=== PATIENT | female | born 1965 | race Caucasian/White ===

== ENCOUNTER 2019-12-22 10:28 | Outpatient (CLI) | payer OTHER, SELFPAY ==
--- NOTE | 2019-12-22 10:39 | XR_ITS ---
WS: [id number] FOOT LEFT TECHNIQUE: 3 views of the left foot CLINICAL INFORMATION: DIABETIC FOOT ULCER LEFT COMPARISON: None. FINDINGS: Osteopenia. No acute fractures. Plantar and Achilles calcaneal spurring. No evidence of osteomyelitis . Mild soft tissue edema first digit. XR/XR foot LT min 3V* [id number] IMPRESSION: Soft tissue edema first digit. No definite evidence of osteomyelitis.
--- NOTE | 2019-12-22 10:39 | XR_ITS ---
WS: [id number] HIP WITH PELVIS LEFT TECHNIQUE: 3 views of the left hip with pelvis CLINICAL INFORMATION: HIP PAIN LEFT COMPARISON: None. FINDINGS: Mild degenerative arthritis left hip. No acute fractures. Normal visualized pubic rami. XR/XR hip LT 2-3V wo/w pel* [id number] IMPRESSION: Mild degenerative arthritis left hip.
== END 2019-12-22 10:29 | disposition home or self-care (01) ==
LOC: RADWPI 10:34
PROVIDERS: PCP Nurse Practitioner Family; Visit Provider Nurse Practitioner Family
DX: E11.621 Type 2 diabetes mellitus with foot ulcer (principal); M16.12 Unilateral primary osteoarthritis, left hip; R60.0 Localized edema
CPT/HCPCS: 73502; 73630

== ENCOUNTER 2019-12-29 14:32 | Outpatient (CLI) | payer OTHER, SELFPAY ==
--- NOTE | 2019-12-29 15:10 | MM_ITS ---
WS: [id number] BILATERAL DIGITAL SCREENING MAMMOGRAPHY WITH CAD CLINICAL INFORMATION: SCREENING HISTORY: Screening mammogram. No current complaints. COMPARISON: None. TECHNIQUE: Bilateral CC and MLO views. FINDINGS: Scattered fibroglandular densities bilaterally. Punctate and lucent centered calcifications. Cluster of heterogeneous calcifications outer left breast posterior depth. Recommend spot magnification views for further evaluation Asymmetric density left axilla measuring 12 mm. Recommend further evaluation with ultrasound. Reporte d history of prior trauma in this area. This density is indeterminate. IMPRESSION: MM/[place] [id number] BI-RADS: 0-Incomplete: Need additional imaging evaluation FOLLOW UP: Need Additional Imaging RECOMMEND SPOT MAGNIFICATION VIEWS CLUSTERED CALCIFICATIONS LEFT BREAST. IN ADDITION, RECOMMEND ULTRASOUND EVALUATION OF THE ASYMMETRIC 12 MM OVOID DENS ITY LEFT AXILLA.
== END 2019-12-29 14:33 | disposition home or self-care (01) ==
LOC: RADSHAW 14:36
PROVIDERS: PCP Nurse Practitioner Family; Visit Provider Nurse Practitioner Family
DX: Z12.31 Encounter for screening mammogram for malignant neoplasm of breast (principal); R92.1 Mammographic calcification found on diagnostic imaging of breast; N64.89 Other specified disorders of breast
CPT/HCPCS: 77067

== ENCOUNTER 2020-01-16 08:31 | Outpatient (CLI) | payer OTHER, SELFPAY ==
--- NOTE | 2020-01-16 08:37 | US_ITS ---
WS: [id number] Left breast ultrasound, 01/16/2020 Clinical Data: ABNORMAL MAMMOGRAM Comparison: None. Findings: In the left axilla there are 2 lymph nodes. These measure 0.83 x 1.85 x 3.01 cm and another one is 1. 31 x 2 x 2 cm. US/US breast LT limited* [id number] Impression: 1. 2 lymph nodes in the left axilla. 2. Recommend repeat left breast mammogram in 6 months. BIRADS: 3-Probably Benign FOLLOW UP: See Report
--- NOTE | 2020-01-16 08:37 | MM_ITS ---
WS: [id number] Left breast diagnostic digital mammogram, 01/16/2020 Clinical Data: ABNORMAL MAMMOGRAM Comparison: None. Findings: There are several calcifications in the upper outer aspect the left breast without an associated mass . These calcifications have a benign appearance. There are other scattered calcifications in the late ral aspect of the left breast. MM/[place] [id number] Impression: 1. Calcifications in upper-outer quadrant of left breast without associated mas s. 2. Probably benign calcifications and recommend follow-up mammogram in 6 months . BIRADS: 3-Probably Benign FOLLOW UP: 6 Week Follow-up The CAD checker cashier was used.
== END 2020-01-16 08:32 | disposition home or self-care (01) ==
LOC: RADSHAW 08:35
PROVIDERS: PCP Nurse Practitioner Family; Visit Provider Nurse Practitioner Family
DX: R92.8 Other abnormal and inconclusive findings on diagnostic imaging of breast (principal); R92.1 Mammographic calcification found on diagnostic imaging of breast
CPT/HCPCS: 76642; 77065

== ENCOUNTER → 2020-01-21 14:10 | Outpatient (BNVA) | payer OTHER, SELFPAY | PROVIDERS: PCP Nurse Practitioner Family; Referring Provider Nurse Practitioner Family; Visit Provider Podiatrist Foot & Ankle Surgery | DX: L97.522 Non-pressure chronic ulcer of other part of left foot with fat layer exposed (principal) | CPT/HCPCS: 73630 ==

== ENCOUNTER 2020-01-21 15:56 | Outpatient (CLI) | payer OTHER, SELFPAY | END 2020-01-21 15:57 | disposition home or self-care (01) | LOC: SPT 15:56 | PROVIDERS: PCP Nurse Practitioner Family; Visit Provider Podiatrist Foot & Ankle Surgery | DX: Z46.89 Encounter for fitting and adjustment of other specified devices (principal); L97.522 Non-pressure chronic ulcer of other part of left foot with fat layer exposed | CPT/HCPCS: 87070; 87075; 87077; 87186; 87205; 97760; L4361 ==

== ENCOUNTER 2020-01-28 14:48 | Outpatient (CLI) | payer OTHER, SELFPAY | END 2020-01-28 14:49 | disposition home or self-care (01) | LOC: WOUND 14:49 | PROVIDERS: PCP Nurse Practitioner Family; Visit Provider Thoracic Surgery (Cardiothoracic Vascular Surgery) | DX: E11.621 Type 2 diabetes mellitus with foot ulcer (principal); L97.522 Non-pressure chronic ulcer of other part of left foot with fat layer exposed | CPT/HCPCS: 11042; G0463; L4387 ==

== ENCOUNTER 2020-02-04 15:02 | Outpatient (CLI) | payer OTHER, SELFPAY | END 2020-02-04 15:03 | disposition home or self-care (01) | LOC: WOUND 15:02 | PROVIDERS: PCP Nurse Practitioner Family; Visit Provider Thoracic Surgery (Cardiothoracic Vascular Surgery) | DX: E11.621 Type 2 diabetes mellitus with foot ulcer (principal); L97.522 Non-pressure chronic ulcer of other part of left foot with fat layer exposed | CPT/HCPCS: 11042 ==

== ENCOUNTER 2020-02-11 15:06 | Outpatient (CLI) | payer OTHER, SELFPAY | END 2020-02-11 15:07 | disposition home or self-care (01) | LOC: WOUND 15:07 | PROVIDERS: PCP Nurse Practitioner Family; Visit Provider Thoracic Surgery (Cardiothoracic Vascular Surgery) | DX: E11.621 Type 2 diabetes mellitus with foot ulcer (principal); L97.522 Non-pressure chronic ulcer of other part of left foot with fat layer exposed | CPT/HCPCS: 11042 ==

== ENCOUNTER 2020-02-18 14:34 | Outpatient (CLI) | payer OTHER, SELFPAY | END 2020-02-18 14:35 | disposition home or self-care (01) | LOC: WOUND 14:35 | PROVIDERS: PCP Nurse Practitioner Family; Visit Provider Thoracic Surgery (Cardiothoracic Vascular Surgery) | DX: E11.621 Type 2 diabetes mellitus with foot ulcer (principal); L97.522 Non-pressure chronic ulcer of other part of left foot with fat layer exposed | CPT/HCPCS: 11042 ==

== ENCOUNTER 2020-02-25 13:40 | Outpatient (CLI) | payer OTHER, SELFPAY | END 2020-02-25 13:41 | disposition home or self-care (01) | LOC: WOUND 13:40 | PROVIDERS: PCP Nurse Practitioner Family; Visit Provider Nurse Practitioner Family | DX: E11.621 Type 2 diabetes mellitus with foot ulcer (principal); L97.522 Non-pressure chronic ulcer of other part of left foot with fat layer exposed | CPT/HCPCS: 11042 ==

== ENCOUNTER 2020-03-03 13:41 | Outpatient (CLI) | payer OTHER, SELFPAY | END 2020-03-03 13:42 | disposition home or self-care (01) | LOC: WOUND 13:42 | PROVIDERS: PCP Nurse Practitioner Family; Visit Provider Nurse Practitioner Family | DX: E11.621 Type 2 diabetes mellitus with foot ulcer (principal); L97.522 Non-pressure chronic ulcer of other part of left foot with fat layer exposed | CPT/HCPCS: 11042 ==

== ENCOUNTER 2020-03-08 05:16 | Emergency (ER) | payer OTHER, SELFPAY ==
[2020-03-08 05:22] VITALS: BP 174/99; PULSE 91; RESP 16; TEMP 36.7; O2SAT 98; BMI 31.8
--- NOTE | 2020-03-08 05:22 | XRR_ITS ---
PROCEDURE INFORMATION: Exam: XR Right Shoulder Exam date and time: 03/08/2020 6:47 AM Age: 54 years old Clinical indication: Pain; Shoulder; Left; Patient HX: PT denies any injury TECHNIQUE: Imaging protocol: XR Right shoulder. Views: 2 or more views. COMPARISON: No relevant prior studies available. FINDINGS: Bones/joints: No fracture. No dislocation. The acromioclavicular and glenohumeral joints are within normal limits. There is calcific tendinitis affecting the rotator cuff. Soft tissues: No acute soft tissue abnormality. XR/XR shoulder RT min 2V* [id number] IMPRESSION: Calcific tendinitis.
--- NOTE | 2020-03-08 05:30 | ED_ITS ---
HPI - Extremity Problem General: Chief complaint: Extremity Injury, Upper Stated complaint: Right arm/shoulder/neck pain. Began 03/07 Time Seen by Provider: 03/08/20 05:22 Source: patient Mode of arrival: ambulatory Limitations: no limitations History of Present Illness: HPI Narrative: Micaela is a 54-year-old female who states she has had right shoulder pain and neck pain over the last day. States that sharp pain and feels like it spasming. She states anytime she tries to remove her arm she has a sharp pain as well. Denies any radiation of the pain. Denies any weakness in her care process manager. She denies any injury. Associated symptoms: Deny chest pain, fever(s) or rash Review of Systems Const: Denies: fever(s), chills, body aches or change in appetite Eyes: Denies: blurry vision or eye discomfort ENMT: Denies: throat pain or dental pain Card: Denies: chest pain Resp: Denies: dyspnea GI: Denies: abdominal pain, nausea, vomiting or diarrhea : Denies: dysuria Musc: Reports: neck pain and joint pain; Denies: back pain Skin/Breast: Denies: rash Neuro: Denies: headache(s) Psych: Denies: depression Aden/Lymph: Denies: easy bruising All/Imm: Denies: urticaria PFSH ED PFSH: Medical History (Updated 03/08/20 @ 05:46 by German Carr MD) Diabetes mellitus High cholesterol Hypertension Surgical History (Updated 01/21/20 @ 14:54 by Art Cordon DPM) History of delivery Social History (Updated 01/21/20 @ 14:02 by Lainey Macias LPN) Smoking and tobacco status: never smoked Household members: none Current occupational status: employed Current occupation: [employer] Physical Exam Const: COMMON NORMALS: no acute distress, patient oriented x3 and healthy appearing HENMT: COMMON NORMALS: normocephalic and atraumatic HEAD & SCALP: normocephalic and atraumatic Eye: COMMON NORMALS: Equal, round and reactive pupils present and EOMs intact bilaterally PUPIL: Yes Equal, round and reactive pupils present Neck/C-Spine: COMMON NORMALS: full ROM and supple OTHER: Point tender over right neck and shoulder. Patient has pain with movement as well. Patient appears to have muscle spasms. Chest: COMMONS NORMALS: normal inspection of the chest and normal palpation of entire chest wall Resp: COMMON NORMALS: normal respiratory effort, No retractions, No use of accessory muscles and clear to auscultation bilaterally AUSCULTATION: clear to auscultation bilaterally Cardio: COMMON NORMALS: regular rate, regular rhythm and No murmurs present (Cardio) RATE: regular rate RHYTHM: regular rhythm GI: COMMON NORMALS: Normal to inspection, nondistended, normoactive bowel sounds present, Soft to palpation, non-tender and no masses PALPATION: Yes Soft to palpation Extremity: COMMON NORMALS: normal to inspection and full ROM Neuro: COMMON NORMALS: patient oriented x3, moves all extremities and no focal motor deficits Psych: COMMON NORMALS: mental status grossly normal, Normal thought process present and cooperative THOUGHT PROCESS: Normal thought process present Skin: COMMON NORMALS: no rashes or lesions noted and no wounds GENERAL SKIN EXAM: no rashes or lesions noted Course Vital Signs: Vital signs: Vital Signs Temperature 98.1 F 03/08/20 05:22 Pulse Rate 91 03/08/20 05:22 Respiratory Rate 16 03/08/20 05:22 Blood Pressure 174/99 03/08/20 05:22 Pulse Oximetry 98 03/08/20 05:22 MDM - Extremity (Nontraumatic) MDM Narrative: Medical decision making narrative: Patient presents with a shoulder sprain with likely muscle spasm. She is well-appearing here and x-ray shows no acute abnormality. Informed her to try small movements we will place her on Naprosyn and Robaxin and she is to ice 10 minutes every hour. She is to follow-up with PCP and return if worsening. Imaging Data^: xr r shoulder: Attestation: I personally reviewed and interpreted this imaging study as follows: My impression: no acute abnormality Discharge Plan Discharge Patient Disposition: Home Clinical Impression: Acute pain of right shoulder, Muscle spasm Condition: Stable Prescriptions: New Robaxin-750 750 mg tablet 750 mg PO Q6H Qty: 30 RF: 0 Naprosyn 500 mg tablet 500 mg PO BID PRN (Reason: pain) Qty: 20 RF: 0 No Action (DME) cam boot See Rx Instructions .Route .MEDSUPPLY Qty: 1 RF: 0 mupirocin 2 % ointment 1 applic TOPICAL BID 30 Days Qty: 15 RF: 0 sulfamethoxazole-trimethoprim [Bactrim DS] 800-160 mg tablet 1 tab PO BID 10 Days Qty: 20 RF: 0 Discharge Orders: Discharge Order (Routine); Ordered 03/08/20 Ordered By: German Carr Referrals: ROBERTO CARLOS RICHARDSON FNP [Primary Care Provider] - Discharge Diet: Advance as tolerated Discharge Activity: Resume usual activity Patient Instructions: Muscle Spasm (ED) Coding Level of Care Code ED Contract Sheltered Workshop Supervisor for Concepcióng Fwd Exam Comprehensive
--- NOTE | 2020-03-08 05:38 | PC.NURSE ---
pt placed in a sling at this point all SMCs intact prior and post procedure.
[2020-03-08] MEDS: naproxen 500 mg Tablet PO (06:25)
[2020-03-08] MEDS: diazePAM 2 mg Tablet PO (06:25)
[2020-03-08 06:32] VITALS: BP 150/96; PULSE 89; RESP 18; O2SAT 98
== END 2020-03-08 06:34 | disposition home or self-care (01) ==
PROVIDERS: Emergency Provider Emergency Medicine; PCP Nurse Practitioner Family
DX: M25.511 Pain in right shoulder (principal); M62.838 Other muscle spasm; E11.9 Type 2 diabetes mellitus without complications; I10 Essential (primary) hypertension
CPT/HCPCS: 12345; 73030; 99282; 99283

== ENCOUNTER 2020-03-13 06:03 | Emergency (ER) | payer OTHER, SELFPAY ==
[2020-03-13 06:14] VITALS: BP 112/67; PULSE 104; RESP 22; TEMP 36.4; O2SAT 98; BMI 31.8
[2020-03-13 06:21] VITALS: BP 122/73; PULSE 90
--- NOTE | 2020-03-13 06:46 | XRR_ITS ---
PROCEDURE INFORMATION: Exam: XR Chest, 1 View Exam date and time: 03/13/2020 7:56 AM Age: 54 years old Clinical indication: Other: Neck pain; Additional info: Dyspnea TECHNIQUE: Imaging protocol: XR of the chest Views: 1 view. COMPARISON: CR Chest 1 [place] [id number] 04/06/2013 3:17 AM FINDINGS: Lungs: Hypoinflation, interstitial prominence, and mild basilar airspace disease. Pleural space: No significant pleural effusion. Heart/Mediastinum: Cardiomegaly, which is accentuated by portable positioning. Bones/joints: Degenerative change. Other findings: Brassiere artifact. XR/XR chest 1V portable [id number] IMPRESSION: Hypoinflation, interstitial prominence, and mild basilar airspace disease.
--- NOTE | 2020-03-13 06:48 | ED_ITS ---
HPI - Extremity Problem General: Chief complaint: Extremity Problem,Nontraumatic Stated complaint: rt shoulder and neck pain Time Seen by Provider: 03/13/20 06:46 History of Present Illness: HPI Narrative: 54-year-old female presents emergency room with complaint of right shoulder pain. She states that Sunday at work her shoulder started hurting she was seen that night x-rays were unremarkable nausea states she has worsening pain pain radiating down the right arm and also has worsening pain when she takes a deep breath. No specific trauma or injury that she can relate. No previous surgeries to the neck. MD Complaint: extremity pain and joint pain Onset (ago): day(s) Pain Consistency: constant Location: right, upper extremity and other (Shoulder right shoulder right arm) Quality: aching and sharp Radiation: distal Relieving factors: nothing Exacerbating factors: nothing Associated symptoms: Reports short of breath; Deny chest pain, fever(s), myalgias or rash Review of Systems Const: Denies: fever(s) ENMT: Denies: throat pain, ear or mastoid pain, nasal discharge or nasal congestion Card: Denies: chest pain Resp: Denies: dyspnea, productive cough or non-productive cough GI: Denies: abdominal pain, nausea, vomiting, hematemesis, coffee ground emesis, diarrhea, constipation, bloating, hematochezia or melena : Denies: flank pain, difficulty voiding, dysuria, urinary frequency or urinary urgency Skin/Breast: Denies: rash PFSH ED PFSH: Medical History Diabetes mellitus High cholesterol Hypertension Surgical History History of delivery Social History Smoking and tobacco status: never smoked Household members: none Current occupational status: employed Current occupation: [employer] Physical Exam HENMT: COMMON NORMALS: normocephalic, atraumatic and hearing grossly normal bilaterally HEAD & SCALP: normocephalic and atraumatic Eye: COMMON NORMALS: Equal, round and reactive pupils present, EOMs intact bilaterally, conjunctivae normal and no scleral icterus CONJUNCTIVA: Yes conjunctivae normal PUPIL: Yes Equal, round and reactive pupils present Neck/C-Spine: COMMON NORMALS: no lymphadenopathy GENERAL: Yes tender CERVICAL SPINE: Yes pain with cervical ROM, Yes loss of normal cervical lordosis and Yes Paracervical muscle tenderness Resp: COMMON NORMALS: normal respiratory effort, No retractions, No use of accessory muscles and clear to auscultation bilaterally AUSCULTATION: clear to auscultation bilaterally Cardio: COMMON NORMALS: regular rate, regular rhythm and No murmurs present (Cardio) RATE: regular rate RHYTHM: regular rhythm GI: COMMON NORMALS: Soft to palpation and No hepatosplenomegaly present AUSCULTATION: Yes normoactive bowel sounds PALPATION: Yes Soft to palpation, No Tenderness to palpation present (GI), No Guarding due to palpation present (GI) and Yes No hepatosplenomegaly present Extremity: COMMON NORMALS: normal to inspection, capillary refill normal, no clubbing, cyanosis or edema, no calf tenderness and no pedal edema Skin: COMMON NORMALS: no rashes or lesions noted GENERAL SKIN EXAM: no rashes or lesions noted Course Vital Signs: Vital signs: Vital Signs Temperature 97.6 F 03/13/20 06:14 Pulse Rate 88 03/13/20 11:34 Respiratory Rate 18 03/13/20 11:34 Blood Pressure 118/62 03/13/20 11:34 Pulse Oximetry 98 03/13/20 11:34 MDM - Extremity (Nontraumatic) MDM Narrative: Medical decision making narrative: Reviewed MRI findings with her. She does have a cervical spinal stenosis secondary to a disc at C6-7 we will discharge her home with pain medications muscle relaxers and steroids sitter at the scene orthopedic spine surgery next week for further evaluation. Lab Data: Labs: Lab Results 03/13/20 03/13/20 03/13/20 Range/Units 07:10 07:10 08:48 WBC 12.6 H (4.0-10.0) 10^3/ uL RBC 3.60 L (4.1-5.3) 10^6/u L Hgb 11.6 (11.5-15.3) g/dL Hct 34.3 L (37.0-47.0) % MCV 95.3 (81-99) fL MCH 32.2 (28.0-34.0) pg MCHC 33.8 (30.0-36.0) g/dL RDW 14.0 (12.1-15.1) % Plt Count 213 (130-400) 10^3/c mm MPV 10.0 (7.4-10.4) fL Neut % (Auto) 81.4 % Lymph % (Auto) 8.1 % [place] % (Auto) 8.1 % Eos % (Auto) 1.4 % Baso % (Auto) 0.6 % Neut # (Auto) 10.28 H (1.8-7.7) 10^3/u L Lymph # (Auto) 1.0 (0.8-4.8) 10^3/u L [place] # (Auto) 1.0 H (0.2-0.9) 10^3/u L Eos # (Auto) 0.2 (0.0-0.8) 10^3/u L Baso # (Auto) 0.1 (0.0-0.1) 10^3/u L Nucleated RBC % (a uto) 0 % Nucleated RBCs # 0.0 /100WBC Sodium 130 L (136-145) mmol/L Potassium 3.7 (3.5-5.1) mmol/L Chloride 92 L (98-107) mmol/L Carbon Dioxide 23 (22-29) mmol/L Anion Gap 18.7 (5-19) BUN 59 H (6-20) mg/dL Creatinine 1.3 H (0.5-0.9) mg/dL GFR Calculation 43.0 L (90-130) mL/min Glucose 433 H (65-115) mg/dL Calculated Osmolal ity 305 H (285-295) mOsm/k g Calcium 9.2 (8.5-10.5) mg/dL Total Bilirubin 0.3 (0.15-1.2) mg/dL AST 55 H (0-32) U/L ALT 57 H (0-33) U/L Alkaline Phosphata se 166 H (35-105) IU/L Total Protein 7.5 (6.6-8.7) g/dL Albumin 3.4 L (3.5-5.2) g/dL Globulin 4.1 (1.3-4.6) g/dL Urine Color (Yellow) Urine Appearance (CLEAR) Urine pH (5-7) Ur Specific Gravit y (1.005-1.030) Urine Protein (Negative) Urine Glucose (UA) (Normal) Urine Ketones (Negative) Urine Blood (Negative) Urine Nitrate (Negative) Urine Bilirubin (Negative) Urine Urobilinogen (Negative) mg/dL Ur Leukocyte Eugenia ase (Negative) Urine RBC (0-2) /hpf Urine WBC (0-5) /hpf Ur Squamous Epith Cells (0-5) /hpf Ur Transition Epit h Cell /hpf Amorphous Sediment /hpf Urine Bacteria (NONE) /hpf Coarse Granular Ca sts /lpf Urine Mucus /hpf Urine Opiates Scre en Positive H (Negative) ng/mL Ur Barbiturates Sc reen Negative (Negative) ng/mL Ur Phencyclidine S crn Negative (Negative) ng/mL Ur Amphetamines Sc reen Negative (Negative) ng/mL U Benzodiazepines Scrn Positive H (Negative) ng/mL Urine Cocaine Scre en Negative (Negative) ng/mL U Marijuana (THC) Screen Negative (Negative) ng/mL 03/13/20 Range/Units 08:48 WBC (4.0-10.0) 10^3/ uL RBC (4.1-5.3) 10^6/u L Hgb (11.5-15.3) g/dL Hct (37.0-47.0) % MCV (81-99) fL MCH (28.0-34.0) pg MCHC (30.0-36.0) g/dL RDW (12.1-15.1) % Plt Count (130-400) 10^3/c mm MPV (7.4-10.4) fL Neut % (Auto) % Lymph % (Auto) % [place] % (Auto) % Eos % (Auto) % Baso % (Auto) % Neut # (Auto) (1.8-7.7) 10^3/u L Lymph # (Auto) (0.8-4.8) 10^3/u L [place] # (Auto) (0.2-0.9) 10^3/u L Eos # (Auto) (0.0-0.8) 10^3/u L Baso # (Auto) (0.0-0.1) 10^3/u L Nucleated RBC % (a uto) % Nucleated RBCs # /100WBC Sodium (136-145) mmol/L Potassium (3.5-5.1) mmol/L Chloride (98-107) mmol/L Carbon Dioxide (22-29) mmol/L Anion Gap (5-19) BUN (6-20) mg/dL Creatinine (0.5-0.9) mg/dL GFR Calculation (90-130) mL/min Glucose (65-115) mg/dL Calculated Osmolal ity (285-295) mOsm/k g Calcium (8.5-10.5) mg/dL Total Bilirubin (0.15-1.2) mg/dL AST (0-32) U/L ALT (0-33) U/L Alkaline Phosphata se (35-105) IU/L Total Protein (6.6-8.7) g/dL Albumin (3.5-5.2) g/dL Globulin (1.3-4.6) g/dL Urine Color Allie (Yellow) Urine Appearance Hazy A (CLEAR) Urine pH 5 (5-7) Ur Specific Gravit y 1.015 (1.005-1.030) Urine Protein Trace (Negative) Urine Glucose (UA) 2+ (Normal) Urine Ketones 1+ H (Negative) Urine Blood Neg (Negative) Urine Nitrate Negative (Negative) Urine Bilirubin 1+ H (Negative) Urine Urobilinogen Norm (Negative) mg/dL Ur Leukocyte Eugenia ase Trace H (Negative) Urine RBC None (0-2) /hpf Urine WBC 5-10 H (0-5) /hpf Ur Squamous Epith Cells 25-40 H (0-5) /hpf Ur Transition Epit h Cell 5-10 /hpf Amorphous Sediment 1+ /hpf Urine Bacteria 2+ H (NONE) /hpf Coarse Granular Ca sts 0-4 H /lpf Urine Mucus 1+ /hpf Urine Opiates Scre en (Negative) ng/mL Ur Barbiturates Sc reen (Negative) ng/mL Ur Phencyclidine S crn (Negative) ng/mL Ur Amphetamines Sc reen (Negative) ng/mL U Benzodiazepines Scrn (Negative) ng/mL Urine Cocaine Scre en (Negative) ng/mL U Marijuana (THC) Screen (Negative) ng/mL Discharge Plan Discharge Patient Disposition: Home Clinical Impression: 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 Condition: Stable Prescriptions: New hydrocodone-acetaminophen 5-325 mg tablet 1 tab PO Q6H PRN (Reason: pain) Qty: 20 RF: 0 Medrol (Cristiano) 4 mg tablets,dose pack See Rx Instructions .ROUTE .COMPLEX Qty: 21 RF: 0 tizanidine 4 mg capsule 4 mg PO Q6H PRN (Reason: muscle spasticity) Qty: 20 RF: 0 Lyrica 75 mg capsule 75 mg PO BID Qty: 30 RF: 0 No Action (DME) cam boot See Rx Instructions .Route .MEDSUPPLY Qty: 1 RF: 0 mupirocin 2 % ointment 1 applic TOPICAL BID 30 Days Qty: 15 RF: 0 sulfamethoxazole-trimethoprim [Bactrim DS] 800-160 mg tablet 1 tab PO BID 10 Days Qty: 20 RF: 0 Robaxin-750 750 mg tablet 750 mg PO Q6H Qty: 30 RF: 0 Naprosyn 500 mg tablet 500 mg PO BID PRN (Reason: pain) Qty: 20 RF: 0 Discharge Orders: Discharge ED (Routine); Ordered 03/13/20 Ordered By: Petey Baldwin Referrals: ROBERTO CARLOS RICHARDSON, CORPORATE GENERAL MANAGER [Primary Care Provider] - Discharge Diet: Usual diet Discharge Activity: Limit activity as instructed Activity Restrictions/Additional Instructions: Case management will call to set you up to see the orthopedic spine surgeon. No lifting greater than 10 pounds (approximately the weight of a gallon of milk) no driving. Follow-up with your primary care doctor in the next 4 to 5 days. Coding Level of Care Code ED Concession Supervisor for Makayla Fwd Exam Comprehensive
--- NOTE | 2020-03-13 07:01 | CTR_ITS ---
PROCEDURE INFORMATION: Exam: CT Cervical Spine Without Contrast Exam date and time: 03/13/2020 7:56 AM Age: 54 years old Clinical indication: Radicular pain (radiculopathy); Cervical region; Additional info: Pain w R arm radiculopathy TECHNIQUE: Imaging protocol: Computed tomography images of the cervical spine without contrast. Radiation optimization: All CT scans at this facility use at least one of these dose optimization techniques: automated exposure control; mA and/or kV adjustment per patient size (includes targeted exams where dose is matched to clinical indication); or iterative reconstruction. COMPARISON: [place] [id number] 01/16/2020 8:51 AM RADIATION DOSE METRICS: Total DLP (mGy-cm): 661.7 FINDINGS: Bones/joints: No acute bony injury or malalignment in the cervical spine. Discs/Spinal canal/Neural foramina: Degenerative change, of greatest severity at the C6-C7 level, with superimposed disc bulging producing asymmetric left-sided impingement of the spinal cord. MRI can be performed for improved characterization, if clinically indicated. Soft tissues: Unremarkable. Submandibular/Parotid glands: Mild infiltration of subcutaneous fat about the right submandibular gland. Larynx: Asymmetric enlargement of the left epiglottis. CT/CT cervical spin wo con* [id number] IMPRESSION: Degenerative change, of greatest severity at the C6-C7 level, with superimposed disc bulging producing asymmetric left-sided impingement of the spinal cord. MRI can be performed for improved characterization, if clinically indicated. Radiation Dose CTDIVOL = (mGy): DLP = 661.7 (mGy-cm)
[2020-03-13 07:25] LABS: Basophils # 0.1 10^3/uL (0.0-0.1); Basophils % 0.6 %; Eosinophils # 0.2 10^3/uL (0.0-0.8); Eosinophils % 1.4 %; Hematocrit 34.3 % (37.0-47.0); Hemoglobin 11.6 g/dL (11.5-15.3); Lymphocytes % 8.1 %; Mean Corpuscular HGB Conc 33.8 g/dL (30.0-36.0); Mean Corpuscular Hemoglobin 32.2 pg (28.0-34.0); Mean Corpuscular Volume 95.3 fL (81-99); Monocytes % 8.1 %; Neutrophils # 10.28 10^3/uL (1.8-7.7); Neutrophils % 81.4 %; Nucleated Red Blood Cells % 0 %; Platelet Count 213 10^3/cmm (130-400); White Blood Count 12.6 10^3/uL (4.0-10.0)
[2020-03-13] MEDS: ketorolac 30 mg/mL INJ IVP (07:32)
[2020-03-13] MEDS: orphenadrine 30 mg/mL Inj 2 mL 60 MG IVP (07:32)
[2020-03-13 07:56] LABS: Alanine Aminotransferase 57 U/L (0-33); Albumin Level 3.4 g/dL (3.5-5.2); Alkaline Phosphatase 166 IU/L (35-105); Anion Gap 18.7 (5-19); Aspartate Amino Transferase 55 U/L (0-32); Blood Urea Nitrogen 59 mg/dL (6-20); Calcium 9.2 mg/dL (8.5-10.5); Carbon Dioxide 23 mmol/L (22-29); Chloride 92 mmol/L (98-107); Globulin 4.1 g/dL (1.3-4.6); Glucose 433 mg/dL (65-115); Osmolality Calculated 305 mOsm/kg (285-295); Potassium 3.7 mmol/L (3.5-5.1); Sodium 130 mmol/L (136-145); Total Bilirubin 0.3 mg/dL (0.15-1.2); Total Protein 7.5 g/dL (6.6-8.7)
[2020-03-13 09:13] LABS: Glucose Urine UA 2+ (Normal); Ketones Urine 1+ (Negative); Protein Urine Trace (Negative); Specific Gravity, Urine 1.015 (1.005-1.030); Urine Appearance Hazy (CLEAR); Urine Color Amber (Yellow); pH Urine 5 (5-7)
[2020-03-13 09:14] LABS: Add Urine Microscopic? YES; Bilirubin Urine 1+ (Negative); Blood Urine Neg (Negative); Leukocyte Esterase Urine Trace (Negative); Nitrate Urine Negative (Negative); Urobilinogen Urine Norm (Negative)
[2020-03-13 09:16] LABS: Bacteria Urine 2+ /hpf; Coarse Granular Casts Urine 0-4 /lpf; Mucus Urine 1+ /hpf; Squamous Epithelial Cell Urine 25-40 /hpf (0-5)
[2020-03-13 09:17] LABS: Add Urine Culture? No; Amorphous Sediment Urine 1+ /hpf
--- NOTE | 2020-03-13 09:20 | USR_ITS ---
PROCEDURE INFORMATION: Exam: US Abdomen, Limited; Right Upper Quadrant Exam date and time: 03/13/2020 9:25 AM Age: 54 years old Clinical indication: Abnormal findings; Abnormal lab test; Elevated liver enzymes; Additional info: Elevated lfts TECHNIQUE: Imaging protocol: US abdomen. Real time ultrasound with image documentation. Limited exam focused on the right upper quadrant. COMPARISON: No relevant prior studies available. FINDINGS: Liver: Diffuse fatty infiltration of the liver. Gallbladder: No cholelithiasis, gallbladder wall edema, or pericholecystic fluid. Common bile duct: Normal caliber of the incompletely visualized common bile duct measuring 4 mm in diameter. Pancreas: Partial obscuration of the pancreas by bowel gas. Right kidney: Normal morphology of the visualized right kidney. No hydronephrosis. Aorta: Normal caliber of the visualized proximal abdominal aorta with obscuration of the distal abdominal aorta by bowel gas. US/US gall bladder [id number] IMPRESSION: Diffuse fatty infiltration of the liver.
--- NOTE | 2020-03-13 09:20 | MRR_ITS ---
PROCEDURE INFORMATION: Exam: MR Cervical Spine Without Contrast Exam date and time: 03/13/2020 10:23 AM Age: 54 years old Clinical indication: Radicular pain (radiculopathy) and other: Right shoulder; Cervical region; Patient HX: Right shoulder pain for one week/no injury; Additional info: Spinal cord impingement TECHNIQUE: Imaging protocol: Multiplanar magnetic resonance images of the cervical spine without contrast. COMPARISON: CT cervical spin wo con* [id number] 03/13/2020 7:53 AM FINDINGS: Vertebrae: No abnormal bone marrow signal intensities are present. There is no malalignment. No acute bony abnormalities are present. Spinal cord: The cervical spinal cord is normal in size shape and signal intensity. C2-C3: No significant disc disease. No significant spinal stenosis. C3-C4: No significant disc disease. No significant spinal stenosis. C4-C5: No significant disc disease. No significant spinal stenosis. C5-C6: No significant disc disease. No significant spinal stenosis. C6-C7: There is disc protrusion/osteophyte complex at the C6-C7 level asymmetrically protruding into the left side of the canal and impinging the left anterior margin of the cervical cord. There is moderate left neural foraminal narrowing at this level. C7-T1: No significant disc disease. No significant spinal stenosis. Vertebral arteries: Expected flow voids in the vertebral arteries. Soft tissues: Unremarkable. MR/MR cervical spin wo con* [id number] IMPRESSION: Asymmetrical disc protrusion/osteophyte complex projecting into the left side of the canal at C6-C7 effacing the left anterior margin of the cervical cord and moderately narrowing the left neural foramen.
[2020-03-13 09:21] LABS: Amphetamines Screen Urine Negative (Negative); Barbiturates Screen Urine Negative (Negative); Benzodiazepines Screen Urine Positive (Negative); Cocaine Screen Urine Negative (Negative); Opiate Screen Urine Positive (Negative); PCP Screen Urine Negative (Negative); THC Screen Urine Negative (Negative)
[2020-03-13 09:32] VITALS: BP 101/63; PULSE 101; RESP 18; O2SAT 95
[2020-03-13] MEDS: morphine 4 mg/mL SDV 1 mL 2 MG IVP (10:22)
[2020-03-13 10:32] VITALS: BP 118/62; PULSE 88; RESP 18; O2SAT 98
[2020-03-13 11:34] VITALS: BP 118/62; PULSE 88; RESP 18; O2SAT 98
--- NOTE | 2020-03-16 10:18 | DCPLANNER ---
poker room manager had message to schedule a follow up appointment for patient with ortho. poker room manager called the ortho clinic, spoke with Nancy, gave clinic patients information. poker room manager was told that patients information would be printed and reviewed. Clinic will call patient with appointment information.
--- NOTE | 2020-03-17 13:34 | DCPLANNER ---
Patient had a follow up appointment scheduled for 03.16.20 with ortho - patient did attend appointment.
== END 2020-03-13 11:34 | disposition home or self-care (01) ==
PROVIDERS: Emergency Provider Family Medicine; PCP Nurse Practitioner Family
DX: M50.123 Cervical disc disorder at C6-C7 level with radiculopathy (principal); E11.9 Type 2 diabetes mellitus without complications; I10 Essential (primary) hypertension
CPT/HCPCS: 12345; 71045; 72125; 72141; 76705; 80053; 80306; 81001; 85025; 96374; 96375; 96376; 99283; J1885; J2270; J2360

== ENCOUNTER 2020-03-19 08:19 | Emergency (ER) | payer OTHER, SELFPAY ==
[2020-03-19] VITALS (7 sets, daily range): BP systolic 110–150; BP diastolic 69–82; PULSE 65–102; RESP 18–20; TEMP 36.7; O2SAT 93–97; BMI 31.8
--- NOTE | 2020-03-19 08:42 | PC.NURSE ---
No stomach pain, no able to eat, nauseated, states she cant a deep breath. Knot on neck is Hot and Tight. Seen previous for the same S/S
[2020-03-19] MEDS: ondansetron 2 mg/ML SDV 2 mL 4 MG IVP (09:12)
[2020-03-19] MEDS: sodium chloride 0.9% 1,000 ML 999 ML IV ×3 (09:12→16:55)
--- NOTE | 2020-03-19 09:13 | CT_ITS ---
WS: [id number] CT CHEST WITH INTRAVENOUS CONTRAST HISTORY: swelling at the R sterno-clavicular joint TECHNIQUE: Contiguous 5 mm axial imaging performed on the thorax. Coronal and sagittal reformats are submitted. All CT scans at [facility] use at least one of these dose optimization techniq ues: automated exposure control; mA and/or kV adjustment per patient size (includes targeted exams wh ere dose is matched to clinical indication); or iterative reconstruction. CONTRAST: Omnipaque 300; 95 mL IV. DLP: 873.16 mGy.cm COMPARISON: None available. Lungs and central airway: Bibasilar areas of atelectasis. There is some very mild thickening of the i nterstitium is likely related to edema and mild congestion. No pneumonia. Pleura: Normal. No pleural effusion. Heart and pericardium: Normal size heart with no pericardial effusion. Mediastinum and andrea: See chest wall and lower neck below. Vessels: Normal size aorta. Normal size pulmonary artery. Chest wall and lower neck: There is a large inflammatory soft tissue mass centered around the RIGHT s ternoclavicular joint. Soft tissue mass with foci of air extending above and below the joint. This so ft tissue inflammatory mass extends over a length of 6.7 cm and begins at the level of the thyroid an d extends inferiorly. Mass extends into the upper mediastinum posterior to the sternum. This inflamma tory mass obliterates the mediastinal fat and abuts the SVC and a small portion of the aortic arch. I nflammatory mass abuts the RIGHT common carotid artery. 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 Inflammation also extends over the anterior chest wall and involves th e RIGHT pectoralis muscle. Upper abdomen: Hepatic steatosis. Mildly hyperplastic LEFT adrenal gland but no nodule. Gallbladder i s slightly contracted as visualized. Osseous structures: No destructive process. CT/CT chest w con* [id number] IMPRESSION: 1. Large inflammatory mass with foci of air centered at the RIGHT sternoclavic ular joint. This inflammatory mass extends into the RIGHT neck, RIGHT pectorali s muscle and also into the mediastinum. There is involvement of the mediastinal fat. The entire mass extends over a length of 6.7 cm x 4.1 cm. Suspicious for septic RIGHT sternoclavicular joint. Development of mediastinitis is a possibil ity. 2. No definite destruction of the bony cortex identified or widening of the AC joint. Notified Petey Baldwin DO at 03/19/2020 10:03 AM.
[2020-03-19 09:17] LABS: Basophils # 0.1 10^3/uL (0.0-0.1); Basophils % 0.2 %; Hematocrit 36.7 % (37.0-47.0); Hemoglobin 12.3 g/dL (11.5-15.3); Lymphocytes # 1.3 10^3/uL (0.8-4.8); Lymphocytes % 6.3 %; Mean Corpuscular HGB Conc 33.5 g/dL (30.0-36.0); Mean Corpuscular Hemoglobin 31.6 pg (28.0-34.0); Mean Corpuscular Volume 94.3 fL (81-99); Mean Platelet Volume 9.9 fL (7.4-10.4); Monocytes # 0.8 10^3/uL (0.2-0.9); Monocytes % 3.8 %; Neutrophils # 18.12 10^3/uL (1.8-7.7); Neutrophils % 88.4 %; Nucleated Red Blood Cells % 0 %; Platelet Count 502 10^3/cmm (130-400); Red Blood Count 3.89 10^6/uL (4.1-5.3); Red Cell Distribution Width 13.3 % (12.1-15.1); White Blood Count 20.5 10^3/uL (4.0-10.0)
[2020-03-19 09:30] LABS: Alanine Aminotransferase 13 U/L (0-33); Albumin Level 3.5 g/dL (3.5-5.2); Alkaline Phosphatase 158 IU/L (35-105); Anion Gap 23.8 (5-19); Aspartate Amino Transferase 11 U/L (0-32); Blood Urea Nitrogen 52 mg/dL (6-20); Calcium 9.2 mg/dL (8.5-10.5); Carbon Dioxide 25 mmol/L (22-29); Chloride 81 mmol/L (98-107); Globulin 4.7 g/dL (1.3-4.6); Glomerular Filtration Rate 65.8 mL/min (90-130); Glucose 481 mg/dL (65-115); Osmolality Calculated 297 mOsm/kg (285-295); Potassium 3.8 mmol/L (3.5-5.1); Sodium 126 mmol/L (136-145); Total Bilirubin 0.5 mg/dL (0.15-1.2); Total Protein 8.2 g/dL (6.6-8.7)
[2020-03-19] MEDS: iohexol 300 mg/mL 100 mL Btl IV (09:43)
[2020-03-19 09:59] LABS: Bilirubin Urine Neg (Negative); Blood Urine 2+ (Negative); Glucose Urine UA 4+ (Normal); Ketones Urine 1+ (Negative); Nitrate Urine Negative (Negative); Protein Urine Neg (Negative); Specific Gravity, Urine 1.015 (1.005-1.030); Urine Appearance SL Hazy (CLEAR); Urine Color Yellow (Yellow)
[2020-03-19 10:00] LABS: Add Urine Culture? Yes; Add Urine Microscopic? YES; Bacteria Urine 2+ /hpf; Leukocyte Esterase Urine 1+ (Negative); RBC Urine 0-4 /hpf (0-2); Squamous Epithelial Cell Urine 0-4 /hpf (0-5); Urobilinogen Urine Norm (Negative); WBC Urine 25-40 /hpf (0-5)
[2020-03-19] MEDS: vancomycin 1,000 MG in sodium chloride 0.9% 250 ML 250 MG IV (10:27)
[2020-03-19] MEDS: piperacillin-tazobactam 3.375 GM in sodium chloride 0.9% (plus) 50 ML IV (10:27)
--- NOTE | 2020-03-19 11:13 | W.ED.NAVMDI ---
HPI - Nausea/Vomiting/Diarrhea General: Chief complaint: Nausea/Vomiting/Diarrhea Stated complaint: KNOT ON R SIDE CHEST Time Seen by Provider: 03/19/20 08:43 History of Present Illness: HPI Narrative: 54-year-old female who was seen 11 days ago for right shoulder pain and then 6 days ago for neck pain with pain into the arm. Her last visit we had an MRI which showed some cervical nerve impingement her main complaint at that time was pain radiating down into her arm she had also mentioned she had painful swallowing. There was no significant finding on exam patient was treated for the cervical radiculopathy. She had a follow-up appointment with Dr. Dodd in the office on 03 16 his note was reviewed. At that time she was complaining of pain at the medial aspect of the right clavicle but there was no swelling it was tender with palpation. She was started on oral steroids by Dr. Dodd. Today she returns with a complaint of swelling and what she calls a knot on her chest. She has swelling and inflammation with prominence of the right AC joint. She no longer has the arm pain. She cannot recall any injury to this area. She had no falls. She denies use of IV drugs. She has no scrapes injections or stab olson in the chest wall area. She has subjective report of fever along with nausea and vomiting. Patient is diabetic.. MD elicited complaint: nausea and vomiting Onset (ago): day(s) Description of vomiting: watery Associated nausea: Yes Associated abdominal pain: No Location of pain: Other (Right sternoclavicular joint) Radiation: other (Right chest wall) Pain consistency: constant Severity: severe Exacerbating factors: movement Relieving factors: rest Associated symtoms: Reports chest pain, fatigue, fevers/chills, anorexia, malaise, myalgias and nausea; Denies altered mental status, anxiety, bloating, change in vision, cough, diaphoresis, decreased urine output, dizziness, dysuria, epistaxis, fecal incontinence, headache(s), numbness, palpitations, rash, short of breath, syncope, tenesmus, tinnitus or weakness Review of Systems Const: Reports: fatigue and malaise; Denies: diaphoresis Eyes: Denies: change in vision ENMT: Denies: tinnitus or epistaxis Card: Reports: chest pain; Denies: palpitations or syncope GI: Reports: nausea; Denies: bloating or fecal incontinence : Denies: dysuria Neuro: Denies: headache(s) or dizziness Psych: Denies: anxiety PFSH ED PFSH: Medical History Diabetes mellitus High cholesterol Hypertension Surgical History History of delivery Social History Smoking and tobacco status: never smoked Household members: none Current occupational status: employed Current occupation: [employer] Physical Exam Const: COMMON NORMALS: no acute distress EXAM LIMITATIONS: no altered mental status GENERAL APPEARANCE: cooperative and comfortable ORIENTATION/CONSCIOUSNESS: Yes awake, Yes oriented to person, Yes oriented to place and Yes oriented to time HENMT: COMMON NORMALS: normocephalic, atraumatic and hearing grossly normal bilaterally HEAD & SCALP: normocephalic and atraumatic Eye: COMMON NORMALS: Equal, round and reactive pupils present, EOMs intact bilaterally, conjunctivae normal and no scleral icterus CONJUNCTIVA: Yes conjunctivae normal PUPIL: Yes Equal, round and reactive pupils present Neck/C-Spine: COMMON NORMALS: full ROM, no lymphadenopathy, supple and no JVD Lymph: LYMPHATIC: no lymphadenopathy noted and no lymphedema noted Resp: COMMON NORMALS: normal respiratory effort, No retractions, No use of accessory muscles and clear to auscultation bilaterally AUSCULTATION: clear to auscultation bilaterally Cardio: COMMON NORMALS: no JVD, regular rate, regular rhythm and No murmurs present (Cardio) RATE: regular rate RHYTHM: regular rhythm GI: COMMON NORMALS: Soft to palpation and No hepatosplenomegaly present AUSCULTATION: Yes normoactive bowel sounds PALPATION: Yes Soft to palpation, No Tenderness to palpation present (GI), No Guarding due to palpation present (GI) and Yes No hepatosplenomegaly present Extremity: COMMON NORMALS: normal to inspection, capillary refill normal, no clubbing, cyanosis or edema, no calf tenderness and no pedal edema Neuro: SENSORIUM/ORIENTATION: Yes oriented to person, Yes oriented to place and Yes oriented to time Skin: COMMON NORMALS: no rashes or lesions noted GENERAL SKIN EXAM: no rashes or lesions noted Course Vital Signs: Vital signs: Vital Signs Temperature 98.1 F 03/19/20 08:43 Pulse Rate 65 03/19/20 14:44 Respiratory Rate 18 03/19/20 16:00 Blood Pressure 146/82 03/19/20 14:44 Pulse Oximetry 95 03/19/20 14:44 MDM - Nausea/Vomiting/Diarrhea MDM Narrative: Medical decision making narrative: CT shows what looks like a infectious mediastinitis likely emanating from the septic sternoclavicular joint extends up into the neck and across the chest wall and a little bit into the mediastinum. Cardiothoracic surgery is not available at our institution over the weekend we will make arrangements to transfer her to appropriate level of care on specialty service availability. [facility] is accepted ER to ER. Patient was started on antibiotics here transfer to [facility] by ambulance. Images and labs sent with the patient. Lab Data: Labs: Lab Results 03/19/20 03/19/20 03/19/20 Range/Units 09:05 09:05 09:21 WBC 20.5 H (4.0-10.0) 10^3/ uL RBC 3.89 L (4.1-5.3) 10^6/u L Hgb 12.3 (11.5-15.3) g/dL Hct 36.7 L (37.0-47.0) % MCV 94.3 (81-99) fL MCH 31.6 (28.0-34.0) pg MCHC 33.5 (30.0-36.0) g/dL RDW 13.3 (12.1-15.1) % Plt Count 502 H (130-400) 10^3/c mm MPV 9.9 (7.4-10.4) fL Neut % (Auto) 88.4 % Lymph % (Auto) 6.3 % [place] % (Auto) 3.8 % Eos % (Auto) 0.0 % Baso % (Auto) 0.2 % Neut # (Auto) 18.12 H (1.8-7.7) 10^3/u L Lymph # (Auto) 1.3 (0.8-4.8) 10^3/u L [place] # (Auto) 0.8 (0.2-0.9) 10^3/u L Eos # (Auto) 0.0 (0.0-0.8) 10^3/u L Baso # (Auto) 0.1 (0.0-0.1) 10^3/u L Nucleated RBC % (a uto) 0 % Nucleated RBCs # 0.0 /100WBC Sodium 126 L (136-145) mmol/L Potassium 3.8 (3.5-5.1) mmol/L Chloride 81 L (98-107) mmol/L Carbon Dioxide 25 (22-29) mmol/L Anion Gap 23.8 H (5-19) BUN 52 H (6-20) mg/dL Creatinine 0.9 (0.5-0.9) mg/dL GFR Calculation 65.8 L (90-130) mL/min Glucose 481 H (65-115) mg/dL Calculated Osmolal ity 297 H (285-295) mOsm/k g Lactic Acid (0.5-2.2) mmol/L Calcium 9.2 (8.5-10.5) mg/dL Total Bilirubin 0.5 (0.15-1.2) mg/dL AST 11 (0-32) U/L ALT 13 (0-33) U/L Alkaline Phosphata se 158 H (35-105) IU/L Total Protein 8.2 (6.6-8.7) g/dL Albumin 3.5 (3.5-5.2) g/dL Globulin 4.7 H (1.3-4.6) g/dL Urine Color Yellow (Yellow) Urine Appearance Sl hazy (CLEAR) Urine pH 5.0 (5-7) Ur Specific Gravit y 1.015 (1.005-1.030) Urine Protein Neg (Negative) Urine Glucose (UA) 4+ H (Normal) Urine Ketones 1+ H (Negative) Urine Blood 2+ H (Negative) Urine Nitrate Negative (Negative) Urine Bilirubin Neg (Negative) Urine Urobilinogen Norm (Negative) mg/dL Ur Leukocyte Eugenia ase 1+ H (Negative) Urine RBC 0-4 H (0-2) /hpf Urine WBC 25-40 H (0-5) /hpf Ur Squamous Epith Cells 0-4 H (0-5) /hpf Amorphous Sediment Not Reportable Urine Bacteria 2+ H (NONE) /hpf 03/19/20 Range/Units 10:21 WBC (4.0-10.0) 10^3/ uL RBC (4.1-5.3) 10^6/u L Hgb (11.5-15.3) g/dL Hct (37.0-47.0) % MCV (81-99) fL MCH (28.0-34.0) pg MCHC (30.0-36.0) g/dL RDW (12.1-15.1) % Plt Count (130-400) 10^3/c mm MPV (7.4-10.4) fL Neut % (Auto) % Lymph % (Auto) % [place] % (Auto) % Eos % (Auto) % Baso % (Auto) % Neut # (Auto) (1.8-7.7) 10^3/u L Lymph # (Auto) (0.8-4.8) 10^3/u L [place] # (Auto) (0.2-0.9) 10^3/u L Eos # (Auto) (0.0-0.8) 10^3/u L Baso # (Auto) (0.0-0.1) 10^3/u L Nucleated RBC % (a uto) % Nucleated RBCs # /100WBC Sodium (136-145) mmol/L Potassium (3.5-5.1) mmol/L Chloride (98-107) mmol/L Carbon Dioxide (22-29) mmol/L Anion Gap (5-19) BUN (6-20) mg/dL Creatinine (0.5-0.9) mg/dL GFR Calculation (90-130) mL/min Glucose (65-115) mg/dL Calculated Osmolal ity (285-295) mOsm/k g Lactic Acid 1.8 (0.5-2.2) mmol/L Calcium (8.5-10.5) mg/dL Total Bilirubin (0.15-1.2) mg/dL AST (0-32) U/L ALT (0-33) U/L Alkaline Phosphata se (35-105) IU/L Total Protein (6.6-8.7) g/dL Albumin (3.5-5.2) g/dL Globulin (1.3-4.6) g/dL Urine Color (Yellow) Urine Appearance (CLEAR) Urine pH (5-7) Ur Specific Gravit y (1.005-1.030) Urine Protein (Negative) Urine Glucose (UA) (Normal) Urine Ketones (Negative) Urine Blood (Negative) Urine Nitrate (Negative) Urine Bilirubin (Negative) Urine Urobilinogen (Negative) mg/dL Ur Leukocyte Eugenia ase (Negative) Urine RBC (0-2) /hpf Urine WBC (0-5) /hpf Ur Squamous Epith Cells (0-5) /hpf Amorphous Sediment Urine Bacteria (NONE) /hpf Discharge Plan Discharge Patient Disposition: Xfer Other Referrals: ROBERTO CARLOS RICHARDSON FNP [Primary Care Provider] - Coding Level of Care Code ED [place] for Chg Fwd Exam Comprehensive
[2020-03-19 11:30] LABS: Lactic Sepsis W/Reflex 1.8 mmol/L (0.5-2.2)
--- NOTE | 2020-03-19 14:07 | PC.NURSE ---
Pt has eyes closed, appears comfortable and in no distress. Pain medication held. To administer on request.
--- NOTE | 2020-03-19 14:41 | PC.NURSE ---
Report called to Doyle CADE at [facility]
[2020-03-19] MEDS: morphine 4 mg/mL SDV 1 mL IVP (16:00)
--- NOTE | 2020-03-20 03:45 | PC.NURSE ---
CAlled Carlo Corado and gave them report at this time on positive blood culture
== END 2020-03-19 17:04 | disposition other institution (70) ==
PROVIDERS: Emergency Provider Family Medicine; PCP Nurse Practitioner Family
DX: E11.9 Type 2 diabetes mellitus without complications (principal); I10 Essential (primary) hypertension
CPT/HCPCS: 12345; 71260; 80053; 81001; 83605; 85025; 87040; 87077; 87086; 87186; 87205; 96365; 96367; 96375; 99283; 99285; J2270; J2405; J2543; J3370; J7030; J7050; Q9967

== ENCOUNTER 2020-04-22 10:05 | Outpatient (CLI) | payer SELFPAY | END 2020-04-22 10:06 | disposition home or self-care (01) | LOC: WOUND 10:06 | PROVIDERS: PCP Nurse Practitioner Family; Visit Provider Nurse Practitioner Family | DX: E11.621 Type 2 diabetes mellitus with foot ulcer (principal); L97.522 Non-pressure chronic ulcer of other part of left foot with fat layer exposed; J86.9 Pyothorax without fistula | CPT/HCPCS: 11042 ==

== ENCOUNTER 2020-04-29 09:48 | Outpatient (CLI) | payer SELFPAY | END 2020-04-29 09:49 | disposition home or self-care (01) | LOC: WOUND 09:49 | PROVIDERS: PCP Nurse Practitioner Family; Visit Provider Nurse Practitioner Family | DX: E11.622 Type 2 diabetes mellitus with other skin ulcer (principal); L98.492 Non-pressure chronic ulcer of skin of other sites with fat layer exposed; E11.621 Type 2 diabetes mellitus with foot ulcer; L97.522 Non-pressure chronic ulcer of other part of left foot with fat layer exposed | CPT/HCPCS: 11042; L3260 ==

== ENCOUNTER 2020-04-29 16:35 | Emergency (ER) | payer SELFPAY ==
[2020-04-29] VITALS (7 sets, daily range): BP systolic 129–173; BP diastolic 76–90; PULSE 100–112; RESP 18–20; TEMP 36.8; O2SAT 96–100; BMI 31.1
--- NOTE | 2020-04-29 18:03 | XR_ITS ---
WS: [id number] Portable AP upright chest, 04/29/2020 Clinical Data: syncope Comparison: Portable chest, 03/13/2020. Findings: No nodules, masses or effusions are seen. The heart is normal. The pulmonary vascularity is not increased. No pneumonia or pneumothorax is seen. The aortic arch and descending aorta are tortuo us. 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 XR/XR chest 1V portable [id number] Impression: Atherosclerosis.
--- NOTE | 2020-04-29 18:15 | ED_ITS ---
HPI - Abdominal Pain General: Chief Complaint: Abdominal Pain Stated Complaint: Throwing up all day Time Seen by Provider: 04/29/20 18:15 History of Present Illness: HPI narrative: 54-year-old female comes in with abdominal pain, nausea, vomiting. She points to her mid epigastric region as the location of the pain. She states the nausea and vomiting came on about 8 AM. She was able to get a medicine for nausea and vomiting but states it was not any help. She states around noon H she started having abdominal pain. She subsequently went to urgent care at about 4 PM. She states they subsequently sent her here. Patient denies any fever or chills. No pain or burning with urination. No diarrhea or constipation. She has not had pains like this. She states it is a sharp pain, rates it 10/10. She denies any chest pain. She denies any flank pain. Patient had been discharged from [facility] on the 12th of this month. She had been there secondary to surgery for what sounds like abscess/cellulitis of her chest. MD elicited complaint: abdominal pain Onset (ago): hour(s) (nausea/vomiting started at 8 AM, abdominal pain around noon) Pain Consistency: constant Location: Epigastric Severity: severe Pain scale (0-10): 10 Quality: sharp Radiation: none Migration to: no migration Relieving factors: nothing Associated Symptoms: Reports nausea (Current chief complaint) and vomiting (Current chief complaint) Treatments prior to arrival: other (Patient took prescription antiemetic which is not helped.) Review of Systems General: Reports: 10 or more systems reviewed and unremarkable except in HPI and below Resp: Reports: other (Patient states she feels short of breath with the pain) GI: Reports: abdominal pain (Current chief complaint), nausea (Current chief complaint) and vomiting (Current chief complaint) Skin/Breast: Reports: other (Status post upper chest surgery for abscess/cellulitis) [facility] ED PFSH: Medical History Diabetes mellitus High cholesterol Hypertension Surgical History History of delivery Social History Smoking and tobacco status: never smoked Household members: none Current occupational status: employed Current occupation: [employer] Physical Exam Const: COMMON NORMALS: no acute distress, patient oriented x3, no limitations, healthy appearing, alert and well nourished GENERAL APPEARANCE: cooperative and in distress (Patient appears to be in pain) NUTRITIONAL APPEARANCE: obese ORIENTATION/CONSCIOUSNESS: Yes oriented to person, Yes oriented to place and Yes oriented to time HENMT: COMMON NORMALS: normocephalic, atraumatic and hearing grossly normal bilaterally; oral mucous membranes not moist (Oral mucosa mildly dry) HEAD & SCALP: normal to inspection, normocephalic and atraumatic Eye: COMMON NORMALS: Equal, round and reactive pupils present, EOMs intact bilaterally, conjunctivae normal and no scleral icterus GENERAL EYE: appearance normal, both eyes and all related structures CONJUNCTIVA: Yes conjunctivae normal SCLERA: sclerae normal PUPIL: Yes Equal, round and reactive pupils present Neck/C-Spine: COMMON NORMALS: full ROM, no lymphadenopathy, supple and no meningeal signs GENERAL: Yes normal visual inspection CERVICAL SPINE: Yes cervical ROM normal, Yes normal cervical lordosis and No pain with cervical ROM Chest: COMMONS NORMALS: normal palpation of entire chest wall CHEST: No localized rib tenderness with anteroposterior compression, No tenderness and Yes wounds (Upper mid chest wound secondary to previous abscess/cellulitis surgery) Resp: COMMON NORMALS: normal respiratory effort, No retractions, No use of acc essory muscles and clear to auscultation bilaterally EFFORT & INSPECTION: Yes able to speak in complete sentences, Yes symmetric chest movement and No respiratory distress AUSCULTATION: clear to auscultation bilaterally Cardio: COMMON NORMALS: regular rate, regular rhythm, No murmurs present (Cardio) and Peripheral pulses 2+ throughout JUGULAR VENOUS DISTENTION: no JVD RATE: regular rate RHYTHM: regular rhythm PERIPHERAL PULSES: Peripheral pulses 2+ throughout GI: COMMON NORMALS: Normal to inspection, nondistended, normoactive bowel sounds present, Soft to palpation, No hepatosplenomegaly present, no masses and no bruits PALPATION: Yes Soft to palpation, Yes Tenderness to palpation present (GI) (Reproducible epigastric tenderness noted.), Yes No hep atosplenomegaly present and No Rebound tenderness present GI image (female): 1. Reproducible tenderness : COMMON NORMALS: Yes no CVA tenderness BLADDER/KIDNEY EXAM: Yes no CVA tenderness Back/Pelvis: COMMON NORMALS: no CVA tenderness Extremity: COMMON NORMALS: normal to inspection, full ROM, no calf tenderness and no pedal edema Neuro: COMMON NORMALS: patient oriented x3, CN's II-XII intact bilaterally, moves all extremities and no focal motor deficits SENSORIUM/ORIENTATION: Yes alert, Yes oriented to person, Yes oriented to place and Yes oriented to time MENINGEAL SIGNS: Yes no meningeal signs Course Vital Signs: Vital signs: Vital Signs Temperature 98.2 F 04/29/20 16:38 Pulse Rate 108 H 04/29/20 20:33 Respiratory Rate 18 04/29/20 20:33 Blood Pressure 159/89 04/29/20 20:33 Pulse Oximetry 96 04/29/20 20:33 MDM - Abdominal Pain Lab Data: Labs: Lab Results 04/29/20 04/29/20 04/29/20 Range/Units 18:40 18:40 18:40 WBC 6.4 (4.0-10.0) 10^3/ uL RBC 3.63 L (4.1-5.3) 10^6/u L Hgb 10.5 L (11.5-15.3) g/dL Hct 34.3 L (37.0-47.0) % MCV 94.5 (81-99) fL MCH 28.9 (28.0-34.0) pg MCHC 30.6 (30.0-36.0) g/dL RDW 13.3 (12.1-15.1) % Plt Count 432 H (130-400) 10^3/c mm MPV 8.9 (7.4-10.4) fL Neut % (Auto) 78.0 % Lymph % (Auto) 18.9 % [place] % (Auto) 2.2 % Eos % (Auto) 0.2 % Baso % (Auto) 0.2 % Neut # (Auto) 5.03 (1.8-7.7) 10^3/u L Lymph # (Auto) 1.2 (0.8-4.8) 10^3/u L [place] # (Auto) 0.1 L (0.2-0.9) 10^3/u L Eos # (Auto) 0.0 (0.0-0.8) 10^3/u L Baso # (Auto) 0.0 (0.0-0.1) 10^3/u L Nucleated RBC % (a uto) 0 % Nucleated RBCs # 0.0 /100WBC Sodium 139 (136-145) mmol/L Potassium 3.8 (3.5-5.1) mmol/L Chloride 98 (98-107) mmol/L Carbon Dioxide 21 L (22-29) mmol/L Anion Gap 23.8 H (5-19) BUN 11 (6-20) mg/dL Creatinine 0.5 (0.5-0.9) mg/dL GFR Calculation 129.6 (90-130) mL/min Glucose 240 H (65-115) mg/dL Calculated Osmolal ity 295 (285-295) mOsm/k g Lactate 3.4 H (0.5-2.2) mmol/L Calcium 10.0 (8.5-10.5) mg/dL Total Bilirubin 0.4 (0.15-1.2) mg/dL AST 13 (0-32) U/L ALT 11 (0-33) U/L Alkaline Phosphata se 87 (35-105) IU/L Total Protein 7.9 (6.6-8.7) g/dL Albumin 3.9 (3.5-5.2) g/dL Globulin 4.0 (1.3-4.6) g/dL Lipase 32 (13-60) U/L Urine Color (Yellow) Urine Appearance (CLEAR) Urine pH (5-7) Ur Specific Gravit y (1.005-1.030) Urine Protein (Negative) Urine Glucose (UA) (Normal) Urine Ketones (Negative) Urine Blood (Negative) Urine Nitrate (Negative) Urine Bilirubin (Negative) Urine Urobilinogen (Negative) mg/dL Ur Leukocyte Eugenia ase (Negative) 04/29/20 Range/Units 19:57 WBC (4.0-10.0) 10^3/ uL RBC (4.1-5.3) 10^6/u L Hgb (11.5-15.3) g/dL Hct (37.0-47.0) % MCV (81-99) fL MCH (28.0-34.0) pg MCHC (30.0-36.0) g/dL RDW (12.1-15.1) % Plt Count (130-400) 10^3/c mm MPV (7.4-10.4) fL Neut % (Auto) % Lymph % (Auto) % [place] % (Auto) % Eos % (Auto) % Baso % (Auto) % Neut # (Auto) (1.8-7.7) 10^3/u L Lymph # (Auto) (0.8-4.8) 10^3/u L [place] # (Auto) (0.2-0.9) 10^3/u L Eos # (Auto) (0.0-0.8) 10^3/u L Baso # (Auto) (0.0-0.1) 10^3/u L Nucleated RBC % (a uto) % Nucleated RBCs # /100WBC Sodium (136-145) mmol/L Potassium (3.5-5.1) mmol/L Chloride (98-107) mmol/L Carbon Dioxide (22-29) mmol/L Anion Gap (5-19) BUN (6-20) mg/dL Creatinine (0.5-0.9) mg/dL GFR Calculation (90-130) mL/min Glucose (65-115) mg/dL Calculated Osmolal ity (285-295) mOsm/k g Lactate (0.5-2.2) mmol/L Calcium (8.5-10.5) mg/dL Total Bilirubin (0.15-1.2) mg/dL AST (0-32) U/L ALT (0-33) U/L Alkaline Phosphata se (35-105) IU/L Total Protein (6.6-8.7) g/dL Albumin (3.5-5.2) g/dL Globulin (1.3-4.6) g/dL Lipase (13-60) U/L Urine Color Yellow (Yellow) Urine Appearance Clear (CLEAR) Urine pH 8.0 H (5-7) Ur Specific Gravit y 1.010 (1.005-1.030) Urine Protein Neg (Negative) Urine Glucose (UA) 1+ (Normal) Urine Ketones 2+ H (Negative) Urine Blood Neg (Negative) Urine Nitrate Negative (Negative) Urine Bilirubin Neg (Negative) Urine Urobilinogen Norm (Negative) mg/dL Ur Leukocyte Eugenia ase Negative (Negative) Discharge Plan Discharge Patient Disposition: Home Clinical Impression: Pyelonephritis Abdominal pain Qualifiers: Abdominal location: upper abdomen, unspecified Qualified Code(s): R10.10 - Upper abdominal pain, unspecified UTI (urinary tract infection) Qualifiers: Urinary tract infection type: acute pyelonephritis Qualified Code(s): N10 - Acute pyelonephritis Condition: Stable Prescriptions: [place] 5-325 mg tablet 1 tab PO Q6H PRN (Reason: pain) Qty: 10 RF: 0 Zofran 4 mg tablet 4 mg PO Q6H PRN (Reason: nausea and vomiting) Qty: 10 RF: 0 levofloxacin 500 mg tablet 500 mg PO DAILY 10 Days RF: 0 No Action prednisone 20 mg tablet 20 mg PO DAILY 7 Days Qty: 15 RF: 0 ondansetron HCl [Zofran] 4 mg tablet 4 mg PO Q8H PRN (Reason: nausea and vomiting) 7 Days Qty: 30 RF: 0 naproxen [Naprosyn] 500 mg tablet 500 mg PO BID PRN (Reason: pain) Qty: 20 RF: 0 hydrocodone-acetaminophen 5-325 mg tablet 1 tab PO Q6H PRN (Reason: pain) Qty: 20 RF: 0 tizanidine 4 mg capsule 4 mg PO Q6H PRN (Reason: muscle spasticity) Qty: 20 RF: 0 atorvastatin 80 mg Tablet 80 mg PO DAILY@08 RF: 0 lisinopril 40 mg Tablet 40 mg PO DAILY@08 RF: 0 metformin 500 mg Tablet Extended Release 24hr 1,000 mg PO BID@, RF: 0 hydrochlorothiazide 12.5 mg Tablet 12.5 mg PO DAILY@08 RF: 0 Robaxin-750 750 mg tablet 750 mg PO Q6H PRN (Reason: Pain) RF: 0 Lyrica 75 mg capsule 75 mg PO BID@, RF: 0 Discharge Orders: Discharge ED (Routine); Ordered 04/29/20 Ordered By: Jordan Gottlieb Referrals: Mariza Trivedi FNP [Primary Care Provider] - Discharge Diet: Advance as tolerated Discharge Activity: Resume usual activity Patient Instructions: Urinary Tract Infection in Women (ED), Acute Pyelonephritis (ED), Abdominal Pain (ED) Activity Restrictions/Additional Instructions: Increase noncaffeinated/nonalcoholic fluids. Coding Level of Care Code ED Acid Filler for Chg Fwd Exam Comprehensive
--- NOTE | 2020-04-29 18:35 | CTR_ITS ---
PROCEDURE INFORMATION: Exam: CT Abdomen And Pelvis With Contrast Exam date and time: 04/29/2020 6:55 PM Age: 54 years old Clinical indication: Abdominal pain; Additional info: >20k wbc, abd pain TECHNIQUE: Imaging protocol: Computed tomography of the abdomen and pelvis with intravenous contrast. Total images: 256 Radiation optimization: All CT scans at this facility use at least one of these dose optimization techniques: automated exposure control; mA and/or kV adjustment per patient size (includes targeted exams where dose is matched to clinical indication); or iterative reconstruction. Contrast material: OMNI 300; Contrast volume: 95 ml; Contrast route: INTRAVENOUS (IV); COMPARISON: CR XR hip LT 2-3V wo/w pel* [id number] 12/22/2019 10:51 AM RADIATION DOSE METRICS: Total DLP (mGy-cm): 1009.32 FINDINGS: Lungs: Limited assessment of the lung bases fails to reveal evidence for active cardiopulmonary process. Mediastinal space: Small hiatal hernia. Liver: Unremarkable. No mass. Gallbladder and bile ducts: Normal. No calcified stones. No ductal dilation. Pancreas: Normal. No ductal dilation. Spleen: Normal. No splenomegaly. Adrenal glands: Normal. No mass. Kidneys and ureters: Subtle heterogenous contrast enhancement of the renal parenchyma bilaterally, left slightly more prominent than right, raising the potential for low-grade pyelonephritis. No hydronephrosis or perinephric fluid. No visible nephrolithiasis or ureterolithiasis. Stomach and bowel: Nonobstructive bowel pattern. No visible significant adynamic or reactive ileus. No visible diverticulitis. Appendix: The appendix is not visualized. No definitive visible indirect or direct evidence of acute appendicitis. Intraperitoneal space: No visible evidence of mesenteric lymphadenitis or active mesenteritis/panniculitis. No visible pneumoperitoneum. No visible intraperitoneal ascites. Vasculature: The abdominal aorta is nonaneurysmal. Mild arteriosclerosis. Lymph nodes: No current visible evidence of active mesenteric or retroperitoneal lymphadenopathy. Urinary bladder: Urinary bladder unremarkable. Reproductive: Large uterine fibroid measuring 66 mm x 57 mm x 65 mm. Bones/joints: No visible acute osseous abnormality. Mild degenerative disease of the spine. Soft tissues: Unremarkable. Other findings: Obesity. CT/CT abdomen pelvis w con* [id number] IMPRESSION: 1. Subtle heterogenous contrast enhancement of the renal parenchyma bilaterally, left slightly more prominent than right, raising the potential for low-grade pyelonephritis. 2. Large uterine fibroid. 3. The appendix is not visualized. No definitive visible indirect or direct evidence of acute appendicitis. Radiation Dose CTDIVOL = (mGy): DLP = 1009.32 (mGy-cm)
[2020-04-29] MEDS: ondansetron 2 mg/ML SDV 2 mL 4 MG IVP (18:36)
[2020-04-29] MEDS: sodium chloride 0.9% 1,000 ML 999 ML IV (18:37)
--- NOTE | 2020-04-29 18:48 | PC.NURSE ---
Patient threw up yellow colored vomit, nurse has been made aware.
[2020-04-29 18:55] LABS: Basophils % 0.2 %; Eosinophils % 0.2 %; Hematocrit 34.3 % (37.0-47.0); Hemoglobin 10.5 g/dL (11.5-15.3); Lymphocytes # 1.2 10^3/uL (0.8-4.8); Lymphocytes % 18.9 %; Mean Corpuscular HGB Conc 30.6 g/dL (30.0-36.0); Mean Corpuscular Hemoglobin 28.9 pg (28.0-34.0); Mean Corpuscular Volume 94.5 fL (81-99); Mean Platelet Volume 8.9 fL (7.4-10.4); Monocytes # 0.1 10^3/uL (0.2-0.9); Monocytes % 2.2 %; Neutrophils # 5.03 10^3/uL (1.8-7.7); Nucleated Red Blood Cells % 0 %; Platelet Count 432 10^3/cmm (130-400); Red Blood Count 3.63 10^6/uL (4.1-5.3); Red Cell Distribution Width 13.3 % (12.1-15.1); White Blood Count 6.4 10^3/uL (4.0-10.0)
[2020-04-29] MEDS: iohexol 300 mg/mL 100 mL Btl IV (19:05)
[2020-04-29] MEDS: morphine 4 mg/mL SDV 1 mL IVP ×2 (19:15→20:31)
[2020-04-29 19:16] LABS: Lactate (Lactic Acid level) 3.4 mmol/L (0.5-2.2)
[2020-04-29 19:17] LABS: Alanine Aminotransferase 11 U/L (0-33); Albumin Level 3.9 g/dL (3.5-5.2); Alkaline Phosphatase 87 IU/L (35-105); Anion Gap 23.8 (5-19); Aspartate Amino Transferase 13 U/L (0-32); Blood Urea Nitrogen 11 mg/dL (6-20); Carbon Dioxide 21 mmol/L (22-29); Chloride 98 mmol/L (98-107); Glomerular Filtration Rate 129.6 mL/min (90-130); Glucose 240 mg/dL (65-115); Lipase 32 U/L (13-60); Osmolality Calculated 295 mOsm/kg (285-295); Potassium 3.8 mmol/L (3.5-5.1); Sodium 139 mmol/L (136-145); Total Bilirubin 0.4 mg/dL (0.15-1.2); Total Protein 7.9 g/dL (6.6-8.7)
[2020-04-29 20:06] LABS: Add Urine Microscopic? NO
[2020-04-29 20:20] LABS: Bilirubin Urine Neg (Negative); Blood Urine Neg (Negative); Glucose Urine UA 1+ (Normal); Ketones Urine 2+ (Negative); Leukocyte Esterase Urine Negative (Negative); Nitrate Urine Negative (Negative); Protein Urine Neg (Negative); Urine Appearance Clear (CLEAR); Urine Color Yellow (Yellow); Urobilinogen Urine Norm (Negative)
[2020-04-29] MEDS: levoFLOXacin 500 mg Tablet PO (21:13)
== END 2020-04-29 21:17 | disposition home or self-care (01) ==
PROVIDERS: Nurse Practitioner Family; Emergency Provider Emergency Medicine; PCP Nurse Practitioner Family
DX: N10 Acute pyelonephritis (principal); R10.10 Upper abdominal pain, unspecified; Z79.84 Long term (current) use of oral hypoglycemic drugs; E11.9 Type 2 diabetes mellitus without complications; I10 Essential (primary) hypertension
CPT/HCPCS: 12345; 36415; 71045; 74177; 80053; 81003; 83605; 83690; 85025; 96361; 96374; 96375; 96376; 99283; 99284; J2270; J2405; J7030; Q9967

== ENCOUNTER 2020-05-01 10:57 | Emergency (ER) | payer SELFPAY ==
[2020-05-01] VITALS (9 sets, daily range): BP systolic 156–188; BP diastolic 88–101; PULSE 104–111; RESP 14–22; TEMP 36.3; O2SAT 16–100; BMI 31.1
--- NOTE | 2020-05-01 11:38 | CTR_ITS ---
PROCEDURE INFORMATION: Exam: CT Abdomen And Pelvis With Contrast Exam date and time: 05/01/2020 11:50 AM Age: 54 years old Clinical indication: Abdominal pain; Epigastric; Additional info: Epigastric pain TECHNIQUE: Imaging protocol: Computed tomography of the abdomen and pelvis with intravenous contrast. Radiation optimization: All CT scans at this facility use at least one of these dose optimization techniques: automated exposure control; mA and/or kV adjustment per patient size (includes targeted exams where dose is matched to clinical indication); or iterative reconstruction. Contrast material: OMNI 300; Contrast volume: 95 ml; Contrast route: INTRAVENOUS (IV); COMPARISON: CT abdomen pelvis w con* [id number] 04/29/2020 6:55 PM RADIATION DOSE METRICS: Total DLP (mGy-cm): 1045.17 FINDINGS: Mediastinal space: Small sliding hiatal hernia. Liver: Normal. No mass. Gallbladder and bile ducts: Normal. No calcified stones. No ductal dilation. Pancreas: Normal. No ductal dilation. Spleen: Normal. No splenomegaly. Adrenal glands: Normal. No mass. Kidneys and ureters: Normal. No hydronephrosis. Stomach and bowel: Unremarkable. No obstruction. No mucosal thickening. Appendix: Normal appendix. Intraperitoneal space: Unremarkable. No free air. No significant fluid collection. Vasculature: There is mild calcification in the aorta. There is no aneurysm. Lymph nodes: Unremarkable. No enlarged lymph nodes. Urinary bladder: Unremarkable as visualized. Reproductive: There is a 6.6 cm fibroid in the uterus. The uterus and adnexal structures are otherwise unremarkable. Bones/joints: Degenerative changes are present in the spine with scattered sclerosis and osteophytes. Soft tissues: Unremarkable. CT/CT abdomen pelvis w con* [id number] IMPRESSION: 1. No acute abnormalities are seen. 2. Fibroid uterus. 3. Previously identified heterogeneous enhancement of the kidneys has resolved. Radiation Dose CTDIVOL = (mGy): DLP = 1045.17 (mGy-cm)
--- NOTE | 2020-05-01 11:41 | ED_ITS ---
HPI - Abdominal Pain General: Chief Complaint: Abdominal Pain Stated Complaint: ABD Pain Time Seen by Provider: 05/01/20 11:29 Source: patient Mode of arrival: ambulatory Limitations: no limitations History of Present Illness: HPI narrative: The patient is a 54-year-old female who presents to the emergency department with epigastric abdominal pain that started this morning. She was seen in this emergency department 2 days ago for the same thing and was diagnosed with pyelonephritis based on the CT scan findings. At that time her pain was also epigastric. She said she felt good after discharge from the hospital but woke up this morning with severe epigastric pain and has vomited multiple times. She is unable to tell me how many times she has vomited but she is also vomited a few times in the emergency department. She denies any blood in her vomit or in her stool. She denies melena stools also. She was recently discharged from the hospital at [facility] where she said she had a bacterial infection and needed surgery for this. She was unable to tell me much more. We will obtain the records from [facility]. She also takes Advil every night as she states it helps her sleep. MD elicited complaint: abdominal pain Pertinent past history: none Pain Consistency: constant Location: Epigastric Severity: severe Quality: stabbing Radiation: none Migration to: no migration Exacerbating factors: nothing Relieving factors: nothing Associated Symptoms: Reports nausea and vomiting; Denies anorexia, belching, bloating, change in bowel habits, change in stool character, chills, coffee ground emesis, constipation, GI cramping, diarrhea, dysuria, excessive flatus, fever(s), heartburn, hematochezia, hematuria, hematemesis, fecal incontinence, loose stools, melena, poor appetite and syncope Treatments prior to arrival: NSAIDs Review of Systems General: Reports: 10 or more systems reviewed and unremarkable except in HPI and below Const: Denies: fever(s) or chills Eyes: Denies: change in vision or blurry vision ENMT: Denies: throat pain, enlarged tonsils, odynophagia, hoarseness, mouth pain or swelling of lips/tongue Card: Denies: syncope Resp: Denies: dyspnea, productive cough or non-productive cough GI: Reports: nausea and vomiting; Denies: hematemesis, coffee ground emesis, heartburn, diarrhea, constipation, bloating, GI cramping, belching, excessive flatus, fecal incontinence, change in bowel habits, change in stool character, hematochezia or melena : Denies: dysuria or hematuria Musc: Denies: neck pain, back pain or extremity swelling Skin/Breast: Denies: rash, pruritus or erythema Neuro: Denies: headache(s), numbness in extremities or weakness in extremities Endo: Denies: polyuria, polydipsia or tired all the time PFSH ED PFSH: Medical History Diabetes mellitus High cholesterol Hypertension Surgical History History of delivery Social History Smoking and tobacco status: never smoked Household members: none Current occupational status: employed Current occupation: [employer] Physical Exam Const: COMMON NORMALS: average body habitus, patient oriented x3, no limitations, healthy appearing, alert and well nourished GENERAL APPEARANCE: in distress (painful) Neck/C-Spine: COMMON NORMALS: no meningeal signs and no JVD Chest: COMMONS NORMALS: normal inspection of the chest and normal palpation of entire chest wall Resp: COMMON NORMALS: normal respiratory effort, No retractions, No use of accessory muscles, clear to auscultation bilaterally and percussion normal AUSCULTATION: clear to auscultation bilaterally PERCUSSION: percussion normal Cardio: COMMON NORMALS: no JVD, regular rate, regular rhythm, S1 normal heart sound present, S2 normal heart sound present, No gallops present (Cardio), No clicks present (Cardio), No murmurs present (Cardio), No rub (Cardio) and Peripheral pulses 2+ throughout RATE: regular rate RHYTHM: regular rhythm HEART SOUNDS: S1 normal heart sound present and S2 normal heart sound present PERIPHERAL PULSES: Peripheral pulses 2+ throughout GI: COMMON NORMALS: Normal to inspection, nondistended, normoactive bowel sounds present, Soft to palpation, No hepatosplenomegaly present, no masses and no bruits PALPATION: Yes Soft to palpation, Yes Tenderness to palpation present (GI) (Mild tenderness in the epigastric region), Yes Guarding due to palpation present (GI) (epigastric), Yes No hepatosplenomegaly present and No Rebound tenderness present : COMMON NORMALS: Yes no CVA tenderness BLADDER/KIDNEY EXAM: Yes no CVA tenderness Back/Pelvis: COMMON NORMALS: no CVA tenderness Extremity: COMMON NORMALS: normal to inspection, full ROM, capillary refill normal, no calf tenderness and no pedal edema Neuro: COMMON NORMALS: patient oriented x3 SENSORIUM/ORIENTATION: Yes alert MENINGEAL SIGNS: Yes no meningeal signs Skin: COMMON NORMALS: no rashes or lesions noted, no wounds, turgor normal, no jaundice, no petechiae and no mottling GENERAL SKIN EXAM: no rashes or lesions noted and turgor normal Course Reevaluation(s): Reevaluation #1: Discussed her labs and imaging findings with her - negative for acute findings. She likely has gastritis based on her history and examination and will be managed as such. She will be discharged home on pantoprazole and Carafate. She will follow-up with her primary care provider. She is advised to get an upper GI endoscopy, she voiced understanding and is in agreement with the plan Time: 15:16 Vital Signs: Vital signs: Vital Signs Temperature 97.3 F L 05/01/20 11:18 Pulse Rate 108 H 05/01/20 15:49 Respiratory Rate 16 05/01/20 15:49 Blood Pressure 156/88 05/01/20 15:49 Pulse Oximetry 16 L 05/01/20 15:49 MDM - Abdominal Pain MDM Narrative: Medical decision making narrative: 54-year-old female patient with clinical features consistent with acute gastritis. She takes a naproxen tablet every night. She has severe epigastric pain but no signs of bleeding or perforation. She is given a prescription for pantoprazole and Carafate and is to follow-up with her primary care provider. She is advised that she will need an upper GI endoscopy for further evaluation. Medical Records: Attestation: I reviewed the patient's medical records. Lab Data: Attestation: I reviewed the patient's lab results. Labs: Lab Results 05/01/20 05/01/20 05/01/20 Range/Units 12:12 12:14 12:14 WBC 7.9 (4.0-10.0) 10^3/ uL RBC 4.12 (4.1-5.3) 10^6/u L Hgb 12.0 (11.5-15.3) g/dL Hct 39.2 (37.0-47.0) % MCV 95.1 (81-99) fL MCH 29.1 (28.0-34.0) pg MCHC 30.6 (30.0-36.0) g/dL RDW 13.6 (12.1-15.1) % Plt Count 405 H (130-400) 10^3/c mm MPV 9.7 (7.4-10.4) fL Neut % (Auto) 79.0 % Lymph % (Auto) 17.0 % Randall % (Auto) 3.2 % Eos % (Auto) 0.3 % Baso % (Auto) 0.1 % Neut # (Auto) 6.25 (1.8-7.7) 10^3/u L Lymph # (Auto) 1.3 (0.8-4.8) 10^3/u L Randall # (Auto) 0.3 (0.2-0.9) 10^3/u L Eos # (Auto) 0.0 (0.0-0.8) 10^3/u L Baso # (Auto) 0.0 (0.0-0.1) 10^3/u L Nucleated RBC % (a uto) 0 % Nucleated RBCs # 0.0 /100WBC Sodium 137 (136-145) mmol/L Potassium 3.4 L (3.5-5.1) mmol/L Chloride 96 L (98-107) mmol/L Carbon Dioxide 24 (22-29) mmol/L Anion Gap 20.4 H (5-19) BUN 12 (6-20) mg/dL Creatinine 0.5 (0.5-0.9) mg/dL GFR Calculation 129.6 (90-130) mL/min Glucose 238 H (65-115) mg/dL Calculated Osmolal ity 292 (285-295) mOsm/k g Lactate (0.5-2.2) mmol/L Calcium 10.1 (8.5-10.5) mg/dL Total Bilirubin 0.3 (0.15-1.2) mg/dL AST 16 (0-32) U/L ALT 13 (0-33) U/L Alkaline Phosphata se 95 (35-105) IU/L Troponin T Baselin e (0-10) ng/L Troponin T 120 Min mi'kmaq (0-10) ng/L Delta Troponin T (0-10) ABS# Total Protein 10.9 H (6.6-8.7) g/dL Albumin 4.7 (3.5-5.2) g/dL Globulin 6.2 H (1.3-4.6) g/dL Lipase 25 (13-60) U/L Urine Color Yellow (Yellow) Urine Appearance Sl hazy (CLEAR) Urine pH 6 (5-7) Ur Specific Gravit y 1.025 (1.005-1.030) Urine Protein Neg (Negative) Urine Glucose (UA) Trace H (Normal) Urine Ketones 1+ H (Negative) Urine Blood Neg (Negative) Urine Nitrate Negative (Negative) Urine Bilirubin Neg (Negative) Urine Urobilinogen Norm (Negative) mg/dL Ur Leukocyte Eugenia ase Trace H (Negative) Urine RBC None (0-2) /hpf Urine WBC 5-10 H (0-5) /hpf Ur Squamous Epith Cells 10-15 H (0-5) /hpf Amorphous Sediment Not Reportable Urine Bacteria 1+ H (NONE) /hpf Urine Mucus 1+ /hpf 05/01/20 05/01/20 05/01/20 Range/Units 12:14 12:14 14:30 WBC (4.0-10.0) 10^3/ uL RBC (4.1-5.3) 10^6/u L Hgb (11.5-15.3) g/dL Hct (37.0-47.0) % MCV (81-99) fL MCH (28.0-34.0) pg MCHC (30.0-36.0) g/dL RDW (12.1-15.1) % Plt Count (130-400) 10^3/c mm MPV (7.4-10.4) fL Neut % (Auto) % Lymph % (Auto) % Randall % (Auto) % Eos % (Auto) % Baso % (Auto) % Neut # (Auto) (1.8-7.7) 10^3/u L Lymph # (Auto) (0.8-4.8) 10^3/u L Randall # (Auto) (0.2-0.9) 10^3/u L Eos # (Auto) (0.0-0.8) 10^3/u L Baso # (Auto) (0.0-0.1) 10^3/u L Nucleated RBC % (a uto) % Nucleated RBCs # /100WBC Sodium (136-145) mmol/L Potassium (3.5-5.1) mmol/L Chloride (98-107) mmol/L Carbon Dioxide (22-29) mmol/L Anion Gap (5-19) BUN (6-20) mg/dL Creatinine (0.5-0.9) mg/dL GFR Calculation (90-130) mL/min Glucose (65-115) mg/dL Calculated Osmolal ity (285-295) mOsm/k g Lactate 2.6 H (0.5-2.2) mmol/L Calcium (8.5-10.5) mg/dL Total Bilirubin (0.15-1.2) mg/dL AST (0-32) U/L ALT (0-33) U/L Alkaline Phosphata se (35-105) IU/L Troponin T Baselin e 6 (0-10) ng/L Troponin T 120 Min mi'[place]maq 6.00 (0-10) ng/L Delta Troponin T 0 (0-10) ABS# Total Protein (6.6-8.7) g/dL Albumin (3.5-5.2) g/dL Globulin (1.3-4.6) g/dL Lipase (13-60) U/L Urine Color (Yellow) Urine Appearance (CLEAR) Urine pH (5-7) Ur Specific Gravit y (1.005-1.030) Urine Protein (Negative) Urine Glucose (UA) (Normal) Urine Ketones (Negative) Urine Blood (Negative) Urine Nitrate (Negative) Urine Bilirubin (Negative) Urine Urobilinogen (Negative) mg/dL Ur Leukocyte Eugenia ase (Negative) Urine RBC (0-2) /hpf Urine WBC (0-5) /hpf Ur Squamous Epith Cells (0-5) /hpf Amorphous Sediment Urine Bacteria (NONE) /hpf Urine Mucus /hpf Imaging Data ^: CT Abd/Pel: Attestation: I personally reviewed and interpreted this imaging study as follows: Radiologist's impression: [facility] [address] [place] [address] CT Scan Report Signed Patient: Bre Sierra #: [id number] : 1965Acct#:[id number] Age/Sex: 54 / FADM Date: 05/01/20 Loc: ERRoom/Bed: Attending Dr: Ordering Provider/Ordering MD: Viri [place]rios [place] [facility] [place] Service: 05/01/20 Procedure(s): CT abdomen pelvis w con* [id number] Accession Number(s): [id number] Report Number: [id number] PROCEDURE INFORMATION: Exam: CT Abdomen And Pelvis With Contrast Exam date and time: 05/01/2020 11:50 AM Age: 54 years old Clinical indication: Abdominal pain; Epigastric; Additional info: Epigastric pain TECHNIQUE: Imaging protocol: Computed tomography of the abdomen and pelvis with intravenous contrast. Radiation optimization: All CT scans at this facility use at least one of these dose optimization techniques: automated exposure control; mA and/or kV adjustment per patient size (includes targeted exams where dose is matched to clinical indication); or iterative reconstruction. Contrast material: OMNI 300; Contrast volume: 95 ml; Contrast route: INTRAVENOUS (IV); COMPARISON: CT abdomen pelvis w con* [id number] 04/29/2020 6:55 PM RADIATION DOSE METRICS: Total DLP (mGy-cm): 1045.17 FINDINGS: Mediastinal space: Small sliding hiatal hernia. Liver: Normal. No mass. Gallbladder and bile ducts: Normal. No calcified stones. No ductal dilation. Pancreas: Normal. No ductal dilation. Spleen: Normal. No splenomegaly. Adrenal glands: Normal. No mass. Kidneys and ureters: Normal. No hydronephrosis. Stomach and bowel: Unremarkable. No obstruction. No mucosal thickening. Appendix: Normal appendix. Intraperitoneal space: Unremarkable. No free air. No significant fluid collection. Vasculature: There is mild calcification in the aorta. There is no aneurysm. Lymph nodes: Unremarkable. No enlarged lymph nodes. Urinary bladder: Unremarkable as visualized. Reproductive: There is a 6.6 cm fibroid in the uterus. The uterus and adnexal structures are otherwise unremarkable. Bones/joints: Degenerative changes are present in the spine with scattered sclerosis and osteophytes. Soft tissues: Unremarkable. CT/CT abdomen pelvis w con* [id number] IMPRESSION: 1. No acute abnormalities are seen. 2. Fibroid uterus. 3. Previously identified heterogeneous enhancement of the kidneys has resolved. Radiation Dose CTDIVOL = (mGy): DLP = 1045.17 (mGy-cm) Dictated By:Jayce Angelo Signed By:Jayce AngeloSignryan Date/Time:05/01/20 1302 DD/ 1301 EKG Data ^: EKG 1: Attestation: I personally reviewed and interpreted this EKG as follows: EKG interpretation date: 05/01/20 EKG interpretation time: 11:50 Prior EKG tracings: not available for review Interpretation: Sinus tachycardia, heart rate [address] changes. normal axis EKG 2: Attestation: I personally reviewed and interpreted this EKG as follows: EKG interpretation date: 05/01/20 EKG interpretation time: 13:24 Prior EKG tracings: available for review Interpretation: sinus tachycardia heart rate [address] changes no significant changes from earlier EKG 3: Attestation: I personally reviewed and interpreted this EKG as follows: EKG interpretation date: 05/01/20 EKG interpretation time: 14:09 Prior EKG tracings: available for review Interpretation: Sinus tachycardia. Heart rate [address] changes. No significant change from earlier Discharge Plan Discharge Patient Disposition: Home Clinical Impression: Gastritis Qualifiers: Gastritis type: unspecified gastritis Chronicity: acute Gastritis bleeding: without bleeding Qualified Code(s): K29.00 - Acute gastritis without bleeding Condition: Stable Prescriptions: New Protonix 40 mg tablet,delayed release (DR/EC) 40 mg PO QAM Qty: 14 RF: 0 Carafate 1 gram tablet 1 g PO TID Qty: 30 RF: 0 Continued hydrocodone-acetaminophen [Huron] 5-325 mg tablet 1 tab PO Q6H PRN (Reason: pain) Qty: 10 RF: 0 ondansetron HCl [Zofran] 4 mg tablet 4 mg PO Q6H PRN (Reason: nausea and vomiting) Qty: 10 RF: 0 levofloxacin 500 mg tablet 500 mg PO DAILY 10 Days RF: 0 atorvastatin 80 mg Tablet 80 mg PO DAILY@08 RF: 0 lisinopril 40 mg Tablet 20 mg PO BEDTIME RF: 0 hydrochlorothiazide 12.5 mg Tablet 12.5 mg PO DAILY@08 RF: 0 pregabalin [Lyrica] 75 mg capsule 75 mg PO BID@ RF: 0 Discontinued naproxen [Naprosyn] 500 mg tablet 500 mg PO BID PRN (Reason: pain) Qty: 20 RF: 0 No Action metformin 1,000 mg tablet 1,000 mg PO BID RF: 0 trazodone 50 mg tablet 25 mg PO BEDTIME PRN (Reason: Sleep) RF: 0 Tylenol Arthritis 650 mg Tablet Extended Release 1,300 mg PO DAILY RF: 0 Vitamin C 500 mg Tablet 500 mg PO DAILY RF: 0 cephalexin 500 mg capsule 1,000 mg PO TID RF: 0 ferrous sulfate 325 mg (65 mg iron) tablet 325 mg PO BID RF: 0 Humulin 70/30 U-100 KwikPen 100 unit/mL (70-30) insulin pen 34 unit SUBCUT BID RF: 0 Advil PM 200-38 mg Tablet 2 tab PO BEDTIME PRN (Reason: unknown) RF: 0 Discharge Orders: Discharge ED (Routine); Ordered 05/01/20 Ordered By: Viri Barrios Referrals: Mariza Trivedi, ANALYST GEOCHEMICAL PROSPECTING [Primary Care Provider] - 1-3 days Discharge Diet: As Directed Discharge Activity: Resume usual activity Patient Instructions: Gastritis (ED), Diet for Ulcers and Gastritis (ED) Activity Restrictions/Additional Instructions: Return for any new or worsening symptoms. Consume the diet as prescribed to you. Avoid naproxen and other NSAID's, caffeinated beverages, spicy foods, and cigarette. Follow up with your primary care provider within 2 days. Coding Level of Care Code ED Algebra Teacher for Makayla Fwd Exam Comprehensive
--- NOTE | 2020-05-01 11:42 | ECG_ITS ---
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: : 1965 Requested By: Viri Barrios I Order Number: [id number] Reading MD: PARTHA GALVEZ Measurements Intervals [place] Rate: 103 P: 39 CO: 161 QRS: -6 QRSD: 93 T: 22 QT: 357 QTc: 467 Interpretive Statements SINUS TACHYCARDIA POSSIBLE ANTERIOR MYOCARDIAL INFARCTION , PROBABLY OLD [30 ms Q WAVE IN V3/V4, OR R < 0.2 mV IN V4] ABNORMAL RHYTHM ECG No previous ECG available for comparison Electronically Signed On 05-01-2020 18:16:02 CLINICAL EDUCATION ACADEMIC COORDINATOR by PARTHA GALVEZ [id number]
[2020-05-01] MEDS: lidocaine 2% viscous 15 ML, aluminum-mag hydrox-simethicon 30 ML, sucralfate oral liq 1 GM PO (11:51)
[2020-05-01] MEDS: ondansetron 2 mg/ML SDV 2 mL 4 MG IVP (11:56)
[2020-05-01] MEDS: famotidine 20 mg/2 mL INJ 40 MG IVP (11:57)
[2020-05-01 12:31] LABS: Basophils % 0.1 %; Eosinophils % 0.3 %; Hematocrit 39.2 % (37.0-47.0); Lymphocytes # 1.3 10^3/uL (0.8-4.8); Mean Corpuscular HGB Conc 30.6 g/dL (30.0-36.0); Mean Corpuscular Hemoglobin 29.1 pg (28.0-34.0); Mean Corpuscular Volume 95.1 fL (81-99); Mean Platelet Volume 9.7 fL (7.4-10.4); Monocytes # 0.3 10^3/uL (0.2-0.9); Monocytes % 3.2 %; Neutrophils # 6.25 10^3/uL (1.8-7.7); Nucleated Red Blood Cells % 0 %; Red Blood Count 4.12 10^6/uL (4.1-5.3); Red Cell Distribution Width 13.6 % (12.1-15.1); White Blood Count 7.9 10^3/uL (4.0-10.0)
[2020-05-01] MEDS: iohexol 300 mg/mL 100 mL Btl IV (12:39)
[2020-05-01 12:51] LABS: Add Urine Microscopic? YES; Bilirubin Urine Neg (Negative); Blood Urine Neg (Negative); Glucose Urine UA Trace (Normal); Ketones Urine 1+ (Negative); Leukocyte Esterase Urine Trace (Negative); Nitrate Urine Negative (Negative); Protein Urine Neg (Negative); Specific Gravity, Urine 1.025 (1.005-1.030); Urine Appearance SL Hazy (CLEAR); Urine Color Yellow (Yellow); Urobilinogen Urine Norm (Negative); pH Urine 6 (5-7)
[2020-05-01 12:54] LABS: Alanine Aminotransferase 13 U/L (0-33); Albumin Level 4.7 g/dL (3.5-5.2); Alkaline Phosphatase 95 IU/L (35-105); Anion Gap 20.4 (5-19); Aspartate Amino Transferase 16 U/L (0-32); Blood Urea Nitrogen 12 mg/dL (6-20); Calcium 10.1 mg/dL (8.5-10.5); Carbon Dioxide 24 mmol/L (22-29); Chloride 96 mmol/L (98-107); Globulin 6.2 g/dL (1.3-4.6); Glomerular Filtration Rate 129.6 mL/min (90-130); Glucose 238 mg/dL (65-115); Lipase 25 U/L (13-60); Osmolality Calculated 292 mOsm/kg (285-295); Potassium 3.4 mmol/L (3.5-5.1); Sodium 137 mmol/L (136-145); Total Bilirubin 0.3 mg/dL (0.15-1.2); Total Protein 10.9 g/dL (6.6-8.7)
[2020-05-01 12:55] LABS: Lactate (Lactic Acid level) 2.6 mmol/L (0.5-2.2)
[2020-05-01 12:56] LABS: Troponin(5th) Baseline 6 ng/L (0-10)
[2020-05-01 12:57] LABS: Bacteria Urine 1+ /hpf; Mucus Urine 1+ /hpf
[2020-05-01 12:58] LABS: Add Urine Culture? No
[2020-05-01] MEDS: morphine 4 mg/mL SDV 1 mL IVP ×2 (13:05→15:13)
[2020-05-01 13:07] LABS: Platelet Count 405 10^3/cmm (130-400); Slide Review Slide Review Perform
[2020-05-01] MEDS: metoclopramide 5 mg/mL SDV 2 mL 10 MG IVP (13:16)
[2020-05-01] MEDS: sodium chloride 0.9% 1,000 ML 999 ML IV ×2 (13:17→14:06)
--- NOTE | 2020-05-01 13:29 | PC.NURSE ---
EKG done at 1329 and shown to ER doctor.
--- NOTE | 2020-05-01 13:42 | ECG_ITS ---
[facility] Test Date: 2020-05-01 Pat Name: Bre Sierra Department: Room: Gender: Female Corn Miller: : 1965 Requested By: Viri Barrios I Order Number: [id number] Reading MD: PARTHA GALVEZ Measurements Intervals [place] Rate: 100 P: 3 SD: 128 QRS: -12 QRSD: 101 T: 8 QT: 364 QTc: 471 Interpretive Statements SINUS TACHYCARDIA VOLTAGE CRITERIA FOR LVH [MEETS CRITERIA IN ONE OF: R(aVL), S(V1), R(V5), R(V5/V6)+S(V1)] POSSIBLE ANTERIOR MYOCARDIAL INFARCTION , PROBABLY OLD [30 ms Q WAVE IN V3/V4, OR R < 0.2 mV IN V4] Compared to ECG 05/01/2020 11:50:42 Left ventricular hypertrophy now present Myocardial infarct finding still present Electronically Signed On 05-01-2020 18:17:24 PARA EDUCATOR by PARTHA GALVEZ [id number]
[2020-05-01] MEDS: sucralfate 1 gm/10 mL Oral Liq UDC PO (14:06)
[2020-05-01 15:15] LABS: Troponin 5 2HR Delta 0 ABS# (0-10)
--- NOTE | 2020-05-01 17:42 | ECG_ITS ---
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: : 1965 Requested By: Viri Barrios I Order Number: [id number] Reading MD: PARTHA GALVEZ Measurements Intervals [place] Rate: 109 P: 8 MN: 128 QRS: -15 QRSD: 96 T: 9 QT: 290 QTc: 391 Interpretive Statements SINUS TACHYCARDIA VOLTAGE CRITERIA FOR LVH [MEETS CRITERIA IN ONE OF: R(aVL), S(V1), R(V5), R(V5/V6)+S(V1)] POSSIBLE ANTERIOR MYOCARDIAL INFARCTION , PROBABLY OLD [30 ms Q WAVE IN V3/V4, OR R < 0.2 mV IN V4] Compared to ECG 05/01/2020 13:24:42 No significant changes Electronically Signed On 05-01-2020 18:17:17 MANAGER USER EXPERIENCE by PARTHA GALVEZ [id number]
== END 2020-05-01 15:50 | disposition home or self-care (01) ==
PROVIDERS: Physician Assistant; Emergency Provider Family Medicine; PCP Nurse Practitioner Family
DX: K29.00 Acute gastritis without bleeding (principal); Z79.4 Long term (current) use of insulin; E11.9 Type 2 diabetes mellitus without complications; I10 Essential (primary) hypertension
CPT/HCPCS: 12345; 36415; 74177; 80053; 81001; 83605; 83690; 84484; 85025; 87040; 93005; 96361; 96374; 96375; 96376; 99283; 99284; J2270; J2405; J2765; J3490; J7030; Q9967

== ENCOUNTER 2020-05-06 10:30 | Outpatient (CLI) | payer SELFPAY | END 2020-05-06 10:31 | disposition home or self-care (01) | LOC: WOUND 10:30 | PROVIDERS: PCP Nurse Practitioner Family; Visit Provider Nurse Practitioner Family | DX: E11.621 Type 2 diabetes mellitus with foot ulcer (principal); L97.522 Non-pressure chronic ulcer of other part of left foot with fat layer exposed; E11.622 Type 2 diabetes mellitus with other skin ulcer; L98.492 Non-pressure chronic ulcer of skin of other sites with fat layer exposed | CPT/HCPCS: 11042 ==

== ENCOUNTER 2020-05-08 13:09 | Emergency (ER) | payer SELFPAY ==
[2020-05-08 13:52] VITALS: BP 159/100; PULSE 120; RESP 14; TEMP 36.3; O2SAT 100; BMI 31.1
--- NOTE | 2020-05-08 14:55 | ED_ITS ---
HPI - Abdominal Pain General: Chief Complaint: Abdominal Pain Stated Complaint: abd pain/n/v Time Seen by Provider: 05/08/20 14:20 History of Present Illness: HPI narrative: The patient is a 54-year-old female who comes to the ER complaining of epigastric pain and vomiting. She has been seen for this a few times in the past week or 2. She says this morning she woke up with nausea and vomiting and has been taking Pepto-Bismol but she vomited that up and has a tub full of it in front of her. Associated Symptoms: Reports nausea and vomiting; Denies GI cramping and diarrhea Review of Systems General: Reports: 10 or more systems reviewed and unremarkable except in HPI and below Const: Denies: fatigue Eyes: Denies: change in vision, blurry vision or eye redness ENMT: Denies: throat pain, swelling of lips/tongue, ear or mastoid pain or nasal congestion Card: Denies: chest pain, palpitations, irregular heart rhythm, edema, dyspnea on exertion or orthopnea Resp: Denies: dyspnea, productive cough or non-productive cough GI: Reports: abdominal pain, nausea and vomiting; Denies: diarrhea or GI cramping : Denies: flank pain, difficulty voiding, urinary frequency or urinary urgency Musc: Denies: neck pain, back pain, extremity pain, joint pain, joint redness, limited range of motion or muscle weakness Skin/Breast: Denies: rash, pruritus, erythema, skin pain or skin tenderness Neuro: Denies: headache(s), numbness in extremities, weakness in extremities, sensory changes, difficulty walking, dizziness, confusion or Slurred speech present Psych: Denies: anxiety or depression Endo: Denies: polyuria All/Imm: Denies: urticaria, throat swelling or tongue swelling PFSH ED PFSH: Medical History Diabetes mellitus High cholesterol Hypertension Surgical History History of delivery Social History Smoking and tobacco status: never smoked Household members: none Current occupational status: employed Current occupation: [employer] Physical Exam Const: COMMON NORMALS: no acute distress, average body habitus, patient oriented x3, no limitations, healthy appearing, alert and well nourished GENERAL APPEARANCE: cooperative, comfortable, well kempt and well developed ORIENTATION/CONSCIOUSNESS: Yes awake, Yes oriented to person, Yes oriented to place and Yes oriented to time HENMT: COMMON NORMALS: normocephalic, external ears normal and Normal external nose present HEAD & SCALP: normal to inspection and normocephalic NOSE: Normal external nose present EXTERNAL EAR: Yes external ears normal MOUTH: Normal oral and palatal mucosa present THROAT: posterior oropharynx normal Eye: COMMON NORMALS: Equal, round and reactive pupils present and EOMs intact bilaterally GENERAL EYE: appearance normal, both eyes and all related structures PUPIL: Yes Equal, round and reactive pupils present Neck/C-Spine: COMMON NORMALS: full ROM, no lymphadenopathy, no meningeal signs and no JVD GENERAL: Yes normal visual inspection Lymph: LYMPHATIC: no lymphadenopathy noted Chest: COMMONS NORMALS: normal inspection of the chest and normal palpation of entire chest wall Resp: COMMON NORMALS: normal respiratory effort, No retractions, No use of accessory muscles, clear to auscultation bilaterally and percussion normal EFFORT & INSPECTION: Yes able to speak in complete sentences AUSCULTATION: clear to auscultation bilaterally PERCUSSION: percussion normal Cardio: COMMON NORMALS: no JVD, regular rate, regular rhythm, S1 normal heart sound present, S2 normal heart sound present and Peripheral pulses 2+ throughout RATE: regular rate RHYTHM: regular rhythm HEART SOUNDS: S1 normal heart sound present and S2 normal heart sound present PERIPHERAL PULSES: Peripheral pulses 2+ throughout GI: COMMON NORMALS: Normal to inspection, nondistended, normoactive bowel sounds present, Soft to palpation and no masses INSPECTION: Yes normal to inspection PALPATION: Yes Soft to palpation OTHER: Epigastric tenderness. no rebound tenderness : COMMON NORMALS: Yes no CVA tenderness BLADDER/KIDNEY EXAM: Yes no CVA tenderness Back/Pelvis: COMMON NORMALS: no CVA tenderness, thoracic and lumbar spine normal to inspection, no thoracic nor lumbar tenderness and thoraco-lumbar ROM normal Extremity: COMMON NORMALS: normal to inspection, full ROM, capillary refill normal, no joint enlargement and no pedal edema GENERAL: Yes normal exam except as noted Neuro: COMMON NORMALS: patient oriented x3, CN's II-XII intact bilaterally, moves all extremities, no focal motor deficits, no sensory deficits noted and gait normal SENSORIUM/ORIENTATION: Yes alert, Yes oriented to person, Yes oriented to place and Yes oriented to time MENINGEAL SIGNS: Yes no meningeal signs Psych: COMMON NORMALS: mental status grossly normal, Normal thought process present, cooperative, normal affect and speech normal APPEARANCE: Yes well kempt ATTITUDE: Yes calm SPEECH: Yes normal speech THOUGHT PROCESS: Normal thought process present Skin: COMMON NORMALS: no rashes or lesions noted GENERAL SKIN EXAM: no rashes or lesions noted Course Vital Signs: Vital signs: Vital Signs Temperature 97.3 F L 05/08/20 13:52 Pulse Rate 120 H 05/08/20 13:52 Respiratory Rate 19 H 05/08/20 16:34 Blood Pressure 159/100 05/08/20 13:52 Pulse Oximetry 100 05/08/20 13:52 MDM - Abdominal Pain MDM Narrative: Medical decision making narrative: Her pain and vomiting improved. 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 Recommended continuing to take her Carafate and Protonix as directed. ER with worsening symptoms Lab Data: Labs: Lab Results 05/08/20 05/08/20 05/08/20 Range/Units 14:37 14:37 14:37 WBC 11.1 H (4.0-10.0) 10^3/ uL RBC 4.59 (4.1-5.3) 10^6/u L Hgb 13.3 (11.5-15.3) g/dL Hct 40.3 (37.0-47.0) % MCV 87.8 (81-99) fL MCH 29.0 (28.0-34.0) pg MCHC 33.0 (30.0-36.0) g/dL RDW 13.8 (12.1-15.1) % Plt Count 571 H (130-400) 10^3/c mm MPV 9.6 (7.4-10.4) fL Neut % (Auto) 82.9 % Lymph % (Auto) 12.6 % [place] % (Auto) 3.8 % Eos % (Auto) 0.1 % Baso % (Auto) 0.2 % Neut # (Auto) 9.23 H (1.8-7.7) 10^3/u L Lymph # (Auto) 1.4 (0.8-4.8) 10^3/u L [place] # (Auto) 0.4 (0.2-0.9) 10^3/u L Eos # (Auto) 0.0 (0.0-0.8) 10^3/u L Baso # (Auto) 0.0 (0.0-0.1) 10^3/u L Nucleated RBC % (a uto) 0 % Nucleated RBCs # 0.0 /100WBC Sodium 138 (136-145) mmol/L Potassium 3.0 L (3.5-5.1) mmol/L Chloride 92 L (98-107) mmol/L Carbon Dioxide 27 (22-29) mmol/L Anion Gap 22.0 H (5-19) BUN 25 H (6-20) mg/dL Creatinine 1.3 H (0.5-0.9) mg/dL GFR Calculation 43.0 L (90-130) mL/min Glucose 109 (65-115) mg/dL Calculated Osmolal ity 291 (285-295) mOsm/k g Lactate (0.5-2.2) mmol/L Calcium 10.6 H (8.5-10.5) mg/dL Total Bilirubin 0.5 (0.15-1.2) mg/dL AST 18 (0-32) U/L ALT 11 (0-33) U/L Alkaline Phosphata se 95 (35-105) IU/L Total Protein 9.1 H (6.6-8.7) g/dL Albumin 4.9 (3.5-5.2) g/dL Globulin 4.2 (1.3-4.6) g/dL Lipase 21 (13-60) U/L HCG, Qual Negative (Negative) Urine Color (Yellow) Urine Appearance (CLEAR) Urine pH (5-7) Ur Specific Gravit y (1.005-1.030) Urine Protein (Negative) Urine Glucose (UA) (Normal) Urine Ketones (Negative) Urine Blood (Negative) Urine Nitrate (Negative) Urine Bilirubin (Negative) Urine Urobilinogen (Negative) mg/dL Ur Leukocyte Eugenia ase (Negative) Urine RBC (0-2) /hpf Urine WBC (0-5) /hpf Ur Squamous Epith Cells (0-5) /hpf Calcium Oxalate Cr ystal /hpf Amorphous Sediment /hpf Urine Bacteria (NONE) /hpf Urine Mucus /hpf 05/08/20 05/08/20 Range/Units 14:37 15:03 WBC (4.0-10.0) 10^3/ uL RBC (4.1-5.3) 10^6/u L Hgb (11.5-15.3) g/dL Hct (37.0-47.0) % MCV (81-99) fL MCH (28.0-34.0) pg MCHC (30.0-36.0) g/dL RDW (12.1-15.1) % Plt Count (130-400) 10^3/c mm MPV (7.4-10.4) fL Neut % (Auto) % Lymph % (Auto) % [place] % (Auto) % Eos % (Auto) % Baso % (Auto) % Neut # (Auto) (1.8-7.7) 10^3/u L Lymph # (Auto) (0.8-4.8) 10^3/u L [place] # (Auto) (0.2-0.9) 10^3/u L Eos # (Auto) (0.0-0.8) 10^3/u L Baso # (Auto) (0.0-0.1) 10^3/u L Nucleated RBC % (a uto) % Nucleated RBCs # /100WBC Sodium (136-145) mmol/L Potassium (3.5-5.1) mmol/L Chloride (98-107) mmol/L Carbon Dioxide (22-29) mmol/L Anion Gap (5-19) BUN (6-20) mg/dL Creatinine (0.5-0.9) mg/dL GFR Calculation (90-130) mL/min Glucose (65-115) mg/dL Calculated Osmolal ity (285-295) mOsm/k g Lactate 2.6 H (0.5-2.2) mmol/L Calcium (8.5-10.5) mg/dL Total Bilirubin (0.15-1.2) mg/dL AST (0-32) U/L ALT (0-33) U/L Alkaline Phosphata se (35-105) IU/L Total Protein (6.6-8.7) g/dL Albumin (3.5-5.2) g/dL Globulin (1.3-4.6) g/dL Lipase (13-60) U/L HCG, Qual (Negative) Urine Color Yellow (Yellow) Urine Appearance Hazy A (CLEAR) Urine pH 5 (5-7) Ur Specific Gravit y 1.025 (1.005-1.030) Urine Protein Trace (Negative) Urine Glucose (UA) Norm (Normal) Urine Ketones 1+ H (Negative) Urine Blood Neg (Negative) Urine Nitrate Negative (Negative) Urine Bilirubin 1+ H (Negative) Urine Urobilinogen Norm (Negative) mg/dL Ur Leukocyte Eugenia ase Negative (Negative) Urine RBC None (0-2) /hpf Urine WBC 0-4 H (0-5) /hpf Ur Squamous Epith Cells 10-15 H (0-5) /hpf Calcium Oxalate Cr ystal 25-40 H /hpf Amorphous Sediment 2+ /hpf Urine Bacteria 2+ H (NONE) /hpf Urine Mucus 2+ /hpf Discharge Plan Discharge Patient Disposition: Home Clinical Impression: Gastritis Condition: Stable Prescriptions: No Action hydrocodone-acetaminophen [[place]] 5-325 mg tablet 1 tab PO Q6H PRN (Reason: pain) Qty: 10 RF: 0 ondansetron HCl [Zofran] 4 mg tablet 4 mg PO Q6H PRN (Reason: nausea and vomiting) Qty: 10 RF: 0 levofloxacin 500 mg tablet 500 mg PO DAILY 10 Days RF: 0 atorvastatin 80 mg Tablet 80 mg PO DAILY@08 RF: 0 lisinopril 40 mg Tablet 20 mg PO BEDTIME RF: 0 hydrochlorothiazide 12.5 mg Tablet 12.5 mg PO DAILY@08 RF: 0 pregabalin [Lyrica] 75 mg capsule 75 mg PO BID@08,21 RF: 0 Protonix 40 mg tablet,delayed release (DR/EC) 40 mg PO QAM Qty: 14 RF: 0 Carafate 1 gram tablet 1 g PO TID Qty: 30 RF: 0 metformin 1,000 mg tablet 1,000 mg PO BID RF: 0 trazodone 50 mg tablet 25 mg PO BEDTIME PRN (Reason: Sleep) RF: 0 Tylenol Arthritis 650 mg Tablet Extended Release 1,300 mg PO DAILY RF: 0 Vitamin C 500 mg Tablet 500 mg PO DAILY RF: 0 cephalexin 500 mg capsule 1,000 mg PO TID RF: 0 ferrous sulfate 325 mg (65 mg iron) tablet 325 mg PO BID RF: 0 Humulin 70/30 U-100 KwikPen 100 unit/mL (70-30) insulin pen 34 unit SUBCUT BID RF: 0 Advil PM 200-38 mg Tablet 2 tab PO BEDTIME PRN (Reason: unknown) RF: 0 Discharge Orders: Discharge ED (Routine); Ordered 05/08/20 Ordered By: Nick Carlisle Referrals: Mariza Trivedi FNP [Primary Care Provider] - Discharge Diet: Advance as tolerated Discharge Activity: Resume usual activity Patient Instructions: Gastritis (ED) Activity Restrictions/Additional Instructions: You have acute gastritis and possibly an ulcer. Please follow-up with the GI doctor. I have placed a consult with the case management person here to help you get that. They should be calling Sunday to help you get an appointment with him. Continue to take your Protonix and Carafate as directed as those are the medications that will help with your belly pain ultimately. If you do not take them the acid will continue to eat your stomach and give you pain. Return to the ER with worsening symptoms Coding Level of Care Code ED Shoe Sprayer for Makayla Young
[2020-05-08 15:00] LABS: Lactate (Lactic Acid level) 2.6 mmol/L (0.5-2.2)
[2020-05-08] MEDS: ketorolac 30 mg/mL INJ 15 MG IVP (15:01)
[2020-05-08] MEDS: ondansetron 2 mg/ML SDV 2 mL 4 MG IVP (15:01)
[2020-05-08] MEDS: sodium chloride 0.9% 1,000 ML 999 ML IV ×2 (15:01→17:32)
[2020-05-08] MEDS: famotidine 20 mg/2 mL INJ 40 MG IVP (15:19)
[2020-05-08 15:32] LABS: Add Urine Microscopic? YES; Bilirubin Urine 1+ (Negative); Blood Urine Neg (Negative); Glucose Urine UA Norm (Normal); Ketones Urine 1+ (Negative); Leukocyte Esterase Urine Negative (Negative); Nitrate Urine Negative (Negative); Protein Urine Trace (Negative); Specific Gravity, Urine 1.025 (1.005-1.030); Urine Appearance Hazy (CLEAR); Urine Color Yellow (Yellow); Urobilinogen Urine Norm (Negative); pH Urine 5 (5-7)
[2020-05-08 15:36] LABS: Amorphous Sediment Urine 2+ /hpf; Bacteria Urine 2+ /hpf; Mucus Urine 2+ /hpf; WBC Urine 0-4 /hpf (0-5)
[2020-05-08 15:37] LABS: Calcium Oxalate Crystals Urine 25-40 /hpf
[2020-05-08 15:39] LABS: Add Urine Culture? No
[2020-05-08 15:57] LABS: Basophils % 0.2 %; Eosinophils % 0.1 %; Hematocrit 40.3 % (37.0-47.0); Hemoglobin 13.3 g/dL (11.5-15.3); Lymphocytes # 1.4 10^3/uL (0.8-4.8); Lymphocytes % 12.6 %; Mean Corpuscular Volume 87.8 fL (81-99); Mean Platelet Volume 9.6 fL (7.4-10.4); Monocytes # 0.4 10^3/uL (0.2-0.9); Monocytes % 3.8 %; Neutrophils # 9.23 10^3/uL (1.8-7.7); Neutrophils % 82.9 %; Nucleated Red Blood Cells % 0 %; Platelet Count 571 10^3/cmm (130-400); Red Blood Count 4.59 10^6/uL (4.1-5.3); Red Cell Distribution Width 13.8 % (12.1-15.1); White Blood Count 11.1 10^3/uL (4.0-10.0)
[2020-05-08 15:58] LABS: HCG, Serum Qual Negative (Negative)
[2020-05-08 16:06] LABS: Alanine Aminotransferase 11 U/L (0-33); Albumin Level 4.9 g/dL (3.5-5.2); Alkaline Phosphatase 95 IU/L (35-105); Blood Urea Nitrogen 25 mg/dL (6-20); Calcium 10.6 mg/dL (8.5-10.5); Carbon Dioxide 27 mmol/L (22-29); Chloride 92 mmol/L (98-107); Globulin 4.2 g/dL (1.3-4.6); Glucose 109 mg/dL (65-115); Lipase 21 U/L (13-60); Osmolality Calculated 291 mOsm/kg (285-295); Sodium 138 mmol/L (136-145); Total Bilirubin 0.5 mg/dL (0.15-1.2); Total Protein 9.1 g/dL (6.6-8.7)
[2020-05-08 16:18] LABS: Aspartate Amino Transferase 18 U/L (0-32)
[2020-05-08 16:34] VITALS: RESP 19
[2020-05-08] MEDS: morphine 4 mg/mL SDV 1 mL 2 MG IVP (16:34)
[2020-05-08] MEDS: potassium chloride ER 20 mEq Tablet 40 MEQ PO (16:34)
[2020-05-08] MEDS: promethazine 25 mg/mL SDV 1 mL IM (16:34)
--- NOTE | 2020-05-08 17:16 | CTR_ITS ---
PROCEDURE INFORMATION: Exam: CT Abdomen And Pelvis With Contrast Exam date and time: 05/08/2020 5:17 PM Age: 54 years old Clinical indication: Abdominal pain; Epigastric; Prior surgery; Surgery date: 6+ months; Surgery type: C-sect; Patient HX: C/O epidastric pain w n/v; Additional info: Epigastric pain TECHNIQUE: Imaging protocol: Computed tomography of the abdomen and pelvis with contrast. Radiation optimization: All CT scans at this facility use at least one of these dose optimization techniques: automated exposure control; mA and/or kV adjustment per patient size (includes targeted exams where dose is matched to clinical indication); or iterative reconstruction. Contrast material: VISI 320; Contrast volume: 95 ml; Contrast route: INTRAVENOUS (IV); COMPARISON: CT abdomen pelvis w con* [id number] 05/01/2020 12:29 PM RADIATION DOSE METRICS: Total DLP (mGy-cm): 1023.11 FINDINGS: Liver: Normal. No mass. Gallbladder and bile ducts: Normal. No calcified stones. No ductal dilation. Pancreas: Normal. No ductal dilation. Spleen: Normal. No splenomegaly. Adrenal glands: Normal. No mass. Kidneys and ureters: Normal. No hydronephrosis. Stomach and bowel: Moderate fecal volume. No focal inflammation of bowel or mesentery. No features of bowel obstruction or perforation. Appendix: Appendectomy. Intraperitoneal space: Unremarkable. No free air. No significant fluid collection. Vasculature: Unremarkable. No abdominal aortic aneurysm. Lymph nodes: Unremarkable. No enlarged lymph nodes. Urinary bladder: Unremarkable as visualized. Reproductive: Large intramural mass in the right lateral uterine body is unchanged from recent prior which measures 5.8 cm x 4.6 cm most consistent with intramural uterine fibroid. No ovarian lesion. Bones/joints: Unremarkable. No acute fracture. Soft tissues: Unremarkable. CT/CT abdomen pelvis w con* [id number] IMPRESSION: 1. No acute pathology within abdomen or pelvis. 2. No change from recent comparison on 05/01/2020. 3. Incidental finding of fibroid uterus. Radiation Dose CTDIVOL = (mGy): DLP = 1023.11 (mGy-cm)
[2020-05-08] MEDS: lidocaine 2% viscous 15 ML, aluminum-mag hydrox-simethicon 30 ML, sucralfate oral liq 1 GM PO (17:32)
[2020-05-08] MEDS: iodixanol 320 mg/mL 100mL Btl IV (17:36)
[2020-05-08 18:53] VITALS: PULSE 108; RESP 16; O2SAT 100
--- NOTE | 2020-05-10 12:08 | DCPLANNER ---
operations manager had message to schedule a follow up appointment for patient with general surgery. operations manager emailed patients information to both Shana and Kaylyn. Patients information will be printed and reviewed. Clinic will call patient with appointment information.
--- NOTE | 2020-05-13 12:11 | DCPLANNER ---
Patient has a follow up appointment scheduled for , May 20, 2020 at 1:[address] Wilcox. Clinic will call patient with appointment information.
--- NOTE | 2020-06-30 12:29 | DCPLANNER ---
Patient had a follow up appointment scheduled for 05.20.[address] Wilcox with general surgery - patient did attend appointment.
== END 2020-05-08 18:55 | disposition home or self-care (01) ==
PROVIDERS: Physician Assistant; Emergency Provider Family Medicine; PCP Nurse Practitioner Family
DX: K29.70 Gastritis, unspecified, without bleeding (principal); Z79.4 Long term (current) use of insulin; E11.9 Type 2 diabetes mellitus without complications; I10 Essential (primary) hypertension
CPT/HCPCS: 12345; 36415; 74177; 80053; 81001; 83605; 83690; 84703; 85025; 96361; 96374; 96375; 99283; 99284; J1885; J2270; J2405; J2550; J3490; J7030; Q9967

== ENCOUNTER 2020-05-13 09:40 | Outpatient (CLI) | payer SELFPAY ==
--- NOTE | 2020-05-13 09:49 | NM_ITS ---
WS: [id number] NUCLEAR MEDICINE HIDA SCAN WITH GALLBLADDER EJECTION FRACTION HISTORY: VOMITING/ RUQ ABDOMINAL PAIN/EPIGASTRIC PAIN COMPARISON: 05/08/2020 TECHNIQUE: The patient was intravenously injected with 7.8 mCi of TC99m Mebrofenin. Immediate imaging over the right upper quadrant was followed by 5 minute image and additional images for a total of 60 minutes. Normal uptake of radiotracer throughout the liver. Activity identified in the gallbladder at 15 minutes and well distended by 60 minutes. Activity in the proximal small bowel was seen by 15 minutes. Good washout of the radiotracer from the liver by 60 minutes. The patient then drank 8 ounces of Ensure Plus. Ejection fraction at 60 minutes was 44%. Normal GB ej ection fraction is 35-75%. Post fatty meal symptoms: None. NM/NM hepatobiliary w phar* [id number] IMPRESSION: 1. Normal HIDA scan. 2. Normal gallbladder ejection fraction.
== END 2020-05-13 09:41 | disposition home or self-care (01) ==
LOC: RAD 09:46
PROVIDERS: PCP Nurse Practitioner Family; Visit Provider Nurse Practitioner Family
DX: R11.10 Vomiting, unspecified (principal); R10.11 Right upper quadrant pain; R10.13 Epigastric pain
CPT/HCPCS: 78227; A9537

== ENCOUNTER 2020-05-20 09:37 | Outpatient (CLI) | payer SELFPAY | END 2020-05-20 09:38 | disposition home or self-care (01) | LOC: WOUND 09:38 | PROVIDERS: PCP Nurse Practitioner Family; Visit Provider Nurse Practitioner Family | DX: Z09 Encounter for follow-up examination after completed treatment for conditions other than malignant neoplasm (principal) | CPT/HCPCS: G0463 ==

== ENCOUNTER 2020-05-31 09:17 | Outpatient (CLI) | payer SELFPAY ==
[2020-05-31 10:29] LABS: Basophils % 0.5 %; Eosinophils # 0.2 10^3/uL (0.0-0.8); Eosinophils % 4.8 %; Hematocrit 31.5 % (37.0-47.0); Hemoglobin 10.2 g/dL (11.5-15.3); Mean Corpuscular HGB Conc 32.4 g/dL (30.0-36.0); Mean Corpuscular Hemoglobin 27.9 pg (28.0-34.0); Mean Corpuscular Volume 86.3 fL (81-99); Mean Platelet Volume 9.4 fL (7.4-10.4); Monocytes # 0.3 10^3/uL (0.2-0.9); Monocytes % 6.5 %; Neutrophils # 1.82 10^3/uL (1.8-7.7); Nucleated Red Blood Cells % 0 %; Platelet Count 298 10^3/cmm (130-400); Red Blood Count 3.65 10^6/uL (4.1-5.3); White Blood Count 4.3 10^3/uL (4.0-10.0)
[2020-05-31 10:57] LABS: Alanine Aminotransferase 13 U/L (0-33); Albumin Level 4.1 g/dL (3.5-5.2); Alkaline Phosphatase 77 IU/L (35-105); Anion Gap 11.6 (5-19); Aspartate Amino Transferase 12 U/L (0-32); Blood Urea Nitrogen 12 mg/dL (6-20); C Reactive Protein 2.6 mg/L (0.0-4.9); Calcium 9.2 mg/dL (8.5-10.5); Carbon Dioxide 27 mmol/L (22-29); Chloride 105 mmol/L (98-107); Globulin 3.2 g/dL (1.3-4.6); Glucose 190 mg/dL (65-115); Osmolality Calculated 295 mOsm/kg (285-295); Potassium 3.6 mmol/L (3.5-5.1); Sodium 140 mmol/L (136-145); Total Bilirubin 0.2 mg/dL (0.15-1.2); Total Protein 7.3 g/dL (6.6-8.7)
== END 2020-05-31 09:18 | disposition home or self-care (01) ==
PROVIDERS: PCP Nurse Practitioner Family; Visit Provider Physician Assistant Medical
DX: R78.81 Bacteremia (principal)
CPT/HCPCS: 36415; 80053; 85025; 86140; 87040

== ENCOUNTER 2020-07-27 09:08 | Outpatient (CLI) | payer SELFPAY ==
--- NOTE | 2020-07-27 09:14 | US_ITS ---
WS: [id number] DIAGNOSTIC LEFT DIGITAL MAMMOGRAM WITH CAD LEFT breast ultrasound, limited HISTORY: ABNORMAL MAMMOGRAM COMPARISON: 01/16/2020 and 12/29/2019 Technique: CC, MLO and ML views. Magnification LEFT CC and MLO. Additional spot compression LEFT CC. Breast composition: There are scattered areas of fibroglandular density. Calcifications in the later al LEFT breast are unchanged. Some these calcifications are coarse. There is no increase in the numbe r of calcifications. There is an additional new palpable nodule measuring 12 mm in the medial posteri or LEFT breast. LEFT breast ultrasound, limited. LEFT breast ultrasound to the palpable area. Palpable area is at 10:00, 10 cm from the nipple. There is a hypoechoic mass with variable density. There is a central soft tissue with increased central vas cularity. There is also a tract extending superficially which is often seen with a sebaceous cyst. US/US breast LT limited* [id number] IMPRESSION: BI-RADS: 4-Suspicious Finding-Biopsy Should Be Considered FOLLOW UP: Surgical Biopsy Recommended 1. Surgical biopsy/removal of the solid mass at 10:00, 10 cm from the nipple i n the LEFT breast which is palpable. This may be a sebaceous cyst but there is increased central vascularity within the soft tissue component which is not typ ically noted with a benign sebaceous cyst. Core biopsy and fine-needle aspirati ons are not recommended for sebaceous cyst. Consider surgical removal. 2. Breast calcifications are stable. Annual mammogram to be performed in [facility] 2020. These calcifications should undergo a diagnostic imaging at that time also for continued demonstration of stability for total of 2 years. Notified ERIC Madison at 07/27/2020 10:25 AM.
== END 2020-07-27 09:09 | disposition home or self-care (01) ==
LOC: RADSHAW 09:13
PROVIDERS: PCP Nurse Practitioner Family; Visit Provider Nurse Practitioner Family
DX: R92.8 Other abnormal and inconclusive findings on diagnostic imaging of breast (principal); N63.12 Unspecified lump in the right breast, upper inner quadrant; R92.1 Mammographic calcification found on diagnostic imaging of breast
CPT/HCPCS: 76642; 77065

== ENCOUNTER → 2020-08-04 15:35 | Outpatient (BNVA) | payer SELFPAY | PROVIDERS: PCP Nurse Practitioner Family; Visit Provider Surgery | DX: N63.0 Unspecified lump in unspecified breast (principal) | CPT/HCPCS: 88305 ==

== ENCOUNTER 2020-08-12 07:40 | Outpatient (CLI) | payer SELFPAY ==
--- NOTE | 2020-08-12 08:00 | NM_ITS ---
WS: [id number] NUCLEAR MEDICINE GASTRIC STUDY CLINICAL INFORMATION: R10.13 - Epigastric pain TECHNIQUE: Following oral ingestion of cooked egg mixed with 1.06 mCi technetium 99m sulfur colloid, anterior images of the stomach were obtained over the course of 90 minutes. Activity curve was perfor med over the course of 90 minutes with linear regression analysis. COMPARISON: None. FINDINGS: Sulfur colloid egg mix ingested. 10% emptying at 1 hour. 41% emptying at 2 hours. Calculated T1/2 146 minutes (Normal 45-110 minutes) NM/NM gastric emptying st [id number] IMPRESSION: Findings compatible with delayed gastric emptying. *Normal median T1 half 90 minutes for solid egg meal (45-110 minutes). Delayed gastric retention is defined as 90% retained at 1 hour, 60% at 2 hour s, 30% at 3 hours, and 10% at 4 hours (normal percent gastric retention is 37-9 0% at 1 hour, 30-60% at 2 hours, and 0-10% at 4 hours).
== END 2020-08-12 07:41 | disposition home or self-care (01) ==
LOC: RAD 07:44
PROVIDERS: PCP Nurse Practitioner Family; Visit Provider Surgery
DX: R10.13 Epigastric pain (principal)
CPT/HCPCS: 78264; A9541

== ENCOUNTER 2020-08-19 08:02 | Outpatient (CLI) | payer SELFPAY ==
--- NOTE | 2020-08-19 08:26 | FL_ITS ---
WS: [id number] UPPER GI WITH AIR TECHNICAL: Double contrast upper GI FLUOROSCOPY TIME: 2.8 minutes CLINICAL INFORMATION: R10.13 - Epigastric pain COMPARISON: Gastric emptying study August 12, 2020 FINDINGS: Swallowing: No evidence of aspiration or penetration. Esophagus: Mild dysmotility. No stricture or mass. Gastroesophageal reflux: Mild reflux visualized in the supine position. No significant hiatal hernia. Stomach: Normal double contrast stomach. Normal gastric emptying. Duodenum: Normal duodenum Other findings: None. FL/FL upper GI w air* [id number] IMPRESSION: 1. Normal double contrast stomach. Normal gastric emptying. 2. Proximal duodenum is normal. 3. Mild esophageal dysmotility with mild reflux visualized in the supine posit ion 4. No significant esophageal hiatal hernia.
== END 2020-08-19 08:03 | disposition home or self-care (01) ==
PROVIDERS: PCP Nurse Practitioner Family; Visit Provider Surgery
DX: R10.13 Epigastric pain (principal)
CPT/HCPCS: 74246

== ENCOUNTER 2020-09-22 15:07 | Outpatient (CLI) | payer SELFPAY ==
--- NOTE | 2020-09-22 15:13 | XR_ITS ---
WS: [id number] Exam: XR lumbar spine min 4V [id number] Date/Time of Exam: 09/22/2020 3:32 PM Reason For Exam: L LUMBAR RADCIULOPATHY No acute fracture or malalignment. Disc spaces are preserved. Mild spondylosis. Minimal facet DJD at L4-5 and L5-S1. XR/XR lumbar spine min 4V [id number] IMPRESSION: 1. Minimal DJD otherwise unremarkable lumbar spine study.
--- NOTE | 2020-09-22 15:13 | XR_ITS ---
WS: [id number] Exam: XR knee LT 4V [id number] Date/Time of Exam: 09/22/2020 3:32 PM Reason For Exam: L KNEE PAIN No fracture or dislocation noted. No joint effusion. Mild tricompartmental DJD. XR/XR knee LT 4V [id number] IMPRESSION: 1. Mild tricompartmental DJD. No fracture.
== END 2020-09-22 15:08 | disposition home or self-care (01) ==
LOC: RAD 15:09
PROVIDERS: PCP Nurse Practitioner Family; Visit Provider Nurse Practitioner Family
DX: M54.16 Radiculopathy, lumbar region (principal); M25.562 Pain in left knee; M17.12 Unilateral primary osteoarthritis, left knee
CPT/HCPCS: 72110; 73564

== ENCOUNTER 2020-09-30 15:55 | Emergency (ER) | payer SELFPAY ==
[2020-09-30 17:06] VITALS: BP 115/75; PULSE 74; RESP 16; TEMP 36.9; O2SAT 96; BMI 31.8
--- NOTE | 2020-09-30 17:59 | XRR_ITS ---
PROCEDURE INFORMATION: Exam: XR Chest Exam date and time: 09/30/2020 5:59 PM Age: 55 years old Clinical indication: Shortness of breath and other: N/v; Patient HX: N/v SOB dizziness abd pain x 2-3days; Additional info: Reduced breath sounds TECHNIQUE: Imaging protocol: XR of the chest. Views: 1 view. COMPARISON: CR XR chest 1V portable [id number] 04/29/2020 6:35 PM FINDINGS: Lungs: Visualized portions of the lungs are clear. Pleural spaces: Unremarkable. No pleural effusion. No pneumothorax. Heart/Mediastinum: Heart is within normal limits of size. Bones/joints: There are degenerative changes in the thoracic spine and mild scoliosis concave to the left. XR/XR chest 1V portable [id number] IMPRESSION: No acute infiltrate.
--- NOTE | 2020-09-30 17:59 | CTR_ITS ---
PROCEDURE INFORMATION: Exam: CT Abdomen And Pelvis With Contrast Exam date and time: 09/30/2020 5:59 PM Age: 55 years old Clinical indication: Abdominal pain; Epigastric; Additional info: Abd pain. TECHNIQUE: Imaging protocol: Computed tomography of the abdomen and pelvis with contrast. Radiation optimization: All CT scans at this facility use at least one of these dose optimization techniques: automated exposure control; mA and/or kV adjustment per patient size (includes targeted exams where dose is matched to clinical indication); or iterative reconstruction. Contrast material: OMNI 350; Contrast volume: 95 ml; Contrast route: INTRAVENOUS (IV); COMPARISON: CT abdomen pelvis w con* [id number] 05/08/2020 5:26 PM RADIATION DOSE METRICS: Total DLP (mGy-cm): 1560.22 FINDINGS: Liver: There is a diffuse decrease in hepatic parenchymal density, consistent with mild fatty infiltration. There is no focal abnormality within the liver. Gallbladder and bile ducts: The gallbladder is normal. Pancreas: The pancreas is normal. Spleen: The spleen is normal. Adrenal glands: The adrenal glands are normal. Kidneys and ureters: The kidneys are normal. There is no evidence of hydronephrosis. There is no evidence of renal or ureteral calcifications. Stomach and bowel: There is no evidence of colitis/diverticulitis. Appendix: A normal appendix is identified. Intraperitoneal space: There is no evidence of free intraperitoneal fluid. Vasculature: There is no evidence of an abdominal aortic aneurysm. Lymph nodes: There is no evidence of lymphadenopathy. Urinary bladder: There is diffuse thickening of the urinary bladder wall which may be in part due to under distension. Please correlate for any clinical signs or symptoms of urinary tract infection. Reproductive: There is a nearly 6 cm sized fibroid on the right side of the uterus not significantly changed from 05/08/2020. Bones/joints: Unremarkable. No acute fracture. Soft tissues: Unremarkable. CT/CT abdomen pelvis w con* [id number] IMPRESSION: 1. Large uterine fibroid not significantly changed. 2. Question of urinary bladder wall thickening, please correlate for any clinical signs or symptoms of urinary tract infection. 3. Mild fatty liver Radiation Dose CTDIVOL = (mGy): DLP = 1560.22 (mGy-cm)
--- NOTE | 2020-09-30 18:34 | PC.NURSE ---
pt off unit with CT since 1824
[2020-09-30] MEDS: iohexol 350 mg/mL 100 mL Btl IV (18:36)
[2020-09-30 18:48] LABS: Glucose Point of Care 91 mg/dL (70-110)
--- NOTE | 2020-09-30 19:26 | W.ED.GENADLT ---
HPI - General Adult General: Chief complaint: General Medical Stated complaint: vomiting Time Seen by Provider: 09/30/20 17:36 History of Present Illness: HPI narrative: The patient is a 55-year-old female who comes to the ER complaining of nausea, vomiting, and weakness. She says she is diabetic as well and has not been able to take her medicines because she cannot keep anything down even liquids. She got her Covid shot first vaccine a week ago and that is when she started to feel the symptoms and they have worsened all week. Onset (ago): day(s) (7) Severity: moderate Quality: sharp Relieving factors: none Associated symptoms: Reports nausea, vomiting and weakness; Deny chest pain, confusion, dyspnea, headache(s), rash or palpitations Review of Systems General: Reports: 10 or more systems reviewed and unremarkable except in HPI and below Const: Denies: fatigue Eyes: Denies: change in vision, blurry vision or eye redness ENMT: Denies: throat pain, swelling of lips/tongue, ear or mastoid pain or nasal congestion Card: Denies: chest pain, palpitations, irregular heart rhythm, edema, dyspnea on exertion or orthopnea Resp: Denies: dyspnea, productive cough or non-productive cough GI: Reports: abdominal pain, nausea and vomiting : Denies: flank pain, difficulty voiding, urinary frequency or urinary urgency Musc: Denies: neck pain, back pain, extremity pain, joint pain, joint redness, limited range of motion or muscle weakness Skin/Breast: Denies: rash, pruritus, erythema, skin pain or skin tenderness Neuro: Denies: headache(s), numbness in extremities, weakness in extremities, sensory changes, difficulty walking, dizziness, confusion or Slurred speech present Psych: Denies: anxiety or depression Endo: Denies: polyuria All/Imm: Denies: urticaria, throat swelling or tongue swelling PFSH ED PFSH: Medical History Breast mass Diabetes mellitus High cholesterol Hypertension Screening for colon cancer Surgical History History of delivery Family History Father Cancer Mother Thyroid disease Other Dementia Diverticulitis Lupus Screening for colon cancer Denies family history of Thyroid cyst Diabetes CAD (coronary artery disease) Bleeding disorder Social History Smoking and tobacco status: never smoked Alcohol intake: never Household members: none Current occupational status: employed Current occupation: [employer] History of recent travel: No Physical Exam Const: COMMON NORMALS: no acute distress, average body habitus, patient oriented x3, no limitations, healthy appearing, alert and well nourished GENERAL APPEARANCE: cooperative, comfortable, well kempt and well developed ORIENTATION/CONSCIOUSNESS: Yes awake, Yes oriented to person, Yes oriented to place and Yes oriented to time HENMT: COMMON NORMALS: normocephalic, external ears normal and Normal external nose present HEAD & SCALP: normal to inspection and normocephalic NOSE: Normal external nose present EXTERNAL EAR: Yes external ears normal MOUTH: Normal oral and palatal mucosa present THROAT: posterior oropharynx normal Eye: COMMON NORMALS: Equal, round and reactive pupils present and EOMs intact bilaterally GENERAL EYE: appearance normal, both eyes and all related structures PUPIL: Yes Equal, round and reactive pupils present Neck/C-Spine: COMMON NORMALS: full ROM, no lymphadenopathy, no meningeal signs and no JVD GENERAL: Yes normal visual inspection Lymph: LYMPHATIC: no lymphadenopathy noted Chest: COMMONS NORMALS: normal inspection of the chest and normal palpation of entire chest wall Resp: COMMON NORMALS: normal respiratory effort, No retractions, No use of accessory muscles, clear to auscultation bilaterally and percussion normal EFFORT & INSPECTION: Yes able to speak in complete sentences AUSCULTATION: clear to auscultation bilaterally PERCUSSION: percussion normal Cardio: COMMON NORMALS: no JVD, regular rate, regular rhythm, S1 normal heart sound present, S2 normal heart sound present and Peripheral pulses 2+ throughout RATE: regular rate RHYTHM: regular rhythm HEART SOUNDS: S1 normal heart sound present and S2 normal heart sound present PERIPHERAL PULSES: Peripheral pulses 2+ throughout GI: COMMON NORMALS: Normal to inspection, nondistended, normoactive bowel sounds present, Soft to palpation and no masses INSPECTION: Yes normal to inspection PALPATION: Yes Soft to palpation OTHER: Mild tenderness to the upper abdomen possibly from vomiting. GI image (female): 1. Mild tenderness to the upper abdomen possibly from vomiting. : COMMON NORMALS: Yes no CVA tenderness BLADDER/KIDNEY EXAM: Yes no CVA tenderness Back/Pelvis: COMMON NORMALS: no CVA tenderness, thoracic and lumbar spine normal to inspection, no thoracic nor lumbar tenderness and thoraco-lumbar ROM normal Extremity: COMMON NORMALS: normal to inspection, full ROM, capillary refill normal, no joint enlargement and no pedal edema GENERAL: Yes normal exam except as noted Neuro: COMMON NORMALS: patient oriented x3, CN's II-XII intact bilaterally, moves all extremities, no focal motor deficits, no sensory deficits noted and gait normal SENSORIUM/ORIENTATION: Yes alert, Yes oriented to person, Yes oriented to place and Yes oriented to time MENINGEAL SIGNS: Yes no meningeal signs Psych: COMMON NORMALS: mental status grossly normal, Normal thought process present, cooperative, normal affect and speech normal APPEARANCE: Yes well kempt ATTITUDE: Yes calm SPEECH: Yes normal speech THOUGHT PROCESS: Normal thought process present Skin: COMMON NORMALS: no rashes or lesions noted GENERAL SKIN EXAM: no rashes or lesions noted Course Vital Signs: Vital signs: Vital Signs Temperature 98.5 F 09/30/20 17:06 Pulse Rate 74 09/30/20 17:06 Respiratory Rate 16 09/30/20 17:06 Blood Pressure 115/75 09/30/20 17:06 Pulse Oximetry 96 09/30/20 17:06 MDM - General Adult MDM Narrative: Medical decision making narrative: She came to the ER with nausea and vomiting for a week. She was also dizzy. She was given 2 L IV fluids. Her creatinine was 2.6 and after a liter and change it went down to 2.2. I offered her admission for this and she prefers discharge home. Recommended she drink lots of fluids and get her creatinine checked by her primary care physician Sunday. Also other electrolyte abnormalities she was hypokalemic at 2.9 and after infusion it improved to 3.3. She also has a UTI and will be sent home with Keflex. Return to the ER at anytime with worsening or worrisome symptoms. She is comfortable in the ER and tolerating p.o. well now. Lab Data: Labs: Lab Results 09/30/20 09/30/20 09/30/20 Range/Units 18:46 19:08 19:08 WBC 12.5 H (4.0-10.0) 10^3/ uL RBC 4.34 (4.1-5.3) 10^6/u L Hgb 13.5 (11.5-15.3) g/dL Hct 39.5 (37.0-47.0) % MCV 91.0 (81-99) fL MCH 31.1 (28.0-34.0) pg MCHC 34.2 (30.0-36.0) g/dL RDW 12.9 (12.1-15.1) % Plt Count 445 H (130-400) 10^3/c mm MPV 9.2 (7.4-10.4) fL Neut % (Auto) 74.7 % Lymph % (Auto) 19.2 % [place] % (Auto) 5.1 % Eos % (Auto) 0.6 % Baso % (Auto) 0.2 % Neut # (Auto) 9.30 H (1.8-7.7) 10^3/u L Lymph # (Auto) 2.4 (0.8-4.8) 10^3/u L [place] # (Auto) 0.6 (0.2-0.9) 10^3/u L Eos # (Auto) 0.1 (0.0-0.8) 10^3/u L Baso # (Auto) 0.0 (0.0-0.1) 10^3/u L Nucleated RBC % (a uto) 0 % Nucleated RBCs # 0.0 /100WBC Sodium 135 L (136-145) mmol/L Potassium 2.9 L (3.5-5.1) mmol/L Chloride 90 L (98-107) mmol/L Carbon Dioxide 28 (22-29) mmol/L Anion Gap 19.9 H (5-19) BUN 36 H (6-20) mg/dL Creatinine 2.6 H (0.5-0.9) mg/dL GFR Calculation 19.3 L (90-130) mL/min Glucose 70 (65-115) mg/dL POC Glucose 91 (70-110) mg/dL Calculated Osmolal ity 287 (285-295) mOsm/k g Calcium 9.7 (8.5-10.5) mg/dL Total Bilirubin 0.3 (0.15-1.2) mg/dL AST 13 (0-32) U/L ALT 12 (0-33) U/L Alkaline Phosphata se 83 (35-105) IU/L Troponin T Baselin e (0-10) ng/L Troponin T 120 Min grayling (0-10) ng/L Delta Troponin T (0-10) ABS# Total Protein 7.9 (6.6-8.7) g/dL Albumin 4.6 (3.5-5.2) g/dL Globulin 3.3 (1.3-4.6) g/dL Lipase 26 (13-60) U/L Urine Color (Yellow) Urine Appearance (CLEAR) Urine pH (5-7) Ur Specific Gravit y (1.005-1.030) Urine Protein (Negative) Urine Glucose (UA) (Normal) Urine Ketones (Negative) Urine Blood (Negative) Urine Nitrate (Negative) Urine Bilirubin (Negative) Urine Urobilinogen (Negative) mg/dL Ur Leukocyte Eugenia ase (Negative) Urine RBC (0-2) /hpf Urine WBC (0-5) /hpf Ur Squamous Epith Cells (0-5) /hpf Amorphous Sediment Urine Bacteria (NONE) /hpf 09/30/20 09/30/20 09/30/20 Range/Units 19:08 21:20 21:20 WBC (4.0-10.0) 10^3/ uL RBC (4.1-5.3) 10^6/u L Hgb (11.5-15.3) g/dL Hct (37.0-47.0) % MCV (81-99) fL MCH (28.0-34.0) pg MCHC (30.0-36.0) g/dL RDW (12.1-15.1) % Plt Count (130-400) 10^3/c mm MPV (7.4-10.4) fL Neut % (Auto) % Lymph % (Auto) % [place] % (Auto) % Eos % (Auto) % Baso % (Auto) % Neut # (Auto) (1.8-7.7) 10^3/u L Lymph # (Auto) (0.8-4.8) 10^3/u L [place] # (Auto) (0.2-0.9) 10^3/u L Eos # (Auto) (0.0-0.8) 10^3/u L Baso # (Auto) (0.0-0.1) 10^3/u L Nucleated RBC % (a uto) % Nucleated RBCs # /100WBC Sodium 139 (136-145) mmol/L Potassium 3.3 L (3.5-5.1) mmol/L Chloride 95 L (98-107) mmol/L Carbon Dioxide 24 (22-29) mmol/L Anion Gap 23.3 H (5-19) BUN 36 H (6-20) mg/dL Creatinine 2.2 H (0.5-0.9) mg/dL GFR Calculation 23.3 L (90-130) mL/min Glucose 56 L (65-115) mg/dL POC Glucose (70-110) mg/dL Calculated Osmolal ity 294 (285-295) mOsm/k g Calcium 9.5 (8.5-10.5) mg/dL Total Bilirubin (0.15-1.2) mg/dL AST (0-32) U/L ALT (0-33) U/L Alkaline Phosphata se (35-105) IU/L Troponin T Baselin e 19 H (0-10) ng/L Troponin T 120 Min grayling 10.84 H (0-10) ng/L Delta Troponin T -8.16 L (0-10) ABS# Total Protein (6.6-8.7) g/dL Albumin (3.5-5.2) g/dL Globulin (1.3-4.6) g/dL Lipase (13-60) U/L Urine Color (Yellow) Urine Appearance (CLEAR) Urine pH (5-7) Ur Specific Gravit y (1.005-1.030) Urine Protein (Negative) Urine Glucose (UA) (Normal) Urine Ketones (Negative) Urine Blood (Negative) Urine Nitrate (Negative) Urine Bilirubin (Negative) Urine Urobilinogen (Negative) mg/dL Ur Leukocyte Eugenia ase (Negative) Urine RBC (0-2) /hpf Urine WBC (0-5) /hpf Ur Squamous Epith Cells (0-5) /hpf Amorphous Sediment Urine Bacteria (NONE) /hpf 09/30/20 Range/Units 22:35 WBC (4.0-10.0) 10^3/ uL RBC (4.1-5.3) 10^6/u L Hgb (11.5-15.3) g/dL Hct (37.0-47.0) % MCV (81-99) fL MCH (28.0-34.0) pg MCHC (30.0-36.0) g/dL RDW (12.1-15.1) % Plt Count (130-400) 10^3/c mm MPV (7.4-10.4) fL Neut % (Auto) % Lymph % (Auto) % [place] % (Auto) % Eos % (Auto) % Baso % (Auto) % Neut # (Auto) (1.8-7.7) 10^3/u L Lymph # (Auto) (0.8-4.8) 10^3/u L [place] # (Auto) (0.2-0.9) 10^3/u L Eos # (Auto) (0.0-0.8) 10^3/u L Baso # (Auto) (0.0-0.1) 10^3/u L Nucleated RBC % (a uto) % Nucleated RBCs # /100WBC Sodium (136-145) mmol/L Potassium (3.5-5.1) mmol/L Chloride (98-107) mmol/L Carbon Dioxide (22-29) mmol/L Anion Gap (5-19) BUN (6-20) mg/dL Creatinine (0.5-0.9) mg/dL GFR Calculation (90-130) mL/min Glucose (65-115) mg/dL POC Glucose (70-110) mg/dL Calculated Osmolal ity (285-295) mOsm/k g Calcium (8.5-10.5) mg/dL Total Bilirubin (0.15-1.2) mg/dL AST (0-32) U/L ALT (0-33) U/L Alkaline Phosphata se (35-105) IU/L Troponin T Baselin e (0-10) ng/L Troponin T 120 Min gray[place] (0-10) ng/L Delta Troponin T (0-10) ABS# Total Protein (6.6-8.7) g/dL Albumin (3.5-5.2) g/dL Globulin (1.3-4.6) g/dL Lipase (13-60) U/L Urine Color Straw (Yellow) Urine Appearance Cloudy (CLEAR) Urine pH 5 (5-7) Ur Specific Gravit y 1.010 (1.005-1.030) Urine Protein Neg (Negative) Urine Glucose (UA) Norm (Normal) Urine Ketones Negative (Negative) Urine Blood Neg (Negative) Urine Nitrate Positive H (Negative) Urine Bilirubin Neg (Negative) Urine Urobilinogen Norm (Negative) mg/dL Ur Leukocyte Eugenia ase 2+ H (Negative) Urine RBC 0-4 H (0-2) /hpf Urine WBC 25-40 H (0-5) /hpf Ur Squamous Epith Cells 25-40 H (0-5) /hpf Amorphous Sediment Not Reportable Urine Bacteria 3+ H (NONE) /hpf Discharge Plan Discharge Patient Disposition: Home Clinical Impression: Gastroenteritis, Acute kidney injury, Acute hypokalemia, UTI (urinary tract infection) Condition: Stable Prescriptions: New cephalexin 500 mg capsule 500 mg PO BID 5 Days Qty: 10 RF: 0 Klor-Con M20 20 mEq tablet,ER particles/crystals 20 meq PO BID Qty: 2 RF: 0 ondansetron 4 mg tablet,disintegrating 4 mg PO Q8H 4 Days Qty: 12 RF: 0 No Action gabapentin 100 mg capsule 100 mg PO DAILY RF: 0 lisinopril 40 mg tablet 40 mg PO BEDTIME RF: 0 metformin 1,000 mg tablet 1,000 mg PO BID RF: 0 Advil PM 200-38 mg Tablet 2 tab PO BEDTIME PRN (Reason: unknown) RF: 0 Humulin 70/30 U-100 KwikPen 100 unit/mL (70-30) insulin pen 40 unit SUBCUT BID RF: 0 Discharge Orders: Discharge ED (Routine); Ordered 10/01/20 Ordered By: Nick Carlisle Referrals: Mariza Trivedi FNP [Primary Care Provider] - Discharge Diet: Advance as tolerated Discharge Activity: Resume usual activity Patient Instructions: Gastroenteritis (ED), Opioid Safety Activity Restrictions/Additional Instructions: You have been suffering from gastroenteritis. This is also caused a lot of electrolyte abnormalities and a urine infection. Please take the antibiotic to help with the urine infection and use Zofran to help with your nausea. It dissolves in your mouth and wait 10 minutes and start sipping water. Also your potassium is slightly low and have included a couple pills to take tomorrow to help normalize that but once you stop vomiting it should improve on its own. Also it's important that you drink lots of fluids as you have injured kidneys right now. I have offered to admit you but you preferred discharge home. Drink lots of fluids and get your kidneys checked Sunday to make sure they have normalized as well. If you do not do this they could get worse and result in permanent damage and even possibly dialysis. Return to the ER at anytime with worsening symptoms or worrisome symptoms. Follow-up with your primary care Sunday. Coding Level of Care Code ED Digital Marketing Associate for Makayla Fwd Exam Comprehensive
[2020-09-30 19:27] LABS: Basophils % 0.2 %; Eosinophils # 0.1 10^3/uL (0.0-0.8); Eosinophils % 0.6 %; Hematocrit 39.5 % (37.0-47.0); Hemoglobin 13.5 g/dL (11.5-15.3); Lymphocytes # 2.4 10^3/uL (0.8-4.8); Lymphocytes % 19.2 %; Mean Corpuscular HGB Conc 34.2 g/dL (30.0-36.0); Mean Corpuscular Hemoglobin 31.1 pg (28.0-34.0); Mean Platelet Volume 9.2 fL (7.4-10.4); Monocytes # 0.6 10^3/uL (0.2-0.9); Monocytes % 5.1 %; Neutrophils % 74.7 %; Nucleated Red Blood Cells % 0 %; Platelet Count 445 10^3/cmm (130-400); Red Blood Count 4.34 10^6/uL (4.1-5.3); Red Cell Distribution Width 12.9 % (12.1-15.1); White Blood Count 12.5 10^3/uL (4.0-10.0)
[2020-09-30 19:31] LABS: Alanine Aminotransferase 12 U/L (0-33); Albumin Level 4.6 g/dL (3.5-5.2); Alkaline Phosphatase 83 IU/L (35-105); Anion Gap 19.9 (5-19); Aspartate Amino Transferase 13 U/L (0-32); Blood Urea Nitrogen 36 mg/dL (6-20); Calcium 9.7 mg/dL (8.5-10.5); Carbon Dioxide 28 mmol/L (22-29); Chloride 90 mmol/L (98-107); Globulin 3.3 g/dL (1.3-4.6); Glomerular Filtration Rate 19.3 mL/min (90-130); Glucose 70 mg/dL (65-115); Lipase 26 U/L (13-60); Osmolality Calculated 287 mOsm/kg (285-295); Sodium 135 mmol/L (136-145); Total Bilirubin 0.3 mg/dL (0.15-1.2); Total Protein 7.9 g/dL (6.6-8.7)
[2020-09-30 19:37] LABS: Potassium 2.9 mmol/L (3.5-5.1)
[2020-09-30] MEDS: ketorolac 30 mg/mL INJ 15 MG IVP (19:37)
[2020-09-30] MEDS: sodium chloride 0.9% 1,000 ML 999 ML IV ×2 (19:37→21:36)
[2020-09-30] MEDS: ondansetron 2 mg/ML SDV 2 mL 4 MG IVP (19:38)
[2020-09-30] MEDS: lidocaine 1% 5 ML in potassium chloride premix 100 ML 25 ML IV (20:00)
--- NOTE | 2020-09-30 20:01 | ECG_ITS ---
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 Measurements Intervals [place] Rate: 106 P: 47 VT: 155 QRS: -16 QRSD: 94 T: 20 QT: 357 QTc: 475 Interpretive Statements SINUS TACHYCARDIA Compared to ECG 05/01/2020 14:09:06 Left ventricular hypertrophy no longer present Myocardial infarct finding no longer present Electronically Signed On 10-01-2020 14:25:48 CDT by Christina Montelongo M.D. [email or web address]
[2020-09-30 20:32] LABS: Troponin(5th) Baseline 19 ng/L (0-10)
[2020-09-30 21:48] LABS: Troponin 5 2HR 10.84 ng/L (0-10)
[2020-09-30 21:56] LABS: Troponin 5 2HR Delta -8.16 ABS# (0-10)
[2020-09-30 22:56] LABS: Add Urine Microscopic? YES; Bilirubin Urine Neg (Negative); Blood Urine Neg (Negative); Glucose Urine UA Norm (Normal); Ketones Urine Negative (Negative); Leukocyte Esterase Urine 2+ (Negative); Nitrate Urine Positive (Negative); Protein Urine Neg (Negative); Urine Appearance Cloudy (CLEAR); Urine Color Straw (Yellow); Urobilinogen Urine Norm (Negative); pH Urine 5 (5-7)
[2020-09-30 23:11] LABS: Add Urine Culture? No; Bacteria Urine 3+ /hpf; RBC Urine 0-4 /hpf (0-2); Squamous Epithelial Cell Urine 25-40 /hpf (0-5); WBC Urine 25-40 /hpf (0-5)
[2020-09-30 23:20] LABS: Blood Urea Nitrogen 36 mg/dL (6-20); Calcium 9.5 mg/dL (8.5-10.5); Carbon Dioxide 24 mmol/L (22-29); Chloride 95 mmol/L (98-107); Glomerular Filtration Rate 23.3 mL/min (90-130); Glucose 56 mg/dL (65-115); Osmolality Calculated 294 mOsm/kg (285-295); Sodium 139 mmol/L (136-145)
[2020-09-30 23:28] LABS: Anion Gap 23.3 (5-19); Potassium 3.3 mmol/L (3.5-5.1)
[2020-10-01] MEDS: cefTRIAXone 1,000 MG in sodium chloride 0.9% (plus) 50 ML 100 MG IV (00:02)
[2020-10-01 00:29] VITALS: BP 159/97; PULSE 104; RESP 18; O2SAT 99
[2020-10-01 00:30] VITALS: BP 159/97; PULSE 103; O2SAT 99
== END 2020-10-01 00:36 | disposition home or self-care (01) ==
PROVIDERS: Physician Assistant; Emergency Provider Family Medicine; PCP Nurse Practitioner Family
DX: K52.9 Noninfective gastroenteritis and colitis, unspecified (principal); N17.9 Acute kidney failure, unspecified; E87.6 Hypokalemia; N39.0 Urinary tract infection, site not specified; Z79.4 Long term (current) use of insulin; E11.9 Type 2 diabetes mellitus without complications; I10 Essential (primary) hypertension
CPT/HCPCS: 36415; 36416; 71045; 74177; 80048; 80053; 81001; 82962; 83690; 84484; 85025; 93005; 96361; 96365; 96375; 99284; J0696; J1885; J2405; J3480; J7030; Q9967

== ENCOUNTER 2020-10-09 12:28 | Emergency (ER) | payer SELFPAY ==
[2020-10-09 12:37] VITALS: BP 144/85; PULSE 114; RESP 18; TEMP 37.3; O2SAT 100; BMI 30.1
--- NOTE | 2020-10-09 13:03 | ED_ITS ---
HPI - Nausea/Vomiting/Diarrhea General: Chief complaint: Nausea/Vomiting/Diarrhea Stated complaint: ABD PAIN Time Seen by Provider: 10/09/20 12:29 History of Present Illness: HPI Narrative: The patient is a 55-year-old female seen here on the for nausea and vomiting. At that time she said she had been vomiting for a week and before she started vomiting a few days before it she got the Covid vaccine her first dose. She had elevated creatinine and was given 2 L of fluids and multiple antiemetics and continued to vomit. She had elevated creatinine as well. She was recommended to stay for admission. She refused and went home AGAINST MEDICAL ADVICE. She comes today and says she has been nauseous and vomiting since she left the hospital.. She came by EMS and received 4 mg Zofran prior to arrival which she says has not helped. MD elicited complaint: nausea, vomiting and abdominal pain Onset (ago): week(s) (2) Description of vomiting: watery Associated nausea: Yes Location of pain: Epigastric Severity: moderate Quality: cramping Exacerbating factors: eating Relieving factors: none Associated symtoms: Reports nausea; Denies anxiety, change in vision, chest pain, dizziness, fatigue, headache(s) or palpitations Review of Systems General: Reports: 10 or more systems reviewed and unremarkable except in HPI and below Const: Denies: fatigue Eyes: Denies: change in vision, blurry vision or eye redness ENMT: Denies: throat pain, swelling of lips/tongue, ear or mastoid pain or nasal congestion Card: Denies: chest pain, palpitations, irregular heart rhythm, edema, dyspnea on exertion or orthopnea Resp: Denies: dyspnea, productive cough or non-productive cough GI: Reports: abdominal pain, nausea and vomiting : Denies: flank pain, difficulty voiding, urinary frequency or urinary urgency Musc: Denies: neck pain, back pain, extremity pain, joint pain, joint redness, limited range of motion or muscle weakness Skin/Breast: Denies: rash, pruritus, erythema, skin pain or skin tenderness Neuro: Denies: headache(s), numbness in extremities, weakness in extremities, sensory changes, difficulty walking, dizziness, confusion or Slurred speech present Psych: Denies: anxiety or depression Endo: Denies: polyuria All/Imm: Denies: urticaria, throat swelling or tongue swelling PFSH ED PFSH: Medical History Breast mass Diabetes mellitus High cholesterol Hypertension Screening for colon cancer Surgical History History of delivery Family History Father Cancer Mother Thyroid disease Other Dementia Diverticulitis Lupus Screening for colon cancer Denies family history of Thyroid cyst Diabetes CAD (coronary artery disease) Bleeding disorder Social History Smoking and tobacco status: never smoked Alcohol intake: never Household members: none Current occupational status: employed Current occupation: [employer] History of recent travel: No Physical Exam Const: COMMON NORMALS: no acute distress, average body habitus, patient oriented x3, no limitations, healthy appearing, alert and well nourished GENERAL APPEARANCE: cooperative, comfortable, well kempt and well developed ORIENTATION/CONSCIOUSNESS: Yes awake, Yes oriented to person, Yes oriented to place and Yes oriented to time HENMT: COMMON NORMALS: normocephalic, external ears normal and Normal external nose present HEAD & SCALP: normal to inspection and normocephalic NOSE: Normal external nose present EXTERNAL EAR: Yes external ears normal MOUTH: Normal oral and palatal mucosa present THROAT: posterior oropharynx normal Eye: COMMON NORMALS: Equal, round and reactive pupils present and EOMs intact bilaterally GENERAL EYE: appearance normal, both eyes and all related structures PUPIL: Yes Equal, round and reactive pupils present Neck/C-Spine: COMMON NORMALS: full ROM, no lymphadenopathy, no meningeal signs and no JVD GENERAL: Yes normal visual inspection Lymph: LYMPHATIC: no lymphadenopathy noted Chest: COMMONS NORMALS: normal inspection of the chest and normal palpation of entire chest wall Resp: COMMON NORMALS: normal respiratory effort, No retractions, No use of accessory muscles, clear to auscultation bilaterally and percussion normal EFFORT & INSPECTION: Yes able to speak in complete sentences AUSCULTATION: clear to auscultation bilaterally PERCUSSION: percussion normal Cardio: COMMON NORMALS: no JVD, regular rate, regular rhythm, S1 normal heart sound present, S2 normal heart sound present and Peripheral pulses 2+ throughout RATE: regular rate RHYTHM: regular rhythm HEART SOUNDS: S1 normal heart sound present and S2 normal heart sound present PERIPHERAL PULSES: Peripheral pulses 2+ throughout GI: COMMON NORMALS: Normal to inspection, nondistended, normoactive bowel soun ds present, Soft to palpation and no masses INSPECTION: Yes normal to inspection PALPATION: Yes Soft to palpation GI image (female): 1. Mild epigastric tenderness : COMMON NORMALS: Yes no CVA tenderness BLADDER/KIDNEY EXAM: Yes no CVA tenderness Back/Pelvis: COMMON NORMALS: no CVA tenderness, thoracic and lumbar spine normal to inspection, no thoracic nor lumbar tenderness and thoraco-lumbar ROM normal Extremity: COMMON NORMALS: normal to inspection, full ROM, capillary refill normal, no joint enlargement and no pedal edema GENERAL: Yes normal exam except as noted Neuro: COMMON NORMALS: patient oriented x3, CN's II-XII intact bilaterally, moves all extremities, no focal motor deficits, no sensory deficits noted and gait normal SENSORIUM/ORIENTATION: Yes alert, Yes oriented to person, Yes oriented to place and Yes oriented to time MENINGEAL SIGNS: Yes no meningeal signs Psych: COMMON NORMALS: mental status grossly normal, Normal thought process present, cooperative, normal affect and speech normal APPEARANCE: Yes well kempt ATTITUDE: Yes calm SPEECH: Yes normal speech THOUGHT PROCESS: Normal thought process present Skin: COMMON NORMALS: no rashes or lesions noted GENERAL SKIN EXAM: no rashes or lesions noted Course Vital Signs: Vital signs: Vital Signs Temperature 99.1 F 10/09/20 12:37 Pulse Rate 116 H 10/09/20 13:14 Respiratory Rate 18 10/09/20 19:21 Blood Pressure 159/89 10/09/20 19:21 Pulse Oximetry 94 10/09/20 19:21 MDM - Nausea/Vomiting/Diarrhea MDM Narrative: Medical decision making narrative: Patient came to the ER with another episode of vomiting. I gave her 2 L of fluid and multiantiemetics with improvement of her nausea. Also her creatinine improved. Stable for discharge. She is seeming to develop cyclic vomiting. I placed a case management referral to help her get in with a GI doctor. Also follow-up with primary care doctor n ext week. ER with worsening symptoms at any time for reevaluation. Discharge her with Zofran and Phenergan to help with nausea at home Lab Data: Labs: Lab Results 10/09/20 10/09/20 10/09/20 Range/Units 13:10 13:10 15:08 WBC 8.9 (4.0-10.0) 10^3/ uL RBC 4.12 (4.1-5.3) 10^6/u L Hgb 12.9 (11.5-15.3) g/dL Hct 37.5 (37.0-47.0) % MCV 91.0 (81-99) fL MCH 31.3 (28.0-34.0) pg MCHC 34.4 (30.0-36.0) g/dL RDW 12.3 (12.1-15.1) % Plt Count 373 (130-400) 10^3/c mm MPV 9.6 (7.4-10.4) fL Neut % (Auto) 77.7 % Lymph % (Auto) 17.7 % [place] % (Auto) 3.1 % Eos % (Auto) 0.8 % Baso % (Auto) 0.3 % Neut # (Auto) 6.93 (1.8-7.7) 10^3/u L Lymph # (Auto) 1.6 (0.8-4.8) 10^3/u L [place] # (Auto) 0.3 (0.2-0.9) 10^3/u L Eos # (Auto) 0.1 (0.0-0.8) 10^3/u L Baso # (Auto) 0.0 (0.0-0.1) 10^3/u L Nucleated RBC % (a uto) 0 % Nucleated RBCs # 0.0 /100WBC Sodium 136 (136-145) mmol/L Potassium 4.0 (3.5-5.1) mmol/L Chloride 93 L (98-107) mmol/L Carbon Dioxide 27 (22-29) mmol/L Anion Gap 20.0 H (5-19) BUN 33 H (6-20) mg/dL Creatinine 1.7 H (0.5-0.9) mg/dL GFR Calculation 31.4 L (90-130) mL/min Glucose 144 H (65-115) mg/dL Calculated Osmolal ity 292 (285-295) mOsm/k g Calcium 9.4 (8.5-10.5) mg/dL Total Bilirubin 0.3 (0.15-1.2) mg/dL AST 16 (0-32) U/L ALT 8 (0-33) U/L Alkaline Phosphata se 76 (35-105) IU/L Total Protein 7.6 (6.6-8.7) g/dL Albumin 4.6 (3.5-5.2) g/dL Globulin 3.0 (1.3-4.6) g/dL Lipase 32 (13-60) U/L Urine Color Yellow (Yellow) Urine Appearance Sl hazy (CLEAR) Urine pH 5 (5-7) Ur Specific Gravit y 1.020 (1.005-1.030) Urine Protein Neg (Negative) Urine Glucose (UA) 1+ (Normal) Urine Ketones 1+ H (Negative) Urine Blood Neg (Negative) Urine Nitrate Positive H (Negative) Urine Bilirubin Neg (Negative) Urine Urobilinogen Norm (Negative) mg/dL Ur Leukocyte Eugenia ase Trace H (Negative) Urine RBC None (0-2) /hpf Urine WBC 25-40 H (0-5) /hpf Ur Squamous Epith Cells 0-4 H (0-5) /hpf Amorphous Sediment Not Reportable Urine Bacteria 3+ H (NONE) /hpf 10/09/20 Range/Units 18:48 WBC (4.0-10.0) 10^3/ uL RBC (4.1-5.3) 10^6/u L Hgb (11.5-15.3) g/dL Hct (37.0-47.0) % MCV (81-99) fL MCH (28.0-34.0) pg MCHC (30.0-36.0) g/dL RDW (12.1-15.1) % Plt Count (130-400) 10^3/c mm MPV (7.4-10.4) fL Neut % (Auto) % Lymph % (Auto) % [place] % (Auto) % Eos % (Auto) % Baso % (Auto) % Neut # (Auto) (1.8-7.7) 10^3/u L Lymph # (Auto) (0.8-4.8) 10^3/u L [place] # (Auto) (0.2-0.9) 10^3/u L Eos # (Auto) (0.0-0.8) 10^3/u L Baso # (Auto) (0.0-0.1) 10^3/u L Nucleated RBC % (a uto) % Nucleated RBCs # /100WBC Sodium 136 (136-145) mmol/L Potassium 3.8 (3.5-5.1) mmol/L Chloride 97 L (98-107) mmol/L Carbon Dioxide 26 (22-29) mmol/L Anion Gap 16.8 (5-19) BUN 27 H (6-20) mg/dL Creatinine 1.3 H (0.5-0.9) mg/dL GFR Calculation 42.8 L (90-130) mL/min Glucose 144 H (65-115) mg/dL Calculated Osmolal ity 290 (285-295) mOsm/k g Calcium 8.2 L (8.5-10.5) mg/dL Total Bilirubin (0.15-1.2) mg/dL AST (0-32) U/L ALT (0-33) U/L Alkaline Phosphata se (35-105) IU/L Total Protein (6.6-8.7) g/dL Albumin (3.5-5.2) g/dL Globulin (1.3-4.6) g/dL Lipase (13-60) U/L Urine Color (Yellow) Urine Appearance (CLEAR) Urine pH (5-7) Ur Specific Gravit y (1.005-1.030) Urine Protein (Negative) Urine Glucose (UA) (Normal) Urine Ketones (Negative) Urine Blood (Negative) Urine Nitrate (Negative) Urine Bilirubin (Negative) Urine Urobilinogen (Negative) mg/dL Ur Leukocyte Eugenia ase (Negative) Urine RBC (0-2) /hpf Urine WBC (0-5) /hpf Ur Squamous Epith Cells (0-5) /hpf Amorphous Sediment Urine Bacteria (NONE) /hpf Discharge Plan Discharge Patient Disposition: Home Clinical Impression: Gastroenteritis Condition: Stable Prescriptions: New ondansetron 4 mg tablet,disintegrating 4 mg PO Q8H 4 Days Qty: 12 RF: 0 promethazine 25 mg tablet 6.25 mg PO TID PRN (Reason: nausea and vomiting) Qty: 10 RF: 0 No Action gabapentin 100 mg capsule 100 mg PO DAILY RF: 0 metformin 1,000 mg tablet 1,000 mg PO BID RF: 0 Advil PM 200-38 mg Tablet 2 tab PO BEDTIME PRN (Reason: unknown) RF: 0 trazodone 50 mg tablet 100 mg PO BEDTIME RF: 0 ondansetron HCl 4 mg tablet 4 mg PO Q4H PRN (Reason: N/V) RF: 0 lisinopril 2.5 mg tablet 2.5 mg PO DAILY RF: 0 Novolin R Flexpen 100 unit/mL (3 mL) Insulin Pen 38 unit SUBCUT BID RF: 0 Discharge Orders: Discharge ED (Routine); Ordered 10/09/20 Ordered By: Nick Carlisle Referrals: Mariza Trivedi FNP [Primary Care Provider] - Discharge Diet: Advance as tolerated Discharge Activity: Resume usual activity Patient Instructions: Acute Nausea and Vomiting (ED), Opioid Safety Activity Restrictions/Additional Instructions: Your nausea and vomiting has improved after Zofran and fluids and your creatinine has also improved. Please return to the ER with worsening symptoms at any time and we will give you IV fluids or any other work-up as needed. Please follow-up with your primary care physician in a couple days and return to the ER at any time. I have placed a case management referral to get you in with a communications equipment operator as this is a recurring problem for you. Coding Level of Care Code ED Global Upstream Marketing Manager for Makayla Young Exam Comprehensive
[2020-10-09 13:14] VITALS: BP 144/93; PULSE 116; RESP 15; O2SAT 100
[2020-10-09] MEDS: ondansetron 2 mg/ML SDV 2 mL 4 MG IVP (13:14)
[2020-10-09] MEDS: sodium chloride 0.9% 1,000 ML 999 ML IV ×2 (13:15→15:39)
[2020-10-09 13:19] LABS: Basophils % 0.3 %; Eosinophils # 0.1 10^3/uL (0.0-0.8); Eosinophils % 0.8 %; Hematocrit 37.5 % (37.0-47.0); Hemoglobin 12.9 g/dL (11.5-15.3); Lymphocytes # 1.6 10^3/uL (0.8-4.8); Lymphocytes % 17.7 %; Mean Corpuscular HGB Conc 34.4 g/dL (30.0-36.0); Mean Corpuscular Hemoglobin 31.3 pg (28.0-34.0); Mean Platelet Volume 9.6 fL (7.4-10.4); Monocytes # 0.3 10^3/uL (0.2-0.9); Monocytes % 3.1 %; Neutrophils # 6.93 10^3/uL (1.8-7.7); Neutrophils % 77.7 %; Nucleated Red Blood Cells % 0 %; Platelet Count 373 10^3/cmm (130-400); Red Blood Count 4.12 10^6/uL (4.1-5.3); Red Cell Distribution Width 12.3 % (12.1-15.1); White Blood Count 8.9 10^3/uL (4.0-10.0)
[2020-10-09 13:41] LABS: Alanine Aminotransferase 8 U/L (0-33); Albumin Level 4.6 g/dL (3.5-5.2); Alkaline Phosphatase 76 IU/L (35-105); Aspartate Amino Transferase 16 U/L (0-32); Blood Urea Nitrogen 33 mg/dL (6-20); Calcium 9.4 mg/dL (8.5-10.5); Carbon Dioxide 27 mmol/L (22-29); Chloride 93 mmol/L (98-107); Glomerular Filtration Rate 31.4 mL/min (90-130); Glucose 144 mg/dL (65-115); Lipase 32 U/L (13-60); Osmolality Calculated 292 mOsm/kg (285-295); Sodium 136 mmol/L (136-145); Total Bilirubin 0.3 mg/dL (0.15-1.2); Total Protein 7.6 g/dL (6.6-8.7)
--- NOTE | 2020-10-09 14:55 | CTR_ITS ---
PROCEDURE INFORMATION: Exam: CT Abdomen And Pelvis Without Contrast Exam date and time: 10/09/2020 2:55 PM Age: 55 years old Clinical indication: Nausea and vomiting; Prior surgery; Surgery date: 6+ months; Surgery type: C-sect; Patient HX: C/O abd pain, n/v x 10 days; Additional info: Abdominal pain TECHNIQUE: Imaging protocol: Computed tomography of the abdomen and pelvis without contrast. Radiation optimization: All CT scans at this facility use at least one of these dose optimization techniques: automated exposure control; mA and/or kV adjustment per patient size (includes targeted exams where dose is matched to clinical indication); or iterative reconstruction. COMPARISON: CT abdomen pelvis w con* [id number] 09/30/2020 6:31 PM RADIATION DOSE METRICS: Total DLP (mGy-cm): 1688.94 FINDINGS: Liver: Normal. No mass. Gallbladder and bile ducts: Normal. No calcified stones. No ductal dilation. Pancreas: Normal. No ductal dilation. Spleen: Normal. No splenomegaly. Adrenal glands: Normal. No mass. Kidneys and ureters: Normal. No hydronephrosis. Stomach and bowel: Unremarkable. No obstruction. No mucosal thickening. Appendix: The appendix is not visualized. No secondary signs of appendicitis. Intraperitoneal space: Unremarkable. No free air. No significant fluid collection. Vasculature: Unremarkable. No abdominal aortic aneurysm. Lymph nodes: Unremarkable. No enlarged lymph nodes. Urinary bladder: Unremarkable as visualized. Reproductive: 5.4 cm calcified uterine mass, unchanged. The ovaries are normal. Bones/joints: Unremarkable. No acute fracture. Soft tissues: Unremarkable. CT/CT abdomen pelvis con [id number] IMPRESSION: 1. No acute abnormality identified in the abdomen or pelvis. 2. Uterine fibroid. Radiation Dose CTDIVOL = (mGy): DLP = 1688.94 (mGy-cm)
[2020-10-09 15:29] LABS: Urine Appearance SL Hazy (CLEAR); Urine Color Yellow (Yellow)
[2020-10-09 15:30] LABS: Add Urine Microscopic? YES; Bilirubin Urine Neg (Negative); Blood Urine Neg (Negative); Glucose Urine UA 1+ (Normal); Ketones Urine 1+ (Negative); Leukocyte Esterase Urine Trace (Negative); Nitrate Urine Positive (Negative); Protein Urine Neg (Negative); Urobilinogen Urine Norm (Negative); pH Urine 5 (5-7)
[2020-10-09] MEDS: promethazine 25 mg/mL SDV 1 mL IM (15:39)
[2020-10-09] MEDS: acetaminophen 325 mg Tablet 650 MG PO (15:39)
[2020-10-09 15:43] LABS: Add Urine Culture? Yes; Bacteria Urine 3+ /hpf; Squamous Epithelial Cell Urine 0-4 /hpf (0-5); WBC Urine 25-40 /hpf (0-5)
[2020-10-09] MEDS: cefTRIAXone 1,000 MG in sodium chloride 0.9% (plus) 50 ML 100 MG IV (16:45)
[2020-10-09 17:26] VITALS: BP 154/81; RESP 15; O2SAT 98
[2020-10-09 19:09] LABS: Anion Gap 16.8 (5-19); Blood Urea Nitrogen 27 mg/dL (6-20); Calcium 8.2 mg/dL (8.5-10.5); Carbon Dioxide 26 mmol/L (22-29); Chloride 97 mmol/L (98-107); Glomerular Filtration Rate 42.8 mL/min (90-130); Glucose 144 mg/dL (65-115); Osmolality Calculated 290 mOsm/kg (285-295); Potassium 3.8 mmol/L (3.5-5.1); Sodium 136 mmol/L (136-145)
[2020-10-09 19:21] VITALS: BP 159/89; RESP 18; O2SAT 94
--- NOTE | 2020-10-12 13:49 | DCPLANNER ---
clothing manager had message to schedule a follow up appointment for patient with general surgery. clothing manager emailed patients information to Tomas at [facility] General Surgery. Patients information will be printed and reviewed. Clinic will call patient with appointment information.
--- NOTE | 2020-10-14 08:01 | DCPLANNER ---
manager proposal received an email from Kaylyn at general surgery stating that patient is already an established patient with that clinic, is a patient of Dr. Wilcox. Patient has an EGD scheduled for 11.24.20. There was no appointment scheduled at this time.
== END 2020-10-09 20:21 | disposition home or self-care (01) ==
PROVIDERS: Emergency Provider Family Medicine; PCP Nurse Practitioner Family
DX: K52.9 Noninfective gastroenteritis and colitis, unspecified (principal); Z79.4 Long term (current) use of insulin; E11.9 Type 2 diabetes mellitus without complications; I10 Essential (primary) hypertension
CPT/HCPCS: 74176; 80048; 80053; 81001; 83690; 85025; 87077; 87086; 87186; 96361; 96365; 96372; 96375; 99284; J0696; J2405; J2550; J7030

== ENCOUNTER → 2020-11-19 10:45 | Outpatient (BNVA) | payer SELFPAY | PROVIDERS: PCP Nurse Practitioner Family; Visit Provider Surgery | DX: R10.13 Epigastric pain (principal) | CPT/HCPCS: 87635 ==

== ENCOUNTER 2020-11-24 07:09 | Day surgery (SDC) | payer SELFPAY ==
[2020-11-22 13:55] VITALS: BMI 30.1
--- NOTE | 2020-11-24 07:23 | P.ANESASSM_ITS ---
Pre-Anesthetic Assessment Pre-Anesthetic Assessment: Height/Weight: Height 1.6 m Weight 77.111 kg Preop Diagnosis: epgastric pain Proposed Procedure: Operation Date: 11/24/20 09:15 Proposed Procedures p EGD/colon 79605 [id number] R10.13 Z12.11(Not Applicable) - Gurwinder Wilcox MD s Colonoscopy(Not Applicable) - Gurwinder Wilcox MD Familial anesthetic complications: unable to complete her GILBERTO d/t gag reflex, unclear if was under conscious sedation vs MAC Was Beta Santiago taken within 24 hours: N/A Was Clonidine taken within 24 hours: N/A Last intake: > 8 hrs Social: Social History: No alcohol and No tobacco Exam: Pre-Anes Outpt Exam: alert, oriented x 3, clear to auscultation bilat erally and regular rate & rhythm Airway: Cervical ROM: WNL MP: 2 Dentition: Full CV/HEM: Comments: bacterial chest infection at [facility], unclear nature. States she developed it after not taking her insulin. She seems to describe a large subcutaneous abscess over her chest and they wanted a GILBERTO to rule out its presence near herat Metabolic: Metabolic: DM Anesthetic Plan: ASA status: 3 Anesthesia: MAC Risk of > 500 ml blood loss (7ml/kg in children): No PFSH Anesthesia PFSH: Medical History Breast mass Diabetes mellitus High cholesterol Hypertension Screening for colon cancer Surgical History History of delivery Family History Father Cancer Mother Thyroid disease Other Dementia Diverticulitis Lupus Screening for colon cancer Denies family history of Thyroid cyst Diabetes CAD (coronary artery disease) Bleeding disorder Social History Smoking and tobacco status: never smoked Alcohol intake: never Household members: none Current occupational status: employed Current occupation: [employer] History of recent travel: No Data Anesthesia Cardiac Studies: No Data to Display
[2020-11-24 07:51] VITALS: BP 137/76; PULSE 83; RESP 18; TEMP 36.6; O2SAT 97
[2020-11-24] MEDS: sodium chloride 0.9% 1,000 ML 30 ML IV (08:02)
[2020-11-24 08:07] LABS: Glucose Point of Care 176 mg/dL (70-110)
--- NOTE | 2020-11-24 09:31 | W.PM.OPSFHP ---
Same Day Surgery H&P Indication for Procedure/HPI DATE OF PROCEDURE: November 24, 2020 CHIEF COMPLAINT/INDICATIONFOR SURGICAL PROCEDURE: I am hurting PREOP DIAGNOSIS: Epigastric pain PLANNED PROCEDRUE: Operation Date: 11/24/20 09:15 Proposed Procedures p EGD/colon [id number] R10.13 Z12.11(Not Applicable) - Gurwinder Wilcox MD s Colonoscopy(Not Applicable) - Gurwinder Wilcox MD This follow-up was conducted over the phone, patient did undergo an upper GI study that did show; 1. Normal double contrast stomach. Normal gastric emptying. 2. Proximal duodenum is normal. 3. Mild esophageal dysmotility with mild reflux visualized in the supine position 4. No significant esophageal hiatal hernia. Also gastric emptying study that was done per my request and showed Findings compatible with delayed gastric emptying. *Normal median T1 half 90 minutes for solid egg meal (45-110 minutes). Delayed gastric retention is defined as 90% retained at 1 hour, 60% at 2 hours, 30% at 3 hours, and 10% at 4 hours (normal percent gastric retention is 37-90% at 1 hour, 30-60% at 2 hours, and 0-10% at 4 hours). Interim history 11/24/2020 Patient comes today for diagnostic EGD and colonoscopy ROS All systems have been reviewed negative except as per the above or per problem list Medications/Allergies* Home Medications Medication Instructions Recorded Confirmed Type metformin 2,000 mg PO BEDTIME 05/01/20 11/22/20 History gabapentin 100 mg capsule 100 mg PO DAILY 08/04/20 11/22/20 History insulin regular human [Novolin R 38 unit SUBCUT BID 10/09/20 11/22/20 History Flexpen] lisinopril 2.5 mg PO DAILY 10/09/20 11/22/20 History trazodone 100 mg PO BEDTIME 10/09/20 11/22/20 History Allergies/Adverse Reactions Allergy/AdvReac Type Severity Reaction Status Date / Time No Known Allergies Allergy Verified 11/24/20 09:32 Current Medications: Generic Name Dose Route Start Last Admin Trade Name Freq PRN Reason Stop Dose Admin Sodium Chloride 1,000 mls @ 30 mls/hr 11/24/20 07:45 11/24/20 08:02 Sodium Chloride 0.9% IV 11/25/20 07:44 30 mls/hr .Q24H JAJA Administration Pertinent History/Comorbid Conditions* Medical History (Updated 10/17/20 @ 00:01 by ) Breast mass Diabetes mellitus High cholesterol Hypertension Screening for colon cancer Surgical History (Updated 01/21/20 @ 14:54 by Art Cordon DPM) History of delivery Family History (Updated 08/27/20 @ 07:50 by Gurwinder Wilcox MD) Screening for colon cancer Lupus Dementia Diverticulitis Cancer Father Thyroid disease Mother Denies family history of Thyroid cyst Diabetes CAD (coronary artery disease) Bleeding disorder Social History Smoking and tobacco status: never smoked Alcohol intake: never Household members: none Current occupational status: employed Current occupation: [employer] History of recent travel: No Pertinent Exam Findings alert, oriented x 3, clear to auscultation bilaterally, regular rate & rhythm and procedure specific exam findings (Abdominal examination nontender nondistended soft) Recommendations Surgery/Procedure today (EGD and colonoscopy) Other Plans: Plan of care; After thorough history and physical examination and reviewing the chart, plan to perform a diagnostic esophagogastroduodenoscopy and diagnostic colonoscopy with possible biopsy and possible polypectomy. I discussed with the patient in detail the risks,benefits,alternatives and indications.The risk of aspiration, bleeding, soft tissue injury, perforation of the stomach/esophagus/colon and other potential concomitant complications were explained to the patient in details also the potential need for Thoracotomy and or Laproscoy/Laparotomy to repair any related complications including but not limited to colectomy and or Closotomy. The patient understood this well and did agree to proceed. Rationale was carefully and clearly discussed with the patient.Appropriate informed consent have been reviewed and signed Verbal and written Instructions were given to the patient for colonoscopy prep Coding Level of Care Code Acute Land Survey Technician for g Hector
[2020-11-24 10:07] VITALS: BP 99/57; PULSE 91; RESP 16; TEMP 36.3; O2SAT 97
[2020-11-24 10:19] VITALS: BP 131/76; PULSE 77; RESP 16; O2SAT 100
--- NOTE | 2020-11-24 13:39 | ANE.PACU2 ---
Inpatient post-anesthesia follow up: Airway intact: Yes Vital signs: Temperature 97.3 F Pulse Rate 77 Respiratory Rate 16 Blood Pressure 131/76 Pulse Oximetry 100 Oxygen Delivery Me thod Room Air Oxygen Flow Rate Fraction of Inspir ed Oxygen Hydration adequate: Yes Nausea and vomiting: No Pain level: 2 Mental status: Baseline
[2020-11-25 06:03] LABS: H. Pylori / CLO Test Negative
== END 2020-11-24 10:58 | disposition home or self-care (01) ==
PROVIDERS: PCP Nurse Practitioner Family; Visit Provider Surgery
PROC: 0DJ08ZZ Inspection of Upper Intestinal Tract, Via Natural or Artificial Opening Endoscopic (ICD-10-PCS; CPT 43235; principal; 2020-11-24 09:15)
PROC: 0DJD8ZZ Inspection of Lower Intestinal Tract, Via Natural or Artificial Opening Endoscopic (ICD-10-PCS; CPT 45378; 2020-11-24 09:15)
DX: R10.13 Epigastric pain (principal); D12.2 Benign neoplasm of ascending colon; D12.0 Benign neoplasm of cecum; K21.00 Gastro-esophageal reflux disease with esophagitis, without bleeding; K29.70 Gastritis, unspecified, without bleeding; K29.80 Duodenitis without bleeding; E11.9 Type 2 diabetes mellitus without complications; Z79.84 Long term (current) use of oral hypoglycemic drugs; I10 Essential (primary) hypertension
CPT/HCPCS: 36416; 43239; 45385; 82962; 87077; 96360; 96361; J2704; J7030

== ENCOUNTER 2021-06-07 12:11 | Outpatient (CLI) | payer BC, SELFPAY ==
--- NOTE | 2021-06-07 12:18 | MM_ITS ---
WS: [id number] DIAGNOSTIC BILATERAL DIGITAL MAMMOGRAM WITH CAD HISTORY: CHEST MASS AND CALCS COMPARISON: 12/29/2019, 01/16/2020, 07/27/2020. TECHNIQUE: Bilateral craniocaudad, mediolateral oblique, and mediolateral views are submitted. Magnif ication views LEFT breast. Computer aided detection utilized. Breast composition: There are scattered areas of fibroglandular density. Previously described RIGHT b reast mass has been surgically removed. Calcifications are unchanged since 12/29/2019 in the upper out er quadrant of the LEFT breast. There are additional benign scattered calcifications within each [address] MM/[place] [id number] IMPRESSION: BI-RADS: 2-Benign FOLLOW UP: 1 Year Follow-up
== END 2021-06-07 12:12 | disposition home or self-care (01) ==
LOC: RADSHAW 12:11
PROVIDERS: PCP Nurse Practitioner Family; Visit Provider Family Medicine
DX: R92.1 Mammographic calcification found on diagnostic imaging of breast (principal)
CPT/HCPCS: 77066

== ENCOUNTER 2021-06-13 09:52 | Outpatient (CLI) | payer BC, SELFPAY | END 2021-06-13 09:53 | disposition home or self-care (01) | LOC: WOUND 09:52 | PROVIDERS: PCP Nurse Practitioner Family; Visit Provider Thoracic Surgery (Cardiothoracic Vascular Surgery) | DX: E11.621 Type 2 diabetes mellitus with foot ulcer (principal); L97.522 Non-pressure chronic ulcer of other part of left foot with fat layer exposed | CPT/HCPCS: 11042; 97597; 99213 ==

== ENCOUNTER 2021-06-20 10:01 | Outpatient (CLI) | payer BC, SELFPAY ==
--- NOTE | 2021-06-20 10:12 | XR_ITS ---
WS: [id number] Left foot, 3 views, 06/20/2021 Clinical Data: TYPE 2 DM WITH FOOT ULCER Comparison: Left foot, 01/21/2020. Findings: No fractures or dislocations are seen. No bone destruction or erosion is noted. The joint spaces and soft tissues are normal. There is a plantar spur and an Achilles spur. XR/XR foot LT min 3V* [id number] Impression: Negative left foot.
== END 2021-06-20 10:02 | disposition home or self-care (01) ==
LOC: RAD 10:04
PROVIDERS: PCP Nurse Practitioner Family; Visit Provider Nurse Practitioner Family
DX: E11.621 Type 2 diabetes mellitus with foot ulcer (principal)
CPT/HCPCS: 73630

== ENCOUNTER 2021-06-20 10:34 | Outpatient (CLI) | payer BC, SELFPAY | END 2021-06-20 10:35 | disposition home or self-care (01) | LOC: WOUND 10:34 | PROVIDERS: PCP Nurse Practitioner Family; Visit Provider Thoracic Surgery (Cardiothoracic Vascular Surgery) | DX: E11.621 Type 2 diabetes mellitus with foot ulcer (principal); I96 Gangrene, not elsewhere classified; L97.522 Non-pressure chronic ulcer of other part of left foot with fat layer exposed | CPT/HCPCS: 11042; 97597 ==

== ENCOUNTER 2021-06-27 10:27 | Outpatient (CLI) | payer BC, SELFPAY | END 2021-06-27 10:28 | disposition home or self-care (01) | LOC: WOUND 10:27 | PROVIDERS: PCP Nurse Practitioner Family; Visit Provider Thoracic Surgery (Cardiothoracic Vascular Surgery) | DX: E11.621 Type 2 diabetes mellitus with foot ulcer (principal); L97.522 Non-pressure chronic ulcer of other part of left foot with fat layer exposed; I96 Gangrene, not elsewhere classified | CPT/HCPCS: 97597 ==

== ENCOUNTER 2021-11-01 16:09 | Emergency (ER) | payer BC, SELFPAY ==
[2021-11-01 17:12] VITALS: BP 152/89; PULSE 99; RESP 16; TEMP 36.4; O2SAT 95; BMI 35.4
--- NOTE | 2021-11-01 17:45 | W.ED.GENADLT ---
HPI - General Adult General: Chief complaint: General Medical Stated complaint: would like cast removed Time Seen by Provider: 11/01/21 17:24 History of Present Illness: 56-year-old female comes in today for complaints of inability to have wound care cast removed. Patient has had the cast on for 7 days and was post to have it removed today. Patient was not able to get to her appointment yesterday and was referred to the ER today to have the cast removed. Patient reports no fever or other discomfort. Patient has type 2 diabetes with neuropathy and a ulcer to the left foot. Review of Systems General: Reports: 10 or more systems reviewed and unremarkable except in HPI and below Skin/Breast: Reports: lesions PFSH ED PFSH: Medical History Breast mass Colon polyp Diabetes mellitus Duodenitis Epigastric pain Gastritis High cholesterol Hypertension Screening for colon cancer Surgical History History of delivery Family History Father Cancer Mother Thyroid disease Other Dementia Diverticulitis Lupus Screening for colon cancer Denies family history of Thyroid cyst Diabetes CAD (coronary artery disease) Bleeding disorder Social History Smoking and tobacco status: never smoked Alcohol intake: never Household members: none Current occupational status: employed Current occupation: [employer] History of recent travel: No Physical Exam Const: COMMON NORMALS: alert Resp: COMMON NORMALS: normal respiratory effort Cardio: COMMON NORMALS: regular rate RATE: regular rate Extremity: COMMON NORMALS: normal to inspection Neuro: SENSORIUM/ORIENTATION: Yes alert Skin: LESIONS: lesion noted (After cast removal noted to have a chronic lesion ball of left foot) Course Vital Signs: Vital signs: Vital Signs Temperature 97.6 F 11/01/21 17:12 Pulse Rate 99 11/01/21 17:12 Respiratory Rate 16 11/01/21 17:12 Blood Pressure 152/89 11/01/21 17:12 Pulse Oximetry 95 11/01/21 17:12 MDM - General Adult Medical Decision Making Patient came in to have cast removed from her left foot for a chronic wound. After removal of the cast it was noted patient had a chronic wound to the ball of the left foot at the first MTP joint. Patient also has a chronic wound to the third digit. Patient reports improvement and wound. Recommended follow-up with wound care specialty for further treatment. Differential diagnosis includes chronic foot wound, cellulitis, osteomyelitis. No signs of infection were noted today or serious injury or illness. Discharge Plan Discharge Patient Disposition: Home Clinical Impression: Diabetic neuropathy Qualifiers: Diabetes mellitus type: type 2 Diabetes mellitus complication detail: diabetic polyneuropathy Qualified Code(s): E11.42 - Type 2 diabetes mellitus with diabetic polyneuropathy Condition: Stable Prescriptions: No Action gabapentin 300 mg capsule 300 mg PO TID 0RF atorvastatin 40 mg tablet 40 mg PO DAILY 0RF Toujeo Max U-300 SoloStar 300 unit/mL (3 mL) insulin pen 20 unit SUBCUT DAILY Qty: 12 0RF metformin 1,000 mg tablet 2,000 mg PO BEDTIME 0RF trazodone 50 mg tablet 100 mg PO BEDTIME 0RF lisinopril 2.5 mg tablet 2.5 mg PO DAILY 0RF Novolin R Flexpen 100 unit/mL (3 mL) Insulin Pen 38 unit SUBCUT BID 0RF Discharge Orders: Discharge ED (Routine); Ordered 11/01/21 Ordered By: Geovany Weaver Referrals: Mariza Trivedi, REAL ESTATE LEGAL ASSISTANT [Primary Care Provider] - Discharge Diet: Usual diet Discharge Activity: Increase activity as tolerated Patient Instructions: Diabetic Foot Ulcers (ED) Activity Restrictions/Additional Instructions: Continue with routine care. Follow-up with wound care specialty for further evaluation and treatment. Return to ER for new concerns. Coding Level of Care Code ED Back Digger Operator for Makayla Young
== END 2021-11-01 18:27 | disposition home or self-care (01) ==
PROVIDERS: Emergency Provider Nurse Practitioner Family; PCP Nurse Practitioner Family
DX: Z46.89 Encounter for fitting and adjustment of other specified devices (principal); E11.42 Type 2 diabetes mellitus with diabetic polyneuropathy; Z79.84 Long term (current) use of oral hypoglycemic drugs; Z79.4 Long term (current) use of insulin; I10 Essential (primary) hypertension
CPT/HCPCS: 99282

== ENCOUNTER 2022-12-22 13:22 | Outpatient (CLI) | payer OTHER, SELFPAY ==
--- NOTE | 2022-12-22 13:54 | MM_ITS ---
WS: [id number] BILATERAL 3D TOMOSYNTHESIS DIGITAL SCREENING MAMMOGRAPHY WITH CAD CLINICAL INFORMATION: SCREEN HISTORY: Screening mammogram. No current complaints. COMPARISON: 2021 TECHNIQUE: Bilateral CC and MLO views. FINDINGS: Scattered fibroglandular densities bilaterally. No suspicious focal mass, asymmetry, calcifications, or architectural distortion. No evidence of malignancy. Punctate and lucent centered calcifications. IMPRESSION: MM/[place] [id number] BI-RADS: 2-Benign FOLLOW UP: 1 Year Follow-up Recommend return to annual screening mammography.
== END 2022-12-22 13:23 | disposition home or self-care (01) ==
PROVIDERS: Visit Provider Nurse Practitioner Family
DX: Z12.31 Encounter for screening mammogram for malignant neoplasm of breast (principal)
CPT/HCPCS: 77063; 77067

== ENCOUNTER 2023-01-10 14:10 | Outpatient (CLI) | payer OTHER, SELFPAY ==
--- NOTE | 2023-01-10 14:19 | XR_ITS ---
WS: [id number] EXAMINATION: XR foot LT min 3V* [id number] REASON FOR EXAM: E11.621 - Type 2 diabetes mellitus with foot ulcer COMPARISON: 06/20/2021 ORDER DATE: 01/10/2023 2:36 PM TECHNIQUE: 3 views of the left foot were obtained. X-RAY FINDINGS: There are no fractures or dislocations. No focal abnormal soft tissue swelling. Joint spaces are pres erved. Small dorsal and plantar calcaneal spurs. Osteochondroma suggested in the medial aspect of the navicu lar unchanged IMPRESSION: No fractures or dislocations of the left foot.
== END 2023-01-10 14:11 | disposition home or self-care (01) ==
PROVIDERS: PCP Nurse Practitioner Family; Visit Provider Nurse Practitioner Family
DX: E11.621 Type 2 diabetes mellitus with foot ulcer (principal); L97.509 Non-pressure chronic ulcer of other part of unspecified foot with unspecified severity
CPT/HCPCS: 73630

== ENCOUNTER 2023-07-20 11:05 | Outpatient (CLI) | payer OTHER, SELFPAY ==
[2023-07-20 11:39] LABS: Estmated Average Glucose 346; Hemoglobin A1C 13.7 % (4.0-6.0)
[2023-07-20 11:50] LABS: Alanine Aminotransferase < 5 U/L (0-33); Albumin Level 3.5 g/dL (3.5-5.2); Alkaline Phosphatase 101 U/L (35-105); Anion Gap 13.6 (5-19); Aspartate Amino Transferase 7 U/L (0-32); Blood Urea Nitrogen 16 mg/dL (6-20); Carbon Dioxide 24 mmol/L (22-29); Chloride 101 mmol/L (98-107); Chol HDL Ratio 3.81 mg/dL (0.0-4.40); Cholesterol 122 mg/dL (0-200); Glomerular Filtration Rate 127.6 mL/min (90-130); Glucose 339 mg/dL (65-115); HDL Cholesterol 32 mg/dL (60-100); LDL Cholesterol Calculated 37 mg/dL (50-129); LDL HDL Ratio 1.16 RATIO (0.00-3.22); Osmolality Calculated 293 mOsm/kg (285-295); Potassium 4.6 mmol/L (3.5-5.1); Sodium 134 mmol/L (136-145); Total Bilirubin 0.2 mg/dL (0.15-1.2); Total Protein 7.5 g/dL (6.6-8.7); Triglycerides 265 mg/dL (0-150)
[2023-07-20 15:44] LABS: Creatinine Urine, Random 32 mg/dL (28-217); Microalbum Creatinine Ratio Ur 94 mg/dL (0-20); Microalbumin Random Urine 3 ug/dL (0-20)
== END 2023-07-20 11:06 | disposition home or self-care (01) ==
LOC: LAB 11:06
PROVIDERS: PCP Nurse Practitioner Family; Visit Provider Internal Medicine
DX: E78.2 Mixed hyperlipidemia (principal); E11.9 Type 2 diabetes mellitus without complications; Z79.899 Other long term (current) drug therapy
CPT/HCPCS: 36415; 80053; 80061; 82044; 83036

== ENCOUNTER 2023-10-05 05:55 | Emergency (ER) | payer OTHER, SELFPAY ==
[2023-10-05 06:01] VITALS: BP 164/94; PULSE 94; RESP 18; TEMP 36.6; O2SAT 99; BMI 31.8
[2023-10-05 06:18] VITALS: BP 140/87; PULSE 90; RESP 14; O2SAT 98
[2023-10-05 06:29] LABS: Basophils % 0.3 %; Eosinophils # 0.1 10^3/uL (0.0-0.8); Eosinophils % 1.4 %; Hematocrit 35.3 % (36-47); Lymphocytes # 2.9 10^3/uL (0.8-4.8); Mean Corpuscular HGB Conc 33.1 g/dL (30-55); Mean Corpuscular Hemoglobin 27.8 pg (27-33); Mean Corpuscular Volume 83.8 fl (85-98); Mean Platelet Volume 9.4 fL (7.4-10.4); Monocytes # 0.5 10^3/uL (0.2-0.9); Monocytes % 5.1 %; Neutrophils # 6.36 10^3/uL (1.8-7.7); Nucleated Red Blood Cells % 0 %; Platelet Count 394 10^3/cmm (157-399); Red Blood Count 4.21 10^6/uL (3.85-5.65); Red Cell Distribution Width 13.7 % (12.1-15.1); White Blood Count 9.95 10^3/uL (3.29-11.43)
--- NOTE | 2023-10-05 06:48 | ED_ITS ---
HPI - General Adult 2 General: Chief complaint: General Medical Stated complaint: Hands, Shins, Pain Knot on Thigh Time Seen by Provider: 10/05/23 05:58 Source: patient Mode of arrival: ambulatory History of Present Illness: 58-year-old female presents emergency ro om complaining of chronic pain in her hands and legs. Patient is known history of diabetes mellitus she has had the symptoms for months. She sees Dr. Spencer for denies having a primary care physician. She also has wounds on her lower extremities bilaterally she states they have been there from over a year waxing and waning she has seen wound care in the past but stopped because it did not seem to be getting any better. She comes in today because her discomfort in her hands and feet. She is hoping they can figure out why these hurt . Patient does not smoke no history of peripheral vascular disease Onset (ago): minute(s) Severity: mild Relieving factors: none Exacerbating factors: none Associated symptoms: Deny chest pain, confusion, cough, diaphoresis, decreased appetite, dyspnea, fevers/chills, headache(s), malaise, nausea, rash, palpitations, seizures, short of breath, syncope, vomiting or weakness Review of Systems 2 Const: Denies: fever(s), chills, malaise or diaphoresis Card: Denies: chest pain, palpitations or syncope Resp: Denies: dyspnea GI: Denies: abdominal pain, nausea or vomiting : Denies: dysuria, urinary frequency or urinary urgency Musc: Denies: neck pain or back pain Skin/Breast: Denies: rash Neuro: Denies: headache(s) or confusion PFSH ED 2 PFSH: Medical History Colon polyp Duodenitis Gastritis Screening for colon cancer Breast mass Epigastric pain Diabetes mellitus High cholesterol Hypertension Surgical History History of delivery Family History Father Cancer Mother Thyroid disease Other Dementia Diverticulitis Lupus Screening for colon cancer Denies family history of Thyroid cyst Diabetes CAD (coronary artery disease) Bleeding disorder Social History Smoking and tobacco/nicotine status: never used tobacco/nicotine Alcohol intake: never Substance/Drug Use: never Household members: none Current occupational status: employed Current occupation: [employer] Physical Exam 2 Const: GENERAL APPEARANCE: cooperative and comfortable O RIENTATION/CONSCIOUSNESS: Yes awake, Yes oriented to person, Yes oriented to place and Yes oriented to time HENMT: COMMON NORMALS: normocephalic, atraumatic and hearing grossly normal bilaterally HEAD & SCALP: normocephalic and atraumatic Resp: COMMON NORMALS: normal respiratory effort, No retractions, No use of accessory muscles and clear to auscultation bilaterally AUSCULTATION: clear to auscultation bilaterally Cardio: COMMON NORMALS: regular rate, regular rhythm and No murmurs present (Cardio) RATE: regular rate RHYTHM: regular rhythm GI: COMMON NORMALS: Soft to palpation and No hepatosplenomegaly present A USCULTATION: Yes normoactive bowel sounds PALPATION: Yes Soft to palpation, No Tenderness to palpation present (GI), No Guarding due to palpation present (GI) and Yes No hepatosplenomegaly present Extremity: COMMON NORMALS: normal to inspection, capillary refill normal, no clubbing, cyanosis or edema, no calf tenderness and no pedal edema OTHER: Patient has bilateral ulcers on the lower legs some appear to be almost scrapes or abrasions. On the sole of the left foot underlying the first MP joint there is a full-thickness ulcer that is granulation at the edges that is approximately 2 inches roughly round in size. No induration redness no purulent drainage from these do not appear to be necrotic at this time. Dry eschars in place on the ones on the lower legs serous drainage from the ulcer on the sole of the left foot. Neuro: SENSORIUM/ORIENTATION: Yes oriented to person, Yes oriented to place and Yes oriented to time Skin: COMMON NORMALS: no rashes or lesions noted GENERAL SKIN EXAM: no rashes or lesions noted Course 2 Vital Signs: Vital signs: Vital Signs Temperature 97.8 F 10/05/23 06:01 Pulse Rate 90 10/05/23 06:18 Respiratory Rate 14 10/05/23 06:18 Blood Pressure 140/87 10/05/23 06:18 Pulse Oximetry 98 10/05/23 06:18 Oxygen Delivery Me thod Room Air 10/05/23 06:18 [facility] - General Adult Medical Decision Making Patient has diabetic peripheral neuropathy. She has been continue to take her gabapentin although she does not feel it helps much. Will change her Lyrica 75 p.o. 3 times daily. Diabetic foot ulcer is the most concerning at this point. I am concerned she may develop an osteomyelitis if she has not already developed a chronic osteomyelitis which may result in the loss of her foot at some point. We need to offload her foot set her up to see wound care for long-term management of this. She also needs to establish with a PCP to help her manage these multiple medical problems. She may also need evaluation for peripheral vascular disease is complicating factor. Will start on doxycycline and use topical mupirocin to the wounds. In the short-term effects offload the left foot with crutches and refer to wound care. Medical Records I reviewed the patient's medical records. Lab Data I reviewed the patient's lab results. 10/05/23 06:24 10/05/23 06:24 Radiology Impressions Foot X-Ray 10/05/23 06:57 IMPRESSION: 1. No acute fracture or bone destruction. Degenerative changes. Laboratory Results WBC 9.95 10^3/uL (3.29-11.43) 10/05/23 06:24 RBC 4.21 10^6/uL (3.85-5.65) 10/05/23 06:24 Hgb 11.70 g/dL (11.27-16.99) 10/05/23 06:24 Hct 35.3 % (36-47) L 10/05/23 06:24 MCV 83.8 fl (85-98) L 10/05/23 06:24 MCH 27.8 pg (27-33) 10/05/23 06:24 MCHC 33.1 g/dL (30-55) 10/05/23 06:24 RDW 13.7 % (12.1-15.1) 10/05/23 06:24 Plt Count 394 10^3/cmm (157-399) 10/05/23 06:24 MPV 9.4 fL (7.4-10.4) 10/05/23 06:24 Neut % (Auto) 64.0 % 10/05/23 06:24 Lymph % (Auto) 29.0 % 10/05/23 06:24 [place] % (Auto) 5.1 % 10/05/23 06:24 Eos % (Auto) 1.4 % 10/05/23 06:24 Baso % (Auto) 0.3 % 10/05/23 06:24 Neut # (Auto) 6.36 10^3/uL (1.8-7.7) 10/05/23 06:24 Lymph # (Auto) 2.9 10^3/uL (0.8-4.8) 10/05/23 06:24 [place] # (Auto) 0.5 10^3/uL (0.2-0.9) 10/05/23 06:24 Eos # (Auto) 0.1 10^3/uL (0.0-0.8) 10/05/23 06: Baso # (Auto) 0.0 10^3/uL (0.0-0.1) 10/05/23 06:24 Nucleated RBC % (auto) 0 % 10/05/23 06: Nucleated RBCs # 0.0 /100WBC 10/05/23 06:24 ESR 34 mm/hr (0-15) H 10/05/23 06:24 Sodium 131 mmol/L (136-145) L 10/05/23 06:24 Potassium 4.0 mmol/L (3.5-5.1) 10/05/23 06:24 Chloride 93 mmol/L (98-107) L 10/05/23 06:24 Carbon Dioxide 26 mmol/L (22-29) 10/05/23 06:24 Anion Gap 16.0 (5-19) 10/05/23 06:24 BUN 17 mg/dL (6-20) 10/05/23 06:24 Creatinine 0.8 mg/dL (0.5-0.9) 10/05/23 06:24 GFR Calculation 74.2 mL/min (90-130) L 10/05/23 06:24 Glucose 372 mg/dL (65-115) H 10/05/23 06:24 Calculated Osmolality 289 mOsm/kg (285-295) 10/05/23 06:24 Lactic Acid 1.6 mmol/L (0.5-2.2) 10/05/23 06:24 Calcium 9.2 mg/dL (8.5-10.5) 10/05/23 06:24 Total Bilirubin 0.3 mg/dL (0.15-1.2) 10/05/23 06:24 AST 9 U/L (0-32) 10/05/23 06:24 ALT 8 U/L (0-33) 10/05/23 06:24 Alkaline Phosphatase 138 U/L (35-105) H 10/05/23 06:24 C-Reactive Protein 55.3 mg/L (0.0-4.9) H 10/05/23 06:24 Total Protein 8.3 g/dL (6.6-8.7) 10/05/23 06:24 Albumin 3.9 g/dL (3.5-5.2) 10/05/23 06:24 Globulin 4.4 g/dL (1.3-4.6) 10/05/23 06:24 All radiology interpretation(s) finalized by discharge Discharge Plan Discharge Patient Disposition: Home Clinical Impression: Diabetes type 2, uncontrolled, Foot ulcer Diabetic neuropathy Qualifiers: Diabetes mellitus type: type 2 Diabetes mellitus complication detail: diabetic polyneuropathy Qualified Code(s): E11.42 - Type 2 diabetes mellitus with diabetic polyneuropathy Condition: Stable Prescriptions: New doxycycline hyclate 100 mg tablet 100 mg PO BID 14 Days Qty: 28 0RF Lyrica 75 mg capsule 75 mg PO TID Qty: 90 0RF mupirocin 2 % ointment 1 applic topical BID Qty: 50 0RF Discontinued gabapentin 400 mg capsule 400 mg PO TID No Action (DME) pen needle, diabetic [Comfort EZ Pen [place]] 32 gauge x 3/16 needle See Rx Instructions .Route Qty: 120 3RF Rx Instructions: As directed metformin 1,000 mg tablet 2,000 mg PO BEDTIME Qty: 180 3RF lisinopril 2.5 mg tablet 2.5 mg PO DAILY Qty: 30 0RF atorvastatin 40 mg tablet 40 mg PO DAILY Qty: 90 3RF insulin glargine [Lantus Solostar U-100 Insulin] 100 unit/mL (3 mL) insulin pen 70 unit SUBCUT DAILY 30 Days Qty: 15 2RF Victoza 3-Cristiano 0.6 mg/0.1 mL (18 mg/3 mL) pen injector See Rx Instructions SUBCUT .COMPLEX Qty: 9 0RF Rx Instructions: Inject 1.2mg daily, not to exceed 1.8mg/day SUBCUT Discharge Orders: Discharge ED (Routine); Ordered 10/05/23 Ordered By: Petey Baldwin Discharge Diet: Usual diet Discharge Activity: Increase activity as tolerated Patient Instructions: Opioid Safety, Pain Management Activity Restrictions/Additional Instructions: Thank you for choosing [facility] for your healthcare needs today. It is very important that you follow up as instructed or that you return to the Emergency Department should you have concerns or if your condition changes or worsens in any way. You were seen today with complaints of pain in your hands and feet as well as ulcers on your hands and feet. Your laboratory test showed a normal white count. Your sed rate is slightly elevated which is likely from the foot ulcers. The left foot ulcer is full-thickness and is very concerning. We recommend that you do not bear any weight on this and use crutches until you are seen in the wound care clinic. Also recommend starting on oral antibiotics and topical antibiotic ointment for the wounds on your legs and on your sole of your foot. club manager will help you make arrangements to establish with a primary care doctor. To help with your peripheral neuropathy will have you stop the gabapentin and start Lyrica 75 mg 3 times a day. Coding Level of Care Code ED Garde Manger for Makayla Young
[2023-10-05 06:54] LABS: Alanine Aminotransferase 8 U/L (0-33); Albumin Level 3.9 g/dL (3.5-5.2); Alkaline Phosphatase 138 U/L (35-105); Aspartate Amino Transferase 9 U/L (0-32); Blood Urea Nitrogen 17 mg/dL (6-20); Calcium 9.2 mg/dL (8.5-10.5); Carbon Dioxide 26 mmol/L (22-29); Chloride 93 mmol/L (98-107); Creatinine Clr Calc Pharmacy 79.4558; Globulin 4.4 g/dL (1.3-4.6); Glomerular Filtration Rate 74.2 mL/min (90-130); Glucose 372 mg/dL (65-115); Osmolality Calculated 289 mOsm/kg (285-295); Sodium 131 mmol/L (136-145); Total Bilirubin 0.3 mg/dL (0.15-1.2); Total Protein 8.3 g/dL (6.6-8.7)
--- NOTE | 2023-10-05 06:57 | XR_ITS ---
WS: [id number] Exam: XR foot LT min 3V* [id number] Date/Time of Exam: 10/05/2023 7:11 AM Reason For Exam: diabetic foot ulcers No acute fracture. No sign of acute bone destruction. Soft tissue edema of the plantar aspect of the forefoot as well as the third toe. Degenerative changes in the midfoot joints and the first MP joint. No soft tissue foreign bodies. IMPRESSION1. No acute fracture or bone destruction. 2. Soft tissue swelling and degenerative changes.
--- NOTE | 2023-10-05 06:57 | XR_ITS ---
WS: [id number] Exam: XR foot RT min 3V* [id number] Date/Time of Exam: 10/05/2023 7:11 AM Reason For Exam: diabetic foot ulcers No acute fracture. No sign of bone destruction. No soft tissue foreign bodies are identified. Degener ative change at the articulation of the talus and navicular. XR/XR foot RT min 3V* [id number] IMPRESSION: 1. No acute fracture or bone destruction. Degenerative changes.
[2023-10-05 07:06] LABS: Erythrocyte Sedimentation Rate 34 mm/hr (0-15)
[2023-10-05 07:13] LABS: Lactic Sepsis W/Reflex 1.6 mmol/L (0.5-2.2)
[2023-10-05 07:14] LABS: C Reactive Protein 55.3 mg/L (0.0-4.9)
[2023-10-05 09:06] VITALS: BP 133/68; PULSE 86; O2SAT 96
--- NOTE | 2023-10-05 13:48 | DCPLANNER ---
sent message to wound care and wp fam care for er f/u
== END 2023-10-05 09:08 | disposition home or self-care (01) ==
PROVIDERS: Emergency Provider Family Medicine
DX: E11.42 Type 2 diabetes mellitus with diabetic polyneuropathy (principal); E11.621 Type 2 diabetes mellitus with foot ulcer; L97.529 Non-pressure chronic ulcer of other part of left foot with unspecified severity; Z79.4 Long term (current) use of insulin; Z79.84 Long term (current) use of oral hypoglycemic drugs
CPT/HCPCS: 36415; 73630; 80053; 83605; 85025; 85651; 86140; 87040; 99284; E0114

== ENCOUNTER 2023-10-24 12:45 | Outpatient (CLI) | payer OTHER, SELFPAY ==
[2023-10-24 13:49] LABS: Alanine Aminotransferase 9 U/L (0-33); Albumin Level 3.7 g/dL (3.5-5.2); Alkaline Phosphatase 113 U/L (35-105); Anion Gap 17.4 (5-19); Aspartate Amino Transferase 13 U/L (0-32); Blood Urea Nitrogen 16 mg/dL (6-20); Calcium 9.1 mg/dL (8.5-10.5); Carbon Dioxide 23 mmol/L (22-29); Chloride 99 mmol/L (98-107); Chol HDL Ratio 2.79 mg/dL (0.0-4.40); Cholesterol 106 mg/dL (0-200); Globulin 3.7 g/dL (1.3-4.6); Glomerular Filtration Rate 103.4 mL/min (90-130); Glucose 383 mg/dL (65-115); HDL Cholesterol 38 mg/dL (60-100); LDL Cholesterol Calculated 19 mg/dL (50-129); Osmolality Calculated 297 mOsm/kg (285-295); Potassium 4.4 mmol/L (3.5-5.1); Sodium 135 mmol/L (136-145); Total Bilirubin 0.2 mg/dL (0.15-1.2); Total Protein 7.4 g/dL (6.6-8.7); Triglycerides 247 mg/dL (0-150)
[2023-10-24 13:53] LABS: Estmated Average Glucose 364; Hemoglobin A1C 14.3 % (4.0-6.0)
[2023-10-24 13:54] LABS: Creatinine Urine, Random 57 mg/dL (28-217); Microalbumin Random Urine 10 ug/dL (0-20)
[2023-10-24 13:55] LABS: Microalbum Creatinine Ratio Ur 175 mg/dL (0-20)
== END 2023-10-24 12:46 | disposition home or self-care (01) ==
PROVIDERS: Visit Provider Internal Medicine
DX: E78.2 Mixed hyperlipidemia (principal)
CPT/HCPCS: 36415; 80053; 80061; 82044; 83036

== ENCOUNTER 2023-11-14 09:09 | Outpatient (CLI) | payer OTHER, SELFPAY ==
--- NOTE | 2023-11-14 09:15 | XR_ITS ---
WS: [email or web address] XR shoulder RT min 2V* [id number] REASON FOR EXAM: right shoulder pain FINDINGS: No fracture or focal bone lesion. Moderate narrowing of the acromioclavicular joint with mild subchondral sclerosis and osteophytosis. Glenohumeral joint space is not well demonstrated. There appears to be mild to moderate narrowing vincent rowing of the joint space with mild subchondral sclerosis in the glenoid. There is significant sclerosis and cystic change in the biceps tuberosity. 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 Significant rotator cuff tendon arthropathy.
== END 2023-11-14 09:10 | disposition home or self-care (01) ==
LOC: RAD 09:13
PROVIDERS: PCP Clinical Nurse Specialist Adult Health; Visit Provider Clinical Nurse Specialist Adult Health
DX: M25.511 Pain in right shoulder (principal); R01.1 Cardiac murmur, unspecified; M25.711 Osteophyte, right shoulder; M25.819 Other specified joint disorders, unspecified shoulder; M19.011 Primary osteoarthritis, right shoulder
CPT/HCPCS: 73030

== ENCOUNTER 2023-12-28 10:46 | Outpatient (CLI) | payer OTHER, SELFPAY ==
--- NOTE | 2023-12-28 10:50 | MM_ITS ---
WS: [email or web address] Bilateral screening 3D tomosynthesis digital mammogram, 12/28/2023 10:53 AM Clinical Data: SCREENING Comparison: 11/21/2022, 06/07/2021, 07/27/2020, 02/05/2020, 12/29/2019. Findings: No spiculated masses or clustered calcifications are seen. There are no secondary signs of carcinoma . The breasts show fibroglandular tissue. MM/MM scr BI tomosynthesis [id number] Impression: Negative bilateral mammogram unchanged. Recommend annual screening mammograms. BIRADS: 1 - Negative. FOLLOW UP: 1 Year Follow-up DENSITY: The breasts are almost entirely fatty. The CAD hot box checker was used
== END 2023-12-28 10:47 | disposition home or self-care (01) ==
LOC: RAD 10:46
PROVIDERS: PCP Clinical Nurse Specialist Adult Health; Visit Provider Clinical Nurse Specialist Adult Health
DX: Z12.31 Encounter for screening mammogram for malignant neoplasm of breast (principal); R92.323 Mammographic fibroglandular density, bilateral breasts
CPT/HCPCS: 77063; 77067

== ENCOUNTER 2024-01-21 11:43 | Outpatient (CLI) | payer OTHER, SELFPAY | END 2024-01-21 11:44 | disposition home or self-care (01) | LOC: SPT 11:44 | PROVIDERS: PCP Clinical Nurse Specialist Adult Health; Visit Provider Podiatrist Foot & Ankle Surgery | DX: Z46.89 Encounter for fitting and adjustment of other specified devices (principal); E08.621 Diabetes mellitus due to underlying condition with foot ulcer | CPT/HCPCS: 97760; L4361 ==

== ENCOUNTER 2024-02-22 12:35 | Outpatient (CLI) | payer OTHER, SELFPAY ==
[2024-02-22 13:31] LABS: Estmated Average Glucose 312; Hemoglobin A1C 12.5 % (4.0-6.0)
[2024-02-22 13:40] LABS: Creatinine Urine, Random 76 mg/dL (28-217); Microalbum Creatinine Ratio Ur 184 mg/dL (0-20); Microalbumin Random Urine 14 ug/dL (0-20)
[2024-02-22 13:41] LABS: Alanine Aminotransferase 8 U/L (0-33); Albumin Level 3.8 g/dL (3.5-5.2); Alkaline Phosphatase 119 U/L (35-105); Anion Gap 14.8 (5-19); Aspartate Amino Transferase 8 U/L (0-32); Blood Urea Nitrogen 25 mg/dL (6-20); Calcium 9.3 mg/dL (8.5-10.5); Carbon Dioxide 25 mmol/L (22-29); Chloride 103 mmol/L (98-107); Chol HDL Ratio 4.48 mg/dL (0.0-4.40); Cholesterol 139 mg/dL (0-200); Globulin 4.2 g/dL (1.3-4.6); Glomerular Filtration Rate 86.6 mL/min (90-130); Glucose 343 mg/dL (65-115); HDL Cholesterol 31 mg/dL (60-100); LDL Cholesterol Calculated 39 mg/dL (50-129); LDL HDL Ratio 1.26 RATIO (0.00-3.22); Osmolality Calculated 304 mOsm/kg (285-295); Potassium 4.8 mmol/L (3.5-5.1); Sodium 138 mmol/L (136-145); Total Bilirubin 0.3 mg/dL (0.15-1.2); Triglycerides 344 mg/dL (0-150)
== END 2024-02-22 12:36 | disposition home or self-care (01) ==
LOC: LAB 12:38
PROVIDERS: PCP Clinical Nurse Specialist Adult Health; Visit Provider Internal Medicine
DX: E78.2 Mixed hyperlipidemia (principal); E11.42 Type 2 diabetes mellitus with diabetic polyneuropathy
CPT/HCPCS: 36415; 80053; 80061; 82044; 83036

== ENCOUNTER 2024-03-04 19:23 | Emergency (ER) | payer OTHER, SELFPAY ==
[2024-03-04 19:26] VITALS: BP 113/72; PULSE 105; RESP 18; TEMP 36.4; O2SAT 99; BMI 33.6
--- NOTE | 2024-03-04 19:38 | XRR_ITS ---
PROCEDURE INFORMATION: Exam: XR Chest Exam date and time: 03/04/2024 7:40 PM Age: 58 years old Clinical indication: Shortness of breath TECHNIQUE: Imaging protocol: Radiologic exam of the chest. Views: 1 view. COMPARISON: CR XR chest 1V portable [id number] 09/30/2020 6:03 PM FINDINGS: Lungs: Lungs are clear bilaterally. Pleural spaces: No pleural effusion. No pneumothorax. Heart/Mediastinum: Stable mild enlargement of the cardiac silhouette. Mediastinal contours are unremarkable. Bones/joints: Unremarkable for age. XR/XR chest 1V portable [id number] IMPRESSION: 1. No acute cardiopulmonary process. 2. Incidental/nonacute findings are listed in the report.
--- NOTE | 2024-03-04 19:38 | ECG_ITS ---
[facility]24[facility] Pat Name: Bre Sierra Department: Room: Gender: Female Pi/Senior Research Associate: : [id number] Requested By: Deborah Cha Order Number: [id number] Juli MD: Vince Orellana M.D. Measurements Intervals Evans Rate: 105 P: 36 IL: 155 QRS: 2 QRSD: 95 T: 8 QT: 349 QTc: 462 Interpretive Statements SINUS TACHYCARDIA POSSIBLE ANTERIOR MYOCARDIAL INFARCTION , PROBABLY OLD [30 ms Q WAVE IN V3/V4, OR R < 0.2 mV IN V4] ABNORMAL RHYTHM ECG Compared to ECG 09/30/2020 19:45:17 Myocardial infarct finding now present Electronically Signed On 03-05-2024 19:02:12 INCISING MACHINE OPERATOR by Vince Orellana M.D. [email or web address]
--- NOTE | 2024-03-04 19:45 | W.ED.SOB ---
HPI - SOB/Dyspnea General: Chief Complaint: Shortness of Breath/Dyspnea Stated Complaint: SOB/DIZZY Time Seen by Provider: 03/04/24 19:26 History of Present Illness: HPI Narrative: 58-year-old female who presents the emergency room with lightheadedness and shortness of breath. States that she recently started Mounjaro. She had an episode similar yesterday. 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 She states she became short of breath again today and her blood pressure checked and it was low. She has had a runny nose. Otherwise no chest pain. She does feel somewhat short of breath . No chest pain. No abdominal pain. No nausea or vomiting. No known fevers Related Data Previous Rx's Medication Instructions Recorded pen needle, diabetic 32 gauge x #120 ea 11/11/2106/22 (Comfort EZ Pen [place]) atorvastatin 40 mg tablet 40 mg PO DAILY #90 tabs 01/30/23 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 meter,continuous #1 ea 10/29/23 (Dexcom G7 Clinical Technician) Cam boot #1 ea 01/21/24 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 sensor (Dexcom G7 #9 ea 02/29/24 Sensor device) insulin aspart U-100 100 unit/mL 10 unit (0.1 mL) SUBCUT TID #15 mL 02/29/24 (3 mL) subcutaneous pen (Novolog FlexPen U-100 Insulin aspart) insulin glargine 100 unit/mL (3 70 unit (0.7 mL) SUBCUT DAILY 30 02/29/24 mL) subcutaneous pen (Lantus days #15 mL Solostar U-100 Insulin) lisinopril 20 mg tablet 20 mg PO DAILY #90 tabs 02/29/24 tirzepatide 10 mg/0.5 mL 10 mg (0.5 mL) SUBCUT Q7D #2 mL 02/29/24 subcutaneous pen injector (Mounjaro) pregabalin 75 mg capsule (Lyrica) 75 mg PO TID #270 caps 03/01/24 metformin 1,000 mg tablet See Rx Instructions .Route 03/03/24 .COMPLEX #180 tabs cefdinir 300 mg capsule 300 mg PO BID 7 days #14 caps 03/04/24 Allergies Allergy/AdvReac Type Severity Reaction Status Date / Time No Known Allergies Allergy Verified 03/04/24 19:29 Review of Systems Narrative: Constitutional symptoms: Negative except as documented in HPI. Skin symptoms: Negative except as documented in HPI. Eye symptoms: Negative except as documented in HPI. ENMT symptoms: Negative except as documented in HPI. Respiratory symptoms: Negative except as documented in HPI. Cardiovascular symptoms: Negative except as documented in HPI. Gastrointestinal symptoms: Negative except as documented in HPI. Genitourinary symptoms: Negative except as documented in HPI. Musculoskeletal symptoms: Negative except as documented in HPI. Neurologic symptoms: Negative except as documented in HPI. Psychiatric symptoms: Negative except as documented in HPI. Endocrine symptoms: Negative except as documented in HPI. PFSH ED PFSH: Medical History Depression Colon polyp Duodenitis Gastritis Screening for colon cancer Breast mass Epigastric pain Diabetes mellitus High cholesterol Hypertension Surgical History History of incision and drainage chest wound History of tubal ligation History of colonoscopy with polypectomy (~11/2020) History of esophagogastroduodenoscopy (EGD) (~11/2020) History of delivery Family History Father Cancer Mother Thyroid disease Other Dementia Diverticulitis Lupus Screening for colon cancer Denies family history of Thyroid cyst Diabetes CAD (coronary artery disease) Bleeding disorder Social History Smoking and tobacco/nicotine status: never used tobacco/nicotine Alcohol intake: never Substance/Drug Use: never Household members: none Current occupational status: employed Current occupation: [employer] Physical Exam Narrative: EXAM NARRATIVE: General: Alert, no acute distress. Skin: Warm, dry. Head: Normocephalic, atraumatic. Neck: Supple, trachea midline. Eye: Extraocular movements are intact. Ears, nose, mouth and throat: mucosa moist. Cardiovascular: Regular, Normal peripheral perfusion. Respiratory: Lungs are clear to auscultation, respirations are non-labored, breath sounds are equal, Symmetrical chest wall expansion. Gastrointestinal: Soft, Nontender, Non distended Musculoskeletal: Normal ROM, no deformity. Neurological: Alert and oriented, No focal neurological deficit observed. Psychiatric: Cooperative, appropriate mood & affect. Course Vital Signs: Vital signs: Vital Signs Temperature 97.5 F L 03/04/24 19:26 Pulse Rate 96 03/04/24 22:23 Respiratory Rate 16 03/04/24 22:23 Blood Pressure 150/86 03/04/24 22:23 Pulse Oximetry 99 03/04/24 22:23 Oxygen Delivery Me thod Room Air 03/04/24 20:59 MDM - SOB/Dyspnea Medical Decision Making Differential diagnosis for patient with shortness of breath includes but is not limited to and based on the above HPI, review of systems and physical exam: Pneumonia. Bronchitis. Asthma or COPD with acute exacerbation. Acute coronary syndrome / [place]. Pulmonary embolism. Anxiety. Congestive heart failure. Viral infections including influenza and Covid-19. Atrial fibrillation. Anxiety. Pleural effusion. Pneumothorax. Orders placed to evaluate differential diagnosis based on the above differential, HPI and physical exam EKG: Time 1926. Rate 105. Sinus tachycardia, No ST-T changes, no ectopy, normal NE & QRS intervals, This was reviewed and interpreted by myself the ER physician at 1930. Chest x-ray: No acute process. No infiltrate. No pneumothorax. This was reviewed and interpreted by myself the emergency room physician. I also reviewed the radiology report. Lab Review: Laboratory results were reviewed and interpreted by myself the emergency room physician. No leukocytosis no anemia. Patient does have some acute renal insufficiency with a BUN and creatinine of 37 and 1.6. She has been given fluids and I told her to discuss this with her primary. She also has some hyperglycemia and fluids to help this as well. Also of note she has urinary tract infection I reviewed the patient's medical record. Reexamination: Patient remained stable. No increased work of breathing. No altered mental status. No focal motor deficits. Blood pressure has improved with fluids. She received Rocephin while she was here. We discussed pushing fluids that do not contain caffeine or sugar. She says she does not drink water she only drinks Coke 0. I discussed that she needs to drink things that do not dehydrate her and discussed with her primary if the medication she is taking could have influenced her renal function and to have repeat labs Assessment and plan: Urinary tract infection Dehydration Hyperglycemia Acute renal insufficiency ?Normal saline bolus and IV Rocephin. - Discharged home - Discussed findings and plan with patient. Answered any questions. - All laboratory values were reviewed and interpreted personally by myself, the ER physician - All imaging was reviewed and interpreted personally by myself, the ER physician. - Evaluation and treatment of this problem were appropriate in the emergency setting Lab Data 03/04/24 19:52 03/04/24 19:52 Labs/Radiology: Radiology Impressions Chest X-Ray 03/04/24 19:38 IMPRESSION: 1. No acute cardiopulmonary process. 2. Incidental/nonacute findings are listed in the report. Laboratory Results WBC 8.46 10^3/uL (3.29-11.43) 03/04/24 19:52 RBC 4.24 10^6/uL (3.85-5.65) 03/04/24 19:52 Hgb 12.40 g/dL (11.27-16.99) 03/04/24 19:52 Hct 36.4 % (36-47) 03/04/24 19:52 MCV 85.8 fl (85-98) 03/04/24 19:52 MCH 29.2 pg (27-33) 03/04/24 19:52 MCHC 34.1 g/dL (30-55) 03/04/24 19:52 RDW 15.5 % (12.1-15.1) H 03/04/24 19:52 Plt Count 383 10^3/cmm (157-399) 03/04/24 19:52 MPV 9.8 fL (7.4-10.4) 03/04/24 19:52 Neut % (Auto) 65.5 % 03/04/24 19:52 Lymph % (Auto) 28.0 % 03/04/24 19:52 [place] % (Auto) 4.5 % 03/04/24 19:52 Eos % (Auto) 1.4 % 03/04/24 19:52 Baso % (Auto) 0.2 % 03/04/24 19:52 Neut # (Auto) 5.54 10^3/uL (1.8-7.7) 03/04/24 19:52 Lymph # (Auto) 2.4 10^3/uL (0.8-4.8) 03/04/24 19:52 [place] # (Auto) 0.4 10^3/uL (0.2-0.9) 03/04/24 19:52 Eos # (Auto) 0.1 10^3/uL (0.0-0.8) 03/04/24 19:52 Baso # (Auto) 0.0 10^3/uL (0.0-0.1) 03/04/24 19:52 Nucleated RBC % (auto) 0 % 03/04/24 19:52 Nucleated RBCs # 0.0 /100WBC 03/04/24 19:52 Sodium 133 mmol/L (136-145) L 03/04/24 19:52 Potassium 4.5 mmol/L (3.5-5.1) 03/04/24 19:52 Chloride 96 mmol/L (98-107) L 03/04/24 19:52 Carbon Dioxide 23 mmol/L (22-29) 03/04/24 19:52 Anion Gap 18.5 (5-19) 03/04/24 19:52 BUN 37 mg/dL (6-20) H 03/04/24 19:52 Creatinine 1.6 mg/dL (0.5-0.9) H 03/04/24 19:52 GFR Calculation 33.3 mL/min (90-130) L 03/04/24 19:52 Glucose 329 mg/dL (65-115) H 03/04/24 19:52 Calculated Osmolality 297 mOsm/kg (285-295) H 03/04/24 19:52 Calcium 9.7 mg/dL (8.5-10.5) 03/04/24 19:52 Total Bilirubin 0.3 mg/dL (0.15-1.2) 03/04/24 19:52 AST 10 U/L (0-32) 03/04/24 19:52 ALT 7 U/L (0-33) 03/04/24 19:52 Alkaline Phosphatase 127 U/L (35-105) H 03/04/24 19:52 NT-Pro-B Natriuret Pep < 36 pg/mL (0-125) 03/04/24 19:52 Total Protein 7.5 g/dL (6.6-8.7) 03/04/24 19:52 Albumin 4.0 g/dL (3.5-5.2) 03/04/24 19:52 Globulin 3.5 g/dL (1.3-4.6) 03/04/24 19:52 Urine Color Yellow (Yellow) 03/04/24 21:04 Urine Appearance Cloudy (CLEAR) A 03/04/24 21:04 Urine pH 5.0 (5-7) 03/04/24 21:04 Ur Specific [place] 1.024 (1.005-1.030) 03/04/24 21:04 Urine Protein 2+ (Negative) A 03/04/24 21:04 Urine Glucose (UA) 3+ (Normal) H 03/04/24 21:04 Urine Ketones Negative (Negative) 03/04/24 21:04 Urine Blood Negative (Negative) 03/04/24 21:04 Urine Nitrate Negative (Negative) 03/04/24 21:04 Urine Bilirubin Negative (Negative) 03/04/24 21:04 Urine Urobilinogen 1.0 mg/dL (Negative) 03/04/24 21:04 Ur Leukocyte Esterase 2+ (Negative) A 03/04/24 21:04 Urine WBC 5-10 /hpf (0-5) H 03/04/24 21:04 Ur Squamous Epith Cells 15-25 /hpf (0-5) H 03/04/24 21:04 Amorphous Sediment Not Reportable 03/04/24 21:04 Urine Bacteria 1+ /hpf (NONE) H 03/04/24 21:04 Hyaline Casts 0-4 /lpf H 03/04/24 21:04 Coronavirus (PCR) Negative (Negative) 03/04/24 19:58 Influenza A (PCR) Negative (Negative) 03/04/24 19:58 Influenza Type B (PCR) Negative (Negative) 03/04/24 19:58 RSV (PCR) Negative (Negative) 03/04/24 19:58 All radiology interpretation(s) finalized by discharge Discharge Plan Discharge Patient Disposition: Home Clinical Impression: Dehydration, UTI (urinary tract infection), Acute renal insufficiency Condition: Stable Prescriptions: New cefdinir 300 mg capsule 300 mg PO BID 7 Days Qty: 14 0RF No Action (DME) pen needle, diabetic [Comfort EZ Pen [place]] 32 gauge x 3/16 needle See Rx Instructions .Route Qty: 120 3RF Rx Instructions: As directed atorvastatin 40 mg tablet 40 mg PO DAILY Qty: 90 3RF (DME) Dexcom G7 Clinical Technician Misc See Rx Instructions .Route Qty: 1 0RF Rx Instructions: As directed (DME) Cam boot See Rx Instructions .Route .MEDSUPPLY Qty: 1 0RF Rx Instructions: As directed insulin glargine [Lantus Solostar U-100 Insulin] 100 unit/mL (3 mL) insulin pen 70 unit SUBCUT DAILY 30 Days Qty: 15 2RF insulin aspart U-100 [Novolog FlexPen U-100 Insulin] 100 unit/mL (3 mL) insulin pen 10 unit SUBCUT TID Qty: 15 3RF (DME) Dexcom G7 Sensor Device See Rx Instructions .Route Qty: 9 1RF Rx Instructions: As directed Mounjaro 10 mg/0.5 mL pen injector 10 mg SUBCUT Q7D Qty: 2 2RF lisinopril 20 mg tablet 20 mg PO DAILY Qty: 90 3RF Lyrica 75 mg capsule 75 mg PO TID Qty: 270 0RF metformin 1,000 mg tablet See Rx Instructions .ROUTE .COMPLEX Qty: 180 0RF Dose Instruction: TAKE TWO TABLETS BY MOUTH at bedtime Rx Instructions: TAKE TWO TABLETS BY MOUTH at bedtime Discharge Orders: Discharge ED (Routine); Ordered 03/04/24 Ordered By: Deborah Muir Referrals: Jeremy Schilling, HOSPITAL SCIENTIST [Nurse Practitioner] - Discharge Diet: Usual diet Discharge Activity: Increase activity as tolerated Patient Instructions: Urinary Tract Infection in Women (ED), Opioid Safety, Pain Management Activity Restrictions/Additional Instructions: You need to push fluids over the next few days. Drink copious amounts of water and nonsugar containing drinks. Follow-up with your doctor for repeat lab work to assure kidney function is improving. Also discussed if your new medication could have contributed to this. Thank you for choosing [facility] for your healthcare needs today. Please realize this is an emergency room and that we are providing you with a medical screening exam and this may not be complete and all inclusive of all the testing and or work up that you may need to determine your ailment or severity of your illness. You have been screened and evaluated and felt safe for discharge. Health conditions do change or evolve sometimes and as such it is important that you follow up with your Primary Doctor to be re checked, 3-5 days is a general good time frame for follow up. You are always welcome to return to the ED for re assessment if your symptoms are worsening or you have new concerns Coding Level of Care Code ED [place]ier Supervisor for Makayla Young
[2024-03-04 20:25] LABS: Alanine Aminotransferase 7 U/L (0-33); Alkaline Phosphatase 127 U/L (35-105); Anion Gap 18.5 (5-19); Aspartate Amino Transferase 10 U/L (0-32); Blood Urea Nitrogen 37 mg/dL (6-20); Calcium 9.7 mg/dL (8.5-10.5); Carbon Dioxide 23 mmol/L (22-29); Chloride 96 mmol/L (98-107); Creatinine Clr Calc Pharmacy 40.8525; Globulin 3.5 g/dL (1.3-4.6); Glomerular Filtration Rate 33.3 mL/min (90-130); Glucose 329 mg/dL (65-115); NT Pro B Type Natriuretic Pept < 36 pg/mL (0-125); Osmolality Calculated 297 mOsm/kg (285-295); Potassium 4.5 mmol/L (3.5-5.1); Sodium 133 mmol/L (136-145); Total Bilirubin 0.3 mg/dL (0.15-1.2); Total Protein 7.5 g/dL (6.6-8.7)
[2024-03-04 20:38] LABS: Basophils % 0.2 %; Eosinophils # 0.1 10^3/uL (0.0-0.8); Eosinophils % 1.4 %; Hematocrit 36.4 % (36-47); Lymphocytes # 2.4 10^3/uL (0.8-4.8); Mean Corpuscular HGB Conc 34.1 g/dL (30-55); Mean Corpuscular Hemoglobin 29.2 pg (27-33); Mean Corpuscular Volume 85.8 fl (85-98); Mean Platelet Volume 9.8 fL (7.4-10.4); Monocytes # 0.4 10^3/uL (0.2-0.9); Monocytes % 4.5 %; Neutrophils # 5.54 10^3/uL (1.8-7.7); Neutrophils % 65.5 %; Nucleated Red Blood Cells % 0 %; Platelet Count 383 10^3/cmm (157-399); Red Blood Count 4.24 10^6/uL (3.85-5.65); Red Cell Distribution Width 15.5 % (12.1-15.1); White Blood Count 8.46 10^3/uL (3.29-11.43)
[2024-03-04 20:43] LABS: Covid PCR NEGATIVE (Negative); Influenza A NEGATIVE (Negative); Influenza B NEGATIVE (Negative); Respiratory Syncytial Virus Ce NEGATIVE (Negative)
[2024-03-04] MEDS: sodium chloride 0.9% 1,000 ML 999 ML IV (20:58)
[2024-03-04 20:59] VITALS: BP 141/87; PULSE 99; RESP 16; O2SAT 99
[2024-03-04 21:07] LABS: Bilirubin Urine Negative (Negative); Blood Urine Negative (Negative); Glucose Urine UA 3+ (Normal); Ketones Urine Negative (Negative); Leukocyte Esterase Urine 2+ (Negative); Nitrate Urine Negative (Negative); Protein Urine 2+ (Negative); Specific Gravity, Urine 1.024 (1.005-1.030); Urine Appearance Cloudy (CLEAR); Urine Color Yellow (Yellow)
[2024-03-04 22:00] LABS: Add Urine Culture? No; Bacteria Urine 1+ /hpf; Hyaline Casts Urine 0-4 /lpf; Squamous Epithelial Cell Urine 15-25 /hpf (0-5)
[2024-03-04] MEDS: cefTRIAXone 1,000 mg SDV 1000 MG IVP (22:19)
[2024-03-04 22:23] VITALS: BP 150/86; PULSE 96; RESP 16; O2SAT 99
== END 2024-03-04 22:32 | disposition home or self-care (01) ==
PROVIDERS: Emergency Provider Emergency Medicine
DX: E86.0 Dehydration (principal); N39.0 Urinary tract infection, site not specified; N28.9 Disorder of kidney and ureter, unspecified; Z79.4 Long term (current) use of insulin; Z79.84 Long term (current) use of oral hypoglycemic drugs; Z11.52 Encounter for screening for COVID-19; E11.9 Type 2 diabetes mellitus without complications; I10 Essential (primary) hypertension
CPT/HCPCS: 0241U; 36415; 71045; 80053; 81001; 83880; 85025; 93005; 96361; 96374; 99285; J0696; J7030

== ENCOUNTER 2024-04-25 12:08 | Outpatient (CLI) | payer OTHER, SELFPAY ==
[2024-04-25 12:53] LABS: Creatinine Urine, Random 204 mg/dL (28-217); Microalbumin Random Urine 31 ug/dL (0-20)
[2024-04-25 12:54] LABS: Microalbum Creatinine Ratio Ur 152 mg/dL (0-20)
[2024-04-25 12:55] LABS: Alanine Aminotransferase 8 U/L (0-33); Albumin Level 3.9 g/dL (3.5-5.2); Alkaline Phosphatase 105 U/L (35-105); Anion Gap 16.1 (5-19); Aspartate Amino Transferase 12 U/L (0-32); Blood Urea Nitrogen 20 mg/dL (6-20); Carbon Dioxide 25 mmol/L (22-29); Chloride 100 mmol/L (98-107); Chol HDL Ratio 3.72 mg/dL (0.0-4.40); Cholesterol 134 mg/dL (0-200); Globulin 3.7 g/dL (1.3-4.6); Glomerular Filtration Rate 64.8 mL/min (90-130); Glucose 265 mg/dL (65-115); HDL Cholesterol 36 mg/dL (60-100); LDL Cholesterol Calculated 44 mg/dL (50-129); LDL HDL Ratio 1.22 RATIO (0.00-3.22); Osmolality Calculated 294 mOsm/kg (285-295); Potassium 5.1 mmol/L (3.5-5.1); Sodium 136 mmol/L (136-145); Total Bilirubin 0.2 mg/dL (0.15-1.2); Total Protein 7.6 g/dL (6.6-8.7); Triglycerides 272 mg/dL (0-150)
[2024-04-25 13:15] LABS: Estmated Average Glucose 217; Hemoglobin A1C 9.2 % (4.0-6.0)
== END 2024-04-25 12:09 | disposition home or self-care (01) ==
PROVIDERS: Visit Provider Internal Medicine
DX: E11.9 Type 2 diabetes mellitus without complications (principal)
CPT/HCPCS: 36415; 80053; 80061; 82044; 83036

== ENCOUNTER 2024-09-02 11:51 | Outpatient (CLI) | payer SELFPAY ==
[2024-09-02 13:56] LABS: Estmated Average Glucose 286; Hemoglobin A1C 11.6 % (4.0-6.0)
[2024-09-02 13:58] LABS: Alanine Aminotransferase 8 U/L (0-33); Albumin Level 3.7 g/dL (3.5-5.2); Alkaline Phosphatase 131 U/L (35-105); Aspartate Amino Transferase 7 U/L (0-32); Blood Urea Nitrogen 29 mg/dL (6-20); Calcium 9.3 mg/dL (8.5-10.5); Carbon Dioxide 20 mmol/L (22-29); Chloride 93 mmol/L (98-107); Chol HDL Ratio 4.19 mg/dL (0.0-4.40); Cholesterol 134 mg/dL (0-200); Globulin 3.8 g/dL (1.3-4.6); Glomerular Filtration Rate 57.1 mL/min (90-130); HDL Cholesterol 32 mg/dL (60-100); Osmolality Calculated 308 mOsm/kg (285-295); Sodium 130 mmol/L (136-145); Total Bilirubin 0.2 mg/dL (0.15-1.2); Total Protein 7.5 g/dL (6.6-8.7); Triglycerides 592 mg/dL (0-150)
[2024-09-02 14:08] LABS: Creatinine Urine, Random 73 mg/dL (28-217); Microalbumin Random Urine 5 ug/dL (0-20)
[2024-09-02 14:15] LABS: Microalbum Creatinine Ratio Ur 68 mg/dL (0-20)
[2024-09-02 14:25] LABS: Glucose 684 mg/dL (65-115)
[2024-09-02 14:38] LABS: LDL Cholesterol Direct 35 mg/dL (0-100)
== END 2024-09-02 11:52 | disposition home or self-care (01) ==
PROVIDERS: Visit Provider Internal Medicine
DX: E11.9 Type 2 diabetes mellitus without complications (principal)
CPT/HCPCS: 36415; 80053; 80061; 82044; 83036; 83721

== ENCOUNTER 2024-09-02 14:53 | Inpatient (IN) | payer SELFPAY ==
[2024-09-02] VITALS (13 sets, daily range): BP systolic 128–171; BP diastolic 69–90; PULSE 85–105; RESP 14–19; TEMP 37.1–37.2; O2SAT 90–100; BMI 33.6
[2024-09-02 15:01] LABS: Glucose Point of Care > 600 mg/dL (70-110)
--- NOTE | 2024-09-02 15:16 | ED_ITS ---
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 She had routine lab work being done and her blood sugars were markedly elevated. She states she is diabetic she still uses her insulin glargine using 70 units a day she was previously on a GLP-1 but ran out of that has not been taking it since her blood sugars have been poorly controlled. She has not had any polyuria polydipsia or polyphagia no abdominal pain or chest pain no vomiting or diarrhea no shortness of breath she does have chronic ulcers on her feet that she has not seen wound care for for 6 to 9 months. She has very large ulcer on the sole of her left foot. Related Data Home Medications ?Medication ?Instructions ?Recorded ?Confirmed acetaminophen 500 mg tablet 1,000 mg PO Q6H PRN Fever Or Pain 09/03/24 09/03/24 (Tylenol Extra Strength) Previous Rx's ?Medication ?Instructions ?Recorded pen needle, diabetic 32 gauge x #120 ea 11/11/2106/22 (Comfort EZ Pen [place]) 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,restaurant assistant manager,cont #1 ea 10/29/23 (Dexcom G7 Deputy City Clerk) Cam boot #1 ea 01/21/24 insulin glargine 100 unit/mL (3 70 unit (0.7 mL) SUBCU T DAILY 30 02/29/24 mL) subcutaneous pen (Lantus days #15 mL Solostar U-100 Insulin) lisinopril 20 mg tablet 20 mg PO DAILY #90 tabs 02/08 06/02 atorvastatin 40 mg tablet See Rx Instructions .Route 1 05/11/23 .COMPLEX #90 tabs tirzepatide 7.5 mg/0.5 mL 7.5 mg (0.5 mL) SUBCUT Q7D # 2 mL 06/02/24 subcutaneous pen injector metformin 1,000 mg tablet See Rx Instructions .Route 0 07/08/24 .COMPLEX #180 tabs pregabalin 75 mg capsule (Lyrica) 75 mg PO TID #270 ca ps 07/08/24 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 sensor (Dexcom G7 #9 ea 08/14/24 Sensor device) Allergies Allergy/AdvReac Type Severity Reaction Status Date / Time No Known Allergies Allergy Verified 09/02/24 16:57 Review of Systems 2 Const: Denies: fever(s) or chills Card: Denies: chest pain Resp: Denies: dyspnea GI: Denies: abdominal pain : Denies: dysuria, urinary frequency or urinary urgency Musc: Denies: neck pain or back pain Skin/Breast: Reports: sores, non-healing lesions and lesions PFSH ED 2 PFSH: Medical History Depression Colon polyp Duodenitis Gastritis Screening for colon cancer Breast mass Epigastric pain Diabetes mellitus High cholesterol Hypertension Surgical History History of incision and drainage chest wound History of tubal ligation History of colonoscopy with polypectomy (~11/2020) History of esophagogastroduodenoscopy (EGD) (~11/2020) History of delivery Family History Father Cancer Mother Thyroid disease Other Dementia Diverticulitis Lupus Screening for colon cancer Denies family history of Thyroid cyst Diabetes CAD (coronary artery disease) Bleeding disorder Social History Smoking and tobacco/nicotine status: never used tobacco/nicotine Alcohol intake: never Substance/Drug Use: never Household members: none Current occupational status: employed Current occupation: [employer] Physical Exam 2 Const: COMMON NORMALS: no acute distress GENERAL APPEARANCE: cooperative and comfortable ORIENTATION/CONSCIOUSNESS: Yes awake, Yes oriented to person, Yes oriented to place and Yes oriented to time HENMT: COMMON NORMALS: normocephalic, atraumatic and hearing grossly normal bilaterally HEAD & SCALP: normocephalic and atraumatic Resp: COMMON NORMALS: normal respiratory effort, No retractions, No use of accessory muscles and clear to auscultation bilaterally AUSCULTATION: clear to auscultation bilaterally Cardio: COMMON NORMALS: regular rate, regular rhythm and No murmurs present (Cardio) RATE: regular rate RHYTHM: regular rhythm GI: COMMON NORMALS: Soft to palpation and No hepatosplenomegaly present A USCULTATION: Yes normoactive bowel sounds PALPATION: Yes Soft to palpation, No Tenderness to palpation present (GI), No Guarding due to palpation present (GI) and Yes No hepatosplenomegaly present Extremity: OTHER: Wounds as above on the sole of left foot there is a full-thickness wound with exposed subcutaneous tissue. No active drainage no evidence of acute infection Neuro: SENSORIUM/ORIENTATION: Yes oriented to person, Yes oriented to place and Yes oriented to time Skin: COMMON NORMALS: no rashes or lesions noted GENERAL SKIN EXAM: no rashes or lesions noted Course 2 Vital Signs: Vital signs: Vital Signs Temperature 98.6 F 09/03/24 12:00 Pulse Rate 86 09/03/24 12:00 Respiratory Rate 17 09/03/24 12:00 Blood Pressure 126/67 09/03/24 12:00 Pulse Oximetry 95 09/03/24 12:00 Oxygen Delivery Me thod Room Air 09/03/24 12:00 MDM - Recheck/Abnormal Lab/Rx Medical Decision Making Hyperglycemia without DKA. Patient also has white count normal. Pseudohyponatremia secondary to hyperglycemia. No signs of infection on the foot. Will consult podiatry. Initial fluids and bolus dose of insulin given orders written for drip discussed with hospitalist will admit. Medical Records I reviewed the patient's medical records. Lab Data I reviewed the patient's lab results. 09/03/24 02:50 09/03/24 02:50 Radiology Impressions Chest X-Ray 09/02/24 15:39 IMPRESSION: No acute findings. Duplex Scan Lower Extremity Artery 09/02/24 16:56 IMPRESSION: No stenosis or occlusion. Venous Duplex 09/02/24 16:56 IMPRESSION: No evidence of deep vein thrombosis. Lower Extremity CT 09/02/24 18:53 IMPRESSION: Severe soft tissue swelling involving the 1st toe at the site of a plantar ulcer. No definite osteomyelitis noted Foot X-Ray 09/03/24 09:32 Impression: 1. Mild swelling of the distal plantar soft tissues. 2. 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 Laboratory Results WBC 8.92 10^3/uL (3.29-11.43) 09/02/24 15:15 RBC 3.65 10^6/uL (3.85-5.65) L 09/02/24 15:15 Hgb 10.80 g/dL (11.27-16.99) L 09/02/24 15:15 Hct 32.4 % (36-47) L 09/02/24 15:15 MCV 88.8 fl (85-98) 09/02/24 15:15 MCH 29.6 pg (27-33) 09/02/24 15:15 MCHC 33.3 g/dL (30-55) 09/02/24 15:15 RDW 15.2 % (12.1-15.1) H 09/02/24 15:15 Plt Count 373 10^3/cmm (157-399) 09/02/24 15:15 MPV 9.9 fL (7.4-10.4) 09/02/24 15:15 Neut % (Auto) 59.1 % 09/02/24 15:15 Lymph % (Auto) 31.1 % 09/02/24 15:15 [place] % (Auto) 5.8 % 09/02/24 15:15 Eos % (Auto) 3.3 % 09/02/24 15:15 Baso % (Auto) 0.3 % 09/02/24 15:15 Neut # (Auto) 5.27 10^3/uL (1.8-7.7) 09/02/24 15:15 Lymph # (Auto) 2.8 10^3/uL (0.8-4.8) 09/02/24 15:15 [place] # (Auto) 0.5 10^3/uL (0.2-0.9) 09/02/24 15:15 Eos # (Auto) 0.3 10^3/uL (0.0-0.8) 09/02/24 15:15 Baso # (Auto) 0.0 10^3/uL (0.0-0.1) 09/02/24 15:15 Nucleated RBC % (auto) 0 % 09/02/24 15:15 Nucleated RBCs # 0.0 /100WBC 09/02/24 15:15 ESR 51 mm/hr (0-15) H 09/02/24 15:15 Specimen Type Arterial 09/02/24 15:40 Sample Site Radial, right 09/02/24 15:40 ABG pH 7.37 (7.35-7.45) 09/02/24 15:40 ABG pCO2 36.8 mmHg (35-45) 09/02/24 15:40 ABG pO2 85.7 mmHg (80.0-100.0) 09/02/24 15:40 ABG PO2/FiO2 Ratio 408 09/02/24 15:40 ABG HCO3 21.1 mmol/L (22-26) L 09/02/24 15:40 ABG O2 Saturation 97.9 09/02/24 15:40 ABG Base Excess -3.7 mmol/L (-2.0-2.0) L 09/02/24 15:40 Dorian Test Pos 09/02/24 15:40 A-a O2 Gradient 2.3 mmHg (5-10) L 09/02/24 15:40 Hematocrit 33.9 % (37-47) L 09/02/24 15:40 Hgb O2 Saturation 96.3 % (95-100) 09/02/24 15:40 Carboxyhemoglobin 1.4 %THgb (0.4-20.1) 09/02/24 15:40 Methemoglobin 0.3 % (0.4-1.5) L 09/02/24 15:40 Total Hemoglobin 11.1 g/dL (12-16) L 09/02/24 15:40 Sodium 129.0 mmol/L (131-143) L 09/02/24 15:40 Potassium 4.5 mmol/L (3.5-5.0) 09/02/24 15:40 Glucose 690.0 mg/dL (70-115) H 09/02/24 15:40 Ionized Calcium 1.2 mmol/L (1.1-1.4) 09/02/24 15:40 O2 Delivery Device Room air 09/02/24 15:40 FiO2 21.0 % 09/02/24 15:40 Reports Analysis Manager ID glc 09/02/24 15:40 Sodium 126 mmol/L (136-145) L 09/02/24 15:15 Potassium 4.4 mmol/L (3.5-5.1) 09/02/24 15:15 Chloride 90 mmol/L (98-107) L 09/02/24 15:15 Carbon Dioxide 18 mmol/L (22-29) L 09/02/24 15:15 Anion Gap 22.4 (5-19) H 09/02/24 15:15 BUN 27 mg/dL (6-20) H 09/02/24 15:15 Creatinine 0.9 mg/dL (0.5-0.9) 09/02/24 15:15 GFR Calculation 64.5 mL/min (90-130) L 09/02/24 15:15 Glucose 733 mg/dL (65-115) H* 09/02/24 15:15 POC Glucose 566 mg/dL (70-110) H* 09/02/24 16:52 Estimat Average Glucose 280 09/02/24 15:15 Hemoglobin A1c 11.4 % (4.0-6.0) H 09/02/24 15:15 Calculated Osmolality 302 mOsm/kg (285-295) H 09/02/24 15:15 Lactic Acid 5.2 mmol/L (0.5-2.2) H* 09/02/24 15:15 Calcium 9.3 mg/dL (8.5-10.5) 09/02/24 15:15 Iron 43 ug/dL (37-145) 09/02/24 15:15 TIBC 278 mcg/dl 09/02/24 15:15 % Saturation 15.4 % (20-50) L 09/02/24 15:15 Unsat Iron Binding 235 ug/dL (112-347) 09/02/24 15:15 Total Bilirubin 0.2 mg/dL (0.15-1.2) 09/02/24 15:15 AST 7 U/L (0-32) 09/02/24 15:15 ALT 9 U/L (0-33) 09/02/24 15:15 Alkaline Phosphatase 141 U/L (35-105) H 09/02/24 15:15 C-Reactive Protein 47.0 mg/L (0.0-4.9) H 09/02/24 15:15 Total Protein 8.1 g/dL (6.6-8.7) 09/02/24 15:15 Albumin 4.0 g/dL (3.5-5.2) 09/02/24 15:15 Globulin 4.1 g/dL (1.3-4.6) 09/02/24 15:15 Lipase 83 U/L (13-60) H 09/02/24 15:15 Vitamin B12 316 pg/mL (232-1245) 09/02/24 15:15 Procalcitonin 0.13 ng/mL (0-0.5) 09/02/24 15:15 TSH 1.48 uIU/mL (0.27-4.20) 09/02/24 15:15 Serum Ketones Negative (Negative) 09/02/24 15:15 All radiology interpretation(s) finalized by discharge Discharge Plan Discharge Patient Disposition: Admitted As Inpatient Admit Provider: Femi Ash Clinical Impression: Diabetes type 2, uncontrolled, Hypertension, Foot ulcer, Diabetic neuropathy, CKD stage 3 secondary to diabetes, Pseudohyponatremia, Non-pressure chronic ulcer of other part of left foot with necrosis of muscle Condition: Stable Coding Level of Care Code ED Field Service Representative for Makayla Young
[2024-09-02 15:21] LABS: Basophils % 0.3 %; Eosinophils # 0.3 10^3/uL (0.0-0.8); Eosinophils % 3.3 %; Hematocrit 32.4 % (36-47); Lymphocytes # 2.8 10^3/uL (0.8-4.8); Lymphocytes % 31.1 %; Mean Corpuscular HGB Conc 33.3 g/dL (30-55); Mean Corpuscular Hemoglobin 29.6 pg (27-33); Mean Corpuscular Volume 88.8 fl (85-98); Mean Platelet Volume 9.9 fL (7.4-10.4); Monocytes # 0.5 10^3/uL (0.2-0.9); Monocytes % 5.8 %; Neutrophils # 5.27 10^3/uL (1.8-7.7); Neutrophils % 59.1 %; Nucleated Red Blood Cells % 0 %; Platelet Count 373 10^3/cmm (157-399); Red Blood Count 3.65 10^6/uL (3.85-5.65); Red Cell Distribution Width 15.2 % (12.1-15.1); White Blood Count 8.92 10^3/uL (3.29-11.43)
[2024-09-02 15:37] LABS: Ketone (Acetest) Serum Negative (Negative)
--- NOTE | 2024-09-02 15:39 | XRR_ITS ---
PROCEDURE INFORMATION: Exam: XR Chest Exam date and time: 09/02/2024 3:46 PM Age: 59 years old Clinical indication: Condition or disease; Other: Hyperglycemmia TECHNIQUE: Imaging protocol: Radiologic exam of the chest. Views: 1 view. COMPARISON: CR XR chest 1V portable [id number] 03/04/2024 7:40 PM FINDINGS: Lungs: Unremarkable. No consolidation or mass. Pleural spaces: Unremarkable. No pleural effusion. No pneumothorax. Heart/Mediastinum: Unremarkable. No cardiomegaly. Bones/joints: Unremarkable. XR/XR chest 1V portable [id number] IMPRESSION: No acute findings.
[2024-09-02 15:46] LABS: Alanine Aminotransferase 9 U/L (0-33); Alkaline Phosphatase 141 U/L (35-105); Anion Gap 22.4 (5-19); Aspartate Amino Transferase 7 U/L (0-32); Blood Urea Nitrogen 27 mg/dL (6-20); Calcium 9.3 mg/dL (8.5-10.5); Carbon Dioxide 18 mmol/L (22-29); Chloride 90 mmol/L (98-107); Globulin 4.1 g/dL (1.3-4.6); Glomerular Filtration Rate 64.5 mL/min (90-130); Lipase 83 U/L (13-60); Osmolality Calculated 302 mOsm/kg (285-295); Potassium 4.4 mmol/L (3.5-5.1); Sodium 126 mmol/L (136-145); Total Bilirubin 0.2 mg/dL (0.15-1.2); Total Protein 8.1 g/dL (6.6-8.7)
[2024-09-02] MEDS: sodium chloride 0.9% 1,000 ML 999 ML IV (15:46)
[2024-09-02 15:48] LABS: Glucose 733 mg/dL (65-115)
[2024-09-02 15:51] LABS: ABG PCO2 36.8 mmHg (35-45); ABG PH Result 7.37 (7.35-7.45); Alveolar-Arterial Oxygen Gradi 2.3 mmHg (5-10); Arterial Blood Gas Hematocrit 33.9 % (37-47); Base Excess ABG -3.7 mmol/L (-2.0-2.0); Blood Gas Allen Test Pos; Blood Gas Operator Identificat glc; Blood Gas Sample Site Radial, right; Blood Gas Sample Type Arterial; Carboxyhemoglobin 1.4 %THgb (0.4-20.1); HCO3 ABG 21.1 mmol/L (22-26); HGB O2 Sat 96.3 % (95-100); Ionized Calcium Level - ABG 1.2 mmol/L (1.1-1.4); Methemoglobin 0.3 % (0.4-1.5); Oxygen Device ROOM AIR; Oxygen Saturation ABG 97.9; PO2 ABG 85.7 mmHg (80.0-100.0); PO2 FiO2 Ratio Arterial Blood 408; Potassium Level - ABG 4.5 mmol/L (3.5-5.0); Total Hemoglobin 11.1 g/dL (12-16)
[2024-09-02] MEDS: insulin regular-human 100 units/1 mL 10 UNIT IVP (15:53)
--- NOTE | 2024-09-02 16:41 | PM.HP ---
Providers/Chief Complaint Chief Complaint: high bloodsugar History of Present Illness Bre Sierra is a 59 year old female with past medical history of type 2 diabetes mellitus on insulin, hypertension, chronic bilateral lower limb ulcers who has not been on medications recently other than a NovoLog of 80 units since she lost her insurance was sent into the ER today from endocrine office for a blood sugar of more than 800. In the ER she was found to have a blood sugar of 700 for which she was given 10 units of IV insulin, 1 L of IV fluid bolus after which blood sugar came down to 568 hence hospitalist service was requested. She was also found to have extensive ulcer on bilateral leg with an ulcer at the base of her left great toe. As per patient he has not had ulcers for many years. He used to follow-up with wound care in the past but has not done recently as she thought they were not helping her enough. She states currently wound is a lot better and is not seeping. Review of Systems General: Reports: 10 or more systems reviewed and unremarkable except in HPI and below Const: Denies: fever(s), chills, body aches, change in appetite, change in weight, malaise, night sweats, diaphoresis, change in sleep pattern, daytime sleepiness or snoring Eyes: Denies: change in vision, blurry vision, photophobia, eye discomfort or eye discharge ENMT: Denies: throat pain, enlarged tonsils, hoarseness, mouth pain, oral sores, dry mouth, tinnitus, nasal congestion or post nasal drip Card: Denies: chest pain, palpitations, irregular heart rhythm, edema, swelling of feet/ankles, lightheadedness, syncope, pre-syncope, dyspnea on exertion, orthopnea, leg pain with exertion or acrocyanosis Resp: Denies: dyspnea, productive cough, non-productive cough, wheezing, stridor, pain on inspiration, change in phlegm color, hemoptysis or chest congestion GI: Denies: abdominal pain, nausea, vomiting, hematemesis, coffee ground emesis, dysphagia, heartburn, diarrhea, constipation, bloating, GI cramping, change in bowel habits, pain on defecation, hematochezia or melena : Denies: flank pain, dysuria, urinary frequency, urinary urgency, urinary hesitancy, nocturia or hematuria Musc: Denies: neck pain, back pain, extremity pain, joint pain, joint swelling, joint redness, joint stiffness or limited range of motion Neuro: Denies: headache(s), numbness in extremities, weakness in extremities, sensory changes, lack of coordination, difficulty walking, frequent falls, dizziness, vertigo, confusion, Slurred speech present, difficulty communicating thoughts or seizure-like activity Psych: Denies: anxiety, depression, mood swings, panic attacks, hopelessness or irritability Endo: Denies: polyuria, polydipsia, tired all the time, cold intolerance, excessive sweating, flushing or heat intolerance Aden/Lymph: Denies: easy bruising or easy bleeding All/Imm: Denies: tongue swelling, facial swelling or acute wheezing Medications/Allergies Home Medications ?Medication ?Instructions ?Recorded ?Confirmed ?Last Taken ?Type pen needle, diabetic 32 gauge x #120 ea 11/11/21 09/02/24 Unknown Rx 06/22 (Comfort EZ Pen [place]) 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,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,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 #1 ea 10/29/23 09/02/24 Unknown Rx (Dexcom G7 Rubber Mixer) Cam boot #1 ea 01/21/24 09/02/24 Unknown Rx insulin aspart U-100 100 unit/mL 10 unit (0.1 mL) SUBCUT TID #15 mL 02/29/24 05/30/24 Unknown Rx (3 mL) subcutaneous pen (Novolog FlexPen U-100 Insulin aspart) insulin glargine 100 unit/mL (3 70 unit (0.7 mL) SUBCUT DAILY 30 02/29/24 05/30/24 Unknown Rx mL) subcutaneous pen (Lantus days #15 mL Solostar U-100 Insulin) lisinopril 20 mg tablet 20 mg PO DAILY #90 tabs 02/29/24 05/30/24 Unknown Rx atorvastatin 40 mg tablet See Rx Instructions .Route 03/10/24 05/30/24 Unknown Rx .COMPLEX #90 tabs tirzepatide 7.5 mg/0.5 mL 7.5 mg (0.5 mL) SUBCUT Q7D #2 mL 06/02/24 06/02/24 Unknown Rx subcutaneous pen injector metformin 1,000 mg tablet See Rx Instructions .Route 07/08/24 Unknown Rx .COMPLEX #180 tabs pregabalin 75 mg capsule (Lyrica) 75 mg PO TID #270 caps 07/08/24 Unknown Rx 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 sensor (Dexcom G7 #9 ea 08/14/24 09/02/24 Unknown Rx Sensor device) Allergies Allergy/AdvReac Type Severity Reaction Status Date / Time No Known Allergies Allergy Verified 09/02/24 16:57 PFSH Acute PFSH: Medical History (Updated 09/02/24 @ 17:18 by Femi Ash MD) Depression Colon polyp Duodenitis Gastritis Screening for colon cancer Breast mass Epigastric pain Diabetes mellitus High cholesterol Hypertension Surgical History History of incision and drainage chest wound History of tubal ligation History of colonoscopy with polypectomy (~11/2020) History of esophagogastroduodenoscopy (EGD) (~11/2020) History of delivery Family History Father Cancer Mother Thyroid disease Other Dementia Diverticulitis Lupus Screening for colon cancer Denies family history of Thyroid cyst Diabetes CAD (coronary artery disease) Bleeding disorder Social History Smoking and tobacco/nicotine status: never used tobacco/nicotine Alcohol intake: never Substance/Drug Use: never Household members: none Current occupational status: employed Current occupation: [employer] Last Vital Signs Temp 98.7 F 09/02/24 14:59 Pulse 102 H 09/02/24 14:59 Resp 17 09/02/24 14:59 BP 161/89 09/02/24 14:59 Pulse Ox 100 09/02/24 14:59 O2 Del Method Room Air 09/02/24 14:59 Weight last 48 hrs Weight 86.183 kg Physical Exam Skin: OTHER: Data 09/02/24 15:15 09/02/24 15:15 A&P Assessment and plan (1) Uncontrolled diabetes mellitus with hyperglycemia, with long-term current use of insulin: A1c of more than 11. Currently not on treatment because she lost her insurance other than NovoLog 50 units. Ketones negative, no metabolic acidosis on ABG. Low concerns for DKA for now. Blood sugar trending down appropriately after 10 units of IV insulin and fluid bolus. Hold off on insulin drip for now. 15 units of IV insulin one-time. Start on Lantus 50 units twice daily, Humalog at moderate dose protocol every 4 hours. Keep n.p.o. for now. IV fluids with NS at 100 cc/h. Hypoglycemia protocol. (2) Diabetic ulcer of foot associated with diabetes mellitus due to underlying condition, with fat layer exposed: Ulcers found on both legs with significant ulcer at the base of left great toe. Check ESR, CRP. Will consult podiatry. Hold off on antibiotics for now. Lower limb Doppler and arterial duplex to rule out ischemia. CT of the foot and the leg to rule out abscess and possible osteomyelitis. (3) Pseudohyponatremia: Most likely in setting of hyperglycemia. Plan Continue home dose of statins. Add baby aspirin 81 mg daily. Hypertension: Goal blood pressure less than 140/90 mmHg. Increase home dose of lisinopril to 40 mg oral daily for now. Patient would need a PCP to be set up prior to discharge. Would need meds to bed prior to discharge. Full code Carb consistent diet Protonix for PUD prophylaxis Heparin 5000 every 12 hourly for DVT prophylaxis PDMP PDMP Reviewed: Not Reviewed Attestations Medical Necessity Statement*: Admission for more than 2 midnights for management of uncontrolled hyperglycemia with uncontrolled type 2 diabetes mellitus, foot ulcer Diagnoses Uncontrolled diabetes mellitus with hyperglycemia, with long-term current use of insulin E11.65; Z79.4 Diabetic ulcer of toe of left foot associated with diabetes mellitus due to underlying condition, with fat layer exposed E08.621; L97.522 Diabetic foot ulcer location: toe Laterality: left Pseudohyponatremia R79.89
--- NOTE | 2024-09-02 16:56 | USCV_ITS ---
Bre Sierra Age: 59 Gender: F : 1965 Exam Date: 09/02/2024 21:18 Ordering Phys: Femi Ash MD Technologist: ANTON [place] [facility] [place]: chf hx DM2, IDDM, HTN BP: 161 / 89 HR: 85 Rhythm: Sinus Technical Quality: Adequate MEASUREMENTS (Male / Female) Normal Values 2D ECHO LV Diastolic Diameter PLAX 4.5 cm 4.2 - 5.9 / 3.9 - 5.3 cm IVS Diastolic Thickness 1.1 cm 0.6 - 1.0 / 0.6 - 0.9 cm IVS Systolic Thickness 1.7 cm LVPW Diastolic Thickness 1.2 cm 0.6 - 1.0 / 0.6 - 0.9 cm LVPW Systolic Thickness 2.2 cm LVOT Diameter 2.1 cm LV Ejection Fraction 2D Teich 71.6 % LV Ejection Fraction MOD 4C 67.8 % LV Ejection Fraction MOD 2C 53.9 % LV Ejection Fraction 2C AL 53.3 % LA Diameter 3.4 cm Aorta at Sinotubular Diameter 2.7 cm IVC Diameter 1.1 cm M-MODE LA Ao Ratio MM 1.1 AV Cusp Separation MM 2.1 cm DOPPLER AV Peak Velocity 140.0 cm/s LVOT Peak Velocity 63.0 cm/s AV Area Cont Eq vti 1.9 cm squared AV Area Cont Eq pk 1.6 cm squared MV Peak Velocity 112.0 cm/s MV Area PHT 4.4 cm squared Mitral E to A Ratio 0.9 TV Peak E Velocity 77.0 cm/s PV Peak Velocity 121.0 cm/s FINDINGS Left Ventricle Normal left ventricular size, systolic function and wall thickness, with no regional wall motion abnormalities. Left ventricular ejection fraction is estimated at 60 %. Grade I/IV diastolic dysfunction (abnormal relaxation filling pattern), normal to mildly elevated filling pressures. Right Ventricle The right ventricle is normal in size and function. Right Atrium The right atrium is normal in size. Left Atrium The left atrium is normal in size. Mitral Valve Moderately thickened mitral valve. Mild mitral annular calcification. No mitral valve stenosis. Trace mitral valve regurgitation. Aortic Valve Moderate aortic valve calcification. No aortic valve stenosis. Trace aortic valve regurgitation. Tricuspid Valve Structurally normal tricuspid valve without significant stenosis or regurgitation. Pulmonary artery systolic pressure is normal. Pulmonic Valve Structurally normal pulmonic valve without significant stenosis. There is no pulmonic regurgitation. Pericardium Normal pericardium without effusion. Aorta Normal ascending aorta dimension. IVC The inferior vena cava appears normal. CONCLUSIONS Normal left ventricular size, systolic function and wall thickness, with no regional wall motion abnormalities. Left ventricular ejection fraction is estimated at 60 %. Grade I/IV diastolic dysfunction (abnormal relaxation filling pattern), normal to mildly elevated filling pressures. Moderate aortic valve calcification. No aortic valve stenosis. Trace aortic valve regurgitation. There is no pericardial effusion. Right atrial pressure is around 5 mm of mercury. Ani Gottlieb MD (Electronically Signed) Final Date: 03 Sep 2024 14:43 S
--- NOTE | 2024-09-02 16:56 | USR_ITS ---
PROCEDURE INFORMATION: Exam: US Duplex Bilateral Lower Extremity Arteries Exam date and time: 09/02/2024 5:41 PM Age: 59 years old Clinical indication: Other: Bilateral ankle ulcers; Additional info: Concern for ischemic ulcer TECHNIQUE: Imaging protocol: Real-time ultrasound scan of the arteries of the bilateral lower extremities with 2-D mattson scale, color Doppler flow and spectral waveform analysis. Images documented and saved. COMPARISON: [place] [id number] 09/02/2024 5:23 PM FINDINGS: Right common femoral artery: No occlusion or significant stenosis. Normal waveform. Right superficial femoral artery: No occlusion or significant stenosis. Normal waveform. Right popliteal artery: No occlusion or significant stenosis. Normal waveform. Right calf/foot arteries: No occlusion or significant stenosis in the visualized arteries. Normal waveforms. Dorsalis pedis artery is patent. Left common femoral artery: No occlusion or significant stenosis. Normal waveform. Left superficial femoral artery: No occlusion or significant stenosis. Normal waveform. Left popliteal artery: No occlusion or significant stenosis. Normal waveform. Left calf/foot arteries: No occlusion or significant stenosis in the visualized arteries. Normal waveforms. Dorsalis pedis artery is patent. US/[place] [id number] IMPRESSION: No stenosis or occlusion.
--- NOTE | 2024-09-02 16:56 | USR_ITS ---
PROCEDURE INFORMATION: Exam: US Duplex Lower Extremity Veins, Bilateral Exam date and time: 09/02/2024 5:23 PM Age: 59 years old Clinical indication: Screening exam; R/O dvt TECHNIQUE: Imaging protocol: Real-time duplex ultrasound of the bilateral extremities with 2-D mattson scale, color Doppler flow and spectral waveform analysis including responses to compression and other maneuvers (when performed) with image documentation. Complete exam focused on the lower extremity veins. COMPARISON: CR XR foot RT min 3V* [id number] 10/05/2023 7:18 AM FINDINGS: Right deep veins: Unremarkable. The common femoral, femoral, proximal profunda femoral and popliteal veins are patent without thrombus. Normal Doppler waveforms. Normal compressibility and/or augmentation response. Left deep veins: Unremarkable. The common femoral, femoral, proximal profunda femoral and popliteal veins are patent without thrombus. Normal Doppler waveforms. Normal compressibility and/or augmentation response. Superficial veins: Greater saphenous veins at the saphenofemoral junctions are patent bilaterally without thrombus. Soft tissues: Unremarkable. US/CV venous duplex [facility] [id number] IMPRESSION: No evidence of deep vein thrombosis.
--- NOTE | 2024-09-02 17:03 | CTR_ITS ---
PROCEDURE INFORMATION: Exam: CT Right Lower Extremity Without Contrast, Leg Exam date and time: 09/02/2024 7:44 PM Age: 59 years old Clinical indication: Cellulitis and other: Ulcer; Foot and lower leg; Right; Additional info: Concern for ulcer TECHNIQUE: Imaging protocol: CT of the right lower extremity without contrast was performed. Exam focused on the lower leg. Radiation optimization: All CT scans at this facility use at least one of these dose optimization techniques: automated exposure control; mA and/or kV adjustment per patient size (includes targeted exams where dose is matched to clinical indication); or iterative reconstruction. COMPARISON: [place] [id number] 09/02/2024 5:41 PM RADIATION DOSE METRICS: Total DLP (mGy-cm): 364.3 FINDINGS: Bones/joints: Normal. No acute fracture or dislocation. Soft tissues: There is prominent subcutaneous edema throughout the lower leg, foot and ankle. No fluid collection noted. No soft tissue air or foreign body. CT/CT lower leg RT wo con* [id number] IMPRESSION: Diffuse soft tissue swelling with no evidence of abscess or osteomyelitis
--- NOTE | 2024-09-02 17:03 | CTR_ITS ---
PROCEDURE INFORMATION: Exam: CT Left Lower Extremity Without Contrast, Leg Exam date and time: 09/02/2024 7:44 PM Age: 59 years old Clinical indication: Edema and swelling, leg or foot; Location not specified; Additional info: Ulcer at the base of first toe, concern for osteo, please include leg TECHNIQUE: Imaging protocol: CT of the left lower extremity without contrast was performed. Exam focused on the lower leg. Radiation optimization: All CT scans at this facility use at least one of these dose optimization techniques: automated exposure control; mA and/or kV adjustment per patient size (includes targeted exams where dose is matched to clinical indication); or iterative reconstruction. COMPARISON: CT lower leg LT w con [id number] 09/02/2024 7:44 PM RADIATION DOSE METRICS: Total DLP (mGy-cm): 364.3 FINDINGS: Bones/joints: I see no bony erosion or fracture. Soft tissues: There is severe soft tissue swelling involving the 1st toe and extending proximally to surround the 1st MTP joint. No maggy fluid collection noted. A plantar ulcer overlies the 1st MTP joint but the ulcer crater does not extend to the joint itself. CT/CT lower leg LT wo con* [id number] IMPRESSION: Severe soft tissue swelling involving the 1st toe at the site of a plantar ulcer. No definite osteomyelitis noted
[2024-09-02] MEDS: insulin regular-human 100 units/1 mL 15 UNIT IVP (17:05)
[2024-09-02 17:21] LABS: Erythrocyte Sedimentation Rate 51 mm/hr (0-15)
[2024-09-02 17:32] LABS: Lactic Sepsis W/Reflex 5.2 mmol/L (0.5-2.2)
[2024-09-02 17:35] LABS: Reflex Lactate Order REFLEX LACTIC ORDERD
[2024-09-02 17:37] LABS: Procalcitonin 0.13 ng/mL (0-0.5)
[2024-09-02 17:48] LABS: Glucose Point of Care 447 mg/dL (70-110)
[2024-09-02 17:48] LABS: Glucose Point of Care 566 mg/dL (70-110)
[2024-09-02] MEDS: sodium chloride 0.9% 1,000 ML 125 ML IV (18:24)
[2024-09-02] MEDS: pantoprazole 40 mg SDV IVP (18:28)
[2024-09-02] MEDS: heparin 5,000 unit/mL INJ 1 mL 5000 UNIT SUBCUT (18:32)
--- NOTE | 2024-09-02 18:48 | PC.NURSE ---
Per verbal order from Dr. Ash, he wants blood cultures collected and he wants to cancel the zosyn antibiotics.
[2024-09-02 18:53] LABS: Lactic Acid level (Lactate) 2.2 mmol/L (0.5-2.2)
--- NOTE | 2024-09-02 18:53 | CTR_ITS ---
PROCEDURE INFORMATION: Exam: CT Left Lower Extremity With Contrast, Leg Exam date and time: 09/02/2024 7:44 PM Age: 59 years old Clinical indication: Other: Ulcer; Additional info: Ulcer at base of first toe, we did not have an order for lower leg wo/w so had to charge separately. TECHNIQUE: Imaging protocol: CT of the left lower extremity with intravenous contrast was performed. Exam focused on the lower leg. Radiation optimization: All CT scans at this facility use at least one of these dose optimization techniques: automated exposure control; mA and/or kV adjustment per patient size (includes targeted exams where dose is matched to clinical indication); or iterative reconstruction. Contrast material: OMNIPAQUE 350; Contrast volume: 100 ml; Contrast route: INTRAVENOUS (IV); COMPARISON: CT lower leg LT wo con* [id number] 09/02/2024 7:44 PM RADIATION DOSE METRICS: Total DLP (mGy-cm): 364.3 FINDINGS: Bones/joints: I see no bony fracture or erosion. Soft tissues: There is severe soft tissue swelling surrounding the 1st MTP joint and extending into the 1st toe. A plantar ulcer overlies the joint. CT/CT lower leg LT w con [id number] IMPRESSION: Severe soft tissue swelling involving the 1st toe at the site of a plantar ulcer. No definite osteomyelitis noted
[2024-09-02] MEDS: iohexol 350 mg/mL 500 mL Btl (per mL) IV (19:56)
--- NOTE | 2024-09-02 20:11 | PC.NURSE ---
1944- pt placed on portable monitor and taken to ct and then ICU 1 with no difficulties. pt in no obvious distress and Aox4 upon transfer.
[2024-09-02] MEDS: sodium chloride 0.9% 1,000 ML 100 ML IV (20:21)
[2024-09-02] MEDS: insulin lispro 100 unit/1 mL SUBCUT (20:34)
[2024-09-02] MEDS: pregabalin 75 mg Capsule PO (20:34)
[2024-09-02 21:26] LABS: Glucose Point of Care 301 mg/dL (70-110)
[2024-09-02] MEDS: insulin glargine 100 units/1 mL 50 UNIT SUBCUT (21:26)
[2024-09-02 21:38] LABS: Estmated Average Glucose 280; Hemoglobin A1C 11.4 % (4.0-6.0)
[2024-09-02 22:23] LABS: MRSA PCR OZH (swab) NOT DETECTED (Not Detecte)
[2024-09-02 23:33] LABS: Iron 43 ug/dL (37-145); Percent Saturation 15.4 % (20-50); Thyroid Stimulating Hormone 1.48 uIU/mL (0.27-4.20); Total Iron Binding Capacity 278 mcg/dl; Unsaturated Iron Binding 235 ug/dL (112-347); Vitamin B12 316 pg/mL (232-1245)
[2024-09-03] VITALS (22 sets, daily range): BP systolic 113–157; BP diastolic 58–119; PULSE 73–87; RESP 11–19; TEMP 36.6–37; O2SAT 89–98
[2024-09-03 00:01] LABS: Glucose Point of Care 257 mg/dL (70-110)
[2024-09-03] MEDS: insulin lispro 100 unit/1 mL SUBCUT ×5 (00:03→21:12)
[2024-09-03 03:29] LABS: Basophils % 0.4 %; Eosinophils # 0.3 10^3/uL (0.0-0.8); Eosinophils % 3.3 %; Hematocrit 30.2 % (36-47); Lymphocytes # 3.5 10^3/uL (0.8-4.8); Lymphocytes % 41.8 %; Mean Corpuscular HGB Conc 33.4 g/dL (30-55); Mean Corpuscular Hemoglobin 29.1 pg (27-33); Mean Platelet Volume 9.6 fL (7.4-10.4); Monocytes # 0.6 10^3/uL (0.2-0.9); Monocytes % 7.4 %; Neutrophils # 3.93 10^3/uL (1.8-7.7); Neutrophils % 46.9 %; Nucleated Red Blood Cells % 0 %; Platelet Count 351 10^3/cmm (157-399); Red Blood Count 3.47 10^6/uL (3.85-5.65); Red Cell Distribution Width 14.9 % (12.1-15.1); White Blood Count 8.39 10^3/uL (3.29-11.43)
[2024-09-03 03:57] LABS: Chol HDL Ratio 4.21 mg/dL (0.0-4.40); Cholesterol 118 mg/dL (0-200); HDL Cholesterol 28 mg/dL (60-100); Triglycerides 506 mg/dL (0-150)
[2024-09-03 03:59] LABS: Alanine Aminotransferase 6 U/L (0-33); Albumin Level 3.4 g/dL (3.5-5.2); Alkaline Phosphatase 116 U/L (35-105); Anion Gap 14.6 (5-19); Aspartate Amino Transferase 7 U/L (0-32); Blood Urea Nitrogen 17 mg/dL (6-20); Calcium 9.4 mg/dL (8.5-10.5); Carbon Dioxide 23 mmol/L (22-29); Chloride 103 mmol/L (98-107); Creatinine Clr Calc Pharmacy 92.2654; Globulin 3.6 g/dL (1.3-4.6); Glomerular Filtration Rate 86.2 mL/min (90-130); Glucose 113 mg/dL (65-115); Magnesium 1.6 mg/dL (1.7-2.3); Osmolality Calculated 286 mOsm/kg (285-295); Phosphorus 2.7 mg/dL (2.5-4.5); Potassium 3.6 mmol/L (3.5-5.1); Procalcitonin 0.11 ng/mL (0-0.5); Sodium 137 mmol/L (136-145); Total Bilirubin 0.2 mg/dL (0.15-1.2)
[2024-09-03 04:12] LABS: Folate Level 12.2 ng/mL (4.8-37.3)
[2024-09-03 04:18] LABS: Glucose Point of Care 119 mg/dL (70-110)
[2024-09-03] MEDS: heparin 5,000 unit/mL INJ 1 mL 5000 UNIT SUBCUT ×2 (04:21→18:12)
[2024-09-03 04:30] LABS: LDL Cholesterol Direct 33 mg/dL (0-100)
[2024-09-03] MEDS: sodium chloride 0.9% 1,000 ML 100 ML IV (04:31)
--- NOTE | 2024-09-03 06:42 | P.CONIM_ITS ---
Providers/Reason For Consult 2 Consulting Physician/Specialty*: Art Cordon D.P.M. Reason for Consult*: Bilateral leg ulcerations and left diabetic foot ulcer. Attending Physician: Femi Ash MD History of Present Illness History of Present Illness Bre Sierra is a 59 year old female Review of Systems 2 General: Reports: 10 or more systems reviewed and unremarkable except in HPI and below Const: Denies: fever(s) or chills Eyes: Denies: change in vision Card: Denies: chest pain or palpitations Resp: Denies: dyspnea or productive cough GI: Denies: abdominal pain, nausea or vomiting : Denies: flank pain Musc: Reports: extremity swelling, joint stiffness and deformity Skin/Breast: Reports: erythema, sores, changes in skin color, dry skin, nail changes and change in hair Neuro: Reports: numbness in extremities, sensory changes and difficulty walking Psych: Denies: suicidal ideation Endo: Denies: change in body appearance Aden/Lymph: Denies: tender lymph nodes Medications/Allergies Home Medications ?Medication ?Instructions ?Recorded ?Confirmed ?Last Taken ?Type pen needle, diabetic 32 gauge x #120 ea 11/11/2109/02 Unknown Rx 06/22 (Comfort EZ Pen [place]) 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,bartender,cont #1 ea 10/29/23 09/02/24 Un known Rx (Dexcom G7 [employer] Arc) Cam boot #1 ea 01/21/24 09/02/24 Unkn own Rx insulin aspart U-100 100 unit/mL 10 unit (0.1 mL) SUBC UT TID #15 mL 02/29/24 05/30/24 Unknown Rx (3 mL) subcutaneous pen (Novolog FlexPen U-100 Insulin aspart) insulin glargine 100 unit/mL (3 70 unit (0.7 mL) SUBCU T DAILY 30 02/29/24 05/30/24 Unknown Rx mL) subcutaneous pen (Lantus days #15 mL Solostar U-100 Insulin) lisinopril 20 mg tablet 20 mg PO DAILY #90 tabs 02/0805/30/24 Unknown Rx atorvastatin 40 mg tablet See Rx Instructions .Route 1 05/11/23 05/30/24 Unknown Rx .COMPLEX #90 tabs tirzepatide 7.5 mg/0.5 mL 7.5 mg (0.5 mL) SUBCUT Q7D # 2 mL 06/02/24 06/02/24 Unknown Rx subcutaneous pen injector metformin 1,000 mg tablet See Rx Instructions .Route 0 07/08/24 Unknown Rx .COMPLEX #180 tabs pregabalin 75 mg capsule (Lyrica) 75 mg PO TID #270 ca ps 07/08/24 Unknown Rx 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 sensor (Dexcom G7 #9 ea 08/14/24 5 Unknown Rx Sensor device) Allergies Allergy/AdvReac Type Severity Reaction Status Date / Time No Known Allergies Allergy Verified 09/02/24 16:57 Current Medications Generic Name Dose Route Start Last Admin Trade Name Freq PRN Reason Stop Dose Admin Docusate Sodium 100 mg 09/02/24 20:08 09/02/24 20:39 Docusate Sodium 100 Mg Capsule PO Not Given BID JAJA Heparin Sodium (Porcine) 5,000 unit 09/02/24 17:00 09/03/24 04:21 Heparin 5,000 Unit/Ml Inj 1 Ml SUBCUT 5,000 unit Q12H JAJA Administration Sodium Chloride 1,000 mls @ 125 mls/hr 09/02/24 15:56 09/02/24 21:10 Sodium Chloride 0.9% IV 0 mls/hr .Q8H PRN Infusion blood glucose greater than 250 mg/dL Sodium Chloride 1,000 mls @ 100 mls/hr 09/02/24 17:00 09/03/24 04:31 Sodium Chloride 0.9% IV 100 mls/hr .Q10H JAJA Administration Insulin Glargine 50 unit 09/02/24 20:08 09/02/24 21:26 Insulin Glargine 100 Units/1 Ml SUBCUT 50 unit Q12H JAJA Administration Insulin Human Lispro 0 unit 09/02/24 20:08 09/03/24 04:19 Insulin Lispro 100 Unit/1 Ml SUBCUT Not Given Q4H [facility] Protocol Pantoprazole Sodium 40 mg 09/02/24 17:00 09/02/24 18:28 Pantoprazole 40 Mg Sdv IVP 40 mg Q24H JAJA Administration Pregabalin 75 mg 09/02/24 20:08 09/02/24 20:34 Pregabalin 75 Mg Capsule PO 75 mg BID JAJA Administration PFSH Acute 2 PFSH: Medical History Depression Colon polyp Duodenitis Gastritis Screening for colon cancer Breast mass Epigastric pain Diabetes mellitus High cholesterol Hypertension Surgical History History of incision and drainage chest wound History of tubal ligation History of colonoscopy with polypectomy (~11/2020) History of esophagogastroduodenoscopy (EGD) (~11/2020) History of delivery Family History Father Cancer Mother Thyroid disease Other Dementia Diverticulitis Lupus Screening for colon cancer Denies family history of Thyroid cyst Diabetes CAD (coronary artery disease) Bleeding disorder Social History Smoking and tobacco/nicotine status: unknown if used tobacco/nicotine Alcohol intake: never Substance/Drug Use: never Household members: none Current occupational status: employed Current occupation: [employer] Vitals/I&O/Wt Last Vital Signs Temp 98.2 F 09/03/24 06:00 Pulse 73 09/03/24 06:00 Resp 18 09/03/24 05:00 BP 132/74 09/03/24 05:30 Pulse Ox 98 09/03/24 05:30 O2 Del Method Room Air 09/03/24 02:22 09/02/24 09/02/24 09/03/24 14:59 22:59 06:59 Intake Total 1065.833 / 7738.147 7685.667 / 2104.500 Balance 1065.833 / 6849.259 9801.667 / 2104.500 Weight last 48 hrs Weight 199 lb 8.293 oz Weight 190 lb Physical Exam 2 Narrative: Const: COMMON NORMALS: no acute distress, patient oriented x3 and alert HENMT: COMMON NORMALS: normocephalic HEAD & SCALP: normocephalic Eye: COMMON NORMALS: Equal, round and reactive pupils present PUPIL: Yes Equal, round and reactive pupils present Resp: COMMON NORMALS: normal respiratory effort, No retractions and No use of accessory muscles Cardio: COMMON NORMALS: regular rate RATE: regular rate Extremity: COMMON NORMALS: no calf tenderness and no pedal edema GENERAL: Y es deformity Neuro: COMMON NORMALS: patient oriented x3 SENSORIUM/ORIENTATION: Yes alert SENSORY EXAM: Yes extremities MONOFILAMENT EXAM PERFORMED: Yes MOTOR EXAM: 5/5 motor strength present throughout Psych: COMMON NORMALS: cooperative Skin: NARRATIVE SKIN EXAM: Wound exposed myofascial layer subfirst metatarsal head left foot measures 1.9 cm x 1.7 cm x 0.3 cm with fibrogranular base does not probe to bone, tunnel or undermine. Geographic ulcerations with surrounding erythema and atrophic skin with decreased texture and turgor, serous weeping bilateral legs. Ulcers are well- demarcated with violaceous/purple-red undermined border some grayish and yellow slough ulcerations have variants in size and are localized at lower one third of bilateral leg. Patient has pain to palpation at several of the wounds mostly at the right leg. WOUNDS: Yes wounds noted NAILS: discolored, dystrophic and yellow and thickened Data 09/03/24 02:50 09/03/24 02:50 Micro: Microbiology 09/02/24 19:37 Blood Culture - Preliminary Blood SPECIMEN COLLECTED 09/02/24 19:30 Blood Culture - Preliminary Blood SPECIMEN COLLECTED A&P Assessment and plan (1) Ulcerative pyoderma gangrenosum: Leading differential diagnosis pyoderma gangrenosum bilateral legs. Will treat with 0.05% clobetasol twice daily. (2) Non-pressure chronic ulcer of other part of left foot with necrosis of muscle: PROCEDURE: Full thickness wound debridement Location: Left foot subfirst metatarsal head Local Anesthesia: none due to neuropathy Consent: Verbal Sterile Prep: with alcohol Details: Full thickness sharp debridement of the wound was performed using sterile dermal curette. The wound was debrided of hyperkeratotic rim and devitalized and fibrotic tissue down to myofascial layer, being the deepest level of debridement. Predebridement measurements: 1.9 cm x 1.7 cm x 0.3 cm Postdebridement measurements: 2.2 cm x 1.9 cm x 0.3 cm Hemostasis: Pressure Irrigation: sterile saline Dressing: Santyl, gauze, Kerlix, Coban. Estimated Blood Loss: minimal Offloading: Cam boot Plan Wound debridement left foot as above down to myofascial layer. CT scan negative for osteomyelitis. Will offload with cam boot, wound dressing of Santyl, saline moistened gauze, Kerlix to be changed once daily. Bilateral leg ulcerations leading diagnosis is pyoderma gangrenosum will treat with topical steroid clobetasol 0.05% twice daily and monitor her response. Lower suspicion of venous stasis ulcers and low suspicion of arterial ulcer. Recommend MRI left foot to rule out osteomyelitis. PDMP PDMP Reviewed: Not Reviewed Coding Level of Care Code Acute Code for Chg Fwd Diagnoses Ulcerative pyoderma gangrenosum L88 Non-pressure chronic ulcer of other part of left foot with necrosis of muscle L97.523 Comment CPT 76476
[2024-09-03 08:18] LABS: Glucose Point of Care 178 mg/dL (70-110)
[2024-09-03] MEDS: insulin glargine 100 units/1 mL 50 UNIT SUBCUT ×2 (08:27→21:28)
[2024-09-03] MEDS: lisinopril 20 mg Tablet 40 MG PO (08:28)
[2024-09-03] MEDS: atorvastatin 40 mg Tablet PO (08:29)
[2024-09-03] MEDS: pregabalin 75 mg Capsule PO ×2 (08:29→18:11)
[2024-09-03] MEDS: aspirin 81 mg EC Tablet PO (08:29)
[2024-09-03] MEDS: collagenase oint 30 gm 1 APPLIC TOPICAL (08:32)
--- NOTE | 2024-09-03 09:32 | XR_ITS ---
WS: [id number] Left foot, 3 views, 09/03/2024 Clinical Data: Wound subfirst metatarsal head Comparison: Left foot, 10/05/2023 Findings: No fractures or dislocations are seen. There is a defect of the distal phalanx of the left third toe unchanged. There is minimal degenerative change of the distal tarsal bones and first MTP joint. There is a plantar spur and an Achilles spur. There is soft tissue swelling of the distal dorsal aspect of the foot. XR/XR foot LT min 3V* [id number] Impression: 1. Mild swelling of the distal plantar soft tissues. 2. 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
--- NOTE | 2024-09-03 10:07 | MRR_ITS ---
PROCEDURE INFORMATION: Exam: MR Left Lower Extremity Other Than Joint Without and With Contrast; Foot Exam date and time: 09/03/2024 4:39 PM Age: 59 years old Clinical indication: Pain; Foot; Left; Additional info: Concern for osteo TECHNIQUE: Imaging protocol: Magnetic resonance imaging of the left lower extremity without and with contrast. Exam focused on the foot. Contrast material: MULTIHANCE; Contrast volume: 20 ml; Contrast route: INTRAVENOUS (IV); COMPARISON: CR XR foot LT min 3V* [id number] 09/03/2024 9:46 AM FINDINGS: Bones/joints: [id number] spurring of the tips of the malleoli and dorsum of the tarsal joints. Mild arthrosis of the MTP and TMT joints. No acute fracture. Moderate plantar and posterior calcaneal spurring. Moderate arthrosis of the hallux sesamoids. Small erosion of the tuft of the 3rd distal phalanx consistent with osteomyelitis. Mild effusion in the ankle and subtalar joints. Findings suggestive of diffuse diabetic myopathy. LIGAMENTS: Distal tibiofibular syndesmosis: Accessory navicular noted with superimposed degenerative irregularity of the syndesmosis Lisfranc ligament: Unremarkable. No evidence of tear. TENDONS: Flexor tendons of foot: Unremarkable. No evidence of tear. Tibialis posterior tendon: Unremarkable as visualized. Peroneal tendons: Unremarkable as visualized. Extensor tendons of foot: Unremarkable. No evidence of tear. Tibialis anterior tendon: Unremarkable as visualized. Tarsal canal (Sinus tarsi): Unremarkable. Tarsal tunnel: Unremarkable. Soft tissues: Soft tissue wound underlying the medial aspect of the 1st MTP joint with moderate underlying soft tissue thickening/cellulitis. Mild osseous edema and T1 signal abnormality of the medial hallux sesamoid is indeterminate for osteomyelitis versus degenerative etiology. Plantar fascia: No obvious abnormality. MR/MR foot LT wo/w con [id number] IMPRESSION: 1. Soft tissue wound of the plantar aspect of the 1st MTP joint level. 2. Subtle osseous edema within the medial hallux sesamoid could be degenerative, versus early osteomyelitis given the adjacent wound. Clinical correlation and follow-up recommended. 3. Osseous erosion of the tuft of the 3rd distal phalanx may be chronic, without marrow signal abnormality to suggest osteomyelitis .
--- NOTE | 2024-09-03 11:06 | P.PN_ITS ---
Subjective 2 Subjective: No acute events. Patient seen sitting up comfortably in bed. Blood sugars better controlled. Denies any nausea, vomiting, headache or dizziness. Vitals/I&O/Wt Last Vital Signs Temp 98.5 F 09/03/24 07:35 Pulse 81 09/03/24 09:00 Resp 15 09/03/24 09:00 BP 133/81 09/03/24 09:00 Pulse Ox 97 09/03/24 09:00 O2 Del Method Room Air 09/03/24 09:00 09/02/24 09/03/24 09/03/24 22:59 06:59 14:59 Intake Total 1065.833 / 8818.724 4867.667 / 2104.500 300 / 300 Balance 1065.833 / 7279.985 7051.667 / 2104.500 300 / 300 Weight last 48 hrs Weight 90.5 kg Weight 86.183 kg Physical Exam 2 Skin: OTHER: Data 09/03/24 02:50 09/03/24 02:50 Micro: Microbiology 09/02/24 19:37 Blood Culture - Preliminary Blood SPECIMEN COLLECTED 09/02/24 19:30 Blood Culture - Preliminary Blood SPECIMEN COLLECTED A&P Assessment and plan (1) Uncontrolled diabetes mellitus with hyperglycemia, with long-term current use of insulin: A1c of more than 11. Currently not on treatment because she lost her insurance other than NovoLog 50 units. Ketones negative, no metabolic acidosis on ABG. Low concerns for DKA for now. Blood sugars better controlled. Continue with Lantus 50 units twice daily. Insulin sliding scale. Will plan for further adjustment of insulin dose and dose outpatient insulin depending on insulin requirement in next 24 hours. Stop IV fluids. Hypoglycemia protocol. (2) Diabetic ulcer of foot associated with diabetes mellitus due to underlying condition, with fat layer exposed: Ulcers found on both legs with significant ulcer at the base of left great toe. Appreciate ESR, CRP. Appreciate podiatry recommendations and wound care. Wound care as per podiatry team. Appreciate CT of the foot. Will plan for MRI of left foot as per podiatry recommendations. Hold off on antibiotics for now. (3) Pseudohyponatremia: Resolved. On admission most likely in setting of hyperglycemia. Plan Continue home dose of statins. Add baby aspirin 81 mg daily. Hypertension: Goal blood pressure less than 140/90 mmHg. Increase home dose of lisinopril to 40 mg oral daily for now. Transfer to [facility] floor. Full code Carb consistent diet Protonix for PUD prophylaxis Heparin 5000 every 12 hourly for DVT prophylaxis PDMP PDMP Reviewed: Not Reviewed Attestations 2 Medical Necessity Statement*: Requires further hospitalization for management of uncontrolled type 2 diabetes mellitus while outpatient antibiotics and PCP are set up, foot ulcer while osteomyelitis is ruled out Diagnoses Uncontrolled diabetes mellitus with hyperglycemia, with long-term current use of insulin E11.65; Z79.4 Diabetic ulcer of toe of left foot associated with diabetes mellitus due to underlying condition, with fat layer exposed E08.621; L97.522 Diabetic foot ulcer location: toe Laterality: left Pseudohyponatremia R79.89
[2024-09-03 11:23] LABS: Glucose Point of Care 304 mg/dL (70-110)
--- NOTE | 2024-09-03 15:06 | PC.NURSE ---
Report called to [facility] for room 279-2, given to Laura RN. Will transfer pt up to room in about 20 minutes.
--- NOTE | 2024-09-03 15:20 | PC.NURSE ---
Pt requested someone to lock up and/or move her car from ED parking lot. She stated her debit card was in the ashtray. This nurse notified security, Deny. Deny verified card still in ashtray and locked pt's vehicle.
--- NOTE | 2024-09-03 15:34 | PC.NURSE ---
Pt transferred to room 279-2 with all her belongings. Room orientation provided.
[2024-09-03 16:29] LABS: Glucose Point of Care 343 mg/dL (70-110)
[2024-09-03] MEDS: gadobenate dimeglumine 20 mL vial IV (17:08)
[2024-09-03] MEDS: pantoprazole 40 mg SDV IVP (18:12)
[2024-09-03 20:41] LABS: Glucose Point of Care 395 mg/dL (70-110)
[2024-09-03] MEDS: zolpidem 5 mg Tablet PO (21:28)
[2024-09-03 22:25] LABS: Bilirubin Urine Negative (Negative); Blood Urine Negative (Negative); Glucose Urine UA 2+ (Normal); Ketones Urine Negative (Negative); Leukocyte Esterase Urine Negative (Negative); Nitrate Urine Negative (Negative); Protein Urine Trace (Negative); Urine Appearance Clear (CLEAR); Urine Color Yellow (Yellow); Urobilinogen Urine 0.2 mg/dL (Negative); pH Urine 5.5 (5-7)
[2024-09-03 22:28] LABS: Add Urine Microscopic? YES; Bacteria Urine None Seen /hpf; Hyaline Casts Urine 0.81 /lpf; RBC Urine 0-2 /hpf (0-2); Squamous Epithelial Cell Urine 0-5 /hpf (0-5); WBC Urine 0-5 /hpf (0-5)
[2024-09-03 22:31] LABS: Specific Gravity, Urine 1.034 (1.005-1.030)
[2024-09-04] VITALS (8 sets, daily range): BP systolic 122–156; BP diastolic 63–76; PULSE 67–87; RESP 16–18; TEMP 36.4–36.9; O2SAT 97–98
[2024-09-04 05:13] LABS: Basophils % 0.6 %; Eosinophils # 0.3 10^3/uL (0.0-0.8); Eosinophils % 4.9 %; Hematocrit 29.8 % (36-47); Lymphocytes # 2.7 10^3/uL (0.8-4.8); Mean Corpuscular HGB Conc 32.6 g/dL (30-55); Mean Corpuscular Hemoglobin 29.2 pg (27-33); Mean Corpuscular Volume 89.8 fl (85-98); Mean Platelet Volume 9.4 fL (7.4-10.4); Monocytes # 0.4 10^3/uL (0.2-0.9); Monocytes % 8.1 %; Neutrophils # 1.92 10^3/uL (1.8-7.7); Neutrophils % 36.2 %; Nucleated Red Blood Cells % 0 %; Platelet Count 302 10^3/cmm (157-399); Red Blood Count 3.32 10^6/uL (3.85-5.65); Red Cell Distribution Width 14.8 % (12.1-15.1)
[2024-09-04 05:39] LABS: Alanine Aminotransferase 7 U/L (0-33); Albumin Level 3.2 g/dL (3.5-5.2); Alkaline Phosphatase 108 U/L (35-105); Anion Gap 14.8 (5-19); Aspartate Amino Transferase 8 U/L (0-32); Blood Urea Nitrogen 14 mg/dL (6-20); Carbon Dioxide 23 mmol/L (22-29); Chloride 105 mmol/L (98-107); Creatinine Clr Calc Pharmacy 94.6826; Globulin 3.4 g/dL (1.3-4.6); Glomerular Filtration Rate 86.2 mL/min (90-130); Glucose 174 mg/dL (65-115); Magnesium 1.5 mg/dL (1.7-2.3); Osmolality Calculated 293 mOsm/kg (285-295); Phosphorus 3.9 mg/dL (2.5-4.5); Potassium 3.8 mmol/L (3.5-5.1); Sodium 139 mmol/L (136-145); Total Bilirubin 0.2 mg/dL (0.15-1.2); Total Protein 6.6 g/dL (6.6-8.7)
[2024-09-04] MEDS: heparin 5,000 unit/mL INJ 1 mL 5000 UNIT SUBCUT (05:50)
[2024-09-04 06:53] LABS: Glucose Point of Care 192 mg/dL (70-110)
--- NOTE | 2024-09-04 08:35 | PM.DCS ---
Discharge Providers Date of Admission: 09/02/24 16:59 Date of Discharge: September 04, 2024 Attending Provider at Admission: Femi Ash MD Attending Provider at Discharge: Femi Ash MD Diagnoses at Discharge Discharge Diagnosis (1) Uncontrolled diabetes mellitus with hyperglycemia, with long-term current use of insulin: Status: Acute (2) Diabetic ulcer of foot associated with diabetes mellitus due to underlying condition, with fat layer exposed: Status: Acute Qualifiers: Diabetic foot ulcer location: toe Laterality: left Qualified Code(s): E08.621 - Diabetes mellitus due to underlying condition with foot ulcer; L97.522 - Non-pressure chronic ulcer of other part of left foot with fat layer exposed (3) Pseudohyponatremia: Status: Acute Reason for Visit Reason for Visit: high bloodsugar Brief History: Bre Sierra is a 59 year old female with past medical history of type 2 diabetes mellitus on insulin, hypertension, chronic bilateral lower limb ulcers who has not been on medications recently other than a NovoLog of 80 units since she lost her insurance was sent into the ER today from endocrine office for a blood sugar of more than 800. In the ER she was found to have a blood sugar of 700 for which she was given 10 units of IV insulin, 1 L of IV fluid bolus after which blood sugar came down to 568 hence hospitalist service was requested. She was also found to have extensive ulcer on bilateral leg with an ulcer at the base of her left great toe. As per patient he has not had ulcers for many years. He used to follow-up with wound care in the past but has not done recently as she thought they were not helping her enough. She states currently wound is a lot better and is not seeping. Hospital Course Hospital Course Patient was admitted to the hospital further evaluation management of severe hyperglycemia without DKA. She was started on IV fluids and insulin were adjusted. Given concerns for significant wounds on her legs podiatry was consulted. She underwent MRI which ruled out osteomyelitis. Cultures during hospitalization remain negative. She is discharged in hemodynamically stable condition on Lantus 60 units twice daily, insulin sliding scale which has been provided to her, dose of lisinopril has been increased to 40 mg twice daily, glimepiride 2 mg twice daily has been added to her medication list. She is counseled in detail about hypoglycemia and treatment for the same. She is also counseled in detail about following up with wound care as an outpatient. Physical Exam Narrative: General: No acute distress, AO x3 HEENT: PERRLA, pupils bilaterally equal and reactive Chest: Normal vesicular breath sounds, no added sounds, equal good air entry bilaterally CVS: S1-S2 regular, no murmurs, no tachycardia, no gallops, no rubs Abdomen: Soft, nontender, no organomegaly, bowel sounds present Neuro: No focal deficits, no facial deformity, AO x3, power 5/5 in all limbs Skin: OTHER: Discharge Data Studies Completed and Pending Completed Studies During Hospitalization Category Date Time Status CT lower leg LT w con [id number] Stat Cat Scan 09/02/24 18:[address] lower leg LT wo con* [id number] Stat Cat Scan 09/02/24 17:[address] lower leg RT wo con* [id number] Stat Cat Scan 09/02/24 17:03 Completed XR chest 1V portable [id number] Stat Exams 09/02/24 15:39 Completed XR foot LT min 3V* [id number] Routine Exams 09/03/24 09:32 Completed MR foot LT wo/w con [id number] Routine MRI 09/03/24 10:07 [place] [id number] Stat Ultrasound 09/02/24 16:56 [place] [id number] Routine Ultrasound 09/02/24 16:56 Completed CV. echo complete* [id number] Routine Ultrasound 09/02/24 16:56 Completed Pending at discharge Category Date Time Status Blood Culture Stat Lab 09/02/24 19:37 Results Complete Blood Count w/Auto AM LABS Lab 09/05/24 04:00 Ordered Comprehensive Metabolic Panel AM LABS Lab 09/05/24 04:00 Ordered Magnesium AM LABS Lab 09/05/24 04:00 Ordered Phosphorus AM LABS Lab 09/05/24 04:00 Ordered Radiology Impressions Chest X-Ray 09/02/24 15:39 IMPRESSION: No acute findings. Duplex Scan Lower Extremity Artery 09/02/24 16:56 IMPRESSION: No stenosis or occlusion. Venous Duplex 09/02/24 16:56 IMPRESSION: No evidence of deep vein thrombosis. Lower Extremity CT 09/02/24 18:53 IMPRESSION: Severe soft tissue swelling involving the 1st toe at the site of a plantar ulcer. No definite osteomyelitis noted Foot X-Ray 09/03/24 09:32 Impression: 1. Mild swelling of the distal plantar soft tissues. 2. 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 Foot MRI 09/03/24 10:07 IMPRESSION: 1. Soft tissue wound of the plantar aspect of the 1st MTP joint level. 2. Subtle osseous edema within the medial hallux sesamoid could be degenerative, versus early osteomyelitis given the adjacent wound. Clinical correlation and follow-up recommended. 3. Osseous erosion of the tuft of the 3rd distal phalanx may be chronic, without marrow signal abnormality to suggest osteomyelitis . Echocardiogram: CONCLUSIONS Normal left ventricular size, systolic function and wall thickness, with no regional wall motion abnormalities. Left ventricular ejection fraction is estimated at 60 %. Grade I/IV diastolic dysfunction (abnormal relaxation filling pattern), normal to mildly elevated filling pressures. Moderate aortic valve calcification. No aortic valve stenosis. Trace aortic valve regurgitation. There is no pericardial effusion. Right atrial pressure is around 5 mm of mercury. Laboratory Results WBC 5.30 10^3/uL (3.29-11.43) 09/04/24 04:59 RBC 3.32 10^6/uL (3.85-5.65) L 09/04/24 04:59 Hgb 9.70 g/dL (11.27-16.99) L 09/04/24 04:59 Hct 29.8 % (36-47) L 09/04/24 04:59 MCV 89.8 fl (85-98) 09/04/24 04:59 MCH 29.2 pg (27-33) 09/04/24 04:59 MCHC 32.6 g/dL (30-55) 09/04/24 04:59 RDW 14.8 % (12.1-15.1) 09/04/24 04:59 Plt Count 302 10^3/cmm (157-399) 09/04/24 04:59 MPV 9.4 fL (7.4-10.4) 09/04/24 04:59 Neut % (Auto) 36.2 % 09/04/24 04:59 Lymph % (Auto) 50.0 % 09/04/24 04:59 Hendry % (Auto) 8.1 % 09/04/24 04:59 Eos % (Auto) 4.9 % 09/04/24 04:59 Baso % (Auto) 0.6 % 09/04/24 04:59 Neut # (Auto) 1.92 10^3/uL (1.8-7.7) 09/04/24 04:59 Lymph # (Auto) 2.7 10^3/uL (0.8-4.8) 09/04/24 04:59 Hendry # (Auto) 0.4 10^3/uL (0.2-0.9) 09/04/24 04:59 Eos # (Auto) 0.3 10^3/uL (0.0-0.8) 09/04/24 04:59 Baso # (Auto) 0.0 10^3/uL (0.0-0.1) 09/04/24 04:59 Nucleated RBC % (auto) 0 % 09/04/24 04:59 Nucleated RBCs # 0.0 /100WBC 09/04/24 04:59 ESR 51 mm/hr (0-15) H 09/02/24 15:15 Specimen Type Arterial 09/02/24 15:40 Sample Site Radial, right 09/02/24 15:40 ABG pH 7.37 (7.35-7.45) 09/02/24 15:40 ABG pCO2 36.8 mmHg (35-45) 09/02/24 15:40 ABG pO2 85.7 mmHg (80.0-100.0) 09/02/24 15:40 ABG PO2/FiO2 Ratio 408 09/02/24 15:40 ABG HCO3 21.1 mmol/L (22-26) L 09/02/24 15:40 ABG O2 Saturation 97.9 09/02/24 15:40 ABG Base Excess -3.7 mmol/L (-2.0-2.0) L 09/02/24 15:40 Dorian Test Pos 09/02/24 15:40 A-a O2 Gradient 2.3 mmHg (5-10) L 09/02/24 15:40 Hematocrit 33.9 % (37-47) L 09/02/24 15:40 Hgb O2 Saturation 96.3 % (95-100) 09/02/24 15:40 Carboxyhemoglobin 1.4 %THgb (0.4-20.1) 09/02/24 15:40 Methemoglobin 0.3 % (0.4-1.5) L 09/02/24 15:40 Total Hemoglobin 11.1 g/dL (12-16) L 09/02/24 15:40 Sodium 129.0 mmol/L (131-143) L 09/02/24 15:40 Potassium 4.5 mmol/L (3.5-5.0) 09/02/24 15:40 Glucose 690.0 mg/dL (70-115) H 09/02/24 15:40 Ionized Calcium 1.2 mmol/L (1.1-1.4) 09/02/24 15:40 O2 Delivery Device Room air 09/02/24 15:40 FiO2 21.0 % 09/02/24 15:40 Vein Access Technician ID [email or web address] 09/02/24 15:40 Sodium 139 mmol/L (136-145) 09/04/24 04:59 Potassium 3.8 mmol/L (3.5-5.1) 09/04/24 04:59 Chloride 105 mmol/L (98-107) 09/04/24 04:59 Carbon Dioxide 23 mmol/L (22-29) 09/04/24 04:59 Anion Gap 14.8 (5-19) 09/04/24 04:59 BUN 14 mg/dL (6-20) 09/04/24 04:59 Creatinine 0.7 mg/dL (0.5-0.9) 09/04/24 04:59 GFR Calculation 86.2 mL/min (90-130) L 09/04/24 04:59 Glucose 174 mg/dL (65-115) H 09/04/24 04:59 POC Glucose 192 mg/dL (70-110) H 09/04/24 06:26 Estimat Average Glucose 280 09/02/24 15:15 Hemoglobin A1c 11.4 % (4.0-6.0) H 09/02/24 15:15 Calculated Osmolality 293 mOsm/kg (285-295) 09/04/24 04:59 Lactic Acid 5.2 mmol/L (0.5-2.2) H* 09/02/24 15:15 Lactic Acid (Sepsis) 2.2 mmol/L (0.5-2.2) 09/02/24 17:55 Calcium 9.0 mg/dL (8.5-10.5) 09/04/24 04:59 Phosphorus 3.9 mg/dL (2.5-4.5) 09/04/24 04:59 Magnesium 1.5 mg/dL (1.7-2.3) L 09/04/24 04:59 Iron 43 ug/dL (37-145) 09/02/24 15:15 TIBC 278 mcg/dl 09/02/24 15:15 % Saturation 15.4 % (20-50) L 09/02/24 15:15 Unsat Iron Binding 235 ug/dL (112-347) 09/02/24 15:15 Total Bilirubin 0.2 mg/dL (0.15-1.2) 09/04/24 04:59 AST 8 U/L (0-32) 09/04/24 04:59 ALT 7 U/L (0-33) 09/04/24 04:59 Alkaline Phosphatase 108 U/L (35-105) H 09/04/24 04:59 C-Reactive Protein 47.0 mg/L (0.0-4.9) H 09/02/24 15:15 Total Protein 6.6 g/dL (6.6-8.7) 09/04/24 04:59 Albumin 3.2 g/dL (3.5-5.2) L 09/04/24 04:59 Globulin 3.4 g/dL (1.3-4.6) 09/04/24 04:59 Triglycerides 506 mg/dL (0-150) H 09/03/24 02:50 Cholesterol 118 mg/dL (0-200) 09/03/24 02:50 LDL Cholesterol Direct 33 mg/dL (0-100) 09/03/24 02:50 LDL Cholesterol, Calc Not Reportable 09/03/24 02:50 HDL Cholesterol 28 mg/dL (60-100) L 09/03/24 02:50 LDL/HDL Ratio Not Reportable 09/03/24 02:50 Cholesterol/HDL Ratio 4.21 mg/dL (0.0-4.40) 09/03/24 02:50 Lipase 83 U/L (13-60) H 09/02/24 15:15 Vitamin B12 316 pg/mL (232-1245) 09/02/24 15:15 Folate 12.2 ng/mL (4.8-37.3) 09/03/24 02:50 Procalcitonin 0.11 ng/mL (0-0.5) 09/03/24 02:50 TSH 1.48 uIU/mL (0.27-4.20) 09/02/24 15:15 Urine Color Yellow (Yellow) 09/03/24 22:06 Urine Appearance Clear (CLEAR) 09/03/24 22:06 Urine pH 5.5 (5-7) 09/03/24 22:06 Ur Specific [employer] [facility] 1.034 (1.005-1.030) H 09/03/24 22:06 Urine Protein Trace (Negative) A 09/03/24 22:06 Urine Glucose (UA) 2+ (Normal) H 09/03/24 22:06 Urine Ketones Negative (Negative) 09/03/24 22:06 Urine Blood Negative (Negative) 09/03/24 22:06 Urine Nitrate Negative (Negative) 09/03/24 22:06 Urine Bilirubin Negative (Negative) 09/03/24 22:06 Urine Urobilinogen 0.2 mg/dL (Negative) 09/03/24 22:06 Ur Leukocyte Esterase Negative (Negative) 09/03/24 22:06 Urine RBC 0-2 /hpf (0-2) 09/03/24 22:06 Urine WBC 0-5 /hpf (0-5) 09/03/24 22:06 Ur Squamous Epith Cells 0-5 /hpf (0-5) 09/03/24 22:06 Amorphous Sediment Not Reportable 09/03/24 22:06 Urine Bacteria None seen /hpf (NONE) 09/03/24 22:06 Hyaline Casts 0.81 /lpf 09/03/24 22:06 Nasal MRSA (PCR) Not detected (Not Detecte) 09/02/24 20:58 Serum Ketones Negative (Negative) 09/02/24 15:15 Vitals Last Vital Signs Temp 97.5 F L 09/04/24 07:34 Pulse 70 09/04/24 07:34 Resp 16 09/04/24 07:34 BP 156/63 09/04/24 07:34 Pulse Ox 97 09/04/24 07:34 O2 Del Method Room Air 09/04/24 07:34 Discharge Plan Discharge Patient Disposition: Home Condition: Stable Prescriptions: New aspirin 81 mg Tablet,Delayed Release (Dr/Ec) 81 mg PO DAILY 30 Days Qty: 30 0RF glimepiride 2 mg Tablet 2 mg PO BIDAC 30 Days Qty: 60 0RF insulin glargine [Lantus Solostar U-100 Insulin] 100 unit/mL (3 mL) insulin pen 60 unit SUBCUT BID Qty: 15 0RF (DME) lancets Misc See Rx Instructions .ROUTE .MEDSUPPLY Qty: 100 0RF Rx Instructions: As directed (DME) 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 meter [Blood Glucose Monitoring] Kit See Rx Instructions .ROUTE .MEDSUPPLY Qty: 1 0RF Rx Instructions: As directed insulin lispro [Humalog KwikPen Insulin] 100 unit/mL insulin pen See Protocol SUBCUT TID Qty: 15 0RF Protocol: Insulin Corrective High-Dose Regimen Condition: Fingerstick Blood Glucose Dose/Route: Insulin Units Condition: 141-180 mg/dl Dose/Route: 4 units/SQ Condition: 181-220 mg/dl Dose/Route: 6 units/SQ Condition: 221-260 mg/dl Dose/Route: 8 units/SQ Condition: 261-300 mg/dl Dose/Route: 10 units/SQ Condition: 301-350 mg/dl Dose/Route: 12 units/SQ Condition: 351-400 mg/dl Dose/Route: 14 units/SQ Condition: greater than 400 mg/dl Dose/Route: 16 units/SQ Continued (DME) Dexcom G7 [employer] Professional Misc See Rx Instructions .Route Qty: 1 0RF Rx Instructions: As directed (DME) Cam boot See Rx Instructions .Route .MEDSUPPLY Qty: 1 0RF Rx Instructions: As directed (DME) Dexcom G7 Sensor Device See Rx Instructions .ROUTE .COMPLEX Qty: 9 1RF Dose Instruction: USE DIRECTED Rx Instructions: USE DIRECTED acetaminophen [Tylenol Extra Strength] 500 mg Tablet 1,000 mg PO Q6H PRN (Reason: Fever Or Pain) metformin 1,000 mg tablet See Rx Instructions .ROUTE .COMPLEX Qty: 180 0RF Dose Instruction: TAKE TWO TABLETS BY MOUTH at bedtime Rx Instructions: TAKE TWO TABLETS BY MOUTH at bedtime (DME) pen needle, diabetic 32 gauge x 3/16 needle See Rx Instructions .Route Qty: 120 3RF Rx Instructions: As directed Changed atorvastatin 40 mg tablet 20 mg PO DAILY Qty: 90 1RF Dose Instruction: TAKE ONE TABLET BY MOUTH EVERY DAY lisinopril 20 mg tablet 40 mg PO DAILY Qty: 90 3RF pregabalin [Lyrica] 75 mg capsule 75 mg PO BID Qty: 270 0RF Discontinued tirzepatide 7.5 mg/0.5 mL pen injector 7.5 mg SUBCUT Q7D Qty: 2 3RF insulin glargine [Lantus Solostar U-100 Insulin] 100 unit/mL (3 mL) insulin pen 70 unit SUBCUT DAILY 30 Days Qty: 15 2RF Discharge Orders: Discharge Order (Routine); Ordered 09/04/24 Ordered By: Femi Ash Referrals: Margot Jimenez NP [Nurse Practitioner, Family Practice] - 09/17/24 1:00 pm Referral Note: Please Bring Insurance cards/ financial investment adviser applications. You will have to private pay for the 1st visit $110. If you are not able to make the appointment, call in advance to cancel. Agapito Soria FNP [Nurse Practitioner, Wound Care] - 1 week Referral Note: Wound care will call with an appointment. Chemo Ayala MD [Physician, Endocrinology] - 09/11/24 10:00 am Discharge Diet: Diabetic Discharge Activity: Resume usual activity and Increase activity as tolerated Patient Instructions: Type 2 Diabetes, Diabetes and Diet, Glimepiride (By mouth), Insulin Glargine (By injection), Insulin Lispro (By injection), Foot Care for People with Diabetes (GEN), Hypoglycemia in a Person with Diabetes (DC), How to Give a Subcutaneous Injection (GEN), Meal Planning with the Plate Method (GEN), Acute Wound Care (GEN), Opioid Safety Activity Restrictions/Additional Instructions: Please check your blood sugars daily at home and maintain a blood sugar diary. Follow-up with a primary care provider in 2 weeks for further adjustment of antidiabetic medications. For now take Lantus 60 units twice daily along with Premeal insulin as per sliding scale provided to you. Target Fasting blood sugar- less than 120, Premeals- less than 140 Sliding scale is as follows: Protocol: Insulin Corrective medium-Dose Regimen Condition: Fingerstick Blood Glucose Dose/Route: Insulin Units Condition: 141-180 mg/dl Dose/Route: 4 units/SQ Condition: 181-220 mg/dl Dose/Route: 6 units/SQ Condition: 221-260 mg/dl Dose/Route: 8 units/SQ Condition: 261-300 mg/dl Dose/Route: 10 units/SQ Condition: 301-350 mg/dl Dose/Route: 12 units/SQ Condition: 351-400 mg/dl Dose/Route: 14 units/SQ Condition: greater than 400 mg/dl Dose/Route: 16 units/SQ Continue to follow-up with wound care. Discharge Attestations Time Spent in Discharge Care*: greater than 30 min Specific Discharge Activities: educating patient, educating and/or supporting family/caregiver, discussing with pcp/other providers, discussing with outsole caser/social workers/dc planners, documenting/other paperwork and evaluating patient/reviewing data Status at Discharge: Cognitive status at discharge: cognitively intact, Behavioral status at discharge: cooperative, Functional status at discharge: uses cane/walker, Overall status at discharge: patient is back to baseline Quality Metrics Clinical Quality Measures [ No reported AMI, CVA or VTE this stay] Coding Level of Care Code 91205 Total time (in minutes) for Discharge: 65 Diagnoses Uncontrolled diabetes mellitus with hyperglycemia, with long-term current use of insulin E11.65; Z79.4 Diabetic ulcer of toe of left foot associated with diabetes mellitus due to underlying condition, with fat layer exposed E08.621; L97.522 Diabetic foot ulcer location: toe Laterality: left Pseudohyponatremia R79.89
[2024-09-04] MEDS: lisinopril 20 mg Tablet 40 MG PO (08:54)
[2024-09-04] MEDS: docusate sodium 100 mg Capsule PO (08:54)
[2024-09-04] MEDS: aspirin 81 mg EC Tablet PO (08:54)
[2024-09-04] MEDS: pregabalin 75 mg Capsule PO (08:54)
[2024-09-04] MEDS: atorvastatin 40 mg Tablet PO (08:54)
[2024-09-04] MEDS: insulin lispro 100 unit/1 mL SUBCUT ×2 (08:55→13:21)
[2024-09-04] MEDS: glimepiride 2 mg Tablet PO (08:55)
[2024-09-04] MEDS: insulin glargine 100 units/1 mL 60 UNIT SUBCUT (10:50)
[2024-09-04 11:32] LABS: Glucose Point of Care 307 mg/dL (70-110)
--- NOTE | 2024-09-04 14:07 | PM.PN ---
Subjective Subjective: Patient seen bedside this afternoon, anticipating discharge home with wound care follow-up. Completed MRI left foot. Vitals/I&O/Wt Last Vital Signs Temp 98.2 F 09/04/24 11:35 Pulse 87 09/04/24 11:35 Resp 18 09/04/24 11:35 BP 148/76 09/04/24 11:35 Pulse Ox 98 09/04/24 11:35 O2 Del Method Room Air 09/04/24 11:35 09/03/24 09/04/24 09/04/24 22:59 06:59 14:59 Intake Total 1000 / 1300 250 / 1550 240 / 240 Output Total 200 / 200 700 / 700 Balance 800 / 1100 250 / 1350 -460 / -460 Weight last 48 hrs Weight 200 lb Weight 199 lb 8.293 oz Weight 190 lb Physical Exam Narrative: Const: COMMON NORMALS: no acute distress, patient oriented x3 and alert HENMT: COMMON NORMALS: normocephalic HEAD & SCALP: normocephalic Eye: COMMON NORMALS: Equal, round and reactive pupils present PUPIL: Yes Equal, round and reactive pupils present Resp: COMMON NORMALS: normal respiratory effort, No retractions and No use of accessory muscles Cardio: COMMON NORMALS: regular rate RATE: regular rate Extremity: COMMON NORMALS: no calf tenderness and no pedal edema GENERAL: Yes deformity Neuro: COMMON NORMALS: patient oriented x3 SENSORIUM/ORIENTATION: Yes alert SENSORY EXAM: Yes extremities MONOFILAMENT EXAM PERFORMED: Yes MOTOR EXAM: 5/5 motor strength present throughout Psych: COMMON NORMALS: cooperative Skin: NARRATIVE SKIN EXAM: Wound exposed myofascial layer subfirst metatarsal head left foot measures 1.9 cm x 1.7 cm x 0.3 cm with fibrogranular base does not probe to bone, tunnel or undermine. Geographic ulcerations with surrounding erythema and atrophic skin with decreased texture and turgor, serous weeping bilateral legs. Ulcers are well-demarcated with violaceous/purple-red undermined border some grayish and yellow slough ulcerations have variants in size and are localized at lower one third of bilateral leg. Patient has pain to palpation at several of the wounds mostly at the right leg. WOUNDS: Yes wounds noted NAILS: discolored, dystrophic and yellow and thickened Data 09/04/24 04:59 09/04/24 04:59 Micro: Microbiology 09/02/24 19:37 Blood Culture - Preliminary Blood NEGATIVE TO DATE 09/02/24 19:30 Blood Culture - Preliminary Blood NEGATIVE TO DATE A&P Assessment and plan (1) Ulcerative pyoderma gangrenosum: Leading differential diagnosis pyoderma gangrenosum bilateral legs. Will treat with 0.05% clobetasol twice daily. (2) Non-pressure chronic ulcer of other part of left foot with necrosis of muscle: Plan Left foot CT scan with and without contrast negative for osteomyelitis. MRI left foot shows early osteotomize versus degenerative changes to tibial sesamoid. Will offload with cam boot, wound dressing of Santyl, saline moistened gauze, Kerlix to be changed once daily. Bilateral leg ulcerations leading diagnosis is pyoderma gangrenosum will treat with topical steroid clobetasol 0.05% twice daily and monitor her response. Lower suspicion of venous stasis ulcers and low suspicion of arterial ulcer. Wound does not extend to bone subfirst metatarsal head left foot, low clinical suspicion of osteomyelitis. Will monitor with wound care follow-up and serial x-ray. 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
== END 2024-09-04 15:30 | disposition home or self-care (01) | DRG 638 ==
LOC: ER 16:40 → ICU 17:00 → MEDSURG 09-03 15:25
PROVIDERS: Emergency Medicine; Admitting Provider Student in an Organized Health Care Education/Training Program; Emergency Provider Family Medicine; Visit Provider Student in an Organized Health Care Education/Training Program
DX: E11.65 Type 2 diabetes mellitus with hyperglycemia (principal); L88 Pyoderma gangrenosum; E11.621 Type 2 diabetes mellitus with foot ulcer; L97.523 Non-pressure chronic ulcer of other part of left foot with necrosis of muscle; I10 Essential (primary) hypertension; T50.916A Underdosing of multiple unspecified drugs, medicaments and biological substances, initial encounter; F32.A Depression, unspecified; E78.00 Pure hypercholesterolemia, unspecified; Z91.141 Patient's other noncompliance with medication regimen due to financial hardship; Z59.71 Insufficient health insurance coverage; Z79.4 Long term (current) use of insulin; Z79.84 Long term (current) use of oral hypoglycemic drugs; Z86.0100 Personal history of colon polyps, unspecified
CPT/HCPCS: 36415; 36416; 36600; 71045; 73630; 73700; 73701; 73720; 80051; 80053; 80061; 81001; 82009; 82330; 82607; 82746; 82805; 82962; 83036; 83540; 83550; 83605; 83690; 83721; 83735; 84100; 84145; 84443; 85025; 85651; 86140; 87040; 93306; 93925; 93970; 94664; 96361; 96365; 96372; 96375; 96376; 97161; 97760; 99285; J1644; J1815; J2470; J7030; J9999; L4361

== ENCOUNTER 2024-11-30 10:41 | Observation (INO) | payer BC, OTHER, MEDICAID, SELFPAY ==
[2024-11-30] VITALS (7 sets, daily range): BP systolic 130–167; BP diastolic 67–86; PULSE 61–100; RESP 16–17; TEMP 36.6–36.9; O2SAT 96–98; BMI 37.5; BMI 38.0
--- OUTSIDE RECORDS SUMMARY | 2024-11-30 10:48 | XMS_ITS | Clinical Summary ---
Author Organization [employer] [facility] Address [address] Attn: Epic Prelude ADT JACINTA RONQUILLO [id number] Care Team Providers Care Transformation Architect Name Role Phone Unavailable Primary Care Provider Unavailabl e Immunizations Immunization Administration Dates Next Due (TDVAX)(7 YRS UP) TETANUS AN D DIPHTHERIA TOXOIDS, ADSORBED (2 LF OF TETANUS TOXOID AND 2 LF OF DIPHTHERIA TOXOID), 0.5ML (PF), IM 10/16/2004 Social History Tobacco Use Types Packs/Day Years Used Date Smoking Tobacco: Never Assessed Comments Unknown Sex and Gender Information Value Date Recorded Sex Assigned at Not on file Legal Sex Female 2:40 AM PATIENT CARE PROVIDER Gender Identity Not on file Sexual Orientation Not on file Plan of Treatment Health Maintenance Due Date Last Done Comments HEPATITIS B VACCINES (1 of 3 - 19+ 3-dose series) 06/07 HPV/Cotest (21-29) 06/16/1988 CERVICAL CANCER SCREENING 06/16/1997 HPV/Cotest (30-65) 06/16/1997 PAP SMEAR 06/16/1997 DTAP/TDAP/TD VACCINES (1 - Tdap) 10/17/2004 10/17/19 05 BREAST CANCER SCREENING 2007 COLORECTAL SCREENING 06/16/2012 Colorectal Cancer Screening 06/16/2012 FIT-DNA Q 3 years 06/16/2012 FIT/FOBT Q 1 year 06/16/2012 Flex Sig/CT Colonography Q 5 years 06/16/2012 ZOSTER VACCINE (1 of 2) 06/16/2017 INFLUENZA VACCINE (#1) 2024
--- OUTSIDE RECORDS SUMMARY | 2024-11-30 10:48 | XMS_ITS | Encounter Summary ---
Author Organization [facility] Address [address] [place] [address] Care Team Providers Care Patient Attendant Name Role Phone Unavailable Primary Care Provider Unavailabl e Encounter Details Date Type Department Care Team (Latest Contact Info) Description 09/23/2002 Outpatient Historical [facility] Kurt Mina MD [address] [place] [address] CONTUSION OF FINGER (Primary Dx) Social History Tobacco Use Types Packs/Day Years Used Date Smoking Tobacco: Never Assessed Comments Unknown Sex and Gender Information Value Date Recorded Sex Assigned at Not on file Legal Sex Female 2:40 AM 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
--- NOTE | 2024-11-30 10:59 | XRR_ITS ---
PROCEDURE INFORMATION: Exam: XR Right Foot Exam date and time: 11/30/2024 11:19 AM Age: 59 years old Clinical indication: Pain; Foot; Right; Additional info: Gangrenous wound to ant/lateral distal right foot; Eval for gas/necrotizing features; Diabetes TECHNIQUE: Imaging protocol: Radiologic exam of the right foot. Views: 1 or 2 views. COMPARISON: CT lower leg RT wo con* [id number] 09/02/2024 7:44 PM FINDINGS: Bones/joints: No acute fracture. No dislocation. Soft tissues: Mild soft tissue swelling at the level of the proximal hindfoot/ankle. XR/XR foot RT 2V [id number] IMPRESSION: 1. No acute fracture or dislocation. 2. Mild soft tissue swelling involving the proximal hindfoot/ankle.
[2024-11-30 11:32] LABS: Hematocrit 32.0 % (36-47); Hemoglobin 10.40 g/dL (11.27-16.99); Mean Corpuscular HGB Conc 32.5 g/dL (30-55); Mean Corpuscular Hemoglobin 30.2 pg (27-33); Mean Corpuscular Volume 93.0 fl (85-98); Nucleated Red Blood Cells % 0 %; Platelet Count 302 10^3/cmm (157-399); Red Blood Count 3.44 10^6/uL (3.85-5.65); White Blood Count 12.97 10^3/uL (3.29-11.43)
--- NOTE | 2024-11-30 11:42 | W.ED.WOUNDLC ---
HPI - Wound/Laceration General: Chief Complaint: Wound/Laceration Stated Complaint: urgent care sent, wounds on both feet Time Seen by Provider: 11/30/24 10:45 History of Present Illness: HPI: Patient with a history of poorly controlled insulin-dependent diabetes and chronic diabetic foot wounds presented emergency department for worsening wound on the right lower extremity. States that is worsening over the last 24 hours. States that previously there is no wound on that right lower extremity over the last 24 hours. States lost her wound care appointments after she lost her insurance in the spring and has not been going to any foot examinations for these wounds. No fevers, sweats, or chills. Patient states that her right lower extremity is extremely red, purulent, and she has noticed this since taking a shower last night. REVIEW OF SYSTEMS: 10 systems reviewed and otherwise unremarkable except for those noted in HPI. PHYSCIAL EXAM: Triage vital signs reviewed Gen: A&O NAD HEENT: NCAT, EOMI, not icteric. External ears normal. No rhinorrhea. Moist mucous membranes. Neck: Supple, full range of motion, no observable masses, No meningeal sign. Lungs: No Respiratory distress. CV: RRR, no edema. Abdomen: Soft, nondistended, No rebound tenderness. MSK: No joint swelling, no redness. Skin: Right foot with granulation tissue and purulent soft tissue infection from the interdigital space between 1 and 2 toes to the lateral aspect of the foot with chronic ulcers of the ankles. Some granulation tissue present. Erythema and induration streaking up to the ankle. Neuro: Normal Gait, Grossly intact. Psych: Appropriate for situation. PROCEDURES: N/A Related Data Home Medications ?Medication ?Instructions ?Recorded ?Confirmed acetaminophen 500 mg tablet 1,000 mg PO Q6H PRN Fever Or Pain 09/03/24 11/30/24 (Tylenol Extra Strength) atorvastatin 40 mg tablet 40 mg PO DAILY 11/30/24 11/30/24 insulin glargine 100 unit/mL (3 80 unit SUBCUT QAM 11/30/24 11/30/24 mL) subcutaneous pen (Lantus Solostar U-100 Insulin) insulin lispro 100 unit/mL See Rx Instructions .Route .COMPLEX 11/30/24 11/30/24 subcutaneous pen (Humalog KwikPen (U-100) Insulin) metformin 1,000 mg tablet 2,000 mg PO BEDTIME 11/30/24 11/30/24 Previous Rx's ?Medication ?Instructions ?Recorded 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,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,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 #1 ea 10/29/23 (Dexcom G7 Hand Cooper Helper) Cam boot #1 ea 01/21/24 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 meter (Blood Glucose #1 ea 09/04/24 Monitoring kit) lancets #100 ea 09/04/24 lisinopril 20 mg tablet 40 mg (2 x 20 mg) PO DAILY #90 tabs 09/04/24 pen needle, diabetic 32 gauge x #120 ea 09/04/24/16 duloxetine 20 mg capsule,delayed 20 mg PO DAILY #30 caps 09/17/24 release 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 sensor (Dexcom G7 #9 ea 10/14/24 Sensor device) pregabalin 75 mg capsule (Lyrica) 75 mg PO BID #180 caps 10/21/24 Allergies Allergy/AdvReac Type Severity Reaction Status Date / Time No Known Allergies Allergy Verified 11/30/24 10:15 [facility] ED PFSH: Medical History (Updated 11/30/24 @ 11:55 by Herminio Potts MD) Depression Colon polyp Duodenitis Gastritis Screening for colon cancer Breast mass Epigastric pain Diabetes mellitus High cholesterol Hypertension Surgical History History of incision and drainage chest wound History of tubal ligation History of colonoscopy with polypectomy (~11/2020) History of esophagogastroduodenoscopy (EGD) (~11/2020) History of delivery Family History Father Cancer Mother Thyroid disease Other Dementia Diverticulitis Lupus Screening for colon cancer Denies family history of Thyroid cyst Diabetes CAD (coronary artery disease) Bleeding disorder Social History Smoking and tobacco/nicotine status: never used tobacco/nicotine Alcohol intake: never Substance/Drug Use: never Household members: none Current occupational status: employed Current occupation: [employer] Vital Signs: Vital signs: Vital Signs Temperature 97.9 F 11/30/24 10:50 Pulse Rate 98 11/30/24 10:50 Respiratory Rate 16 11/30/24 10:50 Blood Pressure 141/86 11/30/24 10:50 Pulse Oximetry 98 11/30/24 10:50 Oxygen Delivery Me thod Room Air 11/30/24 10:50 MDM - Wound/Laceration Medical Decision Making MEDICAL DECISION MAKING: Differential diagnoses considered but not limited to: Sepsis, diabetic foot ulcer, occult osteomyelitis, necrotizing skin or soft tissue infection. Vitals nonactionable. Given history, examination, and pretest risk factors, patient will require inpatient wound care and IV antibiotics. Leukocytosis on initial triage heart rate 98. Consulted Dr. Cordon who will round on the patient as an inpatient. Dr. Emmanuel will admit the patient. Antibiotics and blood cultures pending from the emergency room. DISPO: Admission hospitalist Herminio Potts MD Staff physician, [facility] Emergency Department [phone] Lab Data 11/30/24 11:22 11/30/24 11:22 Radiology Impressions Foot X-Ray 11/30/24 10:59 IMPRESSION: 1. No acute fracture or dislocation. 2. Mild soft tissue swelling involving the proximal hindfoot/ankle. Laboratory Results WBC 12.97 10^3/uL (3.29-11.43) H 11/30/24 11:22 RBC 3.44 10^6/uL (3.85-5.65) L 11/30/24 11:22 Hgb 10.40 g/dL (11.27-16.99) L 11/30/24 11:22 Hct 32.0 % (36-47) L 11/30/24 11:22 MCV 93.0 fl (85-98) 11/30/24 11:22 MCH 30.2 pg (27-33) 11/30/24 11:22 MCHC 32.5 g/dL (30-55) 11/30/24 11:22 RDW 14.6 % (12.1-15.1) 11/30/24 11:22 Plt Count 302 10^3/cmm (157-399) 11/30/24 11:22 MPV 9.8 fL (7.4-10.4) 11/30/24 11:22 Neut % (Auto) 71.0 % 11/30/24 11:22 Lymph % (Auto) 21.1 % 11/30/24 11:22 [place] % (Auto) 5.9 % 11/30/24 11:22 Eos % (Auto) 1.2 % 11/30/24 11:22 Baso % (Auto) 0.2 % 11/30/24 11:22 Neut # (Auto) 9.20 10^3/uL (1.8-7.7) H 11/30/24 11:22 Lymph # (Auto) 2.7 10^3/uL (0.8-4.8) 11/30/24 11:22 [place] # (Auto) 0.8 10^3/uL (0.2-0.9) 11/30/24 11:22 Eos # (Auto) 0.2 10^3/uL (0.0-0.8) 11/30/24 11:22 Baso # (Auto) 0.0 10^3/uL (0.0-0.1) 11/30/24 11:22 Nucleated RBC % (auto) 0 % 11/30/24 11:22 Nucleated RBCs # 0.0 /100WBC 11/30/24 11:22 Sodium 134 mmol/L (136-145) L 11/30/24 11:22 Potassium 4.9 mmol/L (3.5-5.1) 11/30/24 11:22 Chloride 99 mmol/L (98-107) 11/30/24 11:22 Carbon Dioxide 22 mmol/L (22-29) 11/30/24 11:22 Anion Gap 17.9 (5-19) 11/30/24 11:22 BUN 22 mg/dL (6-20) H 11/30/24 11:22 Creatinine 0.9 mg/dL (0.5-0.9) 11/30/24 11:22 GFR Calculation 64.5 mL/min (90-130) L 11/30/24 11:22 Glucose 325 mg/dL (65-115) H 11/30/24 11:22 Calculated Osmolality 294 mOsm/kg (285-295) 11/30/24 11:22 Lactic Acid 1.8 mmol/L (0.5-2.2) 11/30/24 11:22 Calcium 9.1 mg/dL (8.5-10.5) 11/30/24 11:22 Total Bilirubin 0.3 mg/dL (0.15-1.2) 11/30/24 11:22 AST 10 U/L (0-32) 11/30/24 11:22 ALT 13 U/L (0-33) 11/30/24 11:22 Alkaline Phosphatase 130 U/L (35-105) H 11/30/24 11:22 Total Protein 8.3 g/dL (6.6-8.7) 11/30/24 11:22 Albumin 3.8 g/dL (3.5-5.2) 11/30/24 11:22 Globulin 4.5 g/dL (1.3-4.6) 11/30/24 11:22 All radiology interpretation(s) finalized by discharge Discharge Plan Discharge Patient Disposition: Placed in Observation Clinical Impression: Diabetic foot ulcer Qualifiers: Diabetic foot ulcer location: midfoot Diabetes mellitus type: other specified (including JAGDEEP) Laterality: right Non-pressure ulcer stage: with other severity Qualified Code(s): E13.621 - Other specified diabetes mellitus with foot ulcer Coding Level of Care Code ED Surveillance Dual Rate Officer for Makayla Young
[2024-11-30 11:48] LABS: Lactic Sepsis W/Reflex 1.8 mmol/L (0.5-2.2)
[2024-11-30 11:49] LABS: Alanine Aminotransferase 13 U/L (0-33); Albumin Level 3.8 g/dL (3.5-5.2); Alkaline Phosphatase 130 U/L (35-105); Anion Gap 17.9 (5-19); Aspartate Amino Transferase 10 U/L (0-32); Blood Urea Nitrogen 22 mg/dL (6-20); Calcium 9.1 mg/dL (8.5-10.5); Carbon Dioxide 22 mmol/L (22-29); Chloride 99 mmol/L (98-107); Creatinine Clr Calc Pharmacy 76.1078; Globulin 4.5 g/dL (1.3-4.6); Glucose 325 mg/dL (65-115); Osmolality Calculated 294 mOsm/kg (285-295); Potassium 4.9 mmol/L (3.5-5.1); Sodium 134 mmol/L (136-145); Total Protein 8.3 g/dL (6.6-8.7)
[2024-11-30] MEDS: meropenem 1,000 mg SDV 1000 MG IVP ×2 (12:15→21:38)
--- NOTE | 2024-11-30 12:15 | PC.PHAR ---
Pt states Aspirin 81mg daily and Glimepiride 2mg bid were filled one time 09/04/24 and pt did not refill when they were gone.
--- NOTE | 2024-11-30 12:28 | P.HP_ITS ---
Providers/Chief Complaint 2 Admitting Physician: Femi Ash MD Primary Care Provider: Margot Jimenez NP Chief Complaint: urgent care sent, wounds on both feet History of Present Illness Bre Sierra is a 59 year old female with past medical history of uncontrolled type 2 diabetes mellitus, chronic leg wounds, hypertension presents to the ER today with concern for purulent discharge, discoloration on the right foot going from the second toe all the way to fifth toe which as per patient she noticed for the first time yesterday while taking bath. Denies any nausea, vomiting. She was in the hospital with the wound on the other foot back in August after which she had followed up with wound care only twice but could not follow any further because of lack of insurance. On previous admission there was concern for pyoderma gangrenosum for which she was sent home on Clobetasol which she states she used for 1 month and after that she ran out of medications. Hospitalist services consulted further recommendations. In the ER patient has received 1 dose of IV vancomycin, foot x-ray has been done. Have requested patient to be given IV meropenem for gram-negative coverage given history of ESBL E. coli infection, have requested for podiatry consultation. Review of Systems 2 General: Reports: 10 or more systems reviewed and unremarkable except in HPI and below Const: Denies: fever(s), chills, body aches, change in appetite, change in weight, malaise, night sweats, diaphoresis, change in sleep pattern, daytime sleepiness or snoring Eyes: Denies: change in vision, blurry vision, photophobia, eye discomfort or eye discharge ENMT: Denies: throat pain, enlarged tonsils, hoarseness, mouth pain, oral sores, dry mouth, tinnitus, nasal congestion or post nasal drip Card: Denies: chest pain, palpitations, irregular heart rhythm, edema, swelling of feet/ankles, lightheadedness, syncope, pre-syncope, dyspnea on exertion, orthopnea, leg pain with exertion or acrocyanosis Resp: Denies: dyspnea, productive cough, non-productive cough, wheezing, stridor, pain on inspiration, change in phlegm color, hemoptysis or chest congestion GI: Denies: abdominal pain, nausea, vomiting, hematemesis, coffee ground emesis, dysphagia, heartburn, diarrhea, constipation, bloating, GI cramping, change in bowel habits, pain on defecation, hematochezia or melena : Denies: flank pain, dysuria, urinary frequency, urinary urgency, urinary hesitancy, nocturia or hematuria Musc: Denies: neck pain, back pain, extremity pain, joint pain, joint swelling, joint redness, joint stiffness or limited range of motion Neuro: Denies: headache(s), numbness in extremities, weakness in extremities, sensory changes, lack of coordination, difficulty walking, frequent falls, dizziness, vertigo, confusion, Slurred speech present, difficulty communicating thoughts or seizure-like activity Psych: Denies: anxiety, depression, mood swings, panic attacks, hopelessness or irritability Endo: Denies: polyuria, polydipsia, tired all the time, cold intolerance, excessive sweating, flushing or heat intolerance Aden/Lymph: Denies: easy bruising or easy bleeding All/Imm: Denies: tongue swelling, facial swelling or acute wheezing Medications/Allergies Home Medications ?Medication ?Instructions ?Recorded ?Confirmed ?Last Taken ?Type 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,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,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 #1 ea 10/29/23 11/30/24 Un known Rx (Dexcom G7 Train Gate Attendant) Cam boot #1 ea 01/21/24 11/30/24 Unkn own Rx acetaminophen 500 mg tablet 1,000 mg PO Q6H PRN Fever Or Pain 09/03/24 11/30/24 09/01/24 History (Tylenol Extra Strength) 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 meter (Blood Glucose #1 ea 09/04/2411/08 Unknown Rx Monitoring kit) lancets #100 ea 09/04/24 11/30/24 Un known Rx lisinopril 20 mg tablet 40 mg (2 x 20 mg) PO DAILY # 90 tabs 09/04/24 11/30/24 11/29/24 Rx pen needle, diabetic 32 gauge x #120 ea 09/04/2411/30 Unknown Rx 06/22 duloxetine 20 mg capsule,delayed 20 mg PO DAILY #30 ca ps 09/17/24 11/30/24 11/29/24 Rx release 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 sensor (Dexcom G7 #9 ea 10/14/24 5 Unknown Rx Sensor device) pregabalin 75 mg capsule (Lyrica) 75 mg PO BID #180 ca ps 10/21/24 11/30/24 11/29/24 Rx atorvastatin 40 mg tablet 40 mg PO DAILY 11/30/2411/0811/29/24 History insulin glargine 100 unit/mL (3 80 unit SUBCUT QAM 11/30/24 11/29/24 History mL) subcutaneous pen (Lantus Solostar U-100 Insulin) insulin lispro 100 unit/mL See Rx Instructions .Route .COMPLEX 11/30/24 11/30/24 11/29/24 History subcutaneous pen (Humalog KwikPen (U-100) Insulin) metformin 1,000 mg tablet 2,000 mg PO BEDTIME 11/30/24 11/30/24 11/29/24 History Allergies Allergy/AdvReac Type Severity Reaction Status Date / Time No Known Allergies Allergy Verified 11/30/24 10:15 PFSH Acute 2 PFSH: Medical History (Updated 11/30/24 @ 11:55 by Herminio Potts MD) Depression Colon polyp Duodenitis Gastritis Screening for colon cancer Breast mass Epigastric pain Diabetes mellitus High cholesterol Hypertension Surgical History History of incision and drainage chest wound History of tubal ligation History of colonoscopy with polypectomy (~11/2020) History of esophagogastroduodenoscopy (EGD) (~11/2020) History of delivery Family History Father Cancer Mother Thyroid disease Other Dementia Diverticulitis Lupus Screening for colon cancer Denies family history of Thyroid cyst Diabetes CAD (coronary artery disease) Bleeding disorder Social History Smoking and tobacco/nicotine status: never used tobacco/nicotine Alcohol intake: never Substance/Drug Use: never Household members: none Current occupational status: employed Current occupation: [employer] Vitals/I&O/Wt Last Vital Signs Temp 97.9 F 11/30/24 10:50 Pulse 98 11/30/24 10:50 Resp 16 11/30/24 10:50 BP 141/86 11/30/24 10:50 Pulse Ox 98 11/30/24 10:50 O2 Del Method Room Air 11/30/24 10:50 Weight last 48 hrs Weight 96.162 kg Physical Exam 2 Narrative: General: No acute distress, AO x3 HEENT: PERRLA, pupils bilaterally equal and reactive Chest: Normal vesicular breath sounds, no added sounds, equal good air entry bilaterally CVS: S1-S2 regular, no murmurs, no tachycardia, no gallops, no rubs Abdomen: Soft, nontender, no organomegaly, bowel sounds present Neuro: No focal deficits, no facial deformity, AO x3, power 5/5 in all limbs Skin: OTHER: On admission Right foot on admission Data 11/30/24 11:22 11/30/24 11:22 Micro: Microbiology 11/30/24 11:20 Blood Culture - Preliminary Blood SPECIMEN COLLECTED 11/30/24 11:22 Blood Culture - Preliminary Blood SPECIMEN COLLECTED A&P Assessment and plan 1. Diabetic ulcer of foot associated with diabetes mellitus due to underlying condition, with fat layer exposed: Foot x-ray negative for bony involvement. Check ESR, CRP. Patient might need further imaging but will await podiatry recommendation. Podiatry consulted from the ER. Patient most likely will need further debridement. Will request cultures. Blood culture sent in the ER. Follow. Continue with empiric IV meropenem and vancomycin. Patient has history of ESBL E. coli infection. Wound care as per podiatry team. 2. Uncontrolled diabetes mellitus with hyperglycemia, with long-term current use of insulin: Recheck A1c. Lantus 60 units twice daily, sliding scale. Last admission patient was discharged on insulin and glimepiride. Will monitor blood sugars and most likely will restart glimepiride. 3. Hypertension: Goal blood pressure less than 140/90 mmHg. Continue with home dose of lisinopril. Plan: Pyoderma gangrenosum: Does have superficial healing ulcers on bilateral calfs and shins. Seems to be improving since previous admission. Will restart clobetasol. Full code Carb consistent diet Protonix OPD prophylaxis Heparin 5000 every 12 hourly for DVT prophylaxis PDMP PDMP Reviewed: Not Reviewed Attestations 2 Medical Necessity Statement*: Admission for more than 2 midnights for management of diabetic foot ulcer requiring debridement in a patient with uncontrolled type 2 diabetes mellitus Diagnoses Diabetic ulcer of foot associated with diabetes mellitus due to underlying condition, with fat layer exposed E08.621; L97.502 Uncontrolled diabetes mellitus with hyperglycemia, with long-term current use of insulin E11.65; Z79.4 Hypertension I10
[2024-11-30 14:25] LABS: Procalcitonin 0.39 ng/mL (0-0.5)
[2024-11-30 16:13] LABS: Estmated Average Glucose 249; Hemoglobin A1C 10.3 % (4.0-6.0)
[2024-11-30] MEDS: heparin 5,000 unit/mL INJ 1 mL 5000 UNIT SUBCUT (16:32)
--- OUTSIDE RECORDS SUMMARY | 2024-11-30 16:34 | XMS_ITS | Encounter Summary ---
Author Organization [facility] Address [address] [place] [address] Care Team Providers Care Stopboard Assembler Name Role Phone Unavailable Primary Care Provider Unavailabl e Encounter Details Date Type Department Care Team (Latest Contact Info) Description 09/23/2002 Outpatient Historical [facility] Kurt Mina MD [address] [place] [address] CONTUSION OF FINGER (Primary Dx) Social History Tobacco Use Types Packs/Day Years Used Date Smoking Tobacco: Never Assessed Comments Unknown Sex and Gender Information Value Date Recorded Sex Assigned at Not on file Legal Sex Female 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
--- OUTSIDE RECORDS SUMMARY | 2024-11-30 16:34 | XMS_ITS | Clinical Summary ---
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
--- NOTE | 2024-11-30 16:37 | PHA.VACGOAL ---
Vancomycin Goal - Goal Vancomycin Goal:: 10-15 mg/L Vancomycin Indication:: SSTI - Therapy Current therapy:: Meropenem Day of therpy:: Day [1]of [] . Actual body weight (kg): 96.162 kg - Data Labs: WBC 12.97 10^3/uL (3.29-11.43) H 11/30/24 11:22 RBC 3.44 10^6/uL (3.85-5.65) L 11/30/24 11:22 Hgb 10.40 g/dL (11.27-16.99) L 11/30/24 11:22 Hct 32.0 % (36-47) L 11/30/24 11:22 MCV 93.0 fl (85-98) 11/30/24 11:22 MCH 30.2 pg (27-33) 11/30/24 11:22 MCHC 32.5 g/dL (30-55) 11/30/24 11:22 RDW 14.6 % (12.1-15.1) 11/30/24 11:22 Sodium 134 mmol/L (136-145) L 11/30/24 11:22 Potassium 4.9 mmol/L (3.5-5.1) 11/30/24 11:22 Chloride 99 mmol/L (98-107) 11/30/24 11:22 Carbon Dioxide 22 mmol/L (22-29) 11/30/24 11:22 Anion Gap 17.9 (5-19) 11/30/24 11:22 BUN 22 mg/dL (6-20) H 11/30/24 11:22 Creatinine 0.9 mg/dL (0.5-0.9) 11/30/24 11:22 GFR Calculation 64.5 mL/min (90-130) L 11/30/24 11:22 Treatment plan:: new consult Regimen:: New start vancomycin for Diabetic ulcer of foot associated with diabetes mellitus. Foot x-ray negative for bony involvement. 1500 mg dose given in the ER. Maintenance dose of 1000 mg q12h started.
--- NOTE | 2024-11-30 17:52 | PM.CONSULT ---
Providers/Reason For Consult Consulting Physician/Specialty*: Art Cordon D.P.M./podiatry Reason for Consult*: Bilateral lower extremity wounds. Attending Physician: Femi Ash MD Primary Care Provider: Margot Jimenez NP History of Present Illness History of Present Illness Bre Sierra is a 59 year old insulin-dependent female A1c 10.3 admitted to the hospital service from emergency department for cellulitis and new onset of wound to the right foot. Patient states that she is unaware of how the wound began but she noticed a new wound yesterday morning and that just prior to that things were normal, states after getting out of the shower she saw brown color changes to the top of her right foot extending to the toes and went to urgent care who directed her to emergency room. She was found to have elevated white count, ESR and CRP all elevated, x-ray was negative. Of note patient had a recent hospitalization with pyoderma gangrenosum to the lower extremities as well as a diabetic ulceration to her left foot, she did not seek wound care follow-up after hospital discharge due to a lapse in her insurance coverage, states that she reapplied for insurance and that it will be active next week. Review of Systems General: Reports: 10 or more systems reviewed and unremarkable except in HPI and below Const: Denies: fever(s) or chills Eyes: Denies: change in vision Card: Denies: chest pain or palpitations Resp: Denies: dyspnea or productive cough GI: Denies: abdominal pain, nausea or vomiting : Denies: flank pain Musc: Reports: extremity swelling, joint stiffness and deformity Skin/Breast: Reports: erythema, sores, changes in skin color, dry skin, nail changes and change in hair Neuro: Reports: numbness in extremities, sensory changes and difficulty walking Psych: Denies: suicidal ideation Endo: Denies: change in body appearance Aden/Lymph: Denies: tender lymph nodes Medications/Allergies Home Medications ?Medication ?Instructions ?Recorded ?Confirmed ?Last Taken ?Type 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,rig welder,cont #1 ea 10/29/23 11/30/24 Unknown Rx (Dexcom G7 Pinion Polisher) Cam boot #1 ea 01/21/24 11/30/24 Unknown Rx acetaminophen 500 mg tablet 1,000 mg PO Q6H PRN Fever Or Pain 09/03/24 11/30/24 09/01/24 History (Tylenol Extra Strength) 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 meter (Blood Glucose #1 ea 09/04/24 11/30/24 Unknown Rx Monitoring kit) lancets #100 ea 09/04/24 11/30/24 Unknown Rx lisinopril 20 mg tablet 40 mg (2 x 20 mg) PO DAILY #90 tabs 09/04/24 11/30/24 11/29/24 Rx pen needle, diabetic 32 gauge x #120 ea 09/04/24 11/30/24 Unknown Rx 3/16 duloxetine 20 mg capsule,delayed 20 mg PO DAILY #30 caps 09/17/24 11/30/24 11/29/24 Rx release 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 sensor (Dexcom G7 #9 ea 10/14/24 11/30/24 Unknown Rx Sensor device) pregabalin 75 mg capsule (Lyrica) 75 mg PO BID #180 caps 10/21/24 11/30/24 11/29/24 Rx atorvastatin 40 mg tablet 40 mg PO DAILY 11/30/24 11/30/24 11/29/24 History insulin glargine 100 unit/mL (3 80 unit SUBCUT QAM 11/30/24 11/30/24 11/29/24 History mL) subcutaneous pen (Lantus Solostar U-100 Insulin) insulin lispro 100 unit/mL See Rx Instructions .Route .COMPLEX 11/30/24 11/30/24 11/29/24 History subcutaneous pen (Humalog KwikPen (U-100) Insulin) metformin 1,000 mg tablet 2,000 mg PO BEDTIME 11/30/24 11/30/24 11/29/24 History Allergies Allergy/AdvReac Type Severity Reaction Status Date / Time No Known Allergies Allergy Verified 11/30/24 10:15 Current Medications Generic Name Dose Route Start Last Admin Trade Name Freq PRN Reason Stop Dose Admin Heparin Sodium (Porcine) 5,000 unit 11/30/24 16:30 11/30/24 16:32 Heparin 5,000 Unit/Ml Inj 1 Ml SUBCUT 5,000 unit Q8H JAJA Administration Meropenem 1,000 mg 11/30/24 12:00 11/30/24 12:15 Meropenem 1,000 Mg Sdv IVP 1,000 mg Q8H JAJA Administration Protocol PFSH Acute PFSH: Medical History (Updated 12/01/24 @ 18:13 by Art Cordon DPM) Depression Colon polyp Duodenitis Gastritis Screening for colon cancer Breast mass Epigastric pain Diabetes mellitus High cholesterol Hypertension Surgical History History of incision and drainage chest wound History of tubal ligation History of colonoscopy with polypectomy (~11/2020) History of esophagogastroduodenoscopy (EGD) (~11/2020) History of delivery Family History Father Cancer Mother Thyroid disease Other Dementia Diverticulitis Lupus Screening for colon cancer Denies family history of Thyroid cyst Diabetes CAD (coronary artery disease) Bleeding disorder Social History Smoking and tobacco/nicotine status: never used tobacco/nicotine Alcohol intake: never Substance/Drug Use: never Household members: none Current occupational status: employed Current occupation: [employer] Female Reproductive History: Date of last menstrual period: 12/04/17 Vitals/I&O/Wt Last Vital Signs Temp 97.9 F 11/30/24 10:50 Pulse 76 11/30/24 17:18 Resp 16 11/30/24 10:50 BP 137/78 11/30/24 17:18 Pulse Ox 96 11/30/24 17:18 O2 Del Method Room Air 11/30/24 17:26 Weight last 48 hrs Weight 215 lb Weight 212 lb Physical Exam Narrative: GENERAL: Patient is alert and oriented ?3 and in no acute distress. The following is a focused bilateral lower extremity exam. VASCULAR: Dorsalis pedis palpable bilaterally. Posterior tibial arteries palpable. Capillary refill time less than 3 seconds to the distal hallux bilaterally. Calf is supple and nontender proximally and distally. NEUROLOGICAL: Protective sensation intact 0/10 sites, tested with [place] Rubi monofilament to bilateral feet. DERMATOLOGICAL: Wound 1: Exposed to myofascial layer located subfirst metatarsal head of left foot has hyperkeratotic rim and fibrogranular base measures 2 cm x 1.5 cm x 0.3 cm does not probe to bone, no tunneling or undermining, no periwound erythema warmth or purulent drainage. Wound 2: Unstageable wound at the dorsum of the right lateral distal forefoot with macerated 2, 3, 4, wound has fibrin base and epithelialized margin with surrounding erythema streaking to the level of the midfoot. Additional wounds: Geographic ulcerations and atrophic skin with decreased texture and turgor, serous weeping bilateral legs, leg ulcerations are well-demarcated with violaceous/purple-red undermined border with some mattson and yellow slough, ulcerations have variations in size and are located at the lower one third of left and right leg. MUSCULOSKELETAL: No pain to palpation at wounds secondary to neuropathy. No soft tissue crepitus left and right foot ulcerations. Muscle strength graded +5 in all 3 planes bilateral foot and ankle. Data 12/01/24 05:39 12/01/24 05:39 Micro: Microbiology 11/30/24 11:20 Blood Culture - Preliminary Blood SPECIMEN COLLECTED 11/30/24 11:22 Blood Culture - Preliminary Blood SPECIMEN COLLECTED A&P Assessment and plan 1. Uncontrolled diabetes mellitus with hyperglycemia, with long-term current use of insulin: 2. CKD stage 3 secondary to diabetes: 3. Non-pressure chronic ulcer of other part of left foot with necrosis of muscle: PROCEDURE: Full thickness wound debridement Location: Left foot subfirst metatarsal head Local Anesthesia: none due to neuropathy Consent: Verbal Sterile Prep: with alcohol Details: Full thickness sharp debridement of the wound was performed using sterile dermal curette. The wound was debrided of hyperkeratotic rim and devitalized and fibrotic tissue down to myofascial layer, being the deepest level of debridement. Predebridement measurements: 2 cm x 1.5 cm x 0.3 cm Postdebridement measurements: 2. 1 cm x 1. 8 cm x 0.3 cm Hemostasis: Pressure Irrigation: sterile saline Dressing: Santyl, gauze, Kerlix, Coban. Estimated Blood Loss: minimal Offloading: Cam boot 4. Cellulitis of right foot: Right foot x-ray negative for acute osseous injury no soft tissue emphysema or foreign body, 11/30/2024. Leukocytosis, elevated sed rate and CRP on admission, cellulitis right foot recommend IV antibiotics empirically and monitor response. No plans for surgical debridement at this time. 5. Pyoderma gangrenosum: Leading differential diagnosis pyoderma gangrenosum bilateral legs. Will treat with 0.05% clobetasol twice daily. Plan: Plan: Wound debridement left foot as above down to myofascial layer, offload with cam boot. Right and left foot wounds dressed with Santyl, saline moistened gauze, Kerlix to be changed once daily. Bilateral leg ulcerations leading diagnosis is pyoderma gangrenosum will treat with topical steroid clobetasol 0.05% twice daily and monitor her response. Podiatry will follow and monitor response to IV antibiotics and the above wound care regimen. No plans for surgical intervention at this time. PDMP PDMP Reviewed: Not Reviewed Coding Level of Care Code Acute Code for Chg Fwd Diagnoses Uncontrolled diabetes mellitus with hyperglycemia, with long-term current use of insulin E11.65; Z79.4 CKD stage 3 secondary to diabetes E11.22; N18.30 Non-pressure chronic ulcer of other part of left foot with necrosis of muscle L97.523 Cellulitis of right foot L03.115 Pyoderma gangrenosum L88
[2024-11-30] MEDS: clotrimazole-betamethasone cream 15gm 1 APPLIC TOPICAL ×2 (18:22→21:39)
--- NOTE | 2024-11-30 18:37 | PC.NURSE ---
Wounds covered with maxabsorb on right foot and hydrafera blue on bottom of right foot approved by Dr. Cordon. Dr. Cordon to write orders for santyl for right foot and orders for left foot.
[2024-11-30] MEDS: insulin glargine 100 units/1 mL 60 UNIT SUBCUT (21:38)
[2024-12-01] MEDS: heparin 5,000 unit/mL INJ 1 mL 5000 UNIT SUBCUT ×2 (00:25→08:28)
[2024-12-01 04:00] VITALS: BP 154/79; PULSE 86; RESP 17; TEMP 36.8
[2024-12-01] MEDS: meropenem 1,000 mg SDV 1000 MG IVP ×3 (04:48→19:44)
[2024-12-01 06:28] LABS: Hematocrit 31.3 % (36-47); Hemoglobin 9.80 g/dL (11.27-16.99); Mean Corpuscular HGB Conc 31.3 g/dL (30-55); Mean Corpuscular Hemoglobin 29.7 pg (27-33); Mean Corpuscular Volume 94.8 fl (85-98); Nucleated Red Blood Cells % 0 %; Platelet Count 306 10^3/cmm (157-399); Red Blood Count 3.30 10^6/uL (3.85-5.65); White Blood Count 9.99 10^3/uL (3.29-11.43)
[2024-12-01 06:45] LABS: Alanine Aminotransferase 10 U/L (0-33); Albumin Level 3.4 g/dL (3.5-5.2); Alkaline Phosphatase 109 U/L (35-105); Anion Gap 17.3 (5-19); Aspartate Amino Transferase 9 U/L (0-32); Blood Urea Nitrogen 17 mg/dL (6-20); Calcium 9.1 mg/dL (8.5-10.5); Carbon Dioxide 23 mmol/L (22-29); Chloride 101 mmol/L (98-107); Creatinine Clr Calc Pharmacy 98.5639; Globulin 3.9 g/dL (1.3-4.6); Glucose 159 mg/dL (65-115); Magnesium 2.1 mg/dL (1.7-2.3); Osmolality Calculated 289 mOsm/kg (285-295); Potassium 4.3 mmol/L (3.5-5.1); Sodium 137 mmol/L (136-145); Total Protein 7.3 g/dL (6.6-8.7)
[2024-12-01 06:52] LABS: Procalcitonin 0.22 ng/mL (0-0.5)
[2024-12-01 07:44] VITALS: BP 163/82; PULSE 89; RESP 16; TEMP 36.8; O2SAT 94
[2024-12-01] MEDS: insulin glargine 100 units/1 mL 60 UNIT SUBCUT ×2 (08:27→19:44)
[2024-12-01] MEDS: clotrimazole-betamethasone cream 15gm 1 APPLIC TOPICAL ×3 (08:34→19:44)
--- NOTE | 2024-12-01 09:59 | PC.CHAP ---
Pastoral Care Encounter/Spiritual Assessment Type of Contact [] Declined roll weigher visit [] Patient/Family/Request visit [] Outpatient visit [] Follow-up visit [] Physician referral [] Code/Alert [x] Routine visit [] Staff referral [] Actively dying [x] Patient sleeping [] Family support [] [] Out of room [] Palliative care [] [] Receiving care in room [] Pre-surgical visit [] Trauma [] Long length of stay [] ICU visit [] Other: Relational/Emotional Strength [] Patient feels connected with others/family/visitors/staff [] Distress [] Loneliness/isolation [] Abandonment Spirituality of Patient [] Person of Sammie [] Attends Pentecostal of their Sammie [] Believes in Prayer [] Reads Bible or Mandaen materials [] There are Spiritual issues to be addressed Special Education Itinerant Teacher Interventions [x] Prayer [] Active listening [] Non-anxious presence [] Spiritual/emotional support [] Crisis/trauma care [] Spiritual counseling [] Bereavement support [] Provided bereavement packet [] Provided Bible/devotional materials [] Provided toy/stuffed animal, coloring book to patient or family member [] Provided Communion [] Anointing/Liguori [] Salvation [] Completed spiritual assessment [] Other: Impact on Illness or Injury [] Angry [] Fearful [] Anxious [] Often cries [] Exhaustion [] Unable to work [] Unable to attend hinduism [] Unable to walk/stand [] Unable to read [] Unable to drive [] Unable to eat/drink [] Unable to sleep [] Unable to be with family [] Patient intubated [] Other: Summary Time spent with patient
[2024-12-01 11:16] VITALS: BP 155/79; PULSE 93; RESP 15; TEMP 36.9; O2SAT 93
--- NOTE | 2024-12-01 12:35 | P.PN_ITS ---
Subjective 2 Subjective: Seen this morning. No acute events overnight. Vitals/I&O/Wt Last Vital Signs Temp 98.5 F 12/01/24 11:16 Pulse 93 12/01/24 11:16 Resp 15 12/01/24 11:16 BP 155/79 12/01/24 11:16 Pulse Ox 93 12/01/24 11:16 O2 Del Method Room Air 12/01/24 11:16 11/30/24 12/01/24 12/01/24 22:59 06:59 14:59 Intake Total 1600 / 1600 450 / 2050 240 / 240 Output Total 200 / 200 100 / 300 Balance 1400 / 1400 350 / 1750 240 / 240 Weight last 48 hrs Weight 97.432 kg Weight 97.522 kg Weight 96.162 kg Physical Exam 2 Narrative: General: No acute distress, AO x3 HEENT: PERRLA, pupils bilaterally equal and reactive Chest: Normal vesicular breath sounds, no added sounds, equal good air entry bilaterally CVS: S1-S2 regular, no murmurs, no tachycardia, no gallops, no rubs Abdomen: Soft, nontender, no organomegaly, bowel sounds present Neuro: No focal deficits, no facial deformity, AO x3, Extremities: Diabetic wounds on plantar surface of left foot and forefoot.. Data 12/01/24 05:39 12/01/24 05:39 Micro: Microbiology 11/30/24 11:20 Blood Culture - Preliminary Blood NEGATIVE TO DATE 11/30/24 11:22 Blood Culture - Preliminary Blood NEGATIVE TO DATE A&P Assessment and plan 1. Diabetic ulcer of foot associated with diabetes mellitus due to underlying condition, with fat layer exposed: Foot x-ray negative for bony involvement. Check ESR, CRP. Patient might need further imaging but will await podiatry recommendation. Podiatry consulted from the ER. Patient most likely will need further debridement. Will request cultures. Blood culture sent in the ER. Follow. Continue with empiric IV meropenem and vancomycin. Patient has history of ESBL E. coli infection. Wound care as per podiatry team. 2. Uncontrolled diabetes mellitus with hyperglycemia, with long-term current use of insulin: Recheck A1c. Lantus 60 units twice daily, sliding scale. Last admission patient was discharged on insulin and glimepiride. Will monitor blood sugars and most likely will restart glimepiride. 3. Hypertension: Goal blood pressure less than 140/90 mmHg. Continue with home dose of lisinopril. Plan: Pyoderma gangrenosum: Does have superficial healing ulcers on bilateral calfs and shins. Seems to be improving since previous admission. Will restart clobetasol. Full code Carb consistent diet Protonix OPD prophylaxis Heparin 5000 every 12 hourly for DVT prophylaxis 12/01/2024 Podiatry consulted. Await recommendations Continue IV meropenem vancomycin. Wound care at discharge Blood cultures pending. Continue tight blood sugar control. PDMP PDMP Reviewed: Not Reviewed Attestations 2 Medical Necessity Statement*: Diabetic foot infection. Diagnoses Diabetic ulcer of foot associated with diabetes mellitus due to underlying condition, with fat layer exposed E08.621; L97.502 Uncontrolled diabetes mellitus with hyperglycemia, with long-term current use of insulin E11.65; Z79.4 Hypertension I10
[2024-12-01 15:45] VITALS: BP 163/83; PULSE 91; RESP 17; TEMP 36.9; O2SAT 97
--- NOTE | 2024-12-01 16:49 | P.PN_ITS ---
Subjective 2 Subjective: Patient seen bedside this afternoon for dressing change, denies any acute events overnight. Patient denies any subjective nausea, vomiting, fever, chills, shortness of breath or chest pain. Vitals/I&O/Wt Last Vital Signs Temp 98.5 F 12/01/24 15:45 Pulse 91 12/01/24 15:45 Resp 17 12/01/24 15:45 BP 163/83 12/01/24 15:45 Pulse Ox 97 12/01/24 15:45 O2 Del Method Room Air 12/01/24 15:45 12/01/24 12/01/24 12/01/24 06:59 14:59 22:59 Intake Total 450 / 2050 730 / 730 Output Total 100 / 300 Balance 350 / 1750 730 / 730 Weight last 48 hrs Weight 214 lb 12.8 oz Weight 215 lb Weight 212 lb Physical Exam 2 Narrative: GENERAL: Patient is alert and oriented ?3 and in no acute distress. The following is a focused bilateral lower extremity exam. VASCULAR: Dorsalis pedis palpable bilaterally. Posterior tibial arteries palpable. Capillary refill time less than 3 seconds to the distal hallux bilaterally. Calf is supple and nontender proximally and distally. NEUROLOGICAL: Protective sensation intact 0/10 sites, tested with [place] Rubi monofilament to bilateral feet. DERMATOLOGICAL: Wound 1: Exposed to myofascial layer located subfirst metatarsal head of left foot has hyperkeratotic rim and fibrogranular base measures 2 cm x 1.5 cm x 0.3 cm does not probe to bone, no tunneling or undermining, no periwound erythema warmth or purulent drainage. Wound 2: Unstageable wound at the dorsum of the right lateral distal forefoot with macerated 2, 3, 4, wound has fibrin base and epithelialized margin with surrounding erythema streaking to the level of the midfoot. Additional wounds: Geographic ulcerations and atrophic skin with decreased texture and turgor, serous weeping bilateral legs, leg ulcerations are well- demarcated with violaceous/purple-red undermined border with some mattson and yellow slough, ulcerations have variations in size and are located at the lower one third of left and right leg. MUSCULOSKELETAL: No pain to palpation at wounds secondary to neuropathy. No soft tissue crepitus left and right foot ulcerations. Muscle strength graded +5 in all 3 planes bilateral foot and ankle. Data 12/01/24 05:39 12/01/24 05:39 Micro: Microbiology 11/30/24 11:20 Blood Culture - Preliminary Blood NEGATIVE TO DATE 11/30/24 11:22 Blood Culture - Preliminary Blood NEGATIVE TO DATE A&P Assessment and plan 1. Uncontrolled diabetes mellitus with hyperglycemia, with long-term current use of insulin: 2. CKD stage 3 secondary to diabetes: 3. Non-pressure chronic ulcer of other part of left foot with necrosis of muscle: 4. Cellulitis of right foot: Right foot x-ray negative for acute osseous injury no soft tissue emphysema or foreign body, 11/30/2024. Leukocytosis, elevated sed rate and CRP on admission, cellulitis right foot recommend IV antibiotics empirically and monitor response. No plans for surgical debridement at this time. 5. Pyoderma gangrenosum: Leading differential diagnosis pyoderma gangrenosum bilateral legs. Will treat with 0.05% clobetasol twice daily. Plan: Plan: Wound debridement left foot as above down to myofascial layer, offload with cam boot. Right and left foot wounds dressed with Santyl, saline moistened gauze, Kerlix to be changed once daily. Bilateral leg ulcerations leading diagnosis is pyoderma gangrenosum will treat with topical steroid clobetasol 0.05% twice daily and monitor her response. Podiatry will follow and monitor response to IV antibiotics and the above wound care regimen. No plans for surgical intervention at this time. PDMP PDMP Reviewed: Not Reviewed Attestations 2 Medical Necessity Statement*: Requires continued IV antibiotics empirically for cellulitis right lower extremity. Coding Level of Care Code Acute Code for Chg Fwd Diagnoses Uncontrolled diabetes mellitus with hyperglycemia, with long-term current use of insulin E11.65; Z79.4 CKD stage 3 secondary to diabetes E11.22; N18.30 Non-pressure chronic ulcer of other part of left foot with necrosis of muscle L97.523 Cellulitis of right foot L03.115 Pyoderma gangrenosum L88
[2024-12-01 19:48] VITALS: BP 146/78; PULSE 88; RESP 15; TEMP 37.2; O2SAT 98
[2024-12-02] VITALS: BP 152/76; PULSE 82; RESP 15; TEMP 36.9; O2SAT 95
[2024-12-02] MEDS: heparin 5,000 unit/mL INJ 1 mL 5000 UNIT SUBCUT (00:37)
[2024-12-02 04:00] VITALS: BP 142/74; PULSE 76; RESP 14; TEMP 36.6; O2SAT 96
[2024-12-02] MEDS: meropenem 1,000 mg SDV 1000 MG IVP ×2 (04:48→12:05)
[2024-12-02 05:02] LABS: Hematocrit 30.4 % (36-47); Hemoglobin 9.80 g/dL (11.27-16.99); Mean Corpuscular HGB Conc 32.2 g/dL (30-55); Mean Corpuscular Hemoglobin 29.5 pg (27-33); Mean Corpuscular Volume 91.6 fl (85-98); Nucleated Red Blood Cells % 0 %; Platelet Count 327 10^3/cmm (157-399); Red Blood Count 3.32 10^6/uL (3.85-5.65); White Blood Count 8.88 10^3/uL (3.29-11.43)
[2024-12-02 05:28] LABS: Alanine Aminotransferase 9 U/L (0-33); Albumin Level 3.4 g/dL (3.5-5.2); Alkaline Phosphatase 222 U/L (35-105); Anion Gap 14.5 (5-19); Aspartate Amino Transferase 12 U/L (0-32); Blood Urea Nitrogen 13 mg/dL (6-20); Calcium 9.3 mg/dL (8.5-10.5); Carbon Dioxide 25 mmol/L (22-29); Chloride 104 mmol/L (98-107); Creatinine Clr Calc Pharmacy 98.6143; Globulin 3.9 g/dL (1.3-4.6); Glucose 115 mg/dL (65-115); Magnesium 1.9 mg/dL (1.7-2.3); Osmolality Calculated 289 mOsm/kg (285-295); Potassium 4.5 mmol/L (3.5-5.1); Sodium 139 mmol/L (136-145); Total Protein 7.3 g/dL (6.6-8.7)
[2024-12-02 07:21] VITALS: BP 159/91; PULSE 82; RESP 16; TEMP 37.2; O2SAT 96
[2024-12-02] MEDS: insulin glargine 100 units/1 mL 60 UNIT SUBCUT (07:58)
[2024-12-02] MEDS: clotrimazole-betamethasone cream 15gm 1 APPLIC TOPICAL (08:00)
--- NOTE | 2024-12-02 09:42 | PC.CHAP ---
Pastoral Care Encounter/Spiritual Assessment Type of Contact [] Declined imaging manager visit [] Patient/Family/Request visit [] Outpatient visit [] Follow-up visit [] Physician referral [] Code/Alert [x] Routine visit [] Staff referral [] Actively dying [] Patient sleeping [] Family support [] [] Out of room [] Palliative care [] [] Receiving care in room [] Pre-surgical visit [] Trauma [] Long length of stay [] ICU visit [] Other: Relational/Emotional Strength [x] Patient feels connected with others/family/visitors/staff [] Distress [] Loneliness/isolation [] Abandonment Spirituality of Patient [x] Person of Sammie [] Attends Mu-Ism of their Sammie [x] Believes in Prayer [] Reads Bible or Tenriism materials [] There are Spiritual issues to be addressed [facility] Interventions [x] Prayer [x] Active listening [x] Non-anxious presence [x] Spiritual/emotional support [] Crisis/trauma care [] Spiritual counseling [] Bereavement support [] Provided bereavement packet [] Provided Bible/devotional materials [] Provided toy/stuffed animal, coloring book to patient or family member [] Provided Communion [] Anointing/[place] [] Salvation [x] Completed spiritual assessment [] Other: Impact on Illness or Injury [] Angry [] Fearful [] Anxious [] Often cries [] Exhaustion [] Unable to work [] Unable to attend buddhist [] Unable to walk/stand [] Unable to read [] Unable to drive [] Unable to eat/drink [] Unable to sleep [] Unable to be with family [] Patient intubated [] Other: Summary Time spent with patient 5 min
--- NOTE | 2024-12-02 10:11 | PM.DCS ---
Discharge Providers Date of Admission: 11/30/24 15:55 Date of Discharge: December 02, 2024 Attending Provider at Admission: Femi Ash MD Attending Provider at Discharge: Sharita Hughes MD Primary Care Provider: Margot Jimenez NP Diagnoses at Discharge Discharge Diagnosis 1. Uncontrolled diabetes mellitus with hyperglycemia, with long-term current use of insulin: 2. CKD stage 3 secondary to diabetes: 3. Non-pressure chronic ulcer of other part of left foot with necrosis of muscle: 4. Cellulitis of right foot: 5. Pyoderma gangrenosum: Reason for Visit Reason for Visit: urgent care sent, wounds on both feet Hospital Course Hospital Course Presented to the hospital with diabetic foot ulcer with fat layer exposed with a suspicion of gangrene however podiatry consulted on the patient and deemed that this was not gangrene. The ulcer was quite superficial per podiatry. Patient was on vancomycin and IV meropenem during hospitalization. Wound care was ordered for discharge. Podiatry placed recommendations in the chart for wound care instructions post discharge. She will see Dr. Cordon in the clinic by the end of the week. She was sent home on doxycycline and Levaqui she did receive wound debridement during hospitalization. Physical Exam Narrative: General: No acute distress, AO x3 HEENT: PERRLA, pupils bilaterally equal and reactive Chest: Normal vesicular breath sounds, no added sounds, equal good air entry bilaterally CVS: S1-S2 regular, no murmurs, no tachycardia, no gallops, no rubs Abdomen: Soft, nontender, bowel sounds present Neuro: No focal deficits, no facial deformity, AO x3, Extremities: Diabetic wounds on plantar surface of left foot and forefoot. Discharge Data Studies Completed and Pending Completed Studies During Hospitalization Category Date Time Status XR foot RT 2V [id number] Stat Exams 11/30/24 10:59 Completed Pending at discharge Category Date Time Status Blood Culture Stat Lab 11/30/24 11:20 Results Complete Blood Count w/Auto AM LABS Lab 12/03/24 04:00 Ordered Comprehensive Metabolic Panel AM LABS Lab 12/03/24 04:00 Ordered Magnesium AM LABS Lab 12/03/24 04:00 Ordered Phosphorus AM LABS Lab 12/03/24 04:00 Ordered Vancomycin Trough Timed Lab 12/02/24 11:30 Ordered Radiology Impressions Foot X-Ray 11/30/24 10:59 IMPRESSION: 1. No acute fracture or dislocation. 2. Mild soft tissue swelling involving the proximal hindfoot/ankle. Laboratory Results WBC 8.88 10^3/uL (3.29-11.43) 12/02/24 04:36 RBC 3.32 10^6/uL (3.85-5.65) L 12/02/24 04:36 Hgb 9.80 g/dL (11.27-16.99) L 12/02/24 04:36 Hct 30.4 % (36-47) L 12/02/24 04:36 MCV 91.6 fl (85-98) 12/02/24 04:36 MCH 29.5 pg (27-33) 12/02/24 04:36 MCHC 32.2 g/dL (30-55) 12/02/24 04:36 RDW 14.1 % (12.1-15.1) 12/02/24 04:36 Plt Count 327 10^3/cmm (157-399) 12/02/24 04:36 MPV 9.4 fL (7.4-10.4) 12/02/24 04:36 Neut % (Auto) 60.0 % 12/02/24 04:36 Lymph % (Auto) 28.4 % 12/02/24 04:36 [place] % (Auto) 8.2 % 12/02/24 04:36 Eos % (Auto) 2.5 % 12/02/24 04:36 Baso % (Auto) 0.3 % 12/02/24 04:36 Neut # (Auto) 5.33 10^3/uL (1.8-7.7) 12/02/24 04:36 Lymph # (Auto) 2.5 10^3/uL (0.8-4.8) 12/02/24 04:36 [place] # (Auto) 0.7 10^3/uL (0.2-0.9) 12/02/24 04:36 Eos # (Auto) 0.2 10^3/uL (0.0-0.8) 12/02/24 04:36 Baso # (Auto) 0.0 10^3/uL (0.0-0.1) 12/02/24 04:36 Nucleated RBC % (auto) 0 % 12/02/24 04:36 Nucleated RBCs # 0.0 /100WBC 12/02/24 04:36 ESR 49 mm/hr (0-15) H 11/30/24 11:22 Sodium 139 mmol/L (136-145) 12/02/24 04:36 Potassium 4.5 mmol/L (3.5-5.1) 12/02/24 04:36 Chloride 104 mmol/L (98-107) 12/02/24 04:36 Carbon Dioxide 25 mmol/L (22-29) 12/02/24 04:36 Anion Gap 14.5 (5-19) 12/02/24 04:36 BUN 13 mg/dL (6-20) 12/02/24 04:36 Creatinine 0.7 mg/dL (0.5-0.9) 12/02/24 04:36 GFR Calculation 86.2 mL/min (90-130) L 12/02/24 04:36 Glucose 115 mg/dL (65-115) 12/02/24 04:36 POC Glucose 111 mg/dL (70-110) H 12/02/24 06:33 Estimat Average Glucose 249 11/30/24 11:22 Hemoglobin A1c 10.3 % (4.0-6.0) H 11/30/24 11:22 Calculated Osmolality 289 mOsm/kg (285-295) 12/02/24 04:36 Lactic Acid 1.8 mmol/L (0.5-2.2) 11/30/24 11:22 Calcium 9.3 mg/dL (8.5-10.5) 12/02/24 04:36 Phosphorus 3.7 mg/dL (2.5-4.5) 12/02/24 04:36 Magnesium 1.9 mg/dL (1.7-2.3) 12/02/24 04:36 Total Bilirubin 0.3 mg/dL (0.15-1.2) 12/02/24 04:36 AST 12 U/L (0-32) 12/02/24 04:36 ALT 9 U/L (0-33) 12/02/24 04:36 Alkaline Phosphatase 222 U/L (35-105) H 12/02/24 04:36 C-Reactive Protein 304.9 mg/L (0.0-4.9) H 11/30/24 11:22 Total Protein 7.3 g/dL (6.6-8.7) 12/02/24 04:36 Albumin 3.4 g/dL (3.5-5.2) L 12/02/24 04:36 Globulin 3.9 g/dL (1.3-4.6) 12/02/24 04:36 Procalcitonin 0.22 ng/mL (0-0.5) 12/01/24 05:39 Vitals Last Vital Signs Temp 98.9 F 12/02/24 07:21 Pulse 82 12/02/24 07:21 Resp 16 12/02/24 07:21 BP 159/91 12/02/24 07:21 Pulse Ox 96 12/02/24 07:21 O2 Del Method Room Air 12/02/24 07:21 Discharge Plan Discharge Patient Disposition: Home Condition: Stable Prescriptions: New clotrimazole-betamethasone 1-0.05 % Cream 1 applic topical TID Qty: 30 0RF doxycycline hyclate 100 mg capsule 100 mg PO BID 14 Days Qty: 28 0RF levofloxacin 750 mg tablet 750 mg PO DAILY 14 Days Qty: 14 0RF Continued (DME) Dexcom G7 Pleat Patternmaker Misc See Rx Instructions .Route Qty: 1 0RF Rx Instructions: As directed (DME) Cam boot See Rx Instructions .Route .MEDSUPPLY Qty: 1 0RF Rx Instructions: As directed duloxetine 20 mg capsule,delayed release(DR/EC) 20 mg PO DAILY Qty: 30 2RF (DME) Dexcom G7 Sensor Device See Rx Instructions .ROUTE .COMPLEX Qty: 9 1RF Dose Instruction: USE DIRECTED Rx Instructions: USE DIRECTED pregabalin [Lyrica] 75 mg capsule 75 mg PO BID Qty: 180 0RF acetaminophen [Tylenol Extra Strength] 500 mg Tablet 1,000 mg PO Q6H PRN (Reason: Fever Or Pain) (DME) lancets Misc See Rx Instructions .ROUTE .MEDSUPPLY Qty: 100 0RF Rx Instructions: As directed (DME) 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 meter [Blood Glucose Monitoring] Kit See Rx Instructions .ROUTE .MEDSUPPLY Qty: 1 0RF Rx Instructions: As directed lisinopril 20 mg tablet 40 mg PO DAILY Qty: 90 3RF (DME) pen needle, diabetic 32 gauge x 3/16 needle See Rx Instructions .Route Qty: 120 3RF Rx Instructions: As directed atorvastatin 40 mg tablet 40 mg PO DAILY metformin 1,000 mg tablet 2,000 mg PO BEDTIME insulin lispro [Humalog KwikPen Insulin] 100 unit/mL insulin pen See Rx Instructions .ROUTE .COMPLEX Protocol: Insulin Corrective High-Dose Regimen Condition: Fingerstick Blood Glucose Dose/Route: Insulin Units Condition: 141-180 mg/dl Dose/Route: 4 units/SQ Condition: 181-220 mg/dl Dose/Route: 6 units/SQ Condition: 221-260 mg/dl Dose/Route: 8 units/SQ Condition: 261-300 mg/dl Dose/Route: 10 units/SQ Condition: 301-350 mg/dl Dose/Route: 12 units/SQ Condition: 351-400 mg/dl Dose/Route: 14 units/SQ Condition: greater than 400 mg/dl Dose/Route: 16 units/SQ Rx Instructions: Inject 3 times daily per sliding scale:bs 141-180=4 units, 181-220=6 units, 221-260=8 units, 261-300=10 units, 301-350=12 units, 351-400=14 units. Greater than 400=16 units. Changed insulin glargine [Lantus Solostar U-100 Insulin] 100 unit/mL (3 mL) insulin pen 60 unit SUBCUT QAM Qty: 10 0RF Discharge Order = DC NOW: Discharge Order (Routine); Ordered 12/02/24 Ordered By: Sharita Hughes Referrals: Margot Jimenez NP [Primary Care Provider, Family Practice] - 12/16/24 10:00 am Art Cordon DPM [Physician, Podiatry] - 12/04/24 9:00 am Discharge Diet: Cardiac and Diabetic Discharge Activity: Limit activity as instructed Patient Instructions: Doxycycline (By mouth), Levofloxacin (By mouth) (Levaquin, Levaquin Leva-david), Cellulitis (GEN), Opioid Safety, Patient Portal & Jake Instructions Activity Restrictions/Additional Instructions: Instructions from Dr. Cordon/podiatry Please apply Santyl once daily to left and right foot wound, apply thickness of a nickel and dressed with gauze and Kerlix. Please apply clobetasol topical steroid to leg wounds twice daily Weightbearing as tolerated with postop shoe both feet. Follow-up in podiatry clinic with Dr. Cordon this , 12/04/2024 at 9:00 AM. Discharge Attestations Time Spent in Discharge Care*: less than 30 min Status at Discharge: Cognitive status at discharge: cognitively intact, Behavioral status at discharge: cooperative, Quality Metrics Clinical Quality Measures [ No reported AMI, CVA or VTE this stay] Coding Level of Care Code Acute Code for Chg Fwd Diagnoses Uncontrolled diabetes mellitus with hyperglycemia, with long-term current use of insulin E11.65; Z79.4 CKD stage 3 secondary to diabetes E11.22; N18.30 Non-pressure chronic ulcer of other part of left foot with necrosis of muscle L97.523 Cellulitis of right foot L03.115 Pyoderma gangrenosum L88
[2024-12-02 11:18] VITALS: BP 153/76; PULSE 89; RESP 16; TEMP 36.8; O2SAT 96
== END 2024-12-02 13:25 | disposition home or self-care (01) ==
LOC: ER 11:55 → MEDSURG 16:31
PROVIDERS: Admitting Provider Student in an Organized Health Care Education/Training Program; Emergency Provider General Practice; Visit Provider Internal Medicine
DX: L97.523 Non-pressure chronic ulcer of other part of left foot with necrosis of muscle (principal); L03.115 Cellulitis of right lower limb; L88 Pyoderma gangrenosum; E11.65 Type 2 diabetes mellitus with hyperglycemia; Z79.4 Long term (current) use of insulin; Z79.84 Long term (current) use of oral hypoglycemic drugs; F32.A Depression, unspecified; E11.22 Type 2 diabetes mellitus with diabetic chronic kidney disease; I12.9 Hypertensive chronic kidney disease with stage 1 through stage 4 chronic kidney disease, or unspecified chronic kidney disease; N18.30 Chronic kidney disease, stage 3 unspecified; K29.70 Gastritis, unspecified, without bleeding; K29.80 Duodenitis without bleeding
CPT/HCPCS: 36415; 36416; 73620; 80053; 82962; 83036; 83605; 83735; 84100; 84145; 85025; 85651; 86140; 87040; 94664; 96365; 96366; 96372; 96375; 97760; 99285; G0378; J1644; J1815; J2185; J3373; J7030; J7050; J9999; L3260

== ENCOUNTER → 2024-12-16 10:26 | Outpatient (BNVA) | payer BC, MEDICAID, SELFPAY | DX: L03.115 Cellulitis of right lower limb (principal) | CPT/HCPCS: 80053; 85025 ==

== ENCOUNTER 2024-12-29 09:45 | Outpatient (CLI) | payer OTHER, BC, MEDICAID, SELFPAY ==
--- NOTE | 2024-12-29 10:00 | MM_ITS ---
WS: [id number] BILATERAL SCREENING DIGITAL TOMOSYNTHESIS MAMMOGRAM WITH CAD HISTORY: screening COMPARISON: 12/28/2023, 12/22/2022 Bilateral CC and MLO views with tomosynthesis and synthetic mammography submitted. Computer aided detection analyzed. Breast composition: There are scattered areas of fibroglandular density. No suspicious masses, microcalcifications or architectural distortion. Benign calcifications. MM/MM scr BI tomosynthesis [id number] IMPRESSION: BI-RADS: 2 - Benign. FOLLOW UP: 1 Year Follow-up
== END 2024-12-29 09:46 | disposition home or self-care (01) ==
DX: Z12.31 Encounter for screening mammogram for malignant neoplasm of breast (principal); R92.323 Mammographic fibroglandular density, bilateral breasts; R92.1 Mammographic calcification found on diagnostic imaging of breast
CPT/HCPCS: 77063; 77067

== ENCOUNTER → 2025-02-04 11:40 | Outpatient (BNVA) | payer OTHER, BC, MEDICAID, SELFPAY | PROVIDERS: Visit Provider Surgery | DX: R22.2 Localized swelling, mass and lump, trunk (principal) | CPT/HCPCS: 88304 ==

== ENCOUNTER → 2025-03-19 16:16 | Outpatient (BNVA) | payer OTHER, BC, MEDICAID, SELFPAY | DX: F32.A Depression, unspecified (principal) | CPT/HCPCS: 84443 ==

== ENCOUNTER 2025-04-03 15:15 | Outpatient (CLI) | payer BC, MEDICAID, SELFPAY ==
--- NOTE | 2025-04-03 15:27 | MR_ITS ---
WS: [id number] MRI RIGHT SHOULDER NONCONTRAST TECHNIQUE: Sagittal T2, coronal T1, T2 and proton density imaging. Axial gradient PDE imaging. CLINICAL INFORMATION: rT SHOULDER PAIN COMPARISON: None. FINDINGS: Moderate to advanced arthritis AC joint with fluid and edema. Subacromial spurring with moderate downsloping acromion. Impingement on the underlying supraspinatus. Subacromial and subdeltoid fluid. High-grade tear of the distal supraspinatus at the insertion measuring 8 mm with a fluid-filled tendon gap. Tendinopathy supraspinatus with an additional small interstitial tear at the myotendinous junction. Infraspinatus is intact. Normal teres minor. Subscapularis tendon is intact. Biceps tendon intact within the bicipital groove. Intra-articular biceps tendon is intact. Tendinopathy intra-articular biceps tendon. Moderate to advanced degenerative narrowing glenohumeral articulation. MR/MR shoulder RT wo con* [id number] IMPRESSION: 1. Moderate to advanced degenerative arthritis AC joint with moderate downslop ing acromion. Impingement on the supraspinatus with subacromial spurring. 2. High-grade tear of the distal supraspinatus at the insertion with 8 mm of t endon retraction. 3. Small interstitial tear supraspinatus at the myotendinous junction. 4. Tendinopathy supraspinatus. Infraspinatus is intact. 5. Biceps tendon is somewhat diminutive but appears intact within the bicipita l groove. Tendinopathy intra-articular biceps tendon. 6. Moderate to advanced degenerative narrowing of the glenohumeral articulatio n.
== END 2025-04-03 15:16 | disposition home or self-care (01) ==
LOC: RAD 15:16
DX: M75.41 Impingement syndrome of right shoulder (principal); M19.011 Primary osteoarthritis, right shoulder; M75.101 Unspecified rotator cuff tear or rupture of right shoulder, not specified as traumatic
CPT/HCPCS: 73221